=== PATIENT | female | born 1960 | race Caucasian/White ===

== ENCOUNTER 2019-09-02 09:54 | Inpatient (IN) | payer OTHER ==
[~2019-09-02] VITALS: Ht 170.2 cm; Wt 57.2 kg
[2019-09-02] VITALS (11 sets, daily range): BP systolic 121–137; BP diastolic 74–93
[2019-09-02] MEDS ORDERED: BISACODYL 10 MG SUPP (DULCOLAX) PR PRN (10:30)
[2019-09-02] MEDS ORDERED: ACETAMINOPHEN 325 MG TABLET PO PRN (10:30)
[2019-09-02] MEDS ORDERED: MILK OF MAGNESIA 400 MG/5 ML 30 ML UDC PO PRN (10:30)
--- NOTE | 2019-09-02 11:31 | NUR ---
ERNESTINA SOTO admitted to room , with an admitting diagnosis of SUBACUTE CVA, on from [facility] via [facility], accompanied by [facility].ERNESTINA SOTO introduced to surroundings, call light, bed controls, phone, TV, temperature control, lights, meal times, smoking policy, visitor policy, side rail policy, bathrooms and showers. Patient Rights given to patient in the handbook. ERNESTINA SOTO verbalizes understanding that [facility] is not responsible for the loss or damage to any personal effects or valuables that are kept in the patients posession during their hospitalization. The following Patient Care Plans were discussed with the ER: Discharge Planning, ALT CEREBRAL TISSUE PERFUSION, INEFF AIRWAY CLEARANCE, IMP MOBILITY, SELF CARE DEFICIT, AND HIGH RISK ASPIRATION. ERNESTINA SOTO verbalizes understanding of Interdisciplinary Patient Education. Patient and/or family were informed about the Rapid Response Team and its purpose. PT CAME FROM [place] [facility] -- REPORT FROM SLICING MACHINE TENDER AT 1046 -- INFORMATION FROM THE PT AND HER FAMIY IS DIFFERENT -- PER FAMILY SHE HAS BEEN HAVING THE STROKE LIKE SXS FOR 3 WEEKS AND REFUSED TO GO FOR MEDICAL TX, BUT THIS AM PT COULD NOT HOLD HER CUP IN R HAND -- TOOK TO ER IN [place], PT HYGIENE VERY POOR, MALNUTRIENT?, HAS NOT SEEN IN YRS, ON NO HOME MEDS -- HAS BEEN SELLING HER PLASMA 2XWK FOR MONEY -- SMOKES 1 1/2 PACK OF CIGARETTES DAILY -- [facility] [place] AND DAUGHTER ARCENIO PERALES [phone] (PER REPORT FROM [place] SLICING MACHINE TENDER) -- DR NEFF ON FLOOR --
--- OUTSIDE RECORDS SUMMARY | 2019-09-02 11:41 | XMS REPORT | Continuity of Care Document ---
Demographics Preferred Language Unknown Marital Status Unknown Moravian Affiliation Unknown Race Unknown Ethnic Group Unknown Author Organization Unknown Address Unknown Phone Unavailable Allergies There is no data. Medications There is no data. Problems There is no data. Procedures There is no data. Results Test Result Range Comprehensive Metabolic Panel - 09/02/19 08:40 Albumin 4.6 g/dL 3.6-5.1 ALP 116 U/L 35-130 ALT 43 U/L 6-45 Anion Gap 17 6-14 AST 53 U/L 2-40 BUN 23 mg/dL 5-25 Calcium 9.7 mg/dL 8.3-10.4 Chloride 106 mmol/L 95-114 CO2 22 mEq/L 22-33 Creat 0.71 mg/dL 0.50-1.50 eGFR 84 mL/min/1.73m2 >59 Globulin 3.5 g/dL 2.3-3.5 Glucose 113 mg/dL 70-110 Osmo 293 280-295 Potassium 4.7 mmol/L 3.5-5.3 Sodium 140 mmol/L 134-148 TBil 0.3 mg/dL 0.2-1.2 TP 8.1 g/dL 6.0-8.3 Rapid Drug Screen + ETOH,Medical - 09/01 09:10 Amphetamine NEGATIVE NEGATIVE Barbiturates NEGATIVE NEGATIVE Benzodiazepines NEGATIVE NEGATIVE Cocaine NEGATIVE NEGATIVE Ethanol, Urine <10.00 mg/dL 20.00-80.00 Marijuana NEGATIVE NEGATIVE Methylenedioxymethamphetamine NEGATIVE NEGATIVE Opiates NEGATIVE NEGATIVE Oxycodone NEGATIVE NEGATIVE Phencyclidine NEGATIVE NEGATIVE Propoxyphene NEGATIVE NEGATIVE Tricyclic Antidepressant NEGATIVE NEGAT ILIA Encounters ACCT No. Visit Date/Time Discharge Status Pt. Type Provider Facility Loc./Unit Complaint [id number] 09/02/2019 08:10:00 Document Registration
[2019-09-02] MEDS: ENOXAPARIN 40 MG/0.4 ML (LOVENOX) SYR SC SCH (13:17)
[2019-09-02] MEDS: NS IV 1000 ML 1,000 ML IV SCH (13:18)
[2019-09-02] MEDS: HYDROcodone/APAP 5 MG/325 MG (LORTAB) TAB PO PRN (16:35)
--- NOTE | 2019-09-02 18:49 | History & Physical-Hospitalist ---
History of Present Illness HPI/Chief Complaint CC: CVA HPI: This is a 58yoWF who presented to the [facility] ER with unknown duration of right sided weakness. Patient has difficulty communicating due to the CVA and likely underlying other issues so very difficult to obtain extensive details. Patient was deemed not a tPA candidate and needed CVA w/u including MRI since CT scan was unrevealing and carotid USG and Cardiology evaluation. ASA and statin has been started to further risk stratify. Smoking cessation counseled. Patient donates plasma twice weekly in order to obtain income and she lives with a friend Deni. Source: patient Exam Limitations: physical impairment Date Seen 09/02/19 Time Seen by a Provider: 12:15 Attending Physician Charisse Thibodeaux DO PCP Referring Physician Date of Admission Sep 02, 2019 at 11:10 Home Medications & Allergies Home Medications Reviewed patient Home Medication Reconciliation performed by pharmacy medication reconciliations landscape technician and/or nursing. Patients Allergies have been reviewed. Allergies Allergies Coded Allergies No Known Drug Allergies (Unverified09/02/19) Past Ebibssa-Mpogdf-Towfyt Hx Past Med/Social Hx: Reviewed Nursing Past Med/Soc Hx, Reviewed and Corrections made Patient Social History Marrital Status: cohabiting Employed/Student: unemployed Alcohol Use: Denies Use Recreational Drug Use: Yes Smoking Status: Current Everyday Smoker Type Used: Cigarettes Physical Abuse Screen: No Sexual Abuse: No Recent Foreign Travel: No Contact w/other who traveled: No Recent Infectious Disease Expo: No Seasonal Allergies Seasonal Allergies: No Past Medical History : No History of Blood Disorders: No Review of Systems Constitutional: see HPI, malaise, weakness Psychiatric/Neurological: Weakness Physical Exam Physical Exam Vital Signs Vital Signs - First Documented 09/02/19 09/02/19 11:10 11:45 Temp 37.0 Pulse 89 Resp 20 B/P (MAP) 121/74 Pulse Ox 93 O2 Delivery Room Air Capillary Refill : Less Than 3 Seconds Height, Weight, BMI Height: '" Weight: lbs. oz. kg; 19.74 BMI Method: General Appearance: Anxious, Chronically ill, Cachetic, Other (appears 20+ years older than stated age) Respiratory: Chest Non Tender, Lungs Clear, Normal Breath Sounds, No Accessory Muscle Use, No Respiratory Distress Cardiovascular: Regular Rate, Rhythm, No Edema, No Gallop, No JVD, No Murmur, Normal Peripheral Pulses Neurologic/Psychiatric: Alert, phonograph cartridge assembler II-XII Norm as Tested, Abnormal Gait, Aphasia (partial), Motor Weakness (right sided weakness 1/5 right hand 2/5 right leg) Results Results/Procedures Labs Laboratory Tests 09/02/19 12:53 Patient resulted labs reviewed. Assessment/Plan Admission Diagnosis Assessment: CVA with negative CT scan at [facility] in need of CVA w/u with MRI Smoker Cachexia chronic Plan: MRI Carotid USG Dr Ruggiero consultation appreciated Tely EKG ECHO Lipid Statin ASA Admission Status: Inpatient Order (span 2 midnights) Reason for Inpatient Admission: CVA Diagnosis/Problems Diagnosis/Problems (1) CVA (cerebral vascular accident) Clinical Quality Measures DVT/VTE Risk/Contraindication: Risk Factor Score Per Nursin RFS Level Per Nursing on Admit: 4+=Very High CHARISSE THIBODEAUX DO Sep 02, 2019 18:49
--- NOTE | 2019-09-02 19:19 | Consultation-Cardiology ---
HPI-Cardiology Cardiology Consultation Date of Consultation 09/02/19 Date of Admission Time Seen by Provider: 19:15 Indication: Subacute CVA HPI 58-year-old lady, no known previous history, no previous record, sent to [facility] emergency room by her family due to progressive weakness and lethargy and right side weakness that has been progressing over the past week. Patient was transferred to the hospital in [place]. On my evaluation patient is lethargic, right hemiplegia, moving her eyes, following commands with moving her left arm, unable to communicate, she has constant gaze. Trying to move her mouth without ability of stocking. I discussed with Dr. Thibodeaux, she has been weak and unable to communicate but according to the nurse earlier today she was able to answer some questions and able to communicate with her daughter. We decided to transfer her to the intensive care unit due to deterioration in her mental status Home Medications & Allergies Allergies: Coded Allergies: No Known Drug Allergies (Unverified , 09/02/19) Home Medication List Reviewed: Yes KEP-Nglhtx-Erlzor Hx Patient Social History Marital Status: cohabiting Employed/Student: unemployed Alcohol Use: Denies Use Recreational Drug Use: Yes Smoking Status: Current Everyday Smoker Type Used: Cigarettes Recent Foreign Travel: No Recent Infectious Disease Expo: No Physical Abuse Screen: No Sexual Abuse: No Past Medical History Unable to provide past medical history Family Medical History Family Medical Hx Unable to provide family history Review of Systems-General Review of Systems Constitutional: see HPI, malaise, weakness, other (Unable to provide review of systems) Psychiatric/Neurological: Weakness Reviewed Test Results Reviewed Test Results Lab Laboratory Tests Test 09/02/19 12:53 Range/Units Creatinine 0.64 0.60-1.30 MG/DL Physical Exam Physical Exam Vital Signs Vital Signs - First Documented 09/02/19 09/02/19 11:10 11:45 Temp 37.0 Pulse 89 Resp 20 B/P (MAP) 121/74 Pulse Ox 93 O2 Delivery Room Air Capillary Refill : Less Than 3 Seconds Height, Weight, BMI Height: '" Weight: lbs. oz. kg; 19.74 BMI Method: General Appearance: Anxious, Chronically ill, Cachetic, Other (appears 20+ years older than stated age) Respiratory: Chest Non Tender, Lungs Clear, Normal Breath Sounds, No Accessory Muscle Use, No Respiratory Distress Cardiovascular: Regular Rate, Rhythm, No Edema, No Gallop, No JVD, No Murmur, Normal Peripheral Pulses Neurologic/Psychiatric: Alert, Abnormal Gait, Aphasia (partial), Motor Weakness (Right hemiplegia, unable to communicate.) A/P-Cardiology Admission Diagnosis Subacute CVA Hypertension Right hemiplegia Assessment/Plan Subacute CVA, progressively worse. Discussed with Dr. Workman will admit to the intensive care unit, I am planning to evaluate CT angiogram of the head and neck Echocardiogram showed normal LV function, prominent aorta. No significant abnormality otherwise Hypertension, monitor blood pressure, try to keep blood pressure around 150-160 systolic. Speech and evaluate swallowing study Clinical Quality Measures DVT/VTE Risk/Contraindication: Risk Factor Score Per Nursin RFS Level Per Nursing on Admit: 4+=Very High DAMON ROTH MD Sep 02, 2019 19:19
--- NOTE | 2019-09-02 19:34 | NUR ---
NOTE THAT DR ROTH REQUESTED WAS TO ROOM PT APHASIC WITH HIM -- SPENCER VILLALPANDO -- HE REQUESTED HER MOVED ICU -- ICU 7 -- NOTE THAT DR ROTH CALLED AND TALKED TODR HARRIS AND SHE IS AWARE -- THIS RN CALLED PT'S DAUGHTER AND ADVISED OF THE TRANSFER TO ICU -- SECURITY ADMINISTRATOR IS AWARE
[2019-09-02 19:46] LABS: HEMOGLOBIN 12.6 G/DL (11.5-16.0); MEAN PLATELET VOLUME 10.3 FL (7.4-10.4); RED CELL DISTRIBUTION WIDTH 14.4 % (10.0-14.5); WHITE BLOOD COUNT 12.9 10^3/uL (4.3-11.0)
[2019-09-02 19:53] LABS: ALBUMIN 4.2 GM/DL (3.2-4.5); CHLORIDE 107 MMOL/L (98-107); POTASSIUM 3.9 MMOL/L (3.6-5.0); SODIUM 138 MMOL/L (135-145)
[2019-09-02 19:54] LABS: CALCIUM 9.2 MG/DL (8.5-10.1)
[2019-09-02 19:55] LABS: GLUCOSE 100 MG/DL (70-105); TOTAL PROTEIN 7.3 GM/DL (6.4-8.2)
[2019-09-02 19:56] LABS: CARBON DIOXIDE 20 MMOL/L (21-32)
[2019-09-02 19:57] LABS: BILIRUBIN,TOTAL 0.4 MG/DL (0.1-1.0)
[2019-09-02 19:59] LABS: ALKALINE PHOSPHATASE 87 U/L (40-136); CREATININE SERUM 0.63 MG/DL (0.60-1.30); GFR ESTIMATED > 60
[2019-09-02 20:00] LABS: BUN/CREATININE RATIO 25
[2019-09-02] MEDS ORDERED: HOLD METFORMIN - RECEIVED CONTRAST 20 ML VIAL IV SCH (20:00)
[2019-09-02] MEDS ORDERED: IOHEXOL 350 MG/ML 100 ML (OMNIPAQUE 350) VIAL IV ONE (20:00)
[2019-09-02] MEDS ORDERED: NS 100 ML (IVPB) BAG IV ONE (20:00)
[2019-09-02] MEDS ORDERED: CATHETER FLUSH 10 ML SYR IV PRN (20:00)
[2019-09-02 20:02] LABS: ALANINE AMINOTRANSFERASE 35 U/L (0-55)
[2019-09-02 20:47] LABS: ABG BASE EXCESS -1.6 MMOL/L (-2.5-2.5); ABG OXYGEN SATURATION 92 % (94-100); ABG PCO2 41 MMHG (35-45); ABG PH 7.36 (7.37-7.43); ABG PO2 69 MMHG (79-93); ABG TCO2 24.2 MMOL/L (21.0-31.0); ALLENS TEST POSITIVE; INSPIRED O2 RA; PATIENT TEMP 37.2; VENTILATOR NO
--- NOTE | 2019-09-02 20:48 | Diagnostic Imaging Report ---
PROCEDURE: CT angiography of the head and CT angiography of the neck with and without contrast. TECHNIQUE: Contiguous noncontrast images were obtained from the skull base through the vertex. After intravenous contrast administration, helical CT angiography of the neck was performed. Source data was reformatted into 3D MIP projections. Delayed post contrast acquisition was also obtained. Auto Exposure Controls were utilized during the CT exam to meet ALARA standards for radiation dose reduction. INDICATION: Right-sided weakness There are no prior studies available for comparison. On the pre-intravenous contrast series there is no mass, shift of the midline or hemorrhage to suggest an acute abnormality. There is no sign of an asymmetric hyperdense vessel either. On the postcontrast images, there is no evidence for a large vessel occlusion. There is no sign of an aneurysm of the [place] of [place] either. The images through the neck show that there is some atherosclerotic plaque involving both carotid bifurcations but that there is no hemodynamically significant stenosis of the common or internal carotid arteries. The vertebral arteries were opacified and appear codominant. There is no mass or adenopathy involving the neck. Thyroid gland is generally unremarkable. The lung apices are clear but there are fairly severe emphysematous changes involving both lung apices. The bone windows show no sign of a fracture or of a destructive lesion. There is a 60-70% compression deformity of T3. This appears to be probably long-standing in nature. If further imaging is desired, however, then MRI would be recommended. IMPRESSION: 1. There is no evidence for a large vessel occlusion and there is no sign of an aneurysm of the [place] of [place]. If clinical concern regarding an acute intracranial abnormality persists, then MRI would be recommended for further study. 2. There is atherosclerotic disease involving the carotid systems, but there is no sign of hemodynamically significant stenosis of the common or internal carotid arteries. The vertebral arteries are codominant and patent. 3. There are emphysematous changes involving both lung apices. 4. There is a severe compression deformity of T3. This injury may well be chronic in nature but its age is technically indeterminate. If further imaging is desired, then MRI would be recommended. 5. These results were discussed with Dr. Ruggiero. Dictated by: Dictated on workstation # [id number]
[2019-09-03] VITALS (16 sets, daily range): BP systolic 126–147; BP diastolic 73–89
[2019-09-03 03:16] LABS: HEMOGLOBIN 14.8 G/DL (11.5-16.0); MEAN PLATELET VOLUME 9.2 FL (7.4-10.4); RED CELL DISTRIBUTION WIDTH 14.3 % (10.0-14.5); WHITE BLOOD COUNT 12.8 10^3/uL (4.3-11.0)
[2019-09-03] MEDS: NS IV 1000 ML 1,000 ML IV SCH ×2 (03:19→16:08)
[2019-09-03 03:29] LABS: CHLORIDE 107 MMOL/L (98-107); POTASSIUM 4.2 MMOL/L (3.6-5.0); SODIUM 138 MMOL/L (135-145)
[2019-09-03 03:30] LABS: ALBUMIN 4.3 GM/DL (3.2-4.5)
[2019-09-03 03:31] LABS: CALCIUM 9.5 MG/DL (8.5-10.1); TRIGLYCERIDES 329 MG/DL (<150); VLDL CHOLESTEROL 66 MG/DL (5-40)
[2019-09-03 03:32] LABS: GLUCOSE 119 MG/DL (70-105); TOTAL PROTEIN 7.4 GM/DL (6.4-8.2)
[2019-09-03 03:33] LABS: CARBON DIOXIDE 20 MMOL/L (21-32)
[2019-09-03 03:34] LABS: BILIRUBIN,TOTAL 0.4 MG/DL (0.1-1.0)
[2019-09-03 03:36] LABS: ALKALINE PHOSPHATASE 92 U/L (40-136); CHOLESTEROL 278 MG/DL (< 200); CREATININE SERUM 0.66 MG/DL (0.60-1.30); GFR ESTIMATED > 60
[2019-09-03 03:37] LABS: BUN/CREATININE RATIO 20
[2019-09-03 03:38] LABS: HDL CHOLESTEROL 57 MG/DL (40-60)
[2019-09-03 03:39] LABS: ALANINE AMINOTRANSFERASE 36 U/L (0-55)
[2019-09-03] MEDS: HYDROcodone/APAP 5 MG/325 MG (LORTAB) TAB PO PRN ×3 (07:18→20:58)
[2019-09-03] MEDS: DOCUSATE SODIUM 100 MG (COLACE) CAP PO SCH (07:50)
[2019-09-03] MEDS: ASPIRIN E.C. 325 MG (ECOTRIN) TABLET PO SCH (07:50)
[2019-09-03] MEDS: ENOXAPARIN 40 MG/0.4 ML (LOVENOX) SYR SC SCH (07:51)
--- NOTE | 2019-09-03 10:38 | Cardiology Progress Note ---
Subjective Date Seen by Provider: Sep 03, 2019 Time Seen by Provider: 10:36 Subjective/Events-last exam Patient is laying down in bed, right hemiplegia, aphagia. No change compared to yesterday Review of Systems General: No Chills, No Night Sweats; Fatigue, Malaise; No Appetite, No Other HEENT: No Head Aches, No Visual Changes, No Eye Pain, No Ear Pain, No Dysphasi a, No Sinus Congestion, No Post Nasal Drip, No Sore Throat, No Other Pulmonary: No Dyspnea, No Cough, No Pleuritic Chest Pain, No Other Cardiovascular: No: Chest Pain, Palpitations, Orthopnea, Paroxysmal Noc. Dyspnea, Edema, Lt Headedness, Other Objective-Cardiology Exam Last Set of Vital Signs Vital Signs 09/03/19 10:00 Pulse 72 Resp 15 B/P (MAP) 132/73 (92) Pulse Ox 92 O2 Delivery Room Air Capillary Refill : Less Than 3 SecondsLess Than 3 Seconds I&O Intake and Output 09/03/19 00:00 Intake Total 200 ml Output Total 875 ml Balance -675 ml Intake Oral 200 ml Output Urine Total 875 ml Daily Weight Change No No General: Alert, Moderate Distress HEENT: Atraumatic Neck: Supple, No JVD Lungs: Clear to Auscultation, Normal Air Movement Heart: Regular Rate, Normal S1, Normal S2 Abdomen: Normal Bowel Sounds, Soft Extremities: No Clubbing, No Cyanosis Skin: No Rashes, No Breakdown Neuro: Other (right hemiplegia, aphasia) Psych/Mental Status: Other (not verbal, not answering commands) Results Lab Laboratory Tests 09/02/19 12:53 09/02/19 19:35 09/03/19 03:03 A/P-Cardiology Admission Diagnosis Subacute CVA Hypertension Right hemiplegia Assessment/Plan Subacute CVA, she was transferred to the intensive care unit yesterday, still having right hemiplegia and aphagia. Not following commands, CT angiogram of the head was nondiagnostic. Consider MRI, managed by primary care physician Echocardiogram showed normal LV function, prominent aorta. No significant abnormality otherwise Hypertension, monitor blood pressure, try to keep blood pressure around 150-160 systolic. Speech and evaluate swallowing study Clinical Quality Measures DVT/VTE Risk/Contraindication: Risk Factor Score Per Nursin RFS Level Per Nursing on Admit: 4+=Very High DAMON ROTH MD Sep 03, 2019 10:38
--- NOTE | 2019-09-03 10:51 | Progress Note - Hospitalist ---
Subjective HPI/CC On Admission Date Seen by Provider: Sep 03, 2019 Time Seen by Provider: 10:00 CC: CVA HPI: This is a 58yoWF who presented to the [facility] ER with unknown duration of right sided weakness. Patient has difficulty communicating due to the CVA and likely underlying other issues so very difficult to obtain extensive details. Patient was deemed not a tPA candidate and needed CVA w/u including MRI since CT scan w as unrevealing and carotid USG and Cardiology evaluation. ASA and statin has been started to further risk stratify. Smoking cessation counseled. Patient donates plasma twice weekly in order to obtain income and she lives with a friend Deni. Subjective/Events-last exam Patient about the same Moved to ICU due to concern of evolving CVA Seems like she has behaviors with health care providers? Refuses to talk to nurses and doctors but talks to people on the phone? T3 compression fracture noted so will get MRI of that and brain tomorrow Very confusing clinical picture Review of Systems General: Fatigue Musculoskeletal: neck pain Neurological: Incoordination, Change in speech, Confusion Objective Exam Vital Signs Vital Signs Date Time Temp Pulse Resp B/P (MAP) Pulse Ox O2 Delivery O2 Flow Rate FiO2 09/03/19 15:59 36.6 79 16 137/86 (103) 90 Room Air Capillary Refill : Less Than 3 SecondsLess Than 3 Seconds General Appearance: No Apparent Distress, Anxious, Cachetic Respiratory: Chest Non Tender, Lungs Clear, Normal Breath Sounds, No Accessory Muscle Use, No Respiratory Distress Cardiovascular: Regular Rate, Rhythm, No Edema, No Gallop, No JVD, No Murmur, Normal Peripheral Pulses Neurologic/Psychiatric: Alert, Abnormal Gait, Motor Weakness Results/Procedures Lab Laboratory Tests 09/02/19 19:35 09/03/19 03:03 Patient resulted labs reviewed. Assessment/Plan Assessment and Plan Assess & Plan/Chief Complaint Assessment: Presumed CVA with negative CT scan at [facility] in need of CVA w/u with MRI Smoker Cachexia chronic Behavior issues? T3 compression fracture Plan: MRI Carotid USG Dr Ruggiero consultation appreciated Tely EKG ECHO Lipid Statin ASA MRI T-spine Diagnosis/Problems Diagnosis/Problems (1) CVA (cerebral vascular accident) (2) Compression fracture of T3 vertebra (3) Behavior disorder (4) Dysarthria (5) Leukocytosis Clinical Quality Measures DVT/VTE Risk/Contraindication: Risk Factor Score Per Nursin RFS Level Per Nursing on Admit: 4+=Very High KRYS NEFF DO Sep 03, 2019 10:51
--- NOTE | 2019-09-03 13:20 | NUR ---
Report called to OLU Gutierrez who will assume pt care on arrival to room 416. Personal belongings with pt at time of transfer.
--- NOTE | 2019-09-03 13:30 | NUR ---
Pt transferred to [facility] at this time via bed by this RN. NT at bedside on arrival.
--- NOTE | 2019-09-03 13:30 | NUR ---
this RN took over patient care at this time. patient alert and orientated and verbalized to this RN she is hungry and asked what the plan of care is. son called this RN and stated he is on his way to visit her
--- NOTE | 2019-09-03 21:13 | NUR ---
Pt does not follow commands and does not want to talk at this time. She did ask for a pain pill and can do tasks by herself. At this time she is not cooperative. Addendum: 09/03/19 at 2115 by CIERRA CERVANTES RN Amended: Links added.
[2019-09-04 00:22] VITALS: BP 146/84
[2019-09-04 04:00] VITALS: BP 150/84
[2019-09-04] MEDS: NS IV 1000 ML 1,000 ML IV SCH ×2 (05:19→20:53)
[2019-09-04 05:24] LABS: BASOPHILS % (AUTO) 0 % (0-10); EOSINOPHILS % (AUTO) 0 % (0-10); HEMATOCRIT 44 % (35-52); HEMOGLOBIN 14.6 G/DL (11.5-16.0); LYMPHOCYTES # (AUTO) 2.2 X 10^3 (1.0-4.0); LYMPHOCYTES % (AUTO) 15 % (12-44); MEAN CORPUSCULAR HEMOGLOBIN 29 PG (25-34); MEAN CORPUSCULAR HGB CONC 33 G/DL (32-36); MEAN CORPUSCULAR VOLUME 87 FL (80-99); MEAN PLATELET VOLUME 9.3 FL (7.4-10.4); MONOCYTES # (AUTO) 1.3 X 10^3 (0.0-1.0); MONOCYTES % (AUTO) 8 % (0-12); NEUTROPHILS # (AUTO) 11.5 X 10^3 (1.8-7.8); NEUTROPHILS % (AUTO) 77 % (42-75); PLATELET COUNT 342 10^3/uL (130-400); RED CELL DISTRIBUTION WIDTH 13.5 % (10.0-14.5)
[2019-09-04 05:37] LABS: ALBUMIN 4.2 GM/DL (3.2-4.5); CHLORIDE 105 MMOL/L (98-107); POTASSIUM 4.2 MMOL/L (3.6-5.0); SODIUM 136 MMOL/L (135-145)
[2019-09-04 05:38] LABS: CALCIUM 9.3 MG/DL (8.5-10.1)
[2019-09-04 05:39] LABS: GLUCOSE 120 MG/DL (70-105); TOTAL PROTEIN 7.4 GM/DL (6.4-8.2)
[2019-09-04 05:40] LABS: CARBON DIOXIDE 20 MMOL/L (21-32)
[2019-09-04 05:41] LABS: BILIRUBIN,TOTAL 0.6 MG/DL (0.1-1.0)
[2019-09-04 05:43] LABS: ALKALINE PHOSPHATASE 94 U/L (40-136); GFR ESTIMATED > 60
[2019-09-04 05:44] LABS: BUN/CREATININE RATIO 17
[2019-09-04 05:46] LABS: ALANINE AMINOTRANSFERASE 32 U/L (0-55)
[2019-09-04 06:12] LABS: ATYPICAL LYMPHOCYTES 1 %; LYMPHOCYTES % (MANUAL) 13 %; METAMYELOCYTES % 1 %; MONOCYTES % (MANUAL) 4 %; NEUTROPHILS % (MANUAL) 81 %; NUCLEATED RED BLOOD CELLS 2
[2019-09-04 06:13] LABS: HYPOCHROMASIA SLIGHT
[2019-09-04 08:00] VITALS: BP 148/98
[2019-09-04] MEDS: DOCUSATE SODIUM 100 MG (COLACE) CAP PO SCH (08:14)
[2019-09-04] MEDS: ASPIRIN E.C. 325 MG (ECOTRIN) TABLET PO SCH (08:14)
--- NOTE | 2019-09-04 10:02 | Diagnostic Imaging Report ---
PROCEDURE: US carotid duplex, bilateral. TECHNIQUE: Multiple real-time grayscale images were obtained over the carotid arteries in various projections, bilaterally. Additional spectral analysis and color Doppler duplex images were also obtained. INDICATION: CVA. There is minimal plaque in the right proximal internal carotid artery. Velocities on the right are normal. A left neck was significantly compromised due to patient positioning. The mid and distal left ICA cannot be visualized. The proximal ICA does show normal velocity. ICA to CCA ratios are normal. Both vertebral arteries demonstrate antegrade flow. IMPRESSION: No evidence of a hemodynamically significant stenosis on the right. The left mid and distal ICA were poorly visualized due to patient positioning. No significant abnormality was detected. Parameters based on the consensus panel Dan-Scale and Doppler ultrasound criteria published January 2003, Radiology, Volume 229. DOPPLER (peak systolic velocity M/S Right Left CCA 0.93 1.07 ICA Proximal 0.43 0.79 ICA Mid 0.46 NOT SEEN ICA Distal .54 NOT SEEN RATIO 0.59 0.74 ECA 0.75 0.57 VERT 0.66 0.59 Dictated by: Dictated on workstation # [id number]
--- NOTE | 2019-09-04 10:23 | Cardiology Progress Note ---
Subjective Date Seen by Provider: Sep 04, 2019 Time Seen by Provider: 10:21 Subjective/Events-last exam Patient is in bed, denies any pain, going for MRI this morning. Objective-Cardiology Exam Last Set of Vital Signs Vital Signs 09/04/19 08:00 Temp 36.2 Pulse 77 Resp 18 B/P (MAP) 148/98 (115) Pulse Ox 93 O2 Delivery Room Air Capillary Refill : Less Than 3 SecondsLess Than 3 Seconds I&O Intake and Output 09/04/19 00:00 Intake Total 450 ml Output Total 1175 ml Balance -725 ml Intake Oral 450 ml Output Urine Total 1175 ml General: Alert, Cooperative, No Acute Distress HEENT: Atraumatic Neck: Supple, No JVD Lungs: Clear to Auscultation, Normal Air Movement Heart: Regular Rate, Normal S1, Normal S2 Abdomen: Normal Bowel Sounds, Soft Extremities: No Clubbing, No Cyanosis Skin: No Rashes, No Breakdown Neuro: Other (right hemiplegia, aphasia) Results Lab Laboratory Tests 09/04/19 05:10 A/P-Cardiology Admission Diagnosis Subacute CVA Hypertension Right hemiplegia Assessment/Plan Subacute CVA, still having right hemiplegia and aphagia. Is able to answer yes or no to questions asked, CT angiogram of the head was nondiagnostic. Planning for MRI this morning. Echocardiogram showed normal LV function, prominent aorta. No significant abnormality otherwise Hypertension, monitor blood pressure, try to keep blood pressure around 150-160 systolic. HLP- started on Lipitor, continue to monitor. Speech and evaluate swallowing study Clinical Quality Measures DVT/VTE Risk/Contraindication: Risk Factor Score Per Nursin RFS Level Per Nursing on Admit: 4+=Very High KESHAV GUTIERREZ Sep 04, 2019 10:23
--- NOTE | 2019-09-04 10:33 | Physical Therapy Evaluation ---
PT Evaluation-General Medical Diagnosis Admission Date Sep 02, 2019 at 11:10 Medical Diagnosis: CVA Onset Date: Sep 02, 2019 Therapy Diagnosis Therapy Diagnosis: impaired mobility, strength, endurance Precautions Precautions/Isolations: Fall Prevention Referral Physician: Charisse Thibodeaux DO Reason for Referral: Evaluation/Treatment Medical History Pertinent Medical History: Smoking Social History Unknown, patient does not provide info for this Prior Prior Level of Function SCALE: Activities may be completed with or without assistive devices. 3-Vfqbctjcos-kltsfrs completes the activity by him/herself with no assistance from a helper. 5-Set-up or Clean-up Assistance-helper sets up or cleans up; patient completes activity. [place] assists only prior to or following the activity. 4-Supervision or Touching Assistance-helper provides verbal cues and/or touching/steadying and/or contact guard assistance as patient completes activity. Assistance may be provided throughout the activity or intermittently. 3-Partial/Moderate Assistance-helper does LESS THAN HALF the effort. [place] lifts, holds or supports trunk or limbs, but provides less than half the effort. 2-Substantial/Maximal Assistance-helper does MORE THAN HALF the effort. [place] lifts or holds trunk or limbs and provides more than half the effort. 6-Shnngshrc-vxytpz does ALL the effort. Patient does none of the effort to complete the activity. Or, the assistance of 2 or more helpers is required for the patient to complete the activity. If activity was not attempted, code reason: 7-Patient Refused. 9-Not Applicable-not attempted and the patient did not perform the activity before the current illness, exacerbation or injury. 10-Not Attempted due to Environmental Limitations-(lack of equipment, weather restraints, etc.). 88-Not Attempted due to Medical Conditions or Safety Concerns. unknown PT Evaluation-Current Subjective Patient in bed pre tx, is going to get onto MRI table and down to radiology, will assist with transfers, patient denies pain. Pt/Family Goals none stated Objective Patient Orientation: Person, Unable to Assess ROM/Strength ROM Lower Extremities WNL Strength Lower Extremities patient unable to follow directions for strength testing Transfers Roll Left to Right (QC): 1 Sit to Lying (QC): 1 Lying to Sitting/Side of Bed(Q: 1 Sit to Stand (QC): 1 Chair/Gmi-el-Spfkp Xfer(QC): 1 Patient does not attempt to assist with bed mobility or transfer or standing. She seems unable to comprehend what is happening around her. Movement in all extremities is observed though. Patient doesn't follow any directions, states she cannot move her extremities, states her weak side is the right side. Assessment/Needs Patient has impaired mobility, strength, endurance. Patient does not follow commands. Patient needs a chair or bed alarm after she gets back from MRI. Rehab Potential: Guarded PT Fci Goals Fci Goals PT Licensing Officer Goals Time Frame: Sep 11, 2019 Roll Left & Right (QC): 3 Sit to Lying (QC): 3 Lying-Sitting on Side/Bed(QC): 3 Sit to Stand (QC): 3 Chair/Hsc-vb-Xwzsp Xfer(QC): 3 PT Plan Problem List Problem List: Activity Tolerance, Functional Strength, Safety, Balance, Gait, Transfer, Bed Mobility Treatment/Plan Treatment Plan: Continue Plan of Care Treatment Plan: Bed Mobility, Education, Functional Activity Afia, Functional Strength, Gait, Safety, Therapeutic Exercise, Transfers Treatment Duration: Sep 11, 2019 Frequency: 6 times per week Estimated Hrs Per Day: .25 hour per day Patient and/or Family Agrees t: Yes Safety Risks/Education Patient Education: Transfer Techniques, Correct Positioning, Safety Issues Teaching Recipient: Patient Teaching Methods: Demonstration, Discussion Response to Teaching: Reinforcement Needed Discharge Recommendations Plan Patient will perform bed mobility and transfer training, balance and endurance training, functional strengthening, stair training, gait training, and education, to improve functional mobility and independence at home. Therapy Discharge Recommendati: Other, See Comments (NH) Time/GCodes Time In: 1010 Time Out: 1020 Total Billed Treatment Time: 10 Total Billed Treatment 1 visit TASHA HERNANDEZ PT Sep 04, 2019 10:33
--- NOTE | 2019-09-04 10:42 | Occupational Therapy Eval ---
OT Evaluation-General/PLF Medical Diagnosis Admission Date Sep 02, 2019 at 11:10 Medical Diagnosis: CVA Onset Date: Sep 02, 2019 Therapy Diagnosis Therapy Diagnosis: Decreased ADL status Precautions Precautions/Isolations: Fall Prevention Referral Physician: Charisse Thibodeaux DO Referral Reason: Activity Tolerance, Self Care, Evaluation/Treatment, Strengthening/ROM Medical History Pertinent Medical History: Smoking Additional Medical History see nursing notes. Current History Pt [place] [facility] [place] c/o R side weakness that progressed over 1 week. Reviewed History: Yes Social History Home: Single Level Current Living Status: Children (son/ daughter in law/ 19 y/o grandson) Entry Into Home: Level Entry ADL-Prior Level of Function SCALE: Activities may be completed with or without assistive devices. 4-Ni[place]uccdot-cjuumld completes the activity by him/herself with no assistance from a helper. 5-Set-up or Clean-up Assistance-helper sets up or cleans up; patient completes activity. [place] assists only prior to or following the activity. 4-Supervision or Touching Assistance-helper provides verbal cues and/or touching/steadying and/or contact guard assistance as patient completes activity. Assistance may be provided throughout the activity or intermittently. 3-Partial/Moderate Assistance-helper does LESS THAN HALF the effort. [place] lifts, holds or supports trunk or limbs, but provides less than half the effort. 2-Substantial/Maximal Assistance-helper does MORE THAN HALF the effort. [place] lifts or holds trunk or limbs and provides more than half the effort. 1-Dgyavllhi-fjdres does ALL the effort. Patient does none of the effort to complete the activity. Or, the assistance of 2 or more helpers is required for the patient to complete the activity. If activity was not attempted, code reason: 7-Patient Refused. 9-Not Applicable-not attempted and the patient did not perform the activity before the current illness, exacerbation or injury. 10-Not Attempted due to Environmental Limitations-(lack of equipment, weather restraints, etc.). 88-Not Attempted due to Medical Conditions or Safety Concerns. 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 Drive Self: No OT Current Status Subjective Pt seen in bed, head turned to L side without ability to look toward door. Pt d oes not state pain until PROM of neck. Pt agrees to OT. Pt has soft spoken voice with attention and response time variable through session. Mental Status/Objective Patient Orientation: Person, Place, Situation Attachments: IV Current Hand Dominance: Left Upper Extremity ROM B hands WFL R wrist/ elbow/ shoulder impaired- unable to complete task, no mm contraction noted though pt unable to respond to requests at times. L elbow WFL, L shoulder impaired Full ROM B shoulders to full range. Upper Extremity Coordination unable to test per pt's ability to complete requests. Upper Extremity Sensation unable to assess as pt's response time variable. Upper Extremity Strength hands WFL, though diminished strength shoulders bilaterally impaired, though pt unable to follow commands. Edema: none noted. ADL-Treatment On/Off Footwear (QC): 1 (completes EOB with PT addressing EOB balance.) Toileting Hygiene (QC): 1 (per clinical judgment.) Other Treatments Pt reponds to OT, keeping head toward L side. Pt educated on OT role. Pt unable to center neck. Pt does not c/o visual changes, able to track in all planes over multiple trials due to attention decreased. Pt completes workers compensation consultant strength testing- fair. Pt's biceps bilaterally tight, requires mm inhibition techniques to bring to full extension. Completing PROM of neck to center while completing mm inhibition to L neck mm (very tight); able to reach midline and placed pillows on L to center head; nursing notified of task to inhibit L cervical mms. Pt inconsistent with response times. Pt's eyes shut during tasks, able to be aroused and maintains eye opening throughout. MRI table brought in, PT and OT address fx mob to get on to table. PT addresses fx mob and OT UE movement and attention- pt bed mob TD. Pt sits EOB with poor trunk control. Pt transferred to table with TD, able to respond to requests at times. Pt left with techs, all needs met. Education OT Patient Education: Correct positioning, Exercise program, Progress toward Goal/Update tx plan, Transfer techniques Teaching Recipient: Patient Teaching Methods: Demonstration, Discussion Response to Teaching: Verbalize Understanding, Return Demonstration, Reinforcement Needed OT Plasma Processing Technician Goals Assisted Goals Time Frame: Sep 11, 2019 Eating (QC): 5 Oral Hygiene (QC): 5 Toileting Hygiene (QC): 3 Shower/Bathe Self (QC): 3 Upper Body Dressing (QC): 3 Lower Body Dressing (QC): 2 On/Off Footwear (QC): 2 Additional Goals: 1-Demonstrate ADL Tasks, 2-Verbalize Understanding, 3- ImproveStrength/Afia 1=Demonstrate adherence to instructed precautions during ADL tasks. 2=Patient will verbalize/demonstrate understanding of assistive devices/modifications for ADL. 3=Patient will improve strength/tolerance for activity to enable patient to perform ADL's. OT Education/Plan Problem List/Assessment Assessment: Decreased Activ Tolerance, Decreased UE Strength, Dependent Transfers, Impaired Bed Mobility, Impaired Cognition, Impaired Coordination, Impaired Funct Balance, Impaired I ADL's, Impaired Self-Care Skills, Restricted Funct UE ROM Discharge Recommendations Plan/Recommendations: Continue POC Therapy Discharge Recommendati: 24 Hour Supervision Treatment Plan/Plan of Care Treatment,Training & Education: Yes Patient would benefit from OT for education, treatment and training to promote independence in ADL's, mobility, safety and/or upper extremity function for ADL's. Plan of Care: ADL Retraining, Cognitive Retraining, Concurrent Therapy, Functio nal Mobility, Orthotic Fitting/Training, UE Funct Exercise/Act, UE Neuromus Re- Ed/Coord, Visual/Perceptual Retrain, W/C Management Training Treatment Duration: Sep 11, 2019 Frequency: 5 times per week Estimated Hrs Per Day: .25 hour per day Agreement: Yes Rehab Potential: Guarded Time/GCodes Start Time: 09:56 Stop Time: 10:24 Total Time Billed (hr/min): 28 Billed Treatment Time 1, CHARISSA DAVIS (28) CARINA WOODS OTR Sep 04, 2019 10:42
--- NOTE | 2019-09-04 11:08 | Diagnostic Imaging Report ---
PROCEDURE: MR imaging of the brain without contrast. TECHNIQUE: Multiplanar, multisequence MR imaging of the brain was performed without contrast. INDICATION: Right-sided weakness. FINDINGS: Diffusion weighted images demonstrate several areas of diffusion restriction. In particular, the medial left frontal lobe shows a moderate sized area of restriction, consistent with acute infarct. There are also smaller foci in the right anterior cerebral and posterior cerebral artery distribution in the right parafalcine and right occipital region. There is no midline shift identified. The normal expected flow-voids within the carotid siphons are seen. No acute intra-axial or extra-axial hemorrhage is detected. The corpus callosum is unremarkable. The sella and parasellar structures are unremarkable. IMPRESSION: Limited study by motion artifact. There are bilateral acute/subacute infarcts with the largest in the left frontal lobe. This may be owing to showering emboli from embolic phenomenon. No hemorrhage is seen. The results were discussed with Dr. Thibodeaux and Dr. Dc prior to this dictation. Dictated by: Dictated on workstation # [id number]
--- NOTE | 2019-09-04 11:13 | Diagnostic Imaging Report ---
INDICATION: Compression fracture. TECHNIQUE: Multiplanar MR imaging of the thoracic spine was performed. The examination is limited by motion. FINDINGS: The thoracic spinal curvature and alignment are unremarkable. There is marked anterior and central compression fracture deformity at T3. There may be slight retropulsion of the posterior T3 body cortex without significant stenosis. Otherwise, the vertebral body heights and disc spaces are maintained. There is no evidence of paraspinous hematoma. No abnormal signal is seen within the thoracic spinal cord. IMPRESSION: The examination is limited by motion but does demonstrate marked anterior and central compression deformity of the T3 vertebral body without associated marrow edema or hemorrhage. There may be slight retropulsion; however, no significant stenosis is identified and the remainder of the thoracic spine is unremarkable. Dictated by: Dictated on workstation # [id number]
[2019-09-04] MEDS ORDERED: ACET-2267 PO (11:55)
[2019-09-04] MEDS ORDERED: IBUP-2473 PO (11:55)
--- NOTE | 2019-09-04 11:58 | NUR ---
SPOKE WITH PT AND CALLED HER SON ARIEL TO COMPLETE THE MED REC PT WAS UNABLE TO TELL ME ANY INFORMATION ABOUT MEDICATIONS AND WANTED ME TO CALL ARIEL. WHEN I SPOKE WITH ARIEL HE INDICATED THE PT DOES NOT TAKE ANY PRESCRIPTION MED BUT DOES USE IBUPROFEN AND TYLENOL CONSISTENTLY. I DID UPDATE THE PREFERRED PHARMACY
[2019-09-04 12:00] VITALS: BP 134/84
--- NOTE | 2019-09-04 12:22 | Speech Therapy Progress Note ---
Therapy Progress Note Received orders for Swallow evaluation to be completed by a speech therapist. Therapist is not available this date. Nursing (Brenda) informed and I asked her to complete the Nursing Bedside Assessment--if necessary. The nurse did report the patient is currently on a clear liquid diet. We plan to have a speech therapist available 09/05/2019 and will plan to complete a formal assessment that date. ANGELLA JOHNSTON PT Sep 04, 2019 12:22
[2019-09-04] MEDS: ENOXAPARIN 40 MG/0.4 ML (LOVENOX) SYR SC SCH (12:32)
--- NOTE | 2019-09-04 13:43 | Progress Note - Hospitalist ---
Subjective HPI/CC On Admission Date Seen by Provider: Sep 04, 2019 Time Seen by Provider: 08:55 CC: CVA HPI: This is a 58yoWF who presented [place] [facility] with unknown duration of right sided weakness. Patient has difficulty communicating due to the CVA and likely underlying other issues so very difficult to obtain extensive details. Patient was deemed not a tPA candidate and needed CVA w/u including MRI since CT scan w as unrevealing and carotid USG and Cardiology evaluation. ASA and statin has been started to further risk stratify. Smoking cessation counseled. Patient donates plasma twice weekly in order to obtain income and she lives with a friend Deni. Subjective/Events-last exam She is intermittently cooperative. She denies any pain. She denies any fevers or chills. She denies any abdominal pain, nausea, or vomiting. She denies any chest pain. She remains weak on the right side. Objective Exam Vital Signs Vital Signs Date Time Temp Pulse Resp B/P (MAP) Pulse Ox O2 Delivery O2 Flow Rate FiO2 09/04/19 12:00 36.1 89 18 134/84 (101) 90 Room Air Capillary Refill : Less Than 3 SecondsLess Than 3 Seconds General Appearance: No Apparent Distress, Chronically ill, Thin HEENT: PERRL/EOMI, Pharynx Normal Neck: Normal Inspection, Supple Respiratory: Lungs Clear, Normal Breath Sounds, No Respiratory Distress Cardiovascular: Regular Rate, Rhythm, No Edema, No Murmur Gastrointestinal: Normal Bowel Sounds, Non Tender, Soft Extremity: Normal Inspection, Non Tender, No Pedal Edema Neurologic/Psychiatric: Alert, Disoriented, Motor Weakness Skin: Normal Color, Warm/Dry Results/Procedures Lab Laboratory Tests 09/04/19 05:10 Patient resulted labs reviewed. Imaging: Reviewed Imaging Report Assessment/Plan Assessment and Plan Assess & Plan/Chief Complaint Stroke MRI revealed multi territorial infarcts indicative of emboli Carotid ultrasound revealed no significant stenosis Cardiology following, appreciate assistance Obtain blood cultures to evaluate for endocarditis May need transesophageal echocardiogram Continue aspirin and statin HLD Continue statin Tobacco abuse Nicotine patch ordered DVT prophylaxis: Lovenox Diagnosis/Problems Diagnosis/Problems (1) Stroke Status: Acute Qualifiers: CVA mechanism: embolism Precerebral and cerebral artery: unspecified cerebral artery Qualified Codes: I63.40 - Cerebral infarction due to embolism of unspecified cerebral artery (2) Hyperlipidemia Status: Chronic Qualifiers: Hyperlipidemia type: unspecified Qualified Codes: E78.5 - Hyperlipidemia, unspecified (3) Smoker Status: Chronic Clinical Quality Measures DVT/VTE Risk/Contraindication: Risk Factor Score Per Nursin RFS Level Per Nursing on Admit: 4+=Very High ALLYN WHITE MD Sep 04, 2019 13:43
--- NOTE | 2019-09-04 14:44 | NUR ---
CM/SS visited with the patient for social service consult. The patient's daughter Petra ([phone]) was present in the room at the time of this ss visit. She reports that she was wanting to talk with a social research assistant about Medicaid and social security disability. CM/SS informed them that financial services will help them fill out the Medical Medicaid and CM/SS provided them with a Medicaid application for Home Care Based Services and retirement coverage. The daughter verbalized understanding. CM/SS gave them information on how to apply for social security disability via phone and online. CM/SS contacted Financial services and spoke with Nani to update her about case. She reports she will visit patient. The patient's daughter spoke for the patient and the patient only answered her daughter with yes or no responses. Petra reports that her mother and her have been living together ever since she was 5 years old. The patient has only been staying with her brother for the past 7 days due to Petra losing her house. According to Petra, the patient was completely independent prior to this hospital stay and was eating well. The patient does not currently have insurance; therefore, she will not be able to do a retirement stay. Possible home health if able to get on gregg through hospital. CM/SS will continue to follow.
[2019-09-04] MEDS: HYDROcodone/APAP 5 MG/325 MG (LORTAB) TAB PO PRN ×2 (15:59→20:53)
[2019-09-04 16:17] VITALS: BP 139/88
[2019-09-04 19:42] VITALS: BP 127/79
[2019-09-05 00:43] VITALS: BP 138/98
[2019-09-05 04:00] VITALS: BP 166/99
[2019-09-05 08:00] VITALS: BP 135/82
[2019-09-05 08:32] LABS: BASOPHILS # (AUTO) 0.1 10^3/uL (0.0-0.1); BASOPHILS % (AUTO) 1 % (0-10); EOSINOPHILS # (AUTO) 0.2 10^3/uL (0.0-0.3); EOSINOPHILS % (AUTO) 1 % (0-10); HEMATOCRIT 45 % (35-52); HEMOGLOBIN 15.1 G/DL (11.5-16.0); LYMPHOCYTES # (AUTO) 2.9 X 10^3 (1.0-4.0); LYMPHOCYTES % (AUTO) 20 % (12-44); MEAN CORPUSCULAR HEMOGLOBIN 29 PG (25-34); MEAN CORPUSCULAR HGB CONC 34 G/DL (32-36); MEAN CORPUSCULAR VOLUME 87 FL (80-99); MEAN PLATELET VOLUME 9.2 FL (7.4-10.4); MONOCYTES # (AUTO) 1.5 X 10^3 (0.0-1.0); MONOCYTES % (AUTO) 10 % (0-12); NEUTROPHILS # (AUTO) 9.7 X 10^3 (1.8-7.8); NEUTROPHILS % (AUTO) 68 % (42-75); PLATELET COUNT 326 10^3/uL (130-400); RED CELL DISTRIBUTION WIDTH 13.9 % (10.0-14.5); WHITE BLOOD COUNT 14.2 10^3/uL (4.3-11.0)
[2019-09-05 08:50] LABS: CHLORIDE 106 MMOL/L (98-107); POTASSIUM 3.9 MMOL/L (3.6-5.0); SODIUM 137 MMOL/L (135-145)
[2019-09-05 08:51] LABS: CALCIUM 9.1 MG/DL (8.5-10.1); GLUCOSE 98 MG/DL (70-105)
[2019-09-05 08:53] LABS: CARBON DIOXIDE 20 MMOL/L (21-32)
[2019-09-05 08:55] LABS: CREATININE SERUM 0.57 MG/DL (0.60-1.30); GFR ESTIMATED > 60
[2019-09-05 08:56] LABS: BUN/CREATININE RATIO 23
--- NOTE | 2019-09-05 08:58 | Cardiology Progress Note ---
Subjective Date Seen by Provider: Sep 05, 2019 Time Seen by Provider: 08:57 Subjective/Events-last exam Patient is laying down in bed, talking better today. Still having generalized weakness Review of Systems General: No Chills, No Night Sweats, No Fatigue, No Malaise, No Appetite, No Other HEENT: No Head Aches, No Visual Changes, No Eye Pain, No Ear Pain, No Dysph lizandro, No Sinus Congestion, No Post Nasal Drip, No Sore Throat, No Other Pulmonary: No Dyspnea, No Cough, No Pleuritic Chest Pain, No Other Cardiovascular: No: Chest Pain, Palpitations, Orthopnea, Paroxysmal Noc. Dyspnea, Edema, Lt Headedness, Other Objective-Cardiology Exam Last Set of Vital Signs Vital Signs 09/05/19 08:00 Temp 36.5 Pulse 70 Resp 18 B/P (MAP) 135/82 (99) Pulse Ox 93 O2 Delivery Room Air Capillary Refill : Less Than 3 SecondsLess Than 3 Seconds I&O Intake and Output 09/05/19 00:00 Intake Total 2330 ml Output Total 2000 ml Balance 330 ml Intake Oral 1330 ml IV Total 1000 ml Output Urine Total 2000 ml General: Alert, Cooperative, No Acute Distress HEENT: Atraumatic Neck: Supple, No JVD Lungs: Clear to Auscultation, Normal Air Movement Heart: Regular Rate, Normal S1, Normal S2 Abdomen: Normal Bowel Sounds, Soft Extremities: No Clubbing, No Cyanosis Skin: No Rashes, No Breakdown Neuro: Other (right hemiplegia, aphasia) Results Lab Laboratory Tests 09/05/19 08:25 A/P-Cardiology Admission Diagnosis Subacute CVA Hypertension Right hemiplegia Assessment/Plan Subacute CVA, still having right hemiplegia and aphagia. Is able to answer yes or no to questions asked, CT angiogram of the head was nondiagnostic. MRI of the head showed shower of embolization, probably underlying atrial fibrillation, so far her EKG did not show acute abnormality maintenance and aspirin. We'll consider loop recorder implant Echocardiogram showed normal LV function, prominent aorta. No significant abnormality otherwise Hypertension, and tinea on current medication monitor blood pressure Hyperlipidemia, continue Lipitor Speech and evaluate swallowing study Clinical Quality Measures DVT/VTE Risk/Contraindication: Risk Factor Score Per Nursin RFS Level Per Nursing on Admit: 4+=Very High DAMON ROTH MD Sep 05, 2019 08:58
[2019-09-05] MEDS ORDERED: NICOTINE PATCH REMOVAL TP SCH (08:59)
[2019-09-05] MEDS ORDERED: NICOTINE 14 MG (NICODERM) PATCH TD SCH (09:00)
[2019-09-05] MEDS: DOCUSATE SODIUM 100 MG (COLACE) CAP PO SCH (09:29)
[2019-09-05] MEDS: ENOXAPARIN 40 MG/0.4 ML (LOVENOX) SYR SC SCH (09:29)
--- NOTE | 2019-09-05 09:34 | NUR ---
IRF Evaluation Order received to evaluate patient for the ARU. Chart review complete and findings discussed with Dr. Thibodeaux. Met with patient to discuss details related to rehabilitation program. Patient is agreeable to admission and therapy regimen. Patient states she has right-sided weakness. Patient states she was residing at her son's home prior to hospitalization and the discharge plan is to return to his home. Called daughter, Petra to discuss above details. Petra is agreeable to admission. Petra states the discharge plan is to return to her brother's home while she continues to look for a place of her own. Once she finds her own home, patient will move with her. Information relayed to involved parties - patient accepted. Thank you for this referral.
[2019-09-05] MEDS: ASPIRIN E.C. 325 MG (ECOTRIN) TABLET PO SCH (09:35)
--- NOTE | 2019-09-05 10:55 | NUR ---
PT DISCHARGING TO ARU. ATTEMPTED TO CALL REPORT, ARU NURSE TO CALL BACK IN ABOUT TEN MINUTES.
[2019-09-05 11:00] VITALS: BP 135/82
--- NOTE | 2019-09-06 12:25 | Discharge Summary ---
Discharge Summary Hospital Course Was the Problem List Reviewed?: Yes Problems/Dx: (1) Stroke Status: Acute Qualifiers: Qualified Codes: I63.40 - Cerebral infarction due to embolism of unspecified cerebral artery (2) Hyperlipidemia Status: Chronic Qualifiers: Qualified Codes: E78.5 - Hyperlipidemia, unspecified (3) Smoker Status: Chronic Hospital Course Date of Admission: Sep 02, 2019 at 11:10 Admission Diagnosis : Strokelike symptoms Family Physician/Provider: Date of Discharge: 09/06/19 Discharge Diagnosis: Acute multi-territory embolic stroke Hospital Course: Deb Sheehan is a 58-year-old female who presented with aphasia and weakness and was admitted with strokelike symptoms. Her CT scan on admission w as without abnormality. Her symptoms persisted and she underwent an MRI which revealed a left frontal lobe infarct, as well as right ARTHUR and SMELTING ENGINEER infarctions. Cardiology was consulted and assisted in her care. She was monitor on telemetry but no atrial fibrillation was identified. They are considering an implantable loop recorder. She underwent an echocardiogram which was normal. She had blood cultures drawn which had no growth to date on discharge. She was started on aspirin and Lipitor. She was discharged to the inpatient rehabilitation unit for ongoing care. She needs to establish care with a primary care physician. Labs and Pending Lab Test: Microbiology 09/04/19 Blood Culture - Preliminary, Resulted No growth Home Meds Active Reported Ibuprofen 200 Mg Tablet 600-800 Mg PO Q8H PRN Tylenol Extra Strength (Acetaminophen) 500 Mg Tablet 1,000 Mg PO Q8H PRN Discharge Meds Lipitor 80 mg PO HS Aspirin 325 mg PO DAILY Assessment/Pt Instructions Patient transferred to the inpatient rehabilitation unit for ongoing cares. Begin taking aspirin and Lipitor for stroke. Discharge Planning: <30 minutes discharge planning Discharge Instructions Discharge Diet: No Restrictions Activity as Tolerated: Yes Discharge Physical Examination Vital Signs Vital Signs Date Time Temp Pulse Resp B/P (MAP) Pulse Ox O2 Delivery O2 Flow Rate FiO2 09/05/19 11:00 36.5 70 18 135/82 93 Room Air General Appearance: No Apparent Distress, Chronically ill Respiratory: Lungs Clear, Normal Breath Sounds, No Respiratory Distress Cardiovascular: Regular Rate, Rhythm, No Edema, No Murmur Gastrointestinal: Normal Bowel Sounds, Non Tender, Soft Extremity: Normal Inspection, Non Tender, No Pedal Edema Neurologic/Psychiatric: Alert, Normal Mood/Affect, Facial Droop, Motor Weakness Allergies: Coded Allergies: No Known Drug Allergies (Unverified , 09/02/19) Discharge Summary Date of Admission Sep 02, 2019 at 11:10 Date of Discharge Sep 05, 2019 at 11:00 Discharge Date: Sep 05, 2019 Discharge Time: 11:00 Admission Diagnosis Strokelike symptoms Consults/Procedures Consulations Cardiology Discharge Diagnosis Acute embolic stroke (1) Stroke Status: Acute Qualifiers: Qualified Codes: I63.40 - Cerebral infarction due to embolism of unspecified cerebral artery (2) Hyperlipidemia Status: Chronic Qualifiers: Qualified Codes: E78.5 - Hyperlipidemia, unspecified (3) Smoker Status: Chronic Clinical Quality Measures DVT/VTE Risk/Contraindication: Risk Factor Score Per Nursin RFS Level Per Nursing on Admit: 4+=Very High ALLYN WHITE MD Sep 06, 2019 12:12
== END 2019-09-05 11:00 | DRG 65 ==
LOC: 4TH 11:10 → ICU 19:10 → 4TH 09-03 13:30
PROVIDERS: ADMIT Internal Medicine; ATTEND Internal Medicine
DX: I63.40 Cerebral infarction due to embolism of unspecified cerebral artery (principal); G81.91 Hemiplegia, unspecified affecting right dominant side; R64 Cachexia; S22.039A Unspecified fracture of third thoracic vertebra, initial encounter for closed fracture; R47.01 Aphasia; F17.210 Nicotine dependence, cigarettes, uncomplicated; I10 Essential (primary) hypertension; F07.9 Unspecified personality and behavioral disorder due to known physiological condition; E78.5 Hyperlipidemia, unspecified; T75.89XA Other specified effects of external causes, initial encounter
CPT/HCPCS: 36415; 70496; 70498; 70551; 72146; 80048; 80053; 80061; 82565; 82805; 85007; 85025; 85027; 85730; 87040; 93306; 93880; 94664

== ENCOUNTER 2019-09-05 09:43 | Inpatient (IN) | payer OTHER ==
[~2019-09-05] VITALS: Ht 170.2 cm; Wt 58.1 kg
[~2019-09-05 09:43] MED LIST: ACET-2267 PO; IBUP-2473 PO
[2019-09-05] MEDS ORDERED: DOCUSATE SODIUM 100 MG (COLACE) CAP PO PRN (10:00)
[2019-09-05] MEDS ORDERED: ONDANSETRON 4 MG (ZOFRAN) ORAL DISSOLVE TAB PO PRN (10:00)
[2019-09-05] MEDS ORDERED: BISACODYL 10 MG SUPP (DULCOLAX) PR PRN ×2 (10:00→13:00)
[2019-09-05] MEDS ORDERED: ACETAMINOPHEN 500 MG TAB (TYLENOL) PO PRN (10:00)
[2019-09-05] MEDS ORDERED: diphenhydrAMINE 25 MG TAB (BENADRYL) PO PRN (10:00)
[2019-09-05] MEDS ORDERED: LACTULOSE SYRUP 10GM/15ML (ENULOSE) 30ML UDC PO PRN (10:00)
[2019-09-05] MEDS ORDERED: CALCIUM CARBONATE 500 MG (TUMS) TAB.CHEW PO PRN (10:00)
[2019-09-05] MEDS ORDERED: FLEET ENEMA ADULT 1 EA BTL PR PRN (10:00)
[2019-09-05] MEDS ORDERED: LOPERAMIDE 2 MG (IMODIUM) TABLET PO PRN (10:00)
[2019-09-05 10:55] VITALS: BP 144/93
--- NOTE | 2019-09-05 10:55 | NUR ---
LENARD SOTO admitted to room 222-1, with an admitting diagnosis of CVA, on 09/05/[address] [facility] [address] via WHEELCHAIR, accompanied by STAFF. LENARD SOTO introduced to surroundings, call light, bed controls, phone, TV, temperature control, lights, meal times, smoking policy, visitor policy, side rail policy, bathrooms and showers. Patient Rights given to patient in the handbook.LENARD SOTO verbalizes understanding that [facility] is not responsible for the loss or damage to any personal effects or valuables that are kept in the patients posession during their hospitalization. GRAVES. LENARD Ashton verbalizes understanding of Interdisciplinary Patient Education. Patient received Patient Rights Booklet, which includes Privacy Act Statement and Data Collection Information Summary. IV INTACT LEFT AC. ADMITS TO PAIN OF "5" BEHIND RIGHT EYE. DAUGHTER AT BEDSIDE.
--- NOTE | 2019-09-05 12:00 | NUR ---
LOVENOX NOT GIVEN. WAS GIVEN AT 0930 ON .
[2019-09-05 12:01] VITALS: BP 144/93
--- NOTE | 2019-09-05 12:02 | Occupational Therapy Eval ---
OT Evaluation-General/PLF Medical Diagnosis Admission Date Sep 05, 2019 at 11:20 Medical Diagnosis: CVA with right sided weakness Onset Date: Sep 02, 2019 Therapy Diagnosis Therapy Diagnosis: Weakness, Decreased ADL skills Precautions Precautions/Isolations: Standard Precautions Weight Bear Status Weight Bearing Restriction: Weight Bearing/Tolerated Referral Physician: Dr. Thibodeaux Referral Reason: Activity Tolerance, Self Care, Evaluation/Treatment, Strengthening/ROM Medical History Pertinent Medical History: Smoking Current History Daughter present for later part of eval. Both pt. and daughter report that pt. has had pain behind right eye for several months. This causes a headache. Daughter reports that pt. would become weak on right side throughout the night, but function would return in the am. Reviewed History: Yes Social History Home: Single Level Current Living Status: Children ADL-Prior Level of Function SCALE: Activities may be completed with or without assistive devices. 7-Vgienvavov-soczmoc completes the activity by him/herself with no assistance from a helper. 5-Set-up or Clean-up Assistance-helper sets up or cleans up; patient completes activity. Wilton assists only prior to or following the activity. 4-Supervision or Touching Assistance-helper provides verbal cues and/or touching/steadying and/or contact guard assistance as patient completes activity. Assistance may be provided throughout the activity or intermittently. 3-Partial/Moderate Assistance-helper does LESS THAN HALF the effort. Wilton lifts, holds or supports trunk or limbs, but provides less than half the effort. 2-Substantial/Maximal Assistance-helper does MORE THAN HALF the effort. [place] lifts or holds trunk or limbs and provides more than half the effort. 4-Dowjbycoa-gxmevt does ALL the effort. Patient does none of the effort to complete the activity. Or, the assistance of 2 or more helpers is required for the patient to complete the activity. If activity was not attempted, code reason: 7-Patient Refused. 9-Not Applicable-not attempted and the patient did not perform the activity before the current illness, exacerbation or injury. 10-Not Attempted due to Environmental Limitations-(lack of equipment, weather restraints, etc.). 88-Not Attempted due to Medical Conditions or Safety Concerns. ADL PLOF Comments Pt. states that she normally is independent with daily tasks. Does not use ambulation device. Self Care: Independent Functional Cognition: Unknown Occupation: Pt. does not work Drive Self: Yes OT Current Status Subjective Pt. reports 5/10 pain behind right eye. Nursing aware. Mental Status/Objective Patient Orientation: Person Attachments: IV Current Upper Extremity ROM Pt. able to "wiggle" left hand. Some movement noted in left elbow but only spontaneous. Does not follow cues to move it. Pt. is unable to actively move right UE. ADL-Treatment Eating (QC): 10 Oral Hygiene (QC): 9 Shower/Bathe Self (QC): 1 Upper Body Dressing (QC): 1 Lower Body Dressing (QC): 10 On/Off Footwear (QC): 1 Toileting Hygiene (QC): 1 Other Treatments Pt. seen by OT/PT for co-treatment due to need of skilled assistance x 2. Pt. demonstrates poor posture and ability to hold self upright. Neck in rotated position toward left. Pt. has difficulty turning head or eyes toward right side. PT facilitated mobility and transfers while OT facilitated ADL skills. Pt. transferred dependent x 2 supine-sit, and then dependent assist to chair. Taken to shower and transferred to shower chair. Pt. demonstrates leaning posture toward left side, and is unable to fix or correct on her own. Dependent assistance in shower. Pt. given washcloth and dabs at stomach. Noted that pt.'s hair is matted, likely before transfer into hospital. OT washed to best of ability. Donned fresh gown and socks. Taken to room and transferred to chair. Daughter in room with pt. Pt. positioned to comfort level in reclining chair with pillows. All needs met. Education OT Patient Education: Correct positioning, Modified ADL techniques, Progress toward Goal/Update tx plan, Purpose of tx/functional activities, Reviewed precautions, Rehab process, Transfer techniques Teaching Recipient: Patient Teaching Methods: Demonstration, Discussion Response to Teaching: Verbalize Understanding, Return Demonstration OT Short Term Goals Short Term Goals Time Frame: Sep 19, 2019 Eatin Oral hygiene: 9 Toileting hygiene: 3 Shower/bathe self: 3 Upper body dressin Lower body dressin Putting on/taking off footwear: 3 OT Chcf Goals Chcf Goals Time Frame: Oct 03, 2019 Eating (QC): 6 Oral Hygiene (QC): 9 Toileting Hygiene (QC): 4 Shower/Bathe Self (QC): 4 Upper Body Dressing (QC): 4 Lower Body Dressing (QC): 4 On/Off Footwear (QC): 4 Additional Goals: 1-Demonstrate ADL Tasks, 2-Verbalize Understanding, 3- ImproveStrength/Afia 1=Demonstrate adherence to instructed precautions during ADL tasks. 2=Patient will verbalize/demonstrate understanding of assistive devices/modifications for ADL. 3=Patient will improve strength/tolerance for activity to enable patient to perform ADL's. OT Education/Plan Problem List/Assessment Assessment: Decreased Activ Tolerance, Decreased Safety Aware, Decreased UE Strength, Dependent Transfers, Impaired Bed Mobility, Impaired Cognition, Impaired Coordination, Impaired Funct Balance, Impaired I ADL's, Impaired Self- Care Skills, Restricted Funct UE ROM, Visual-Perceptual Deficit Discharge Recommendations Plan/Recommendations: Continue POC Therapy Discharge Recommendati: 24 Hour Supervision, Post Acute OT Comment Equipment needs and discharge location to be determined. Treatment Plan/Plan of Care Treatment,Training & Education: Yes Patient would benefit from OT for education, treatment and training to promote independence in ADL's, mobility, safety and/or upper extremity function for ADL's. Plan of Care: ADL Retraining, Functional Mobility, Group Exercise/Act as Ind, UE Funct Exercise/Act Treatment Duration: Oct 03, 2019 Frequency: At least 5 of 7 days/Wk (IRF) Estimated Hrs Per Day: 1.5 hours per day Agreement: Yes Rehab Potential: Fair Time/GCodes Start Time: 10:55 Stop Time: 11:45 Total Time Billed (hr/min): 40 Billed Treatment Time [id number] PT eval, no charge [id number] 1, EVH x 10minutes [id number] ADL x 30minutes- co-treatment with PT. Please see above note for designated roles. OCHOA CALIX OT Sep 05, 2019 12:02
[2019-09-05] MEDS: ENOXAPARIN 40 MG/0.4 ML (LOVENOX) SYR SC SCH (12:13)
--- OUTSIDE RECORDS SUMMARY | 2019-09-05 12:56 | XMS REPORT | Continuity of Care Document ---
Author Organization Unknown Address Unknown Phone Unavailable Allergies Active Description Code Type Severity Reaction Onset Reported/Identified Relationship to Patient Clinical Status Yes No Known Drug Allergies [id number] Drug Allergy Unknown N/A 09/02/2019 Medications There is no data. Problems There is no data. Procedures There is no data. Results Test Result Range Serum or plasma creatinine measurement ( mass/volume) - 09/02/19 12:53 Serum or plasma creatinine measurement (mass/volume) 0.64 mg/dL 0.60-1.30 Automated blood complete blood count (he mogram) panel - 09/02/19 19:35 Blood leukocytes automated count (number/volume) 12.9 10*3/uL 4.3-11.0 Blood erythrocytes automated count (number/volume) 4.31 10*6/uL 4.35-5.85 Venous blood hemoglobin measurement (mass/volume) 12.6 g/dL 11.5-16.0 Blood hematocrit (volume fraction) 40 % 35-52 Automated erythrocyte mean corpuscular volume 94 [ foz_us] 80-99 Automated erythrocyte mean corpuscular h emoglobin (mass per erythrocyte) 29 pg 25-34 Automated erythrocyte mean corpuscular h emoglobin concentration measurement (mass/volume) 31 g/dL 32-36 Automated erythrocyte distribution width ratio 14. 4 % 10.0- 14.5 Automated blood platelet count (count/volume) 387 10*3/uL 130-400 Automated blood platelet mean volume measurement 10.3 [foz_us] 7.4-10.4 Comprehensive metabolic panel - 09/02/19 19:35 Serum or plasma sodium measurement (moles/volume) 138 mmol/L 135-145 Serum or plasma potassium measurement (moles/volume) 3.9 mmol/L 3.6-5.0 Serum or plasma chloride measurement (moles/volume) 107 mmol/L 98-107 Carbon dioxide 20 mmol/L 21-32 Serum or plasma anion gap determination (moles/volume) 11 mmol/L 5-14 Serum or plasma urea nitrogen measurement (mass/volume ) 16 mg/dL 7-18 Serum or plasma creatinine measurement (mass/volume) 0.63 mg/dL 0.60-1.30 Serum or plasma urea nitrogen/creatinine mass ratio 25 NRG Serum or plasma creatinine measurement w ith calculation of estimated glomerular filtration rate > NRG Serum or plasma glucose measurement (mass/volume) 100 mg/dL 70-105 Serum or plasma calcium measurement (mass/volume) 9.2 mg/dL 8.5-10.1 Serum or plasma total bilirubin measurement (mass/volu me) 0.4 mg/dL 0.1-1.0 Serum or plasma alkaline phosphatase fer surement (enzymatic activity/volume) 87 U/L 40-136 Serum or plasma aspartate aminotransfera se measurement (enzymatic activity/volume) 37 U/L 5-34 Serum or plasma alanine aminotransferase measurement (enzymatic activity/volume) 35 U/L 0-55 Serum or plasma protein measurement (mass/volume) 7.3 g/dL 6.4-8.2 Serum or plasma albumin measurement (mass/volume) 4.2 g/dL 3.2-4.5 CALCIUM CORRECTED 9.0 mg/dL 8.5-10.1 Activated partial thromboplastin time (a PTT) in platelet poor plasma bycoagulation assay - 09/02/19 19:35 Activated partial thromboplastin time (a PTT) in platelet poor plasma bycoagulation assay 30 s 24-35 Arterial blood gas measurement - 0 20:30 Blood pCO2 41 mm[Hg] 35-45 Blood pO2 69 mm[Hg] 79-93 Arterial blood bicarbonate measurement (moles/volume) 23 mmol/L 23-27 Arterial blood base excess by calculation -1.6 mmo l/L -2.5-2.5 Arterial blood oxygen saturation measurement 92 % 94-100 * Inhaled oxygen flow rate RA NRG Arterial blood pH measurement with patient temperature correction 7.36 7.37-7.43 Arterial blood carbon dioxide, total measurement (mole s/volume) 24.2 mmol/L 21.0-31.0 Body site LEFT RADIAL NRG Assessment of wrist artery patency prior to arterial p uncture POSITIVE NRG Setting of ventilation mode NO NR G Measurement of body temperature 37.2 NRG Automated blood complete blood count (he mogram) panel - 09/03/19 03:03 Blood leukocytes automated count (number/volume) 12.8 10*3/uL 4.3-11.0 Blood erythrocytes automated count (number/volume) 5.08 10*6/uL 4.35-5.85 Venous blood hemoglobin measurement (mass/volume) 14.8 g/dL 11.5-16.0 Blood hematocrit (volume fraction) 45 % 35-52 Automated erythrocyte mean corpuscular volume 89 [ foz_us] 80-99 Automated erythrocyte mean corpuscular h emoglobin (mass per erythrocyte) 29 pg 25-34 Automated erythrocyte mean corpuscular h emoglobin concentration measurement (mass/volume) 33 g/dL 32-36 Automated erythrocyte distribution width ratio 14. 3 % 10.0- 14.5 Automated blood platelet count (count/volume) 358 10*3/uL 130-400 Automated blood platelet mean volume measurement 9.2 [foz_us] 7.4-10.4 Comprehensive metabolic panel - 09/03/19 03:03 Serum or plasma sodium measurement (moles/volume) 138 mmol/L 135-145 Serum or plasma potassium measurement (moles/volume) 4.2 mmol/L 3.6-5.0 Serum or plasma chloride measurement (moles/volume) 107 mmol/L 98-107 Carbon dioxide 20 mmol/L 21-32 Serum or plasma anion gap determination (moles/volume) 11 mmol/L 5-14 Serum or plasma urea nitrogen measurement (mass/volume ) 13 mg/dL 7-18 Serum or plasma creatinine measurement (mass/volume) 0.66 mg/dL 0.60-1.30 Serum or plasma urea nitrogen/creatinine mass ratio 20 NRG Serum or plasma creatinine measurement w ith calculation of estimated glomerular filtration rate > NRG Serum or plasma glucose measurement (mass/volume) 119 mg/dL 70-105 Serum or plasma calcium measurement (mass/volume) 9.5 mg/dL 8.5-10.1 Serum or plasma total bilirubin measurement (mass/volu me) 0.4 mg/dL 0.1-1.0 Serum or plasma alkaline phosphatase fer surement (enzymatic activity/volume) 92 U/L 40-136 Serum or plasma aspartate aminotransfera se measurement (enzymatic activity/volume) 44 U/L 5-34 Serum or plasma alanine aminotransferase measurement (enzymatic activity/volume) 36 U/L 0-55 Serum or plasma protein measurement (mass/volume) 7.4 g/dL 6.4-8.2 Serum or plasma albumin measurement (mass/volume) 4.3 g/dL 3.2-4.5 CALCIUM CORRECTED 9.3 mg/dL 8.5-10.1 Lipid 1996 panel - 09/03/19 03:03 Serum or plasma triglyceride measurement (mass/volume) 329 mg/dL <150 Serum or plasma cholesterol measurement (mass/volume) 278 mg/dL < 200 Serum or plasma cholesterol in HDL measurement (mass/v olume) 57 mg/dL 40-60 Cholesterol in LDL [mass/volume] in serum or plasma by direct assay 178 mg/dL 1-129 Serum or plasma cholesterol in VLDL measurement (mass/ volume) 66 mg/dL 5-40 Complete blood count (CBC) with automate d white blood cell (WBC) differential - 09/04/19 05:10 Blood leukocytes automated count (number/volume) 15.0 10*3/uL 4.3-11.0 Blood erythrocytes automated count (number/volume) 5.00 10*6/uL 4.35-5.85 Venous blood hemoglobin measurement (mass/volume) 14.6 g/dL 11.5-16.0 Blood hematocrit (volume fraction) 44 % 35-52 Automated erythrocyte mean corpuscular volume 87 [ foz_us] 80-99 Automated erythrocyte mean corpuscular h emoglobin (mass per erythrocyte) 29 pg 25-34 Automated erythrocyte mean corpuscular h emoglobin concentration measurement (mass/volume) 33 g/dL 32-36 Automated erythrocyte distribution width ratio 13. 5 % 10.0- 14.5 Automated blood platelet count (count/volume) 342 10*3/uL 130-400 Automated blood platelet mean volume measurement 9.3 [foz_us] 7.4-10.4 Automated blood neutrophils/100 leukocytes 77 % 42-75 Automated blood lymphocytes/100 leukocytes 15 % 12-44 Blood monocytes/100 leukocytes 8 % 0-12 Automated blood eosinophils/100 leukocytes 0 % 0-10 Automated blood basophils/100 leukocytes 0 % 0-10 Blood neutrophils automated count (number/volume) 11.5 10*3 1.8-7.8 Blood lymphocytes automated count (number/volume) 2.2 10*3 1.0-4.0 Blood monocytes automated count (number/volume) 1. 3 10*3 0.0-1.0 Automated eosinophil count 0.0 10*3/uL 0 .0-0.3 Automated blood basophil count (count/volume) 0.0 10*3/uL 0.0-0.1 Comprehensive metabolic panel - 09/04/19 05:10 Serum or plasma sodium measurement (moles/volume) 136 mmol/L 135-145 Serum or plasma potassium measurement (moles/volume) 4.2 mmol/L 3.6-5.0 Serum or plasma chloride measurement (moles/volume) 105 mmol/L 98-107 Carbon dioxide 20 mmol/L 21-32 Serum or plasma anion gap determination (moles/volume) 11 mmol/L 5-14 Serum or plasma urea nitrogen measurement (mass/volume ) 10 mg/dL 7-18 Serum or plasma creatinine measurement (mass/volume) 0.60 mg/dL 0.60-1.30 Serum or plasma urea nitrogen/creatinine mass ratio 17 NRG Serum or plasma creatinine measurement w ith calculation of estimated glomerular filtration rate > NRG Serum or plasma glucose measurement (mass/volume) 120 mg/dL 70-105 Serum or plasma calcium measurement (mass/volume) 9.3 mg/dL 8.5-10.1 Serum or plasma total bilirubin measurement (mass/volu me) 0.6 mg/dL 0.1-1.0 Serum or plasma alkaline phosphatase fer surement (enzymatic activity/volume) 94 U/L 40-136 Serum or plasma aspartate aminotransfera se measurement (enzymatic activity/volume) 36 U/L 5-34 Serum or plasma alanine aminotransferase measurement (enzymatic activity/volume) 32 U/L 0-55 Serum or plasma protein measurement (mass/volume) 7.4 g/dL 6.4-8.2 Serum or plasma albumin measurement (mass/volume) 4.2 g/dL 3.2-4.5 CALCIUM CORRECTED 9.1 mg/dL 8.5-10.1 Manual absolute plasma cell count - 08/14 05/04 05:10 Blood monocytes/100 leukocytes 4 % NRG Manual blood segmented neutrophils/100 leukocytes 81 % NRG Manual blood lymphocytes/100 leukocytes 13 % NRG Manual blood lymphocytes variant/100 leukocytes 1 % NRG Manual blood metamyelocytes/100 leukocytes 1 % NRG Manual blood nucleated erythrocytes/100 leukocytes ratio 2 NRG Blood hypochromia detection by light microscopy SL IGHT NRG Encounters ACCT No. Visit Date/Time Discharge Status Pt. Type Provider Facility Loc./Unit Complaint [id number] 09/02/2019 11:10:[address] Inpatient KRYS NEFF DO [facility] [place] 4TH CVA SUBACUTE
--- NOTE | 2019-09-05 12:57 | NUR ---
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 Interviewed patient with her daughter at bedside. Prior to acute onset of illness, patient was independent of all ADL and was residing with her son Joaquin Garduno in [facility], as was her daughter Petra De Los Santos. This arrangement had only been in place for a short period of time. Patient and Petra had lived together 3.5 years in a house in [facility] and, unfortunately, experienced a foreclosure situation and had to move. Petra is looking for a house in [place] at this time. Regarding discharge, the plan is patient will return home either to son's house or with Petra in their new residence when established. PCP: None established, [facility] or local. Discussed [facility] because of multiple services under one network, as well as a few independent physicians taking new patients. Due to patient's uninsured status, [facility] would best fit her situation/need at this time, particularly for followup and preventative visits and Rx. PHARMACY: None established. INSURANCE: Uninsured. Acute EMR progress notes reflect that [facility] Financial Services staff visited patient about [employer] application and/or disability. Followup with them regarding status since supportive financial documentation will need to be provided prior to submission. DME: Patient has history of using nebulizer, but they indicate it quit working and she is without. Will partner with therapy team regarding recommendations for assistive device needs relative to home performance and safety. BARRIERS TO DISCHARGE PLANNING: Patient is uninsured, will likely need Rx assistance and DME. No PCP, will need post acute followup to initiate preventive and maintenance healthcare. Living and housing situation appears temporarily resolved. CONTACTS: Petra De Los Santos, Daughter [address] [place] [address] Joaquin Garduno, Son [address], [place] [id number] Patient and Petra understood the purpose and process of the weekly patient care conference and that patient's first review will be tomorrow, 09/06/19.
--- NOTE | 2019-09-05 12:59 | NUR ---
I ENTERED THE MED REC ON 09-04-2019 WHEN THE PT WAS ON 4TH FLOOR. PT DENIED ANY MEDICATIONS AND WANTED ME TO SPEAK WITH HER SON ARIEL AND WHEN I CALLED HIM HE ALSO DENIED PT TAKING PRESCRIPTION MEDS BUT DID STATE SHE USED IBUPROFEN AND TYLENOL. ARIEL NAMED [facility] THE PHARMACY TO USE (WHEN WE STARTED THE CONVERSATION HE INDICATED THE PT MOVED TO THIS AREA RECETNLY) AND I ASKED IF SHE HAD BEEN TO [facility]. HE REPLIED NO AND I EXPLAINED THAT SHE NEEDS TO BE AN ESTABLISHED PT BEFORE YOU CAN USE THE PHARMACY. HE UNDERSTOOD AND WAS GOING TO LOOK INTO IT
[2019-09-05] MEDS ORDERED: ACETAMINOPHEN 325 MG TABLET PO PRN (13:00)
[2019-09-05] MEDS ORDERED: CATHETER FLUSH 10 ML SYR IV PRN (13:00)
[2019-09-05] MEDS ORDERED: MILK OF MAGNESIA 400 MG/5 ML 30 ML UDC PO PRN (13:00)
[2019-09-05] MEDS ORDERED: ENOXAPARIN 40 MG/0.4 ML (LOVENOX) SYR SC SCH (13:00)
--- NOTE | 2019-09-05 13:00 | NUR ---
PER DAUGHTER AND PATIENT: PAIN BEHIND RIGHT EYE X 1 MONTH, RIGHT-SIDED WEAKNESS X 1 MONTH. LEFT-SIDED WEAKNESS STARTED THIS ADMISSION. PATIENT APPEARS ORIENTED, BUT WILL SOMETIMES ANSWER QUESTIONS AND OTHER TIMES IGNORES NURSE. TELEMETRY STARTED.
[2019-09-05] MEDS: HYDROcodone/APAP 5 MG/325 MG (LORTAB) TAB PO PRN ×2 (13:21→20:26)
--- NOTE | 2019-09-05 13:59 | Physical Therapy Evaluation ---
PT Evaluation-General Medical Diagnosis Admission Date Sep 05, 2019 at 11:20 Medical Diagnosis: CVA with right sided weakness Onset Date: Sep 02, 2019 Therapy Diagnosis Therapy Diagnosis: impaired mobility, strength, endurance, balance Precautions Precautions/Isolations: Fall Prevention, Standard Precautions, Pressure Ulcer Referral Physician: Dr. Thibodeaux Reason for Referral: Evaluation/Treatment Medical History Pertinent Medical History: Smoking Reviewed History: Yes Social History Home: Single Level Current Living Status: Children Entry Into Home: Stairs With Railing PT Steps Into Home: 5 Prior Prior Level of Function SCALE: Activities may be completed with or without assistive devices. 7-Pavcwyqijz-aoaojkw completes the activity by him/herself with no assistance from a helper. 5-Set-up or Clean-up Assistance-helper sets up or cleans up; patient completes activity. [place] assists only prior to or following the activity. 4-Supervision or Touching Assistance-helper provides verbal cues and/or touching/steadying and/or contact guard assistance as patient completes activity. Assistance may be provided throughout the activity or intermittently. 3-Partial/Moderate Assistance-helper does LESS THAN HALF the effort. [place] li fts, holds or supports trunk or limbs, but provides less than half the effort. 2-Substantial/Maximal Assistance-helper does MORE THAN HALF the effort. [place] lifts or holds trunk or limbs and provides more than half the effort. 9-Rywglmhnc-prnjts does ALL the effort. Patient does none of the effort to complete the activity. Or, the assistance of 2 or more helpers is required for the patient to complete the activity. If activity was not attempted, code reason: 7-Patient Refused. 9-Not Applicable-not attempted and the patient did not perform the activity before the current illness, exacerbation or injury. 10-Not Attempted due to Environmental Limitations-(lack of equipment, weather restraints, etc.). 88-Not Attempted due to Medical Conditions or Safety Concerns. Bed Mobility: 6 Transfers (B,C,W/C): 6 Gait: 6 Stairs: 6 Indoor Mobility (Ambulation): Independent Stairs: Independent PT Evaluation-Current Subjective Patient in bed pre tx, agrees to PT, has 5/10 pain she says behind her right eye. Will be co-treating after evaluation due to poor patient mobility, strength, endurance, balance, hemiparesis, the need to coordinate UE and LE during activity. Pt/Family Goals "to get stronger" Objective Patient Orientation: Person, Place, Situation Attachments: Santillan Catheter, IV ROM/Strength ROM Lower Extremities WNL, ankles are a little tight but able to achieve neutral dorsiflexion bilaterally Strength Lower Extremities 0/5 generally but she is able to wiggle her toes on the right side Integumentary/Posture Bowel Incontinence: No Neuromuscular (Tone, Coordination, Reflexes) increased flexion tone on the right leg, patient seems to have intact peripheral vision but has poor tracking Sensory Hearing: Functional Sensation Right Lower Extremit: Intact Sensation Left Lower Extremity: Intact Transfers Roll Left to Right (QC): 1 Sit to Lying (QC): 1 Lying to Sitting/Side of Bed(Q: 1 Sit to Stand (QC): 1 Chair/Tlj-om-Ijtym Xfer(QC): 1 Toilet Transfer (QC): 1 Car Transfer (QC): 1 Patient is dependent for bed mobility, dependent for supine <-> sit and sit <-> stand, dependent for stand pivot transfer and car transfer. Patient seems to be able to bear some weight through her legs on occasion but it is hard to tell. Gait Does the Patient Walk?: No and Walking Goal NOT indicated Mode of Locomotion: Wheelchair Anticipated Mode of Locomotion: Wheelchair Walk 10 feet (QC): 88 Walk 50 ft with 2 Turns(QC): 88 Walk 150 ft (QC): 88 Walking 10ft/uneven surface-QC: 88 Wheelchair Training Does the Pt Use a Wheelchair?: Yes Wheel 50 ft with 2 turns (QC): 1 Wheel 150 ft (QC): 1 Type of Wheelchair: Manual Patient is dependent for WC mobility. She has no active movement in her right arm or hand, she can move her left hand but doesn't seem to have any active movement in the left shoulder. Stairs 1 Step (curb) (QC): 88 4 Steps (QC): 88 12 Steps (QC): 88 Balance Sitting Static: Poor Sitting Dynamic: Poor Standing Static: Poor Standing Dynamic: Poor Picking up an Object (QC): 88 Treatment bathing, ADL's, dressing. PT performed bed mobility and transfers, standing for undressing, transfers to shower chair, assist with balance during shower and ADL's, OT performed dressing, shower, ADL's Assessment/Needs Patient has poor functional mobility. The only areas where she seems to have active movement in her extremities is her left hand and right toes. Patient is dependent for all mobility. Rehab Potential: Guarded PT Short Term Goals Short Term Goals Time Frame: Sep 12, 2019 Roll Left & Right: 2 Sit to lyin Lying to sitting on side of be: 2 Wheel 50ft w/2 turns: 2 Wheel 150 feet: 2 PT Fpc Goals Fpc Goals PT Fpc Goals Time Frame: Sep 26, 2019 Roll Left & Right (QC): 3 Sit to Lying (QC): 3 Lying-Sitting on Side/Bed(QC): 3 Sit to Stand (QC): 3 Chair/Kpo-uq-Rjdej Xfer(QC): 3 Toilet Transfer (QC): 3 Car Transfer (QC): 3 Does the Patient Walk: No and Walking Goal NOT indicated Walk 10 feet (QC): 88 Walk 50ft with 2 Turns (QC): 88 Walk 150 ft (QC): 88 Walking 10ft on Uneven Surface: 88 1 Step (curb) (QC): 88 4 Steps (QC): 88 12 Steps (QC): 88 Picking up an Object (QC): 88 Does the Pt use WC or Scooter?: Yes Wheel 50 feet with 2 turns (QC: 3 Type: Manual Wheel 150 feet: 3 PT Plan Problem List Problem List: Activity Tolerance, Functional Strength, Safety, Balance, Gait, Transfer, Bed Mobility, ROM Treatment/Plan Treatment Plan: Continue Plan of Care Treatment Plan: Bed Mobility, Education, Functional Activity Afia, Functional Strength, Group Therapy, Gait, Safety, Therapeutic Exercise, Transfers Treatment Duration: Sep 26, 2019 Frequency: At least 5 of 7 days/Wk (IRF) Estimated Hrs Per Day: 1.5 hours per day Patient and/or Family Agrees t: Yes Safety Risks/Education Patient Education: Transfer Techniques, Correct Positioning, W/C Management, Safety Issues Teaching Recipient: Patient Teaching Methods: Demonstration, Discussion Response to Teaching: Reinforcement Needed Discharge Recommendations Plan Patient will perform bed mobility and transfer training, balance and endurance training, functional strengthening, gait training, and education, to improve functional mobility and independence at home. Therapy Discharge Recommendati: Other, See Comments (NH), Home & Family Time/GCodes Time In: 1055 Time Out: 1145 Total Billed Treatment Time: 40 Total Billed Treatment 1 visit EVM 10' FA 30' PT eval from [id number], OT eval from [id number], co-treat from [id number] TASHA POMPA PT Sep 05, 2019 13:58
--- NOTE | 2019-09-05 14:00 | NUR ---
URINE DARK, MILD HEMATURIA AND FOUL SMELLING. DR. NEFF NOTIFIED. ORDER RECEIVED TO INCREASE FLUIDS.
--- NOTE | 2019-09-05 14:11 | Physical Therapy Daily Note ---
PT Daily Note-Current Subjective Patient in bed pre tx, agrees to PT, has 5/10 pain "behind right eye". Will be co-treating with OT due to poor patient mobility, strength, endurance, balance, hemiparesis, the need to coordinate UE and LE during activity. Appearance Patient in bed post tx with nurse call, phone, tray, daughter in room. Mental Status Patient Orientation: Person, Place, Situation Transfers SCALE: Activities may be completed with or without assistive devices. 2-Fnjconvrej-orjmlji completes the activity by him/herself with no assistance from a helper. 5-Set-up or Clean-up Assistance-helper sets up or cleans up; patient completes activity. [place] assists only prior to or following the activity. 4-Supervision or Touching Assistance-helper provides verbal cues and/or touching/steadying and/or contact guard assistance as patient completes activity. Assistance may be provided throughout the activity or intermittently. 3-Partial/Moderate Assistance-helper does LESS THAN HALF the effort. [place] lifts, holds or supports trunk or limbs, but provides less than half the effort. 2-Substantial/Maximal Assistance-helper does MORE THAN HALF the effort. [place] lifts or holds trunk or limbs and provides more than half the effort. 4-Xwzmjrsow-ihhqpk does ALL the effort. Patient does none of the effort to complete the activity. Or, the assistance of 2 or more helpers is required for the patient to complete the activity. If activity was not attempted, code reason: 7-Patient Refused. 9-Not Applicable-not attempted and the patient did not perform the activity before the current illness, exacerbation or injury. 10-Not Attempted due to Environmental Limitations-(lack of equipment, weather restraints, etc.). 88-Not Attempted due to Medical Conditions or Safety Concerns. Roll Left & Right (QC): 1 Sit to Lying (QC): 1 Sit to Stand (QC): 1 Chair/Dnd-nn-Emxck Xfer(QC): 1 Patient transferred to from recliner and also dressed lowers (dependent), WC to therapy gym (dependent), stood in parallel bars x3 for about 1 min each time with assist of 2, transferred to therapy table and worked on sitting balance. Transferred back to for LE stretching and attempted AAROM but she was not able to assist. Taken back to room and transferred to bed. Treatments bed mobility and transfers, LE stretching, balance training, standing. PT worked on standing, transfers, sitting balance, positioning and balance during dressing, bed mobility, OT assisted with mobility and UE positioning during standing and balance training, dressing. Assessment Current Status: Poor Progress Patient is able to bear some weight through her legs while standing in the parallel bars but still takes 2 people to stand. Patient needs constant cues for positioning, leans to the left side. PT Short Term Goals Short Term Goals Time Frame: Sep 12, 2019 Roll Left & Right: 2 Sit to lyin Lying to sitting on side of be: 2 Wheel 50ft w/2 turns: 2 Wheel 150 feet: 2 PT Temporary Staff Accountant Goals Temporary Staff Accountant Goals PT Intermediate Goals Time Frame: Sep 26, 2019 Roll Left & Right (QC): 3 Sit to Lying (QC): 3 Lying-Sitting on Side/Bed(QC): 3 Sit to Stand (QC): 3 Chair/Raz-cj-Pdnwc Xfer(QC): 3 Toilet Transfer (QC): 3 Car Transfer (QC): 3 Does the Patient Walk: No and Walking Goal NOT indicated Walk 10 feet (QC): 88 Walk 50ft with 2 Turns (QC): 88 Walk 150 ft (QC): 88 Walking 10ft on Uneven Surface: 88 1 Step (curb) (QC): 88 4 Steps (QC): 88 12 Steps (QC): 88 Picking up an Object (QC): 88 Does the Pt use WC or Scooter?: Yes Wheel 50 feet with 2 turns (QC: 3 Type: Manual Wheel 150 feet: 3 PT Plan Problem List Problem List: Activity Tolerance, Functional Strength, Safety, Balance, Gait, Transfer, Bed Mobility, ROM Treatment/Plan Treatment Plan: Continue Plan of Care Treatment Plan: Bed Mobility, Education, Functional Activity Afia, Functional Strength, Group Therapy, Gait, Safety, Therapeutic Exercise, Transfers Treatment Duration: Sep 26, 2019 Frequency: At least 5 of 7 days/Wk (IRF) Estimated Hrs Per Day: 1.5 hours per day Patient and/or Family Agrees t: Yes Safety Risks/Education Patient Education: Transfer Techniques, Correct Positioning, Safety Issues Teaching Recipient: Patient Teaching Methods: Demonstration, Discussion Response to Teaching: Reinforcement Needed Time/GCodes Time In: 1255 Time Out: 1355 Total Billed Treatment Time: 60 Total Billed Treatment 1 visit FA 60' co-treated for 60' KRTEK,TASHA PT Sep 05, 2019 14:11
--- NOTE | 2019-09-05 14:14 | Occupational Ther Daily Note ---
OT Current Status-Daily Note Subjective Pt alert, sitting in recliner. Daughter present in room. Pt agrees to therapy. Pt had c/o pain, nrsg to brought pain pills during session. Mental Status/Objective Patient Orientation: Person, Place Attachments: Santillan Catheter, IV ADL-Treatment Therapy Code Descriptions/Definitions Functional [place] Measure: 0=Not Assessed/NA 4=Minimal Assistance 1=Total Assistance 5=Supervision or Setup 2=Maximal Assistance 6=Modified [place] 3=Moderate Assistance 7=Complete IndependenceSCALE: Activities may be completed with or without assistive devices. 7-Fyagatjgic-lvdzjjq completes the activity by him/herself with no assistance from a helper. 5-Set-up or Clean-up Assistance-helper sets up or cleans up; patient completes activity. [place] assists only prior to or following the activity. 4-Supervision or Touching Assistance-helper provides verbal cues and/or touching/steadying and/or contact guard assistance as patient completes activity. Assistance may be provided throughout the activity or intermittently. 3-Partial/Moderate Assistance-helper does LESS THAN HALF the effort. [place] lifts, holds or supports trunk or limbs, but provides less than half the effort. 2-Substantial/Maximal Assistance-helper does MORE THAN HALF the effort. [place] lifts or holds trunk or limbs and provides more than half the effort. 4-Orbjfhxgy-jbgrjf does ALL the effort. Patient does none of the effort to complete the activity. Or, the assistance of 2 or more helpers is required for the patient to complete the activity. If activity was not attempted, code reason: 7-Patient Refused. 9-Not Applicable-not attempted and the patient did not perform the activity be fore the current illness, exacerbation or injury. 10-Not Attempted due to Environmental Limitations-(lack of equipment, weather restraints, etc.). 88-Not Attempted due to Medical Conditions or Safety Concerns. Other Treatment Co-treat with PT ([id number]), skills of 2 clinicians required due to medical complexity, decreased sitting/standing balance, low activity tolerance, increased need for all mobility and decreased lower and upper extremity muscle movement. PT working on transfers, standing, sitting and bed mobility. See PT notes for progress. OT working on UE placement during transfers/standing and functional balance during seated tasks. Pt has decreased sitting balance, leans L and back, requiring muscle facilitation and mod A to stay in upright position. Pt requires assist x2 for functional standing, one person to stand the other to hike pants, cleanse after toileting. Pt is able to grasp onto parallel bars in standing after hands are placed, L UE able to release R UE unable to release, assist for both to bring back to lap. No active movement noted in B shldrs. L elbow flexion/extension noted. No movement noted in R elbow, tone noted. L wrist/finger movement noted, only spontaneous movement noted during functional gross motor tasks (ie, standing). Pt dependent for donning/doffing pants. After therapy, pt lying in bed with call light/phone in reach. All needs met in room. OT Short Term Goals Short Term Goals Time Frame: Sep 19, 2019 Eatin Oral hygiene: 9 Toileting hygiene: 3 Shower/bathe self: 3 Upper body dressin Lower body dressin Putting on/taking off footwear: 3 OT Chief Medical Technologist Goals Chief Medical Technologist Goals Time Frame: Oct 03, 2019 Eating (QC): 6 Oral Hygiene (QC): 9 Toileting Hygiene (QC): 4 Shower/Bathe Self (QC): 4 Upper Body Dressing (QC): 4 Lower Body Dressing (QC): 4 On/Off Footwear (QC): 4 Additional Goals: 1-Demonstrate ADL Tasks, 2-Verbalize Understanding, 3- ImproveStrength/Afia 1=Demonstrate adherence to instructed precautions during ADL tasks. 2=Patient will verbalize/demonstrate understanding of assistive devices/modifications for ADL. 3=Patient will improve strength/tolerance for activity to enable patient to perform ADL's. OT Education/Plan Problem List/Assessment Assessment: Decreased Activ Tolerance, Decreased Safety Aware, Decreased UE Strength, Dependent Transfers, Impaired Bed Mobility, Impaired Cognition, Impaired Coordination, Impaired Funct Balance, Impaired I ADL's, Impaired Self- Care Skills, Restricted Funct UE ROM, Visual-Perceptual Deficit Discharge Recommendations Plan/Recommendations: Continue POC Treatment Plan/Plan of Care Patient would benefit from OT for education, treatment and training to promote independence in ADL's, mobility, safety and/or upper extremity function for ADL's. Plan of Care: ADL Retraining, Functional Mobility, Group Exercise/Act as Ind, UE Funct Exercise/Act Treatment Duration: Oct 03, 2019 Frequency: At least 5 of 7 days/Wk (IRF) Estimated Hrs Per Day: 1.5 hours per day Agreement: Yes Rehab Potential: Fair Time/GCodes Start Time: 12:55 Stop Time: 13:55 Total Time Billed (hr/min): 60 Billed Treatment Time 1 visit-NM 4 (60 min) co-treat with PT 60 min ANGELLA GOLD Sep 05, 2019 14:14
--- NOTE | 2019-09-05 14:52 | NUR ---
"RD ASSESSMENT PMHx: HLD; tobacco abuse Current: CVA PT INTERACTION: Pt was awake and pleasant during nutrition assessment. Note all information is from assessment on 4th floor, 09/04. Pt states current appetite is good. Note avg PO intake <25% x3d, per chart review. Pt states following a regular diet at home, and has no issues with chewing/swallowing food. Pt states no recent issues with nausea, vomiting, constipation, or diarrhea, and that her last BM was prior to admit. Note pt currently on bowel regimen of colace qd, per chart review. Pt states recent 10# wt loss, but would not give timeframe of wt lost. Note unable to determine recent wt hx, per chart review. ABNORMAL NUTRITION-RELATED LAB VALUES Labs WNL at this time Est. kcal needs: 9848-7776 kcal | 25-30 kcal/kg Est. Pro needs: 57-69 g Pro | 1.0-1.2 g Pro/kg PES STATEMENT: Inadequate oral intake (NI-2.1) related to loss of appetite as evidenced by pt interview | avg PO intake 25% x3d INTERVENTION: Continue with current diet order of DYS2 Mechanically Altered diet, with modifier of [place]-Like Liquids. Encouraged pt to eat when able. Will continue to follow and reassess as pt needs, intake, and status change. MONITOR/EVALUATE: PO Intake; Plan of Care; Hydration Status; Weight Status; Lab Values Isabel Mitchell, MS, RD, LD"
--- NOTE | 2019-09-05 15:00 | NUR ---
SPEECH THERAPIST RECOMMENDS TO CONTINUE DYSPHAGIA 2 WITH NECTAR-THICKENED LIQUIDS FOR NOW.
--- NOTE | 2019-09-05 15:05 | ST Cognitive Linguistic Eval ---
Speech Evaluation-General Medical Diagnosis CVA with right sided weakness Onset Date: Sep 02, 2019 Medical History Pertinent Medical History: Smoking Reviewed History: Yes Social History Current Living Status: Children Speech PLF-Current Status Subjective Pts daughter present, feeding pt lunch. Pt's current diet mechanical soft; NTL. Language Eval: Auditory Follows 1-Step Commands: Mild Objective Formal/Standardized Tests SLUMS evaluation completed. Pt scored 14/30. Pt indicates she was managing bills, driving, cooking and managing medications prior to admission of hospital. Pt oriented to day, year, state and reason for stay. Impression Pt presents with moderate to severe cognitive deficits according to the SLUMS exam. Pt with decreased attention to task, decreased insight to limitations. Speech Patient Assess Expression of Ideas/Wants: Exhibits (3) Understanding Verbal Content: Sometimes Understands(2) (Understands only basic) Brief Interview-Mental Status: Yes Repetition of Three Words: One (1) Temporal Orientation: Year: Correct (3) Temporal Orientation: Month: Missed by 6 days-1 month (1) Temporal Orientation: Day: Correct (1) Recall : Wear to say "Sock": Yes,after cueing (1) Recall : Color: Yes, after cueing (1) Recall : Bed: Yes,after cueing (1) Memory/Recall Ability: That he or she is in a hsp/hsp unit Speech Short Term Goals Short Term Goals Short Term Goals Pt will complete (visual/verbal) attention task with 90% accy. Pt will complete STM task with use of compensatoy strategies with 90% accy Pt will complete further cognitive assessment for further evaluation of memory, functional math, and reading. Speech-Plan Treatment Plan Speech Therapy Treatment Plan: Continue Plan of Care Frequency: 5 times per week Estimated Hrs Per Day: .5 hour per day Rehab Potential: Guarded Time Speech Therapy Time In: 14:00 Speech Therapy Time Out: 14:30 Billed Treatment Time 1, COGN TEST 30 MINS JAMAR REBOLLAR Sep 05, 2019 15:05
[2019-09-05 15:18] VITALS: BP 144/93
--- NOTE | 2019-09-05 16:06 | ST Dysphagia Evaluation ---
Speech Evaluation-General Medical Diagnosis CVA with right sided weakness Onset Date: Sep 02, 2019 Medical History Pertinent Medical History: Smoking Reviewed History: Yes Social History Current Living Status: Children Speech PLF/Current-Dysphagia Oral Motor Skills Dentition: Edentalous Voice Voice Phonatory-Based Quality: Normal Face Facial Symmetry: Asymmetrical RIGHT SIDE DROOP, DECREASED LINGUAL ROM TO R Oral-Facial Assessment Lingual Protrusion: Abnormal Volitional Dry Swallow: Yes Dysphagia Evaluation Consistencies Presented: Mechanical Soft, [place] Thick Liquid, Ground Oral Phase: Right Pocketing, Reduced Oral Transit Pharyngeal Phase: Decreased A/P Bolus Transit, Reduced Laryngeal Elevation, Delayed Swallow Funct. Velo/Pharyngeal Symptom: Cough After Swallow Dietary Recommendations: Mechanical Soft Liquid Recommendations: [place] Consistancy Swallowing Precautions: Decreased Rate of Oral Intake, Sitting Upright 90 Degrees, Sitting 90 Degrees 30 Post Intake Dysphagia Evaluation Summary Pt presents with moderate oropharyngeal dysphagia characterized by increased oral transit time, coughing folloiwng swallow with NTL, slight residue on right side following bites. Speech Short Term Goals Short Term Goals Short Term Goals Pt will complete (visual/verbal) attention task with 90% accy. Pt will complete STM task with use of compensatoy strategies with 90% accy Pt will complete further cognitive assessment for further evaluation of memory, functional math, and reading. Speech Shelter Goals Crm Campaign Manager Goals Pt will tolerate least restrictive diet with no s/s of aspiration/penetration wiht observed oral intake. Speech-Plan Treatment Plan Speech Therapy Treatment Plan: Continue Plan of Care Frequency: 5 times per week Estimated Hrs Per Day: .5 hour per day Rehab Potential: Guarded Time Speech Therapy Time In: 14:00 Speech Therapy Time Out: 14:30 Billed Treatment Time 15, min 1 JAMAR CELIS Sep 05, 2019 16:06
[2019-09-05 17:10] VITALS: BP 115/77
--- NOTE | 2019-09-05 17:40 | NUR ---
HERNÁNDEZ CATHETER DC'D. DIAPER ON AND REPOSITIONED.
[2019-09-05] MEDS: guaiFENesin/CODEINE (ROBITUSSIN AC) 10ML UDC PO PRN ×2 (18:00→22:03)
--- NOTE | 2019-09-05 18:00 | NUR ---
VERBALIZING MORE THIS AFTERNOON. HAS A FAIRLY GOOD APPETITE. OCCASIONAL COUGH, BUT APPEARS TO BE TOLERATING DIET FAIRLY WELL.
--- NOTE | 2019-09-05 18:45 | NUR ---
DR. NEFF NOTIFIED THAT HEMATURIA IS WORSE AND SOME BLOOD CLOTS. ORDER TO REINSERT HERNÁNDEZ IF UNABLE TO VOID AND BLADDER IRRIGATION IF CLOTS CONTINUE. DR. MEZA WILL BE NOTIFIED OF CONSULT IN AM.
--- NOTE | 2019-09-05 19:15 | NUR ---
bedside report received from JOAQUÍN RAINES, assume care of pt.
--- NOTE | 2019-09-05 20:05 | NUR ---
pt was incontinent of bladder in brief no clots noted, repositioned on side with hob elevated
--- NOTE | 2019-09-05 20:19 | PM&R Post Admission Assessment ---
PM&R Date of Visit: Sep 05, 2019 Time of Visit: 12:00 History of Present Illness CC: Stroke HPI: This is a 58yoWF new to the area who donates her plasma twice a week for income who lives with a gentleman named Stanley, who presented to [facility] [place] [facility] with right sided weakness for several days. She was found to be in need of cardiology workup and MRI so I moved her to [facility] on my service, cardiology consulted, telemetry maintained, maintained on Lovenox and Aspirin, and statin therapy. MRI revealed B/L embolic strokes consistent with her symptoms so she is now here in inpatient rehab to recover from the residual from the stroke. Her plan is to go home with her son, her daughter is very involved with her care. Smoking cessation counseled and she reports there are no inhalers or O2 she takes at home. She has not had a BM yet, she does have a catheter in place and will work on all aspects of her care to regain function. Past Dbxnect-Hfdauy-Qennvt Hx Past Med/Social Hx: Reviewed Nursing Past Med/Soc Hx, Reviewed and Corrections made Patient Social History Marrital Status: cohabiting Employed/Student: unemployed Alcohol Use: Denies Use Recreational Drug Use: Yes Drug of Choice: MARIJUANA Smoking Status: Current Everyday Smoker Type Used: Cigarettes Physical Abuse Screen: No Sexual Abuse: No Recent Foreign Travel: No Recent Hopitalizations: Yes (CVA 09-01) Recent Infectious Disease Expo: No Immunizations Up To Date Pediatric: No Seasonal Allergies Seasonal Allergies: No Past Medical History Currently Using CPAP: No Currently Using BIPAP: No Neurological: Stroke (09/01/19) Cancer: Cervical What Type of Treatment Did You: Surgical Intervention History of Blood Disorders: No Family History Dementia 19 MOTHER G8 SISTER Hypertension 19 FATHER Prior Level of Function Bed Mobility: 6 Transfers: 6 Gait: 6 Stairs: 6 Indoor Mobility (Ambulation): Independent Stairs: Independent Self Care: Independent Functional Cognition: Unknown Occupation: Pt. does not work Drive Self: Yes Current Level of Fuctioning Roll Left to Right: 1 Sit to Lyin Lying to Sitting/Side of Bed: 1 Sit to Stand: 1 Chair/Ujv-oh-Xagdz Xfer: 1 Car Transfer: 1 Does the Patient Walk: No and Walking Goal NOT indicated Mode of Locomotion: Wheelchair Anticipated Mode of Locomotion: Wheelchair Walk 10 feet: 88 Walk 50 ft with 2 Turns: 88 Walk 150 ft: 88 Walking 10ft on uneven surface: 88 Does the Pt Use a Wheelchair: Yes Wheel 50 ft with 2 turns: 1 Wheel 150 ft: 1 Type of Wheelchair: Manual 1 Step (curb): 88 4 Steps: 88 12 Steps: 88 Picking up an Object: 88 Eatin Oral Hygiene: 9 Shower/Bathe Self: 1 Upper Body Dressin Lower Body Dressin On/Off Footwear: 1 Toileting Hygiene: 1 PM&R Allergy/Meds/Data Review Allergies Coded Allergies: No Known Drug Allergies (Unverified , 09/02/19) Home Medications Scheduled PRN Acetaminophen (Tylenol Extra Strength), 1,000 MG PO Q8H PRN for PAIN-MILD (1-4), (Reported) Ibuprofen (Ibuprofen), 600-800 MG PO Q8H PRN for PAIN-MILD (1-4), (Reported) Current Medications Current Medications Reviewed Review of Systems Constitutional: see HPI, malaise, weakness Respiratory: cough Musculoskeletal: back pain, joint pain, muscle stiffness Skin: no symptoms reported Psychiatric/Neurological: Anxiety, Depressed, Emotional Problems, Tingling, Tremors, Weakness Physical Exam Physical Exam Vital Signs Vital Signs - First Documented 09/05/19 10:55 Temp 36.8 Pulse 103 Resp 18 B/P (MAP) 144/93 (110) Pulse Ox 90 O2 Delivery Room Air Capillary Refill : Height, Weight, BMI Height: '" Weight: lbs. oz. kg; 20.36 BMI Method: General Appearance: No Apparent Distress, Chronically ill, Cachetic Eyes: Bilateral Eye Normal Inspection, Bilateral Eye PERRL HEENT: PERRL/EOMI, Normal ENT Inspection, Pharynx Normal Neck: Full Range of Motion, Normal Inspection, Non Tender, Supple, Carotid Bruit Respiratory: Chest Non Tender, Lungs Clear, Normal Breath Sounds, No Accessory Muscle Use, No Respiratory Distress Cardiovascular: Regular Rate, Rhythm, No Edema, No Gallop, No JVD, No Murmur, Normal Peripheral Pulses Gastrointestinal: Normal Bowel Sounds, No Organomegaly, No Pulsatile Mass, Non Tender, Soft Back: Normal Inspection, No CVA Tenderness, No Vertebral Tenderness Extremity: Normal Capillary Refill, Normal Inspection, Normal Range of Motion, Non Tender, No Calf Tenderness, No Pedal Edema Neurologic/Psychiatric: Alert, Oriented x3, Abnormal Gait, Aphasia, Depressed Affect, EOM Palsy, Motor Weakness (right sided 2/5 upper extremity and 1/5 lower extremity) Skin: Normal Color, Warm/Dry Lymphatic: No Adenopathy PM&R Medical Assessment & Plan REHAB/MEDICAL ASSESSMENT AND PLAN: REHAB IMPAIRMENT GROUP: CVA ETIOLOGIC DIAGNOSIS: CVA The comorbidities that impact the patients function and/or functional outcome by: cachexia, smoking, poor social situation, right sided weakness dominant side REHAB PLAN: The patient is being admitted to our comprehensive inpatient rehabilitation facility and can tolerate the intensity of service consisting of at least: 180 minutes of therapy a day, 5 out of 7 days a week Rehab treatment will consist of: PT OT ST will all focus on trying to regain function in order to ambulate with right sided weakness and consume regular diet and increase ADL independence The patient/family has a good understanding of our discharge process and will benefit from an interdisciplinary inpatient rehabilitation program. The patient has potential to make improvement and is in need of at least two of the following multidisciplinary therapies including but not limited to physical, occ upational, speech, and prosthetics and orthotics. Additionally the patient will need services from respiratory, nutritional services, wound care, psychology, etc. (Customize this to each patient). Given the patients complex condition and risk of further medical complications, rehabilitation services cannot be safely or effectively provided at a lower level of care such as a senior care facility. BARRIERS TO DISCHARGE: Poor social situation ESTIMATED LOS: 10 days DISPOSITION: Home with daughter RELEVANT CHANGES SINCE PREADMISSION SCREENING: I have compared the patients medical and functional status at the time of the preadmission screening and there are: no changes PROGNOSIS: Fair REHABILITATION GOALS: 1. PT OT ST will all focus on trying to regain function in order to ambulate with right sided weakness and consume regular diet and increase ADL independence All the above goals were reviewed with the patient and he/she is in agreement. By signing this document, I acknowledge that I have personally performed a full physical examination on this patient within 24 hours of admission to this inpatient rehabilitation facility and have determined the patient to be able to tolerate the above course of treatment at an intensive level for a reasonable period of time. I will be completing a detailed individualized Plan of Care for this patient by day #4 of the patients stay based upon the Preadmission Screen, the Post-Admission Evaluation, and the therapy evaluations. Admission Dx/Comorbidities: (1) CVA (cerebral vascular accident) ICD Codes: I63.9 - Cerebral infarction, unspecified (2) Hyperlipidemia Status: Chronic ICD Codes: E78.5 - Hyperlipidemia, unspecified (3) Compression fracture of T3 vertebra ICD Codes: S22.030A - Wedge compression fracture of third thoracic vertebra, initial encounter for closed fracture (4) Behavior disorder (5) Leukocytosis ICD Codes: D72.829 - Elevated white blood cell count, unspecified (6) Dysarthria ICD Codes: R47.1 - Dysarthria and anarthria (7) Smoker Status: Chronic ICD Codes: F17.200 - Nicotine dependence, unspecified, uncomplicated KRYS NEFF DO Sep 05, 2019 20:19
[2019-09-05] MEDS: SENNA W/DOCUSATE (SENOKOT S) TABLET PO SCH (20:26)
[2019-09-05] MEDS: polyethylene glycoL POWDER 17 GM (MIRALAX) PACK PO SCH (20:26)
--- NOTE | 2019-09-05 20:26 | NUR ---
pt took laxatives without difficulty, c/o discomfort behind eyes, pain level 5/10 on numeric scale, Lortab 5 1 tab given
[2019-09-05 20:45] VITALS: BP 98/65
[2019-09-05] MEDS ORDERED: DOCUSATE SODIUM 100 MG (COLACE) CAP PO SCH (21:00)
--- NOTE | 2019-09-05 21:05 | NUR ---
pt rated pain at 3/10 on numeric scale
--- NOTE | 2019-09-05 22:03 | NUR ---
pt requesting cough medicine, Robitussin ac 10ml given, pt again incontinent of bladder, no clots given nectar thickened water freq
--- NOTE | 2019-09-06 00:40 | NUR ---
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
[2019-09-06] MEDS: HYDROcodone/APAP 5 MG/325 MG (LORTAB) TAB PO PRN ×4 (02:07→20:25)
--- NOTE | 2019-09-06 02:07 | NUR ---
pt & this nurse made agreement, this nurse will give pt pain pill & pt will allow this nurse to turn her in 30 min, pain level 6/10 on numeric scale, Lortab 5 1 tab given
--- NOTE | 2019-09-06 02:53 | NUR ---
rates pain level 3/10 on numeric scale
[2019-09-06 05:34] LABS: BASOPHILS # (AUTO) 0.1 10^3/uL (0.0-0.1); BASOPHILS % (AUTO) 1 % (0-10); EOSINOPHILS # (AUTO) 0.3 10^3/uL (0.0-0.3); EOSINOPHILS % (AUTO) 2 % (0-10); HEMATOCRIT 42 % (35-52); HEMOGLOBIN 14.1 G/DL (11.5-16.0); LYMPHOCYTES % (AUTO) 17 % (12-44); MEAN CORPUSCULAR HEMOGLOBIN 30 PG (25-34); MEAN CORPUSCULAR HGB CONC 33 G/DL (32-36); MEAN CORPUSCULAR VOLUME 89 FL (80-99); MEAN PLATELET VOLUME 9.3 FL (7.4-10.4); MONOCYTES # (AUTO) 1.8 X 10^3 (0.0-1.0); MONOCYTES % (AUTO) 10 % (0-12); NEUTROPHILS # (AUTO) 12.3 X 10^3 (1.8-7.8); NEUTROPHILS % (AUTO) 71 % (42-75); PLATELET COUNT 343 10^3/uL (130-400); RED CELL DISTRIBUTION WIDTH 13.8 % (10.0-14.5); WHITE BLOOD COUNT 17.5 10^3/uL (4.3-11.0)
[2019-09-06 05:35] VITALS: BP 101/66
[2019-09-06 05:42] LABS: CHLORIDE 108 MMOL/L (98-107); POTASSIUM 3.8 MMOL/L (3.6-5.0); SODIUM 139 MMOL/L (135-145)
--- NOTE | 2019-09-06 05:42 | NUR ---
bladder scan showed 26ml, voided x6 times through night
[2019-09-06 05:44] LABS: GLUCOSE 107 MG/DL (70-105)
[2019-09-06 05:45] LABS: CARBON DIOXIDE 19 MMOL/L (21-32)
[2019-09-06 05:46] LABS: BILIRUBIN,TOTAL 0.5 MG/DL (0.1-1.0)
[2019-09-06 05:48] LABS: ALKALINE PHOSPHATASE 86 U/L (40-136); GFR ESTIMATED > 60
[2019-09-06 05:49] LABS: BUN/CREATININE RATIO 33
[2019-09-06 05:51] LABS: ALANINE AMINOTRANSFERASE 30 U/L (0-55)
--- NOTE | 2019-09-06 08:27 | Cardiology Progress Note ---
Subjective Date Seen by Provider: Sep 06, 2019 Time Seen by Provider: 08:24 Subjective/Events-last exam Patient up in chair with PT/OT. Denies any chest pain. Continues to have bilateral weakness Review of Systems General: No Chills, No Night Sweats, No Fatigue, No Malaise, No Appetite, No Other HEENT: No Head Aches, No Visual Changes, No Eye Pain, No Ear Pain, No D ysphasia, No Sinus Congestion, No Post Nasal Drip, No Sore Throat, No Other Pulmonary: No Dyspnea, No Cough, No Pleuritic Chest Pain, No Other Cardiovascular: No: Chest Pain, Palpitations, Orthopnea, Paroxysmal Noc. Dyspnea, Edema, Lt Headedness, Other Focused Exam Lactate Level 09/06/19 09:51: Lactic Acid Level 0.60 Objective-Cardiology Exam Last Set of Vital Signs Vital Signs 09/06/19 09/06/19 09/06/19 05:35 08:00 12:38 Temp 36.0 Pulse 103 Resp 18 B/P (MAP) 101/66 (78) Pulse Ox 94 O2 Delivery Room Air Capillary Refill : Less Than 3 Seconds I&O Intake and Output 09/06/19 00:00 Intake Total 500 ml Output Total 1000 ml Balance -500 ml Intake Oral 500 ml Output Urine Total 1000 ml Daily Weight Change No General: Alert, Oriented X3, Cooperative HEENT: Atraumatic, PERRLA Neck: Supple, +2 Carotid Pulse No Bruit Lungs: Clear to Auscultation, Normal Air Movement Heart: Regular Rate, Normal S1, Normal S2 Abdomen: Normal Bowel Sounds, Soft Extremities: No Clubbing, No Edema Skin: No Rashes, No Significant Lesion Neuro: Other (bilateral weakness) Results Lab Laboratory Tests 09/06/19 05:27 A/P-Cardiology Admission Diagnosis CVA HTN HLP Assessment/Plan CVA, still having right hemiplegia and aphagia. Is able to answer yes or no to questions asked, CT angiogram of the head was nondiagnostic. MRI of the head showed shower of embolization, probably underlying atrial fibrillation, so far her EKG did not show acute abnormality maintenance and aspirin. I will proceed with loop implant Echocardiogram showed normal LV function, prominent aorta. No significant abnormality otherwise Hypertension, continue on current medication monitor blood pressure Hyperlipidemia, continue Lipitor Speech and evaluate swallowing study Patient was seen and evaluated with Kely, examination performed, management plan was discussed, agree with the current scribed note, I made few changes to the note using Italic font Patient was seen at bedside, laying down comfortably, able to talk better today, still having weakness on the right side with hemiplegia. Discussed with her daughter and with the patient the management plan recommended loop recorder due to the high suspicion of underlying cardiac arrhythmia as a cause for the stroke. Continue on current medication and continue physical therapy Clinical Quality Measures DVT/VTE Risk/Contraindication: Risk Factor Score Per Nursin RFS Level Per Nursing on Admit: 4+=Very High KELY GUTIERREZ Sep 06, 2019 08:27 DAMON ROTH MD Sep 06, 2019 14:24
[2019-09-06] MEDS: NICOTINE 14 MG (NICODERM) PATCH TD SCH (08:30)
[2019-09-06] MEDS: SENNA W/DOCUSATE (SENOKOT S) TABLET PO SCH ×2 (08:31→20:25)
[2019-09-06] MEDS: ASPIRIN E.C. 325 MG (ECOTRIN) TABLET PO SCH (08:31)
[2019-09-06] MEDS: DOCUSATE SODIUM 100 MG (COLACE) CAP PO SCH (08:31)
[2019-09-06] MEDS: polyethylene glycoL POWDER 17 GM (MIRALAX) PACK PO SCH ×2 (08:31→20:31)
[2019-09-06] MEDS: PATCH REMOVAL TP SCH (09:07)
--- NOTE | 2019-09-06 09:24 | Occupational Ther Daily Note ---
OT Current Status-Daily Note Subjective Pt seen in recliner chair, leaning to L side. Pt states 7/10 throbbing pain in eye/ head. Pt's nurse notified. Pt agrees to OT/ PT co-treat, co-treat rendered due to pt's decreased mobility/ dependent transfers, decreased core strength/ balance, and skill of 2 clinical therapists that of which an aide would not be able to provide. PT focus on balance/ LB movement/ stance and transfers while OT addresses UB strenght/ ROM, ADLs and attention/ visual and cervical ROM. ADL-Treatment Therapy Code Descriptions/Definitions Functional [place] Measure: 0=Not Assessed/NA 4=Minimal Assistance 1=Total Assistance 5=Supervision or Setup 2=Maximal Assistance 6=Modified [place] 3=Moderate Assistance 7=Complete IndependenceSCALE: Activities may be completed with or without assistive devices. 8-Wmdhmorbqr-dfggqaq completes the activity by him/herself with no assistance from a helper. 5-Set-up or Clean-up Assistance-helper sets up or cleans up; patient completes activity. [place] assists only prior to or following the activity. 4-Supervision or Touching Assistance-helper provides verbal cues and/or touching/steadying and/or contact guard assistance as patient completes activity. Assistance may be provided throughout the activity or intermittently. 3-Partial/Moderate Assistance-helper does LESS THAN HALF the effort. [place] lift s, holds or supports trunk or limbs, but provides less than half the effort. 2-Substantial/Maximal Assistance-helper does MORE THAN HALF the effort. [place] lifts or holds trunk or limbs and provides more than half the effort. 4-Cosvkxznt-cqhvdc does ALL the effort. Patient does none of the effort to complete the activity. Or, the assistance of 2 or more helpers is required for the patient to complete the activity. If activity was not attempted, code reason: 7-Patient Refused. 9-Not Applicable-not attempted and the patient did not perform the activity before the current illness, exacerbation or injury. 10-Not Attempted due to Environmental Limitations-(lack of equipment, weather restraints, etc.). 88-Not Attempted due to Medical Conditions or Safety Concerns. Eating (QC): 4 (CGA with cup from hand to mouth due to decreased AROM/ strength in LUE. Pt completes oral rinsing/ spitting with CGA and s/u.) Oral Hygiene (QC): 4 (CGA with cup from hand to mouth due to decreased AROM/ strength in LUE. Pt completes oral rinsing/ spitting with CGA and s/u.) Bathing Location: R Arm, Chest, Abdomen, Perineal Area Shower/Bathe Self (QC): 2 (max A. Skill of 2 therapists for transfers (PT addressed stance while OT addressed LB/ bottom washing)) Upper Body Dressing (QC): 2 (max A with gown doffing/ donning. Pt able to reach across to R side to attempt to doff R sleeve with L UE, unable to complete with full ROM, requires assist bilaterally. ) Lower Body Dressing (QC): 1 (TD- pt attempts to doff from distal thigh to knee s, able to push slightly. Similar response from knees donning to distal thighs, attempts with LUE. Pt requires TD with assist x2 to perform TD for stance and pull pants to hips.) On/Off Footwear: 1 Toileting Hygiene (QC): 1 Toilet Transfer (QC): 7 Other Treatment Pt requests back to bed immediately upon arrival. States feeling like she's leaning/ falling out of side of chair. Pt educated on process and body needs to register upright position/ use core through day. Pt agrees to tx. OT/ PT co- treat. Pt sits in recliner to complete sponge bath, requires max A-TD (pt able to utilize LUE during task moderately). Pt unable to lean forward utilizing core/ LUE on chair, requires max - TD to pull to lean forward for back. Pt stands with TD, cues for hand positioning (pt able to maintain RUE hand position after placed on recliner). Pt completes dressings with max A-TD. Skill of 2 therapists necessary for all ADL tasks due to pt's decreased core strength/ mobility state. Pt TD transfer to EOB. Completes core activation activity with max A-min A for static sitting balance. Clonus noted in RLE throughout many tasks, pt states she has "had that nervous leg for years." Pt requires skilled hand placement and education of RUE positioning through tasks. Pt able to maintain ~5 sec of upright head positioning after PROM to midline/ upright. Requires cues to maintain. Pt's neck stretched with PROM to WFL to right side with noted L cervical mm tightness. Pt returns to supine in bed, completes mouth rinsing with 90* sit position, R hand elevated, towel roll placed for neck midline positioning, education of need to sit up through day with plans to return for transfer later in morning. All needs met, call light in reach. Education OT Patient Education: Correct positioning, Exercise program, Home exercise program, Modified ADL techniques, Purpose of tx/functional activities, Rehab process, Transfer techniques Teaching Recipient: Patient Teaching Methods: Demonstration, Discussion Response to Teaching: Verbalize Understanding, Return Demonstration, Reinforcement Needed OT Short Term Goals Short Term Goals Time Frame: Sep 19, 2019 Eatin Oral hygiene: 9 Toileting hygiene: 3 Shower/bathe self: 3 Upper body dressin Lower body dressin Putting on/taking off footwear: 3 OT Detention Goals Detention Goals Time Frame: Oct 03, 2019 Eating (QC): 6 Oral Hygiene (QC): 9 Toileting Hygiene (QC): 4 Shower/Bathe Self (QC): 4 Upper Body Dressing (QC): 4 Lower Body Dressing (QC): 4 On/Off Footwear (QC): 4 Additional Goals: 1-Demonstrate ADL Tasks, 2-Verbalize Understanding, 3-Im proveStrength/Afia 1=Demonstrate adherence to instructed precautions during ADL tasks. 2=Patient will verbalize/demonstrate understanding of assistive devices/modifications for ADL. 3=Patient will improve strength/tolerance for activity to enable patient to perform ADL's. OT Education/Plan Problem List/Assessment Assessment: Decreased Activ Tolerance, Decreased UE Strength, Dependent Transfers, Impaired Bed Mobility, Impaired Coordination, Impaired Funct Balance, Impaired I ADL's, Impaired Self-Care Skills, Restricted Funct UE ROM Discharge Recommendations Plan/Recommendations: Continue POC Therapy Discharge Recommendati: 24 Hour Supervision Treatment Plan/Plan of Care Treatment,Training & Education: Yes Patient would benefit from OT for education, treatment and training to promote independence in ADL's, mobility, safety and/or upper extremity function for ADL's. Plan of Care: ADL Retraining, Functional Mobility, Group Exercise/Act as Ind, UE Funct Exercise/Act Treatment Duration: Oct 03, 2019 Frequency: At least 5 of 7 days/Wk (IRF) Estimated Hrs Per Day: 1.5 hours per day Agreement: Yes Rehab Potential: Guarded Time/GCodes Start Time: 08:00 Stop Time: 09:00 Total Time Billed (hr/min): 60 Billed Treatment Time 1, ADL 3, EX (60) OT/ PT co-treat rendered due to pt's decreased mobility/ dependent transfers, decreased core strength/ balance, and skill of 2 clinical therapists that of which an aide would not be able to provide. PT focus on balance/ LB movement/ stance and transfers while OT addresses UB strenght/ ROM, ADLs and attention/ visual and cervical ROM. CARINA WOODS OTR Sep 06, 2019 09:24
--- NOTE | 2019-09-06 09:35 | PM&R Progress Note ---
Subjective HPI/CC On Admission Date Seen by Provider: Sep 06, 2019 Time Seen by Provider: 09:45 Subjective/Events-last exam Pt had the rock discontinued but then has some hematuria and clot formation due to the smoking history and overall decline in status, I will consult Dr. Monahan because there is a high risk for bladder cancer No BM yet so gave her laxatives and will do Dulcolax suppository and a soap suds enema to clear that out White counts still elevated at 17, Procalcitonin normal and lactic acid is normal No blood is noted in urination now but she is incontinent Pain behind her right eye continues Blood cultures were all negative, workup for endocarditis Daughter at the bedside Checked meds and labs Reviewed therapy notes Conferred with black mill operator of Systems General: Fatigue Pulmonary: Cough Genitourinary: Hematuria Neurological: Weakness, Numbness, Incoordination Focused Exam Lactate Level 09/06/19 09:51: Lactic Acid Level 0.60 Objective Exam Vital Signs Vital Signs Date Time Temp Pulse Resp B/P (MAP) Pulse Ox O2 Delivery O2 Flow Rate FiO2 09/07/19 05:15 36.4 83 18 103/71 (82) 90 Room Air Capillary Refill : Less Than 3 Seconds General Appearance: No Apparent Distress, Chronically ill, Cachetic HEENT: PERRL/EOMI, Normal ENT Inspection, Pharynx Normal Neck: Full Range of Motion, Normal Inspection, Non Tender, Supple, Carotid Bruit Respiratory: Chest Non Tender, Lungs Clear, Normal Breath Sounds, No Accessory Muscle Use, No Respiratory Distress Cardiovascular: Regular Rate, Rhythm, No Edema, No Gallop, No JVD, No Murmur, Normal Peripheral Pulses Gastrointestinal: Normal Bowel Sounds, No Organomegaly, No Pulsatile Mass, Non Tender, Soft Back: Normal Inspection, No CVA Tenderness, No Vertebral Tenderness Extremity: Normal Capillary Refill, Normal Inspection, Normal Range of Motion, Non Tender, No Calf Tenderness, No Pedal Edema Neurologic/Psychiatric: Alert, Oriented x3, Abnormal Gait, Aphasia, Depressed Affect, EOM Palsy, Motor Weakness (right sided 2/5 upper extremity and 1/5 lower extremity) Skin: Normal Color, Warm/Dry Lymphatic: No Adenopathy Results/Procedures Lab Patient resulted labs reviewed. FIM Transfers Therapy Code Descriptions/Definitions Functional [place] Measure: 0=Not Assessed/NA 4=Minimal Assistance 1=Total Assistance 5=Supervision or Setup 2=Maximal Assistance 6=Modified [place] 3=Moderate Assistance 7=Complete IndependenceSCALE: Activities may be completed with or without assistive devices. 2-Dealhbttkv-yxckvod completes the activity by him/herself with no assistance from a helper. 5-Set-up or Clean-up Assistance-helper sets up or cleans up; patient completes activity. [place] assists only prior to or following the activity. 4-Supervision or Touching Assistance-helper provides verbal cues and/or touching/steadying and/or contact guard assistance as patient completes activity. Assistance may be provided throughout the activity or intermittently. 3-Partial/Moderate Assistance-helper does LESS THAN HALF the effort. [place] lifts, holds or supports trunk or limbs, but provides less than half the effort. 2-Substantial/Maximal Assistance-helper does MORE THAN HALF the effort. [place] lifts or holds trunk or limbs and provides more than half the effort. 0-Zhrvjyqlb-waibyk does ALL the effort. Patient does none of the effort to complete the activity. Or, the assistance of 2 or more helpers is required for the patient to complete the activity. If activity was not attempted, code reason: 7-Patient Refused. 9-Not Applicable-not attempted and the patient did not perform the activity before the current illness, exacerbation or injury. 10-Not Attempted due to Environmental Limitations-(lack of equipment, weather restraints, etc.). 88-Not Attempted due to Medical Conditions or Safety Concerns. Roll Left to Right (QC): 1 Sit to Lying (QC): 1 Sit to Stand (QC): 1 Chair/Oke-gk-Mxeks Xfer(QC): 1 Car Transfer (QC): 1 Gait Training Does the Patient Walk?: No and Walking Goal NOT indicated Walk 10 feet (QC): 88 Walk 50 ft with 2 Turns(QC): 88 Walk 150 ft (QC): 88 Walking 10ft/uneven surface-QC: 88 Wheelchair Training Does the Pt Use a Wheelchair?: Yes Wheel 50 ft with 2 turns (QC): 1 Wheel 150 ft (QC): 1 Type of Wheelchair: Manual Stair Training 1 Step (curb) (QC): 88 4 Steps (QC): 88 12 Steps (QC): 88 Balance Picking up an Object (QC): 88 ADL-Treatment Eating (QC): 4 (CGA with cup from hand to mouth due to decreased AROM/ strength in LUE. Pt completes oral rinsing/ spitting with CGA and s/u.) Oral Hygiene (QC): 4 (CGA with cup from hand to mouth due to decreased AROM/ strength in LUE. Pt completes oral rinsing/ spitting with CGA and s/u.) Bathing Location: R Arm, Chest, Abdomen, Perineal Area Shower/Bathe Self (QC): 2 (max A. Skill of 2 therapists for transfers (PT addressed stance while OT addressed LB/ bottom washing)) Upper Body Dressing (QC): 2 (max A with gown doffing/ donning. Pt able to reach across to R side to attempt to doff R sleeve with L UE, unable to complete with full ROM, requires assist bilaterally. ) Lower Body Dressing (QC): 1 (TD- pt attempts to doff from distal thigh to k nees, able to push slightly. Similar response from knees donning to distal thighs, attempts with LUE. Pt requires TD with assist x2 to perform TD for stance and pull pants to hips.) On/Off Footwear (QC): 1 Toileting Hygiene (QC): 1 Toilet Transfer (QC): 7 Assessment/Plan Assessment and Plan Assess & Plan/Chief Complaint Assessment: CVA Smoker Hematuria Leukocytosis HLP Right side Neglect Fall Risk Cough Constipation Plan: IRF Protocol Statin Smoking cessation ASA Lovenox Telemetry (1) CVA (cerebral vascular accident) (2) Hyperlipidemia Status: Chronic (3) Compression fracture of T3 vertebra (4) Behavior disorder (5) Leukocytosis (6) Dysarthria (7) Smoker Status: Chronic KRYS NEFF DO Sep 06, 2019 09:34
--- NOTE | 2019-09-06 09:35 | Individualized Plan of Care ---
Individualized Plan of Care Rehab Nursing IPOC Order Admission Date Sep 05, 2019 at 11:20 Current Orders Orders Admission Order(Inpt,Obs,Sdc) (09/05/19 09:56) Vital Signs: Per Unit Policy ( 08,16,00 (09/05/19 09:56) Christiano Elder 09,21 (09/05/19 09:56) Sequential Compression Device Q4H (09/05/19 09:56) Assembler Truck Trailer-Inpt Rehab Con (09/05/19 09:56) Rehab Nursing Orders-Ipoc (09/05/19 09:56) Physical Therapy Rehab Orders (09/05/19 09:56) Occupational Therapy Rehab Ord (09/05/19 09:56) Speech Therapy Rehab Orders (09/05/19 09:56) Cbc With Automated Diff (09/06/19 06:00) Comprehensive Metabolic Panel (09/06/19 06:00) General/Regular (09/05/19 Lunch) Intake & Output 06,14,22 (09/05/19 09:56) Precautions (Aru) (09/05/19 09:56) Weekly Weight WEEK (09/05/19 09:56) Rehab-Intensity Of Therapy (09/05/19 09:56) Initiate Admission Nursing Pro .admission (09/05/19 09:56) Acetaminophen Tablet (Tylenol Tablet) (09/05/19 10:00) Alprazolam Tablet (Xanax Tablet) (09/05/19 10:00) Calcium Carbonate Chew Tablet (Antacid C (09/05/19 10:00) Diphenhydramine Tablet (Benadryl Tablet) (09/05/19 10:00) Docusate Sodium Capsule (Colace Capsule) (09/05/19 21:00) Docusate Sodium Capsule (Colace Capsule) (09/05/19 10:00) Bisacodyl Suppository (Dulcolax Supposit (09/05/19 10:00) Lactulose Oral Solution (Enulose Oral So (09/05/19 10:00) Na Phos/Na Biphos Enema (Fleet Enema John (09/05/19 10:00) Guaifenesin/Codeine Syrup (Robitussin Ac (09/05/19 10:00) Loperamide Tablet (Imodium Tablet) (09/05/19 10:00) Enoxaparin Injection (Lovenox Injection) (09/05/19 10:00) Melatonin Tablet (Melatonin Tablet) (09/05/19 10:00) Polyethylene Glycol Powder Pkt (Miralax (09/05/19 21:00) Ondansetron Oral Dissolve Tab (Zofran (09/05/19 10:00) Senna S Tablet (Senokot S Tablet) (09/05/19 21:00) Initiate Admission Nursing Pro .admission (09/05/19 09:56) Admission Arrival Bed Request (09/05/19 11:19) Dys2 Mechanically Altered (09/05/19 Lunch) Request Ot Evaluate & Treat (09/05/19 12:22) Bedside Dysphagia Evaluation (09/05/19 12:22) Code/Resuscitation (09/05/19 13:00) Edu Tobacco/Smoking Cessation .prn (09/05/19 13:00) Initiate Admission Nursing Pro .admission (09/05/19 13:00) Christiano Elder (09/05/19 13:00) Telemetry (09/05/19 13:00) Aspirin Enteric Coated Tablet (Ecotrin T (09/06/19 09:00) Atorvastatin Tablet (Lipitor Tablet) (09/06/19 09:00) Docusate Sodium Capsule (Colace Capsule) (09/06/19 09:00) Bisacodyl Suppository (Dulcolax Supposit (09/05/19 13:00) Hydrocodone/Apap 5/325 Tablet (Lortab 5 (09/05/19 13:00) Enoxaparin Injection (Lovenox Injection) (09/05/19 13:00) Magnesium Hydroxide Oral Susp (Mom Oral (09/05/19 13:00) Nicotine Patch (Nicoderm Patch) (09/06/19 09:00) Sodium Chloride Flush (Catheter Flush Sy (09/05/19 13:00) Acetaminophen Tablet/Caplet (Tylenol T (09/05/19 13:00) Consult Cardiology (09/05/19 13:00) Incentive Spirometry Initial (09/05/19 13:00) Telemetry Nursing Assessment ( (09/05/19 13:00) Incentive Spirometry (Nursing) Q2H (09/05/19 13:00) Patch Removal (Patch Removal) (09/06/19 08:59) Patient Visit (09/05/19 ) Pt Eval Moderate Complexity (09/05/19 ) Functional Activities, Ea 15 (09/05/19 ) Encourage Po Fluids (09/05/19 14:31) Edu Tobacco/Smoking Cessation .prn (09/05/19 14:57) Ambulate 08,12,20 (09/05/19 14:57) Sequential Compression Device Q4H (09/05/19 14:57) Dvt/Vte Risk - Notifiy Physici Q4H (09/05/19 14:57) Catheter(Urinary) Discontinue (09/05/19 16:49) Nursing Communication (Order) (09/05/19 18:48) Consult Urology (09/05/19 18:51) Lactic Acid Analyzer (09/06/19 09:35) Procalcitonin (Pct) (09/06/19 09:35) Dys2 Mechanically Altered (09/06/19 Dinner) Dys2 Mechanically Altered (09/06/19 Lunch) Patient Visit (09/06/19 ) Functional Activities, Ea 15 (09/06/19 ) Patient Visit (09/06/19 ) Functional Activities, Ea 15 (09/06/19 ) Patient Visit (09/06/19 ) Dysphagia Therapy (09/06/19 ) Rehab Nursing Orders: Ongoing Assess. of Cognitive Status, Ongoing Assess. of Function Status, Bladder Management, Bladder Scan, Bladder Training, Bowel Management, Bowel Training, Disease Management & Educaiton, DVT Prophylaxis, Fall Prevention, Fluid/Electrolyte/Nutrition Mgmt, Infection Prevention, Medication Management & Education, Management of Risks & Complications, Management of Skin Intergrity, Nutrition Management, Pain Management, Patient/Family Support, Safety Management, Swallow Precautions Intensity of Therapy to be met Patient to be seen: Min.3h per day/5 of 7d PT IPOC Problem List: Activity Tolerance, Functional Strength, Safety, Balance, Gait, Transfer, Bed Mobility, ROM Treatment Plan: Continue Plan of Care Bed Mobility, Education, Functional Activity Afia, Functional Strength, Group Therapy, Gait, Safety, Therapeutic Exercise, Transfers Treatment Duration: Sep 26, 2019 Frequency: At least 5 of 7 days/Wk (IRF) Estimated Hrs Per Day: 1.5 hours per day OT IPOC Problems: Decreased Activ Tolerance, Decreased UE Strength, Dependent Transfers, Impaired Bed Mobility, Impaired Coordination, Impaired Funct Balance, Impaired I ADL's, Impaired Self-Care Skills, Restricted Funct UE ROM OT Treatment, Training and Edu: Yes Plan of Care: ADL Retraining, Functional Mobility, Group Exercise/Act as Ind, UE Funct Exercise/Act Treatment Duration: Oct 03, 2019 Frequency: At least 5 of 7 days/Wk (IRF) Estimated Hrs Per Day: 1.[address] IPOC Speech Therapy Treatment Plan: Continue Plan of Care Treatment Duration: Sep 06, 2019 Frequency: 5 times per week Estimated Hrs Per Day: .5 hour per day Assembler Truck Trailer/Case Mgmt Assembler Truck Trailer/Case Managemen: Discharge Planning Dietitian/Side Stitching Machine Operator Dietitian/Side Stitching Machine Operator to monitor nutritional status and make changes and/or recommendations as needed and work with speech pathology on dietary upgrades as the occur. Physician IPOC Medical Issues being managed closely and that require the 24 hour availability of a physician: Recent embolic stroke with right side neglect without source identified at high risk for additional embolic showering with increased risk of decompensation Medical Issues: Bowel/Bladder Function, DVT Prophylaxis, Falls Precautions, Fluid/Electrolyte/Nutrition Balance, Infection Protection, Pain Management Brief Synthesis of Preadmission Screen, Post-Admission Evaluation, and Therapy Evaluations: PT OT ST will focus their efforts on regaining enough function and swallowing capabilities in order to return home with family to reduce caretaking burden. Medical Prognosis: Fair Anticipated Length of Stay: 10 days KRYS NEFF DO Sep 06, 2019 09:35
--- NOTE | 2019-09-06 10:07 | Physical Therapy Daily Note ---
PT Daily Note-Current Subjective Pt in recliner upon arrival. Pt expresses pain in neck and head @ /10. Pt agrees to co-treat with OT and MEDICAL ACCOUNTS RECEIVABLE SPECIALIST. Pain Numeric Pain Scale: 7 Location: Left Location Body Site: Head Pain Description: Throbbing Mental Status Patient Orientation: Person, Place, Time, Situation Attachments: Other-See Comments (Telemetry) Transfers SCALE: Activities may be completed with or without assistive devices. 3-Upjreishqs-rxxexyh completes the activity by him/herself with no assistance from a helper. 5-Set-up or Clean-up Assistance-helper sets up or cleans up; patient completes activity. [place] assists only prior to or following the activity. 4-Supervision or Touching Assistance-helper provides verbal cues and/or touching/steadying and/or contact guard assistance as patient completes activity. Assistance may be provided throughout the activity or intermittently. 3-Partial/Moderate Assistance-helper does LESS THAN HALF the effort. [place] lifts, holds or supports trunk or limbs, but provides less than half the effort. 2-Substantial/Maximal Assistance-helper does MORE THAN HALF the effort. [place] lifts or holds trunk or limbs and provides more than half the effort. 5-Apqgotrau-rgrthy does ALL the effort. Patient does none of the effort to compl ete the activity. Or, the assistance of 2 or more helpers is required for the patient to complete the activity. If activity was not attempted, code reason: 7-Patient Refused. 9-Not Applicable-not attempted and the patient did not perform the activity before the current illness, exacerbation or injury. 10-Not Attempted due to Environmental Limitations-(lack of equipment, weather restraints, etc.). 88-Not Attempted due to Medical Conditions or Safety Concerns. Roll Left & Right (QC): 1 Sit to Lying (QC): 1 Sit to Stand (QC): 1 Weight Bearing Full Weight Bearing Full Weight Bearing Gait Training Does the Patient Walk?: No and Walking Goal NOT indicated Gait Assistive Device: None Exercises Seated Therapy Exercises: Ankle pumps Seated Reps: 10 (AAROM-PROM) Pt preformed ankle pumps MaxA Treatments Need for 2 skilled clinicians due to lack of activity tolerance, weakness and inability to transfer independently at this time. OT and MEDICAL ACCOUNTS RECEIVABLE SPECIALIST A pt with sponge bath while pt in recliner and got pt dressed. Pt transferred to EOB for sitting balance activities & trying to stretch the neck. Pt focuses on core strengtheningto aid in sitting balance both EOB and in recliner. PT focused on transfers, mobility, and LE strengthening. OT focused on ADLs, proper hand placement, and UE strengthening/positioning. Assessment Current Status: Fair Progress Pt fatigues quickly and wants to return to bed. MEDICAL ACCOUNTS RECEIVABLE SPECIALIST & OT encourage pt to stay upright as long as possible. PT Short Term Goals Short Term Goals Time Frame: Sep 12, 2019 Roll Left & Right: 2 Sit to lyin Lying to sitting on side of be: 2 Wheel 50ft w/2 turns: 2 Wheel 150 feet: 2 PT Senior Living Goals Senior Living Goals PT Senior Living Goals Time Frame: Sep 26, 2019 Roll Left & Right (QC): 3 Sit to Lying (QC): 3 Lying-Sitting on Side/Bed(QC): 3 Sit to Stand (QC): 3 Chair/Wox-vl-[place] Xfer(QC): 3 Toilet Transfer (QC): 3 Car Transfer (QC): 3 Does the Patient Walk: No and Walking Goal NOT indicated Walk 10 feet (QC): 88 Walk 50ft with 2 Turns (QC): 88 Walk 150 ft (QC): 88 Walking 10ft on Uneven Surface: 88 1 Step (curb) (QC): 88 4 Steps (QC): 88 12 Steps (QC): 88 Picking up an Object (QC): 88 Does the Pt use WC or Scooter?: Yes Wheel 50 feet with 2 turns (QC: 3 Type: Manual Wheel 150 feet: 3 PT Plan Problem List Problem List: Activity Tolerance, Functional Strength, Safety, Balance, Gait, Transfer, Bed Mobility, ROM Treatment/Plan Treatment Plan: Continue Plan of Care Treatment Plan: Bed Mobility, Education, Functional Activity Afia, Functional Strength, Group Therapy, Gait, Safety, Therapeutic Exercise, Transfers Treatment Duration: Sep 26, 2019 Frequency: At least 5 of 7 days/Wk (IRF) Estimated Hrs Per Day: 1.5 hours per day Patient and/or Family Agrees t: Yes Safety Risks/Education Patient Education: Transfer Techniques, Correct Positioning, Safety Issues Teaching Recipient: Patient Teaching Methods: Discussion Response to Teaching: Reinforcement Needed Time/GCodes Time In: 800 Time Out: 900 Total Billed Treatment Time: 60 Total Billed Treatment 1, FA x4 (60m) Co-treat for 60m JHONY WALTERS MEDICAL ACCOUNTS RECEIVABLE SPECIALIST Sep 06, 2019 10:07
[2019-09-06] MEDS: ENOXAPARIN 40 MG/0.4 ML (LOVENOX) SYR SC SCH (10:39)
--- NOTE | 2019-09-06 10:40 | NUR ---
CM/SS CONCURRENT DOCUMENTATION [facility] [employer] Services/N[facility] working [facility] and she indicates there is nothing further needed at this time regarding supportive documentation.
--- NOTE | 2019-09-06 12:45 | NUR ---
Dr. Ruggiero and ERIN Bauer in room with this RN patient and patient's daughter and had states a loop recorder would be placed today at bedside to further monitor patient for A-fib. Dr. Ruggiero explaining procedure and states a nurse from cath lab tech would be back up to patient's room to do later today.
--- NOTE | 2019-09-06 13:45 | NUR ---
laborer RN states that patient is actually going down to cleaner laboratory equipment for procedure. Patient left floor for procedure at 1345. This RN will await patient's return.
--- NOTE | 2019-09-06 13:52 | Occupational Ther Daily Note ---
OT Current Status-Daily Note Subjective Pt seen in bed this pm. Pt states not hungry, ate minimal food (daughter states she fed pt pears). Pt states continued pain through R eye. Pt agrees to OT/ PT co-treat, co-treat rendered due to pt's decreased mobility/ dependent transfers, decreased core strength/ balance, and skill of 2 clinical therapists that of which an aide would not be able to provide. PT focus on balance/ LB movement/ stance and transfers while OT addresses UB strenght/ ROM, ADLs and attention/ visual and cervical ROM. ADL-Treatment Therapy Code Descriptions/Definitions Functional [place] Measure: 0=Not Assessed/NA 4=Minimal Assistance 1=Total Assistance 5=Supervision or Setup 2=Maximal Assistance 6=Modified [place] 3=Moderate Assistance 7=Complete IndependenceSCALE: Activities may be completed with or without assistive devices. 8-Lrkdeuxwpt-ncouims completes the activity by him/herself with no assistance from a helper. 5-Set-up or Clean-up Assistance-helper sets up or cleans up; patient completes activity. [place] assists only prior to or following the activity. 4-Supervision or Touching Assistance-helper provides verbal cues and/or touching/steadying and/or contact guard assistance as patient completes activity. Assistance may be provided throughout the activity or intermittently. 3-Partial/Moderate Assistance-helper does LESS THAN HALF the effort. [place] lifts, holds or supports trunk or limbs, but provides less than half the effort. 2-Substantial/Maximal Assistance-helper does MORE THAN HALF the effort. [place] lifts or holds trunk or limbs and provides more than half the effort. 8-Pibgzpkgi-mmrvli does ALL the effort. Patient does none of the effort to complete the activity. Or, the assistance of 2 or more helpers is required for the patient to complete the activity. If activity was not attempted, code reason: 7-Patient Refused. 9-Not Applicable-not attempted and the patient did not perform the activity before the current illness, exacerbation or injury. 10-Not Attempted due to Environmental Limitations-(lack of equipment, weather restraints, etc.). 88-Not Attempted due to Medical Conditions or Safety Concerns. Other Treatment Pt;s daughter present through session, provides description of pt's day, stating she had BM and just got back to bed. Pt completes bed mob to EOB with TD. Sits EOB with TD (max Ax2- min A intermittently). Pt completes AAROM of R UE with use of LUE- educated on and requires max encouragement and LEAD SECTION SUPERVISOR for guidance (completes wrist and elbow motion). Full PROM completed to RUE shoulder. L UE AROM completed to hand (flight controls engineer strength with pink hand sponge) and wrist/ elbow motion. Pt unable to hold position when flexion of shoulder to 90*. Pt completes cervical AROM (completes with increased spontaneity and increased ROM/ strength). Pt returns to bed with TD and all needs met, call light in reach. Education OT Patient Education: Correct positioning, Exercise program, Home exercise program, Purpose of tx/functional activities Teaching Recipient: Patient Teaching Methods: Demonstration, Discussion Response to Teaching: Verbalize Understanding, Unable to Return Demonstration, Return Demonstration, Reinforcement Needed OT Short Term Goals Short Term Goals Time Frame: Sep 19, 2019 Eatin Oral hygiene: 9 Toileting hygiene: 3 Shower/bathe self: 3 Upper body dressin Lower body dressin Putting on/taking off footwear: 3 OT Inspector Dials Goals Inspector Dials Goals Time Frame: Oct 03, 2019 Eating (QC): 6 Oral Hygiene (QC): 9 Toileting Hygiene (QC): 4 Shower/Bathe Self (QC): 4 Upper Body Dressing (QC): 4 Lower Body Dressing (QC): 4 On/Off Footwear (QC): 4 Additional Goals: 1-Demonstrate ADL Tasks, 2-Verbalize Understanding, 3- ImproveStrength/Afia 1=Demonstrate adherence to instructed precautions during ADL tasks. 2=Patient will verbalize/demonstrate understanding of assistive devices/modifications for ADL. 3=Patient will improve strength/tolerance for activity to enable patient to perform ADL's. OT Education/Plan Problem List/Assessment Assessment: Decreased Activ Tolerance, Decreased UE Strength, Dependent Transfers, Impaired Bed Mobility, Impaired Coordination, Impaired Funct Balance, Impaired I ADL's, Impaired Self-Care Skills, Restricted Funct UE ROM Discharge Recommendations Plan/Recommendations: Continue POC Therapy Discharge Recommendati: 24 Hour Supervision Treatment Plan/Plan of Care Treatment,Training & Education: Yes Patient would benefit from OT for education, treatment and training to promote independence in ADL's, mobility, safety and/or upper extremity function for ADL's. Plan of Care: ADL Retraining, Functional Mobility, Group Exercise/Act as Ind, UE Funct Exercise/Act Treatment Duration: Oct 03, 2019 Frequency: At least 5 of 7 days/Wk (IRF) Estimated Hrs Per Day: 1.5 hours per day Agreement: Yes Rehab Potential: Guarded Time/GCodes Start Time: 13:15 Stop Time: 13:45 Total Time Billed (hr/min): 30 Billed Treatment Time 1, EX 2 (30) OT/ PT co-treat. Co-treat rendered due to pt's decreased mobility/ dependent transfers, decreased core strength/ balance, and skill of 2 clinical therapists that of which an aide would not be able to provide. PT focus on balance/ LB movement/ stance and transfers while OT addresses UB strenght/ ROM, ADLs and attention/ visual and cervical ROM. CARINA WOODS OTR Sep 06, 2019 13:52
--- NOTE | 2019-09-06 13:52 | Physical Therapy Daily Note ---
PT Daily Note-Current Subjective Pt resting in bed upon arrival with daughter in room. Pt daughter stated pt hasn't gotten any time to rest since prior Rx. Pt agrees to co-treat with OT. Pt states there is still pain in neck and L eye. Pain Location: Left Location Body Site: Eye Pain Description: Ache, Tightness Mental Status Patient Orientation: Person, Place, Time Attachments: Other-See Comments (Telemetry) Transfers SCALE: Activities may be completed with or without assistive devices. 6-Mhyvtofith-vwthrki completes the activity by him/herself with no assistance from a helper. 5-Set-up or Clean-up Assistance-helper sets up or cleans up; patient completes activity. [place] assists only prior to or following the activity. 4-Supervision or Touching Assistance-helper provides verbal cues and/or touching/steadying and/or contact guard assistance as patient completes activity. Assistance may be provided throughout the activity or intermittently. 3-Partial/Moderate Assistance-helper does LESS THAN HALF the effort. [place] lifts, holds or supports trunk or limbs, but provides less than half the effort. 2-Substantial/Maximal Assistance-helper does MORE THAN HALF the effort. [place] lifts or holds trunk or limbs and provides more than half the effort. 3-Suyywzabi-jhvsve does ALL the effort. Patient does none of the effort to complete the activity. Or, the assistance of 2 or more helpers is required for the patient to complete the activity. If activity was not attempted, code reason: 7-Patient Refused. 9-Not Applicable-not attempted and the patient did not perform the activity before the current illness, exacerbation or injury. 10-Not Attempted due to Environmental Limitations-(lack of equipment, weather restraints, etc.). 88-Not Attempted due to Medical Conditions or Safety Concerns. Roll Left & Right (QC): 1 Sit to Lying (QC): 1 Weight Bearing Full Weight Bearing Full Weight Bearing Gait Training Does the Patient Walk?: No and Walking Goal NOT indicated Gait Assistive Device: None Wheelchair Training Does the Pt Use a Wheelchair?: No Treatments Use of two clinicians d/t pt's activity tolerance and dependence need for transfers and balance at this time. OT focused on UE strengthening/positioning and head/neck control. SLEDGER focused on dynamic sitting balance, strengthening of LE, and strengthening of abdominals. Assessment Current Status: Fair Progress Pt fatigued quickly and required frequent breaks. Pt needed MaxA for all activities. PT Short Term Goals Short Term Goals Time Frame: Sep 12, 2019 Roll Left & Right: 2 Sit to lyin Lying to sitting on side of be: 2 Wheel 50ft w/2 turns: 2 Wheel 150 feet: 2 PT Card Checker Goals Assisted Goals PT Card Checker Goals Time Frame: Sep 26, 2019 Roll Left & Right (QC): 3 Sit to Lying (QC): 3 Lying-Sitting on Side/Bed(QC): 3 Sit to Stand (QC): 3 Chair/Tyg-hm-Silmd Xfer(QC): 3 Toilet Transfer (QC): 3 Car Transfer (QC): 3 Does the Patient Walk: No and Walking Goal NOT indicated Walk 10 feet (QC): 88 Walk 50ft with 2 Turns (QC): 88 Walk 150 ft (QC): 88 Walking 10ft on Uneven Surface: 88 1 Step (curb) (QC): 88 4 Steps (QC): 88 12 Steps (QC): 88 Picking up an Object (QC): 88 Does the Pt use WC or Scooter?: Yes Wheel 50 feet with 2 turns (QC: 3 Type: Manual Wheel 150 feet: 3 PT Plan Problem List Problem List: Activity Tolerance, Functional Strength, Safety, Balance, Transfer, Bed Mobility, ROM Treatment/Plan Treatment Plan: Continue Plan of Care Treatment Plan: Bed Mobility, Education, Functional Activity Afia, Functional Strength, Group Therapy, Gait, Safety, Therapeutic Exercise, Transfers Treatment Duration: Sep 26, 2019 Frequency: At least 5 of 7 days/Wk (IRF) Estimated Hrs Per Day: 1.5 hours per day Patient and/or Family Agrees t: Yes Safety Risks/Education Patient Education: Correct Positioning, Safety Issues Teaching Recipient: Patient, Family Teaching Methods: Discussion Response to Teaching: Reinforcement Needed Time/GCodes Time In: 1315 Time Out: 1345 Total Billed Treatment Time: 30 Total Billed Treatment 1, FA x2 (30m) JHONY WALTERS PTA Sep 06, 2019 13:52
--- NOTE | 2019-09-06 14:27 | Implantation of Loop Monitor ---
Implant of Loop Monitior IMPLANTATION OF LOOP MONITOR REPORT DATE OF PROCEDURE: 09/06/19 PREOP DIAGNOSIS: Cryptogenic stroke POSTOP DIAGNOSIS: Cryptogenic stroke PROCEDURE DETAILS: The patient is a 58 female with watershed appearance stroke, no known history of arrhythmia, decided to proceed with loop implant to rule out underlying cardiac arrhythmia as a cause for her stroketient. Informed consent was taken. All risks and complications were discussed at length. The patient was draped and prepped in the usual sterile fashion. Local anesthesia was lidocaine, which was given in the substernal area close to the 4th intercostal space. Loop monitor Buy With Fetch with serial number [id number] was implanted according to the protocol. Steri-Strips were placed at the end of the procedure. There were no complications and the patient tolerated the procedure well. The device was interrogated with a voltage of. ANESTHESIA: Local anesthesia with lidocaine. COMPLICATIONS: None CONTRAST/FLUOROSCOPY: None CONCLUSION: successful implantation of a loop recorder with no complication FINAL DIAGNOSIS: Acute cryptogenic stroke Hypertension DAMON ROTH MD Sep 06, 2019 14:27
--- NOTE | 2019-09-06 14:36 | Speech Therapy Progress Note ---
Therapy Progress Note Patient will not receive ST services on 09/07/2019 due to therapist unavailability. FLORECITA ODEN Sep 06, 2019 14:36
--- NOTE | 2019-09-06 14:45 | NUR ---
Patient back from lab asst procedure. Report from lab asst RN. RN states patient tolerated procedure well. factory laborer RN discussed after procedure care- can take shower, however keep dressing clean and dry. Leave dressing on for 1 week. factory laborer RN also went over the technical aspects of loop recorder with patient and daughter.
--- NOTE | 2019-09-06 14:45 | Speech Therapy Daily Note ---
Speech Daily Progress Note Subjective Date Seen by Provider: Sep 06, 2019 Time Seen by Provider: 00:30 Patient was resting in her chair with her daughter present. Patient was able to participate well with therapy. Objective Patient utilizes compensatory strategies as directed with 85%. Patient was upgraded to regular thin liquids. Assessment Assessment Current Status: Good Progress Treatment Plan Continue Plan of Care Speech Short Term Goals Short Term Goals Short Term Goals Pt will complete (visual/verbal) attention task with 90% accy. Pt will complete STM task with use of compensatoy strategies with 90% accy Pt will complete further cognitive assessment for further evaluation of memory, functional math, and reading. Speech Port Patrol Officer Goals Nursing Home Goals Pt will tolerate least restrictive diet with no s/s of aspiration/penetration wiht observed oral intake. Speech-Plan Patient/Family Goals Patient/Family Goals: Patient plans on returning home with her family upon discharge. Treatment Plan Speech Therapy Treatment Plan: Continue Plan of Care Frequency: 5 times per week Estimated Hrs Per Day: .5 hour per day Rehab Potential: Guarded Barriers to Learning: Patient's recent CVA Pt/Family Agrees to Plan: Yes Safety Risks/Education Teaching Recipient: Patient Teaching Methods: Demonstration, Discussion Response to Teaching: Verbalize Understanding, Return Demonstration Education Topics Provided: Safety of oral intake Time Speech Therapy Time In: 11:00 Speech Therapy Time Out: 11:30 Total Billed Time: 30 Billed Treatment Time 1 BORIS FLORECITA Garza Sep 06, 2019 14:45
--- NOTE | 2019-09-06 16:13 | NUR ---
CM/SS PATIENT CARE CONFERENCE Reviewed Summary with patient and her daughter Petra, both are in agreement to patient next planned team assessment Wednesday, September 13, 2019. Patient arrived to unit yesterday.
[2019-09-06 18:00] VITALS: BP 100/57
--- NOTE | 2019-09-06 19:06 | NUR ---
bedside report received from MARIANA RAINES, assume care of pt
[2019-09-06] MEDS: guaiFENesin/CODEINE (ROBITUSSIN AC) 10ML UDC PO PRN (20:25)
--- NOTE | 2019-09-06 20:25 | NUR ---
pt took Senokot refused miralax, stating had BM today, c/o eye pain level 7/10 on numeric scale, Lortab 5 1 tab given & pt requesting cough medicine, Robitussin ac 10ml given
--- NOTE | 2019-09-06 21:15 | NUR ---
rates pain level 3/10 on numeric scale
[2019-09-07] MEDS: HYDROcodone/APAP 5 MG/325 MG (LORTAB) TAB PO PRN ×4 (00:23→21:27)
--- NOTE | 2019-09-07 00:23 | NUR ---
c/o neck & chest incisional pain, level 5/10 on numeric scale, Lortab 5 1 tab given
--- NOTE | 2019-09-07 01:15 | NUR ---
resting quietly in bed, pain level 0/10 on CNPI scale
[2019-09-07 05:15] VITALS: BP 103/71
--- NOTE | 2019-09-07 06:29 | PM&R Progress Note ---
Subjective HPI/CC On Admission Date Seen by Provider: Sep 07, 2019 Time Seen by Provider: 10:00 Subjective/Events-last exam Dr. Monahan assessed her and will monitor bladder Max assist continues Had a BM yesterday Loop recorder placed yesterday and telemetry will be discontinued Thin liquids tolerated well now Overall complexities but seems to be doing better Checked meds and labs Reviewed therapy notes Conferred with head baggage porter of Systems General: Fatigue Neurological: Weakness, Numbness, Incoordination Focused Exam Lactate Level 09/06/19 09:51: Lactic Acid Level 0.60 Objective Exam Vital Signs Vital Signs Date Time Temp Pulse Resp B/P (MAP) Pulse Ox O2 Delivery O2 Flow Rate FiO2 09/08/19 05:38 36.6 63 18 117/79 (92) 92 Room Air Capillary Refill : Less Than 3 Seconds General Appearance: No Apparent Distress, Chronically ill, Cachetic HEENT: PERRL/EOMI, Normal ENT Inspection, Pharynx Normal Neck: Full Range of Motion, Normal Inspection, Non Tender, Supple, Carotid Bruit Respiratory: Chest Non Tender, Lungs Clear, Normal Breath Sounds, No Accessory Muscle Use, No Respiratory Distress Cardiovascular: Regular Rate, Rhythm, No Edema, No Gallop, No JVD, No Murmur, N ormal Peripheral Pulses Gastrointestinal: Normal Bowel Sounds, No Organomegaly, No Pulsatile Mass, Non Tender, Soft Back: Normal Inspection, No CVA Tenderness, No Vertebral Tenderness Extremity: Normal Capillary Refill, Normal Inspection, Normal Range of Motion, Non Tender, No Calf Tenderness, No Pedal Edema Neurologic/Psychiatric: Alert, Oriented x3, Abnormal Gait, Aphasia, Depressed Affect, EOM Palsy, Motor Weakness (right sided 2/5 upper extremity and 1/5 lower extremity) Skin: Normal Color, Warm/Dry Lymphatic: No Adenopathy Results/Procedures Lab Patient resulted labs reviewed. FIM Transfers Therapy Code Descriptions/Definitions Functional [place] Measure: 0=Not Assessed/NA 4=Minimal Assistance 1=Total Assistance 5=Supervision or Setup 2=Maximal Assistance 6=Modified [place] 3=Moderate Assistance 7=Complete IndependenceSCALE: Activities may be completed with or without assistive devices. 0-Vfioqjvjfz-htnejtp completes the activity by him/herself with no assistance from a helper. 5-Set-up or Clean-up Assistance-helper sets up or cleans up; patient completes activity. [place] assists only prior to or following the activity. 4-Supervision or Touching Assistance-helper provides verbal cues and/or touching/steadying and/or contact guard assistance as patient completes activity. Assistance may be provided throughout the activity or intermittently. 3-Partial/Moderate Assistance-helper does LESS THAN HALF the effort. [place] lifts, holds or supports trunk or limbs, but provides less than half the effort. 2-Substantial/Maximal Assistance-helper does MORE THAN HALF the effort. [place] lifts or holds trunk or limbs and provides more than half the effort. 0-Mnrfqcygw-aofrfp does ALL the effort. Patient does none of the effort to complete the activity. Or, the assistance of 2 or more helpers is required for the patient to complete the activity. If activity was not attempted, code reason: 7-Patient Refused. 9-Not Applicable-not attempted and the patient did not perform the activity before the current illness, exacerbation or injury. 10-Not Attempted due to Environmental Limitations-(lack of equipment, weather restraints, etc.). 88-Not Attempted due to Medical Conditions or Safety Concerns. Roll Left to Right (QC): 1 Sit to Lying (QC): 1 Sit to Stand (QC): 1 Chair/Xgp-dw-Gkjmf Xfer(QC): 1 Car Transfer (QC): 1 Gait Training Does the Patient Walk?: No and Walking Goal NOT indicated Walk 10 feet (QC): 88 Walk 50 ft with 2 Turns(QC): 88 Walk 150 ft (QC): 88 Walking 10ft/uneven surface-QC: 88 Gait Assistive Device: None Wheelchair Training Does the Pt Use a Wheelchair?: No Wheel 50 ft with 2 turns (QC): 1 Wheel 150 ft (QC): 1 Type of Wheelchair: Manual Stair Training 1 Step (curb) (QC): 88 4 Steps (QC): 88 12 Steps (QC): 88 Balance Picking up an Object (QC): 88 ADL-Treatment Eating (QC): 4 (CGA with cup from hand to mouth due to decreased AROM/ strength in LUE. Pt completes oral rinsing/ spitting with CGA and s/u.) Oral Hygiene (QC): 4 (CGA with cup from hand to mouth due to decreased AROM/ strength in LUE. Pt completes oral rinsing/ spitting with CGA and s/u.) Bathing Location: R Arm, Chest, Abdomen, Perineal Area Shower/Bathe Self (QC): 2 (max A. Skill of 2 therapists for transfers (PT addressed stance while OT addressed LB/ bottom washing)) Upper Body Dressing (QC): 2 (max A with gown doffing/ donning. Pt able to reach across to R side to attempt to doff R sleeve with L UE, unable to complete with full ROM, requires assist bilaterally. ) Lower Body Dressing (QC): 1 (TD- pt attempts to doff from distal thigh to knees, able to push slightly. Similar response from knees donning to distal thighs, attempts with LUE. Pt requires TD with assist x2 to perform TD for stance and pull pants to hips.) On/Off Footwear (QC): 1 Toileting Hygiene (QC): 1 Toilet Transfer (QC): 7 Assessment/Plan Assessment and Plan Assess & Plan/Chief Complaint Assessment: CVA Smoker Hematuria Leukocytosis HLP Right side Neglect Fall Risk Cough Constipation resolved Plan: IRF Protocol Statin Smoking cessation ASA Lovenox Telemetry DC since loop recorder placed (1) CVA (cerebral vascular accident) (2) Hyperlipidemia Status: Chronic (3) Compression fracture of T3 vertebra (4) Behavior disorder (5) Leukocytosis (6) Dysarthria (7) Smoker Status: Chronic KRYS NEFF DO Sep 07, 2019 06:29
[2019-09-07] MEDS: PATCH REMOVAL TP SCH (08:11)
--- NOTE | 2019-09-07 08:14 | Cardiology Progress Note ---
Subjective Date Seen by Provider: Sep 07, 2019 Time Seen by Provider: 08:13 Subjective/Events-last exam Patient in bed, no new complaints, denies any chest pain or dyspnea. Review of Systems General: No Chills, No Night Sweats, No Fatigue, No Malaise, No Appetite, No Other HEENT: No Head Aches, No Visual Changes, No Eye Pain, No Ear Pain, No Dysphasia, No Sinus Congestion, No Post Nasal Drip, No Sore Throat, No Other Pulmonary: No Dyspnea, No Cough, No Pleuritic Chest Pain, No Other Cardiovascular: No: Chest Pain, Palpitations, Orthopnea, Paroxysmal Noc. Dyspnea, Edema, Lt Headedness, Other Focused Exam Lactate Level 09/06/19 09:51: Lactic Acid Level 0.60 Objective-Cardiology Exam Last Set of Vital Signs Vital Signs 09/07/19 09/07/19 09/07/19 05:15 07:09 08:36 Temp 36.4 Pulse 82 Resp 18 B/P (MAP) 103/71 (82) Pulse Ox 90 O2 Delivery Room Air Capillary Refill : Less Than 3 Seconds I&O Intake and Output 09/07/19 00:00 Intake Total 905 ml Balance 905 ml Intake Oral 905 ml # Voids 9 # Bowel Movements 1 General: Alert, Oriented X3, Cooperative HEENT: Atraumatic, PERRLA Neck: Supple, +2 Carotid Pulse No Bruit Lungs: Clear to Auscultation, Normal Air Movement Heart: Regular Rate, Normal S1, Normal S2 Abdomen: Normal Bowel Sounds, Soft Extremities: No Clubbing, No Edema Skin: No Rashes, No Significant Lesion Neuro: Other (bilateral weakness) A/P-Cardiology Admission Diagnosis CVA HTN HLP Assessment/Plan CVA, still having right hemiplegia and aphagia. Is able to answer yes or no to questions asked, CT angiogram of the head was nondiagnostic. MRI of the head showed shower of embolization, probably underlying atrial fibrillation, so far her EKG did not show acute abnormality maintenance and aspirin. s/p LINq implantation for further monitoring for atrial fibrillation. Echocardiogram showed normal LV function, prominent aorta. No significant abnormality otherwise Hypertension, continue on current medication monitor blood pressure Hyperlipidemia, continue Lipitor Speech and evaluate swallowing study Patient was seen and evaluated with Kely, examination performed, management plan was discussed, agree with the current scribed note, I made few changes to the note using Italic font Patient was seen during physical therapy session, she was doing well, talkative and trying to hold a conversation, significant improvement compared to her initial admission evaluation. Had a loop recorder implanted. Continue to monitor Clinical Quality Measures DVT/VTE Risk/Contraindication: Risk Factor Score Per Nursin RFS Level Per Nursing on Admit: 4+=Very High KELY GUTIERREZ Sep 07, 2019 08:14 DAMON ROTH MD Sep 07, 2019 09:05
[2019-09-07] MEDS: DOCUSATE SODIUM 100 MG (COLACE) CAP PO SCH (08:15)
[2019-09-07] MEDS: SENNA W/DOCUSATE (SENOKOT S) TABLET PO SCH ×2 (08:15→19:01)
[2019-09-07] MEDS: polyethylene glycoL POWDER 17 GM (MIRALAX) PACK PO SCH ×2 (08:15→19:01)
[2019-09-07] MEDS: NICOTINE 14 MG (NICODERM) PATCH TD SCH (08:18)
[2019-09-07] MEDS: ASPIRIN E.C. 325 MG (ECOTRIN) TABLET PO SCH (08:20)
--- NOTE | 2019-09-07 08:59 | Physical Therapy Daily Note ---
PT Daily Note-Current Subjective Patient in bed pre tx, agrees to PT, has no complaints of pain. Will be co- treating with OT due to poor patient mobility, strength, endurance, balance (standing and sitting), the need to coordinate UE and LE during activity, reduce risk of falls. Appearance Patient in recliner post tx with nurse call, phone, tray, legs elevated. Mental Status Patient Orientation: Person, Place, Situation Transfers SCALE: Activities may be completed with or without assistive devices. 1-Hefcnunznb-frpgnfx completes the activity by him/herself with no assistance from a helper. 5-Set-up or Clean-up Assistance-helper sets up or cleans up; patient completes activity. [place] assists only prior to or following the activity. 4-Supervision or Touching Assistance-helper provides verbal cues and/or touching/steadying and/or contact guard assistance as patient completes activity . Assistance may be provided throughout the activity or intermittently. 3-Partial/Moderate Assistance-helper does LESS THAN HALF the effort. [place] lifts, holds or supports trunk or limbs, but provides less than half the effort. 2-Substantial/Maximal Assistance-helper does MORE THAN HALF the effort. [place] lifts or holds trunk or limbs and provides more than half the effort. 0-Iynvbzars-egwgmr does ALL the effort. Patient does none of the effort to complete the activity. Or, the assistance of 2 or more helpers is required for the patient to complete the activity. If activity was not attempted, code reason: 7-Patient Refused. 9-Not Applicable-not attempted and the patient did not perform the activity before the current illness, exacerbation or injury. 10-Not Attempted due to Environmental Limitations-(lack of equipment, weather restraints, etc.). 88-Not Attempted due to Medical Conditions or Safety Concerns. Roll Left & Right (QC): 1 Lying to Sitting/Side of Bed(Q: 1 Sit to Stand (QC): 1 Chair/Fib-vw-Ouznu Xfer(QC): 1 Patient is able to assist a little with rolling but not enough to be considered max assist. Patient has to roll several times for dressing, then supine to sit and then transfer to where she finishes dressing. to therapy gym, standing in parallel bars x3 for about 3 min each time with assist of 2 (patient needs assist guarding her left ankle to keep it from rolling), then transfer to therapy table for sitting balance training. Afterward, transfer back to , taken to room and set up in recliner. Weight Bearing Full Weight Bearing Full Weight Bearing Treatments dressing, bed mobility and transfers, standing, sitting balance training. PT performed bed mobility and rolling for dressing, transfers, standing, balance training, OT performed dressing, assisted with transfers and balance training, UE positioning during functional activity. Assessment Current Status: Poor Progress Poor functional mobility, no improvement seen yet. PT Short Term Goals Short Term Goals Time Frame: Sep 12, 2019 Roll Left & Right: 2 Sit to lyin Lying to sitting on side of be: 2 Wheel 50ft w/2 turns: 2 Wheel 150 feet: 2 PT Health Communications Specialist Goals Health Communications Specialist Goals PT Health Communications Specialist Goals Time Frame: Sep 26, 2019 Roll Left & Right (QC): 3 Sit to Lying (QC): 3 Lying-Sitting on Side/Bed(QC): 3 Sit to Stand (QC): 3 Chair/Yoq-uv-Iwhob Xfer(QC): 3 Toilet Transfer (QC): 3 Car Transfer (QC): 3 Does the Patient Walk: No and Walking Goal NOT indicated Walk 10 feet (QC): 88 Walk 50ft with 2 Turns (QC): 88 Walk 150 ft (QC): 88 Walking 10ft on Uneven Surface: 88 1 Step (curb) (QC): 88 4 Steps (QC): 88 12 Steps (QC): 88 Picking up an Object (QC): 88 Does the Pt use WC or Scooter?: Yes Wheel 50 feet with 2 turns (QC: 3 Type: Manual Wheel 150 feet: 3 PT Plan Problem List Problem List: Activity Tolerance, Functional Strength, Safety, Balance, Gait, Transfer, Bed Mobility, ROM Treatment/Plan Treatment Plan: Continue Plan of Care Treatment Plan: Bed Mobility, Education, Functional Activity Afia, Functional Strength, Group Therapy, Gait, Safety, Therapeutic Exercise, Transfers Treatment Duration: Sep 26, 2019 Frequency: At least 5 of 7 days/Wk (IRF) Estimated Hrs Per Day: 1.5 hours per day Patient and/or Family Agrees t: Yes Safety Risks/Education Patient Education: Transfer Techniques, Correct Positioning, Safety Issues Teaching Recipient: Patient Teaching Methods: Demonstration, Discussion Response to Teaching: Reinforcement Needed Time/GCodes Time In: 0800 Time Out: 0900 Total Billed Treatment Time: 60 Total Billed Treatment 1 visit NM 15' FA 45' TASHA POMPA PT Sep 07, 2019 08:59
--- NOTE | 2019-09-07 09:07 | Occupational Ther Daily Note ---
OT Current Status-Daily Note Subjective 0800: Pt seen in bed this am. Pt's head in midline upon entry, pt moving neck with more spontaneity. Pt agrees to OT/ PT co-treat. Pt states pain behind eye, requests pain meds when nursing present at start of session. OT/ PT co-treat this session due to dependent transfers, decreased balance/ core strength, d ependency with ADL tasks and need of 2 skilled therapists to complete session which an aide would not be able to provide. PT focuses on gait/ transfers/ LEs while OT focuses on ADLs, UE movement and attention. 1030: Pt seen in bed, pt c/o min pain behind R eye. Pt expresses tired, limited attention with cues throughout. Pt agrees to activities. OT individual tx for focus on UE activities. Mental Status/Objective Attachments: Telemetry ADL-Treatment Therapy Code Descriptions/Definitions Functional [place] Measure: 0=Not Assessed/NA 4=Minimal Assistance 1=Total Assistance 5=Supervision or Setup 2=Maximal Assistance 6=Modified [place] 3=Moderate Assistance 7=Complete IndependenceSCALE: Activities may be completed with or without assistive devices. 9-Zfjaooljsb-fbivimc completes the activity by him/herself with no assistance from a helper. 5-Set-up or Clean-up Assistance-helper sets up or cleans up; patient completes activity. [place] assists only prior to or following the activity. 4-Supervision or Touching Assistance-helper provides verbal cues and/or touching/steadying and/or contact guard assistance as patient completes activity. Assistance may be provided throughout the activity or intermittently. 3-Partial/Moderate Assistance-helper does LESS THAN HALF the effort. [place] lifts, holds or supports trunk or limbs, but provides less than half the effort. 2-Substantial/Maximal Assistance-helper does MORE THAN HALF the effort. [place] lifts or holds trunk or limbs and provides more than half the effort. 4-Vgxfhpent-vmboqe does ALL the effort. Patient does none of the effort to complete the activity. Or, the assistance of 2 or more helpers is required for the patient to complete the activity. If activity was not attempted, code reason: 7-Patient Refused. 9-Not Applicable-not attempted and the patient did not perform the activity before the current illness, exacerbation or injury. 10-Not Attempted due to Environmental Limitations-(lack of equipment, weather restraints, etc.). 88-Not Attempted due to Medical Conditions or Safety Concerns. Eating (QC): 5 (s/u for coffee prep- pt completes creamer package opening with OT holding items and ripping with L UE.) Upper Body Dressing (QC): 2 (Pt able to bring arm sleeve up to elbow with L UE on RUE, able to thread LUE into sleeve with assist to elbow, pt requires max A to thread overhead.) Lower Body Dressing (QC): 1 (TD-- completes in bed, requires assist for rolling as pt unable to complete glute bridge.) On/Off Footwear: 1 Other Treatment [id number]: Pt seen in bed, completes pant doffing/ donning. Transfer supine to sit with TD, completes squat pivot transfer to w/c with TD x2 assist for safety. Pt completes shirt in w/c with back support. Increased core/ balance/ cervical range and extension of RUE 1x during session. Pt pushed in w/c to therapy gym, stands at parallel bars with TD (max A x2) and completes stance for minutes with PT pelvis and OT UB stance support with manual application of pressure for straight posture. Cues for pushing through UE/ LEs in stance. Completes 3x. During rest, pt educated on steel cutter/ extension of fingers, compeltes with PROM and minimal AROM extension (completes partial extension 1x during session when probed). MM inhibition/ stimulation techniques utilized for finger ext and elbow flexion. Pt sits EOM with TD with SPT. pt completes static sitting balance with min A- Max A. Pt returns to recliner with TD in room, all needs met, s/u for coffee, placement of pillows and towel rolls for positioning. Call light on L side of lap. [id number]: Pt bed mob to supine with TD. Pt does not respond when asked what she desires to do during session. Pt given 2 options, does not respond over an increased time, makes eye contact and asked again. Again, pt does not respond, but when asked if PROM/ AROM in bed was desired pt says yes. Pt completes LUE AROM to all joints, improvement of L shoulder activation with min A (pt able to reach/ forward flex against gravity with min A and minimal cues 5x), reaches across/ horizontal ab/ adduction 5x with cues for continuation but no physical cues. Pt's L pectoral mm tight with movement, requires manual inhibitory actions to decrease mm activity. Pt completes RUE finger flexion, minimal extension. Pt's RUE elbow/ shoulder PROM in all planes. Pt educated on AAROM of R hand with L hand, unable to return demonstrate without hand over hand assist. Pt limited in responses this session, states tired. At end of session pt verbals increase. All needs met, call light in reach, pt remains in bed. Education OT Patient Education: Correct positioning, Exercise program, Home exercise program, Modified ADL techniques, Progress toward Goal/Update tx plan, Safety issues, Transfer techniques Teaching Recipient: Patient Teaching Methods: Demonstration, Discussion Response to Teaching: Verbalize Understanding, Return Demonstration, Reinforcement Needed OT Short Term Goals Short Term Goals Time Frame: Sep 19, 2019 Eatin Oral hygiene: 9 Toileting hygiene: 3 Shower/bathe self: 3 Upper body dressin Lower body dressin Putting on/taking off footwear: 3 OT Group Home Goals [place] Goals Time Frame: Oct 03, 2019 Eating (QC): 6 Oral Hygiene (QC): 9 Toileting Hygiene (QC): 4 Shower/Bathe Self (QC): 4 Upper Body Dressing (QC): 4 Lower Body Dressing (QC): 4 On/Off Footwear (QC): 4 Additional Goals: 1-Demonstrate ADL Tasks, 2-Verbalize Understanding, 3- ImproveStrength/Afia 1=Demonstrate adherence to instructed precautions during ADL tasks. 2=Patient will verbalize/demonstrate understanding of assistive devices/modifications for ADL. 3=Patient will improve strength/tolerance for activity to enable patient to perform ADL's. OT Education/Plan Problem List/Assessment Assessment: Decreased Activ Tolerance, Decreased UE Strength, Dependent Transfers, Impaired Bed Mobility, Impaired Coordination, Impaired Funct Balance, Impaired I ADL's, Impaired Self-Care Skills, Restricted Funct UE ROM Discharge Recommendations Plan/Recommendations: Continue POC Therapy Discharge Recommendati: 24 Hour Supervision Treatment Plan/Plan of Care Treatment,Training & Education: Yes Patient would benefit from OT for education, treatment and training to promote independence in ADL's, mobility, safety and/or upper extremity function for ADL's. Plan of Care: ADL Retraining, Functional Mobility, Group Exercise/Act as Ind, UE Funct Exercise/Act Treatment Duration: Oct 03, 2019 Frequency: At least 5 of 7 days/Wk (IRF) Estimated Hrs Per Day: 1.5 hours per day Agreement: Yes Rehab Potential: Guarded Time/GCodes Start Time: 08:00 (1030) Stop Time: 09:00 (1100) Total Time Billed (hr/min): 90 (60+30) Billed Treatment Time 0800: 1, ADL (15), EX 2 (30), NM (15)= 60 OT/ PT co-treat this session due to dependent transfers, decreased balance/ core strength, dependency with ADL tasks and need of 2 skilled therapists to complete session which an aide would not be able to provide. PT focuses on gait/ transfers/ LEs while OT focuses on ADLs, UE movement and attention. [id number]: 1, EX 2 (30) Total: 90 CARINA WOODS OTR Sep 07, 2019 09:07
--- NOTE | 2019-09-07 09:46 | CONSULTATION REPORT ---
DATE OF SERVICE: 09/07/2019 ATTENDING PHYSICIAN: Dr. Thibodeaux. SUMMARY: A 58-year-old lady, who sustained CVA with motor and sensory changes. She had a [place] catheter while she was on the 4th floor and had some hematuria probably secondary to the catheter. The catheter was then removed and she stopped having any hematuria. She denies any hematuria at home and denies any voiding symptoms. Postvoid residual was under 30 mL. She is now in rehab and has not seen any blood since. IMPRESSION: Gross hematuria, resolved most probably secondary to the catheter. RECOMMENDATIONS: We will check UA on her today and manage accordingly. Job ID: [id number] DocumentID: [id number] Dictated Date: 09/07/2019 09:36:41 Cuffing Machine Operator Date: 09/07/2019 09:45:43 Dictated By: SALAZAR MEZA MD
[2019-09-07] MEDS: ENOXAPARIN 40 MG/0.4 ML (LOVENOX) SYR SC SCH (10:14)
[2019-09-07 10:33] LABS: BILIRUBIN,URINE NEGATIVE (NEGATIVE); CLARITY,URINE CLEAR; COLOR,URINE YELLOW; GLUCOSE, URINE (UA) NEGATIVE (NEGATIVE); KETONES,URINE NEGATIVE (NEGATIVE); LEUKOCYTE ESTERASE ,URINE 1+ (NEGATIVE); NITRITE,URINE POSITIVE (NEGATIVE); PH,URINE 7.5 (5-9); PROTEIN,URINE TRACE (NEGATIVE)
--- NOTE | 2019-09-07 10:51 | NUR ---
STRAIGHT CATH DONE WITHOUT DIFFICULTY AND URINE SENT TO LAB. CLOUDY URINE NOTED. PATIENT TOLERATED WELL.
[2019-09-07 10:52] LABS: BACTERIA,URINE LARGE /HPF; RBC,URINE 0-2 /HPF; WBC,URINE 25-50 /HPF
[2019-09-07 10:53] LABS: AMORPHOUS SEDIMENT,UR LARGE AMOR PHOSPHATE /LPF; TRIPLE PHOSPHATE CRYSTAL,UR FEW /LPF
--- NOTE | 2019-09-07 11:04 | NUR ---
DR. MEZA CALLED WITH UA RESULTS. ORDERS TO START MACROBID- 100 MG PO BID WITH MEALS. URINE CULTURE IS PENDING.
--- NOTE | 2019-09-07 11:14 | NUR ---
DR. NEFF HERE AND OK TO DC TELEMETRY.
--- NOTE | 2019-09-07 13:35 | Physical Therapy Daily Note ---
PT Daily Note-Current Subjective Patient in bed pre tx, agrees to PT, has no complaints of pain. Appearance Patient in bed post tx with nurse call, phone, tray, laying on right side with pillow support for pressure relief. Mental Status Patient Orientation: Person, Place, Situation Transfers SCALE: Activities may be completed with or without assistive devices. 5-Fzbdkjzbcm-ffdhibq completes the activity by him/herself with no assistance from a helper. 5-Set-up or Clean-up Assistance-helper sets up or cleans up; patient completes activity. [place] assists only prior to or following the activity. 4-Supervision or Touching Assistance-helper provides verbal cues and/or touching/steadying and/or contact guard assistance as patient completes activity. Assistance may be provided throughout the activity or intermittently. 3-Partial/Moderate Assistance-helper does LESS THAN HALF the effort. [place] lifts, holds or supports trunk or limbs, but provides less than half the effort. 2-Substantial/Maximal Assistance-helper does MORE THAN HALF the effort. [place] lifts or holds trunk or limbs and provides more than half the effort. 2-Idqpsasde-ldgaal does ALL the effort. Patient does none of the effort to complete the activity. Or, the assistance of 2 or more helpers is required for the patient to complete the activity. If activity was not attempted, code reason: 7-Patient Refused. 9-Not Applicable-not attempted and the patient did not perform the activity before the current illness, exacerbation or injury. 10-Not Attempted due to Environmental Limitations-(lack of equipment, weather restraints, etc.). 88-Not Attempted due to Medical Conditions or Safety Concerns. Weight Bearing Full Weight Bearing Full Weight Bearing Exercises Supine Ex: Ankle pumps, Knee to chest, Short Arc Quads, Straight leg raise, Hip abd/add Supine Reps: 10 (AAROM with ankle pumps, mostly PROM with other exercises, patient encouraged to assist) BLE stretching in all planes Treatments BLE exercises, stretching Assessment Current Status: Poor Progress no change PT Short Term Goals Short Term Goals Time Frame: Sep 12, 2019 Roll Left & Right: 2 Sit to lyin Lying to sitting on side of be: 2 Wheel 50ft w/2 turns: 2 Wheel 150 feet: 2 PT Round Corner Cutter Operator Goals Detention Goals PT [place] Cutter Operator Goals Time Frame: Sep 26, 2019 Roll Left & Right (QC): 3 Sit to Lying (QC): 3 Lying-Sitting on Side/Bed(QC): 3 Sit to Stand (QC): 3 Chair/Fye-mq-Mxejs Xfer(QC): 3 Toilet Transfer (QC): 3 Car Transfer (QC): 3 Does the Patient Walk: No and Walking Goal NOT indicated Walk 10 feet (QC): 88 Walk 50ft with 2 Turns (QC): 88 Walk 150 ft (QC): 88 Walking 10ft on Uneven Surface: 88 1 Step (curb) (QC): 88 4 Steps (QC): 88 12 Steps (QC): 88 Picking up an Object (QC): 88 Does the Pt use WC or Scooter?: Yes Wheel 50 feet with 2 turns (QC: 3 Type: Manual Wheel 150 feet: 3 PT Plan Problem List Problem List: Activity Tolerance, Functional Strength, Safety, Balance, Gait, Transfer, Bed Mobility, ROM Treatment/Plan Treatment Plan: Continue Plan of Care Treatment Plan: Bed Mobility, Education, Functional Activity Afia, Functional Strength, Group Therapy, Gait, Safety, Therapeutic Exercise, Transfers Treatment Duration: Sep 26, 2019 Frequency: At least 5 of 7 days/Wk (IRF) Estimated Hrs Per Day: 1.5 hours per day Patient and/or Family Agrees t: Yes Safety Risks/Education Patient Education: Correct Positioning, Safety Issues Teaching Recipient: Patient Teaching Methods: Demonstration, Discussion Response to Teaching: Reinforcement Needed Time/GCodes Time In: 1310 Time Out: 1340 Total Billed Treatment Time: 30 Total Billed Treatment 1 visit EX 30' TASHA POMPA PT Sep 07, 2019 13:35
[2019-09-07 16:03] VITALS: BP 106/72
[2019-09-07] MEDS: NITROFURANTOIN 100 MG (MACROBID) CAPSULE PO SCH (17:31)
[2019-09-07] MEDS: guaiFENesin/CODEINE (ROBITUSSIN AC) 10ML UDC PO PRN (21:27)
[2019-09-08] MEDS: ALPRAZolam 0.25 MG (XANAX) TAB PO PRN ×2 (00:54→21:12)
[2019-09-08] MEDS: HYDROcodone/APAP 5 MG/325 MG (LORTAB) TAB PO PRN ×4 (03:35→21:12)
[2019-09-08 05:38] VITALS: BP 117/79
[2019-09-08] MEDS: DOCUSATE SODIUM 100 MG (COLACE) CAP PO SCH (07:29)
[2019-09-08] MEDS: SENNA W/DOCUSATE (SENOKOT S) TABLET PO SCH ×2 (07:30→21:05)
[2019-09-08] MEDS: polyethylene glycoL POWDER 17 GM (MIRALAX) PACK PO SCH ×2 (07:30→21:05)
[2019-09-08] MEDS: NITROFURANTOIN 100 MG (MACROBID) CAPSULE PO SCH ×2 (07:40→18:30)
[2019-09-08] MEDS: ASPIRIN E.C. 325 MG (ECOTRIN) TABLET PO SCH (07:40)
[2019-09-08] MEDS: NICOTINE 14 MG (NICODERM) PATCH TD SCH (07:41)
[2019-09-08] MEDS: PATCH REMOVAL TP SCH (07:41)
--- NOTE | 2019-09-08 09:00 | Physical Therapy Daily Note ---
PT Daily Note-Current Subjective Patient in recliner pre tx, agrees to PT, has no complaints of pain at rest. Will be co-treating with OT due to poor patient mobility, strength, endurance, balance, the need to coordinate UE and LE during activity, reduce risk of falls. Appearance Patient in bed post tx with nurse call, phone, tray, all needs met. Mental Status Patient Orientation: Person, Place, Situation Transfers SCALE: Activities may be completed with or without assistive devices. 4-Tamgdlluti-rudfcfm completes the activity by him/herself with no assistance from a helper. 5-Set-up or Clean-up Assistance-helper sets up or cleans up; patient completes activity. [place] assists only prior to or following the activity. 4-Supervision or Touching Assistance-helper provides verbal cues and/or touching/steadying and/or contact guard assistance as patient completes activity. Assistance may be provided throughout the activity or intermittently. 3-Partial/Moderate Assistance-helper does LESS THAN HALF the effort. [place] lifts, holds or supports trunk or limbs, but provides less than half the effort. 2-Substantial/Maximal Assistance-helper does MORE THAN HALF the effort. [place] lifts or holds trunk or limbs and provides more than half the effort. 5-Cvsbmeoug-rjnfxo does ALL the effort. Patient does none of the effort to complete the activity. Or, the assistance of 2 or more helpers is required for the patient to complete the activity. If activity was not attempted, code reason: 7-Patient Refused. 9-Not Applicable-not attempted and the patient did not perform the activity before the current illness, exacerbation or injury. 10-Not Attempted due to Environmental Limitations-(lack of equipment, weather restraints, etc.). 88-Not Attempted due to Medical Conditions or Safety Concerns. Roll Left & Right (QC): 1 Sit to Lying (QC): 1 Sit to Stand (QC): 1 Chair/Kxl-qa-Pxaom Xfer(QC): 1 Bathed patient in recliner, standing for dressing and to clean backside, transfer to , taken to therapy gym, transferred to therapy table, worked on sitting balance, limits of stability training, keeping balance using mirror, using arms to keep sitting balance, transfer to , patient assist with right arm propelling WC back to room, transfer to bed. Weight Bearing Full Weight Bearing Full Weight Bearing Treatments bed mobility and transfer training, bathing, dressing, WC mobility, balance training. PT worked on transfers, bed mobility, sitting balance training, standing during dressing and bathing and balance during dressing and bathing, OT worked on dressing, bathing, UE positioning and safety. Assessment Current Status: Poor Progress Patient seems to have slight voluntary muscle contractions of the quad in the left leg now, still not much trunk control PT Short Term Goals Short Term Goals Time Frame: Sep 12, 2019 Roll Left & Right: 2 Sit to lyin Lying to sitting on side of be: 2 Wheel 50ft w/2 turns: 2 Wheel 150 feet: 2 PT Mcfp Goals Factory Maintenance Technician Goals PT Mcfp Goals Time Frame: Sep 26, 2019 Roll Left & Right (QC): 3 Sit to Lying (QC): 3 Lying-Sitting on Side/Bed(QC): 3 Sit to Stand (QC): 3 Chair/Ard-zu-Oemeg Xfer(QC): 3 Toilet Transfer (QC): 3 Car Transfer (QC): 3 Does the Patient Walk: No and Walking Goal NOT indicated Walk 10 feet (QC): 88 Walk 50ft with 2 Turns (QC): 88 Walk 150 ft (QC): 88 Walking 10ft on Uneven Surface: 88 1 Step (curb) (QC): 88 4 Steps (QC): 88 12 Steps (QC): 88 Picking up an Object (QC): 88 Does the Pt use WC or Scooter?: Yes Wheel 50 feet with 2 turns (QC: 3 Type: Manual Wheel 150 feet: 3 PT Plan Problem List Problem List: Activity Tolerance, Functional Strength, Safety, Balance, Gait, Transfer, Bed Mobility, ROM Treatment/Plan Treatment Plan: Continue Plan of Care Treatment Plan: Bed Mobility, Education, Functional Activity Afia, Functional Strength, Group Therapy, Gait, Safety, Therapeutic Exercise, Transfers Treatment Duration: Sep 26, 2019 Frequency: At least 5 of 7 days/Wk (IRF) Estimated Hrs Per Day: 1.5 hours per day Patient and/or Family Agrees t: Yes Safety Risks/Education Patient Education: Transfer Techniques, Correct Positioning, W/C Management, Safety Issues Teaching Recipient: Patient Teaching Methods: Demonstration, Discussion Response to Teaching: Reinforcement Needed Time/GCodes Time In: 0800 Time Out: 0900 Total Billed Treatment Time: 60 Total Billed Treatment 1 visit [facility] 10' NM 20' FA 30' TASHA POMPA PT Sep 08, 2019 09:00
--- NOTE | 2019-09-08 10:07 | PM&R Progress Note ---
Subjective HPI/CC On Admission Date Seen by Provider: Sep 08, 2019 Time Seen by Provider: 10:30 Subjective/Events-last exam Dr. Monahan placed patient on Macrobid for UTI Insomnia is an issue will start Remeron Bowels are moving No significant new pain Loop recorder in place Checked meds and labs Reviewed therapy notes Conferred with ham stringer of Systems Neurological: Weakness, Numbness, Incoordination Focused Exam Lactate Level 09/06/19 09:51: Lactic Acid Level 0.60 Objective Exam Vital Signs Vital Signs Date Time Temp Pulse Resp B/P (MAP) Pulse Ox O2 Delivery O2 Flow Rate FiO2 09/08/19 08:00 Room Air 09/08/19 05:38 36.6 63 18 117/79 (92) 92 Capillary Refill : Less Than 3 Seconds General Appearance: No Apparent Distress, Chronically ill, Cachetic HEENT: PERRL/EOMI, Normal ENT Inspection, Pharynx Normal Neck: Full Range of Motion, Normal Inspection, Non Tender, Supple, Carotid Bruit Respiratory: Chest Non Tender, Lungs Clear, Normal Breath Sounds, No Accessory Muscle Use, No Respiratory Distress Cardiovascular: Regular Rate, Rhythm, No Edema, No Gallop, No JVD, No Murmur, Normal Peripheral Pulses Gastrointestinal: Normal Bowel Sounds, No Organomegaly, No Pulsatile Mass, Non Tender, Soft Back: Normal Inspection, No CVA Tenderness, No Vertebral Tenderness Extremity: Normal Capillary Refill, Normal Inspection, Normal Range of Motion, Non Tender, No Calf Tenderness, No Pedal Edema Neurologic/Psychiatric: Alert, Oriented x3, Abnormal Gait, Aphasia, Depressed Affect, EOM Palsy, Motor Weakness (right sided 2/5 upper extremity and 1/5 lower extremity) Skin: Normal Color, Warm/Dry Lymphatic: No Adenopathy Results/Procedures Lab Patient resulted labs reviewed. FIM Transfers Therapy Code Descriptions/Definitions Functional [place] Measure: 0=Not Assessed/NA 4=Minimal Assistance 1=Total Assistance 5=Supervision or Setup 2=Maximal Assistance 6=Modified [place] 3=Moderate Assistance 7=Complete IndependenceSCALE: Activities may be completed with or without assistive devices. 7-Xqrcaahayr-hlpaymh completes the activity by him/herself with no assistance from a helper. 5-Set-up or Clean-up Assistance-helper sets up or cleans up; patient completes activity. [place] assists only prior to or following the activity. 4-Supervision or Touching Assistance-helper provides verbal cues and/or touching/steadying and/or contact guard assistance as patient completes activity. Assistance may be provided throughout the activity or intermittently. 3-Partial/Moderate Assistance-helper does LESS THAN HALF the effort. [place] lifts, holds or supports trunk or limbs, but provides less than half the effort. 2-Substantial/Maximal Assistance-helper does MORE THAN HALF the effort. [place] lifts or holds trunk or limbs and provides more than half the effort. 3-Egqlnqdnd-dtnxwh does ALL the effort. Patient does none of the effort to complete the activity. Or, the assistance of 2 or more helpers is required for the patient to complete the activity. If activity was not attempted, code reason: 7-Patient Refused. 9-Not Applicable-not attempted and the patient did not perform the activity before the current illness, exacerbation or injury. 10-Not Attempted due to Environmental Limitations-(lack of equipment, weather restraints, etc.). 88-Not Attempted due to Medical Conditions or Safety Concerns. Roll Left to Right (QC): 1 Sit to Lying (QC): 1 Sit to Stand (QC): 1 Chair/Jrk-gg-Khcig Xfer(QC): 1 Car Transfer (QC): 1 Gait Training Does the Patient Walk?: No and Walking Goal NOT indicated Walk 10 feet (QC): 88 Walk 50 ft with 2 Turns(QC): 88 Walk 150 ft (QC): 88 Walking 10ft/uneven surface-QC: 88 Gait Assistive Device: None Wheelchair Training Does the Pt Use a Wheelchair?: No Wheel 50 ft with 2 turns (QC): 1 Wheel 150 ft (QC): 1 Type of Wheelchair: Manual Stair Training 1 Step (curb) (QC): 88 4 Steps (QC): 88 12 Steps (QC): 88 Balance Picking up an Object (QC): 88 ADL-Treatment Eating (QC): 5 (s/u for coffee prep- pt completes creamer package opening with OT holding items and ripping with L UE.) Oral Hygiene (QC): 4 (CGA with cup from hand to mouth due to decreased AROM/ strength in LUE. Pt completes oral rinsing/ spitting with CGA and s/u.) Bathing Location: R Arm, Chest, Abdomen, Perineal Area Shower/Bathe Self (QC): 2 (max A. Skill of 2 therapists for transfers (PT addressed stance while OT addressed LB/ bottom washing)) Upper Body Dressing (QC): 2 (Pt able to bring arm sleeve up to elbow with L UE on RUE, able to thread LUE into sleeve with assist to elbow, pt requires max A to thread overhead.) Lower Body Dressing (QC): 1 (TD-- completes in bed, requires assist for rolling as pt unable to complete glute bridge.) On/Off Footwear (QC): 1 Toileting Hygiene (QC): 1 Toilet Transfer (QC): 7 Assessment/Plan Assessment and Plan Assess & Plan/Chief Complaint Assessment: CVA Smoker Hematuria Leukocytosis HLP Right side Neglect Fall Risk Cough Constipation resolved UTI Insomnia Plan: IRF Protocol Statin Smoking cessation ASA Lovenox Telemetry DC since loop recorder placed Macrobid Remeron (1) CVA (cerebral vascular accident) (2) Hyperlipidemia Status: Chronic (3) Compression fracture of T3 vertebra (4) Behavior disorder (5) Leukocytosis (6) Dysarthria (7) Smoker Status: Chronic KRYS NEFF DO Sep 08, 2019 10:07
--- NOTE | 2019-09-08 10:12 | NUR ---
CM/SS CONCURRENT DOCUMENTATION Bedside visit with patient, awake, did engage and respond appropriately to radio script writer's general conversation. Daughter not here at present but patient anticipates she will come later. Early in her stay on ARU, continue intermittent review of EMR interdisciplinary updates and patient overall progress as it relates to post hospital care planning.
[2019-09-08] MEDS ORDERED: CEFDINIR 300 MG (OMNICEF) CAP PO ONE (10:15)
--- NOTE | 2019-09-08 10:23 | Occupational Ther Daily Note ---
OT Current Status-Daily Note Subjective [id number]: Pt seen in recliner this am. OT/ PT co-treat due to dependent transfers, limited core/ balance, and requirement for 2 skilled therapists to complete safe and effective treatment for pt, that of which an aide would not be able to provide. OT focuses on ADLs and UE/ abdominal motion/ strength while PT focuses on transfers/ balance and LE movement. Pt does not state pain. [id number]: Pt seen in bed, agrees to OT tx session. Pt does not rate pain. ADL-Treatment Therapy Code Descriptions/Definitions Functional [place] Measure: 0=Not Assessed/NA 4=Minimal Assistance 1=Total Assistance 5=Supervision or Setup 2=Maximal Assistance 6=Modified [place] 3=Moderate Assistance 7=Complete IndependenceSCALE: Activities may be completed with or without assistive devices. 8-Nwgisgvwtb-zwmkopl completes the activity by him/herself with no assistance from a helper. 5-Set-up or Clean-up Assistance-helper sets up or cleans up; patient completes activity. [place] assists only prior to or following the activity. 4-Supervision or Touching Assistance-helper provides verbal cues and/or touching/steadying and/or contact guard assistance as patient completes activity. Assistance may be provided throughout the activity or intermittently. 3-Partial/Moderate Assistance-helper does LESS THAN HALF the effort. [place] lifts, holds or supports trunk or limbs, but provides less than half the effort. 2-Substantial/Maximal Assistance-helper does MORE THAN HALF the effort. [place] lifts or holds trunk or limbs and provides more than half the effort. 2-Xpizfddnn-stirpc does ALL the effort. Patient does none of the effort to complete the activity. Or, the assistance of 2 or more helpers is required for the patient to complete the activity. If activity was not attempted, code reason: 7-Patient Refused. 9-Not Applicable-not attempted and the patient did not perform the activity before the current illness, exacerbation or injury. 10-Not Attempted due to Environmental Limitations-(lack of equipment, weather restraints, etc.). 88-Not Attempted due to Medical Conditions or Safety Concerns. Eating (QC): 3 (min A for large cup of water to mouth with L hand.) Bathing Location: R Arm, L Upper Leg, R Upper Leg, Chest, Abdomen, Perineal Area Shower/Bathe Self (QC): 2 (assist for balance and core activation for advancing forward for back/ sit to stands with TD. Pt requires assist to following areas: bottom, LEs (bilateral and foot, and LUE due to decreased RUE strength). Pt demonstrates ability to raise LUE above shoulder level.) Upper Body Dressing (QC): 2 (max A doffing, cues for dressing RUE first (pt unable to retain from previous sessions), max A donning.) Lower Body Dressing (QC): 2 (max A- threading and pulling up, pt able to attempt assist to pull past knees.) On/Off Footwear: 1 Toileting Hygiene (QC): 1 (TD x2 assist in stance.) Other Treatment [id number]: Pt completes sponge bath in recliner chair. Pt requires assist with above stated activities. TD transfer to w/c, pushed to therapy room with TD. Pt sits EOM and completes sitting balance ex with mirror for visual feedback. Skilled cues for sitting upright and head positioning. Pt unable to pull from sit to forward lean with LUE, requires assist to right at times. Pt requires mod A-SBA for static sit. Pt completes PROM of RUE and AROM of LUE with max cues for attention to LUE movement and continuation of tasks. Pt returns to room with max A for w/c mob, OT to position humerus in extension each push forward. Pt returns to bed, positioned for comfort and safety. All needs met, call light on L side. [id number]: Pt sits upright on EOB with TD supine to sit. Pt sits with min A to CGA EOB to complete LUE manipulation/ UE shoulder movement. Pt completes LUE shoulder flexion to gather pegs and place in board. Pt's balance affected when placing in board, more assist required to right. Pt transferred EOB to chair with TD (assist x2 for safety). Pt positioned and continues UE movement/ strengthening/ coordination task. Pt completes with cues for continuation. Pt requires drink, able to complete with s/u. All needs met, call light in reach. Education OT Patient Education: Correct positioning, Exercise program, Home exercise program, Progress toward Goal/Update tx plan, Purpose of tx/functional activities, Transfer techniques, W/C management Teaching Recipient: Patient Teaching Methods: Demonstration, Discussion Response to Teaching: Verbalize Understanding, Unable to Return Demonstration, Return Demonstration, Reinforcement Needed OT Short Term Goals Short Term Goals Time Frame: Sep 19, 2019 Eatin Oral hygiene: 9 Toileting hygiene: 3 Shower/bathe self: 3 Upper body dressin Lower body dressin Putting on/taking off footwear: 3 OT Speech Clinician Goals Speech Clinician Goals Time Frame: Oct 03, 2019 Eating (QC): 6 Oral Hygiene (QC): 9 Toileting Hygiene (QC): 4 Shower/Bathe Self (QC): 4 Upper Body Dressing (QC): 4 Lower Body Dressing (QC): 4 On/Off Footwear (QC): 4 Additional Goals: 1-Demonstrate ADL Tasks, 2-Verbalize Understanding, 3- ImproveStrength/Afia 1=Demonstrate adherence to instructed precautions during ADL tasks. 2=Patient will verbalize/demonstrate understanding of assistive devices/modifications for ADL. 3=Patient will improve strength/tolerance for activity to enable patient to perform ADL's. OT Education/Plan Problem List/Assessment Assessment: Decreased Activ Tolerance, Decreased UE Strength, Dependent Transfers, Impaired Bed Mobility, Impaired Coordination, Impaired Funct Balance, Impaired I ADL's, Impaired Self-Care Skills, Restricted Funct UE ROM Discharge Recommendations Plan/Recommendations: Continue POC Therapy Discharge Recommendati: 24 Hour Supervision Treatment Plan/Plan of Care Treatment,Training & Education: Yes Patient would benefit from OT for education, treatment and training to promote independence in ADL's, mobility, safety and/or upper extremity function for ADL's. Plan of Care: ADL Retraining, Functional Mobility, Group Exercise/Act as Ind, UE Funct Exercise/Act Treatment Duration: Oct 03, 2019 Frequency: At least 5 of 7 days/Wk (IRF) Estimated Hrs Per Day: 1.5 hours per day Agreement: Yes Rehab Potential: Guarded Time/GCodes Start Time: 08:00 (1100) Stop Time: 09:00 (1130) Total Time Billed (hr/min): 90 Billed Treatment Time [id number]: 1, ADL, EX 3 (60) OT/ PT co-treat due to dependent transfers, limited core/ balance, and requirement for 2 skilled therapists to complete safe and effective treatment for pt, that of which an aide would not be able to provide. OT focuses on ADLs and UE/ abdominal motion/ strength while PT focuses on transfers/ balance and LE movement [id number]: 1, EX 2 (30) Total: 90 CARINA WOODS OTR Sep 08, 2019 10:23
[2019-09-08] MEDS: ENOXAPARIN 40 MG/0.4 ML (LOVENOX) SYR SC SCH (10:38)
--- NOTE | 2019-09-08 11:50 | Cardiology Progress Note ---
Cardiology SOAP Progress Note Subjective: Insomnia Objective: I&O/Vital Signs 09/10/19 09/10/19 05:03 09:17 Temp 36.1 Pulse 76 Resp 18 B/P (MAP) 101/68 (79) Pulse Ox 92 O2 Delivery Room Air Room Air 09/10/19 00:00 Intake Total 920 ml Balance 920 ml Constitutional: No appears stated age; AAO x 3; No apparent distress, No PERRL, No well-developed, No well-nourished, No other Respiratory: chest is bilaterally symmetric, lungs clear to auscultation; No stridor, No wheezing, No pleural rub Cardiovascular: regular rate-rhythm, S1 and S2; No diastolic murmur, No systolic murmur Gastrointestional: soft, audible bowel sounds Extremities: normal range of motion, normal inspection, pedal edema Neurologic/Psychiatric: no motor/sensory deficits, alert, normal mood/affect, oriented x 3 Skin: normal color, warm/dry Results/Procedures: Labs Microbiology 09/07/19 Urine Culture - Final, Complete Proteus mirabilis A/P: Assessment/Dx: CVA HTN HLP Plan: Likely cryptogenic stroke per Dr. Ruggiero. Implantable loop recorder for long- term surveillance of atrial fibrillation. Echocardiogram showed normal LV function, prominent aorta. No significant abnormality otherwise Hypertension, continue on current medication monitor blood pressure Hyperlipidemia, continue Lipitor Thank you for your consultation. Please call me if you have any questions. Elena Early MD, FACP, FACC, FSCAI, FHRS, CCDS Interventional Cardiology Cardiac Electrophysiology Vascular Medicine and Endovascular Interventions Focused Exam Lactate Level David EARLY MD Sep 08, 2019 11:50
--- NOTE | 2019-09-08 13:05 | Speech Therapy Daily Note ---
Speech Daily Progress Note Subjective Date Seen by Provider: Sep 08, 2019 Time Seen by Provider: 00:30 Patient was resting in his chair. Patient convinced he would be able to go home with his family caring for him. Objective Patient completed a series of problem solving q/a relating to his return home and he was able to complete with 80% accuracy given 25% repetitions. Patient's cognitive appears to be improved this date, however he is having difficulty retaining information. Assessment Assessment Current Status: Good Progress Treatment Plan Continue Plan of Care Speech Short Term Goals Short Term Goals Short Term Goals Pt will complete (visual/verbal) attention task with 90% accy. Pt will complete STM task with use of compensatoy strategies with 90% accy Pt will complete further cognitive assessment for further evaluation of memory, functional math, and reading. Speech Body Shop Supervisor Goals Halfway Goals Pt will tolerate least restrictive diet with no s/s of aspiration/penetration wiht observed oral intake. Speech-Plan Patient/Family Goals Patient/Family Goals: Patient plans on returning home with family caring for him. Treatment Plan Speech Therapy Treatment Plan: Continue Plan of Care Treatment Duration: Sep 06, 2019 Frequency: 5 times per week Estimated Hrs Per Day: .5 hour per day Rehab Potential: Guarded Barriers to Learning: Patient's recent medical status, cognitive deficits Pt/Family Agrees to Plan: Yes Safety Risks/Education Teaching Recipient: Patient Teaching Methods: Demonstration, Discussion Response to Teaching: Verbalize Understanding, Return Demonstration Education Topics Provided: Continued safety upon his return home. Time Speech Therapy Time In: 10:30 Speech Therapy Time Out: 11:00 Total Billed Time: 30 Billed Treatment Time [address] Sep 08, 2019 13:05
--- NOTE | 2019-09-08 13:19 | Progress Note - Urology ---
Progress Note-Urology Progress Notes/Assess & Plan Progress/Assessment & Plan URINALYSIS SHOWS MORE WBCS THAN RBCS. STARTED ON MACROBID PENDING FINAL CULTURE REPORT. PRELIMINARY REPORT SHOWS PROTEUS Final Diagnosis MICROHEMATURIA AND UTI SALAZAR MEZA MD Sep 08, 2019 13:19
--- NOTE | 2019-09-08 13:41 | Speech Therapy Daily Note ---
Speech Daily Progress Note Subjective Date Seen by Provider: Sep 08, 2019 Time Seen by Provider: 00:30 Patient resting in her bed following PT and OT when I entered her room. Objective Patient answered general information questions with 80% given minimal cuing. Assessment Assessment Current Status: Good Progress Treatment Plan Continue Plan of Care Speech Short Term Goals Short Term Goals Short Term Goals Pt will complete (visual/verbal) attention task with 90% accy. Pt will complete STM task with use of compensatoy strategies with 90% accy Pt will complete further cognitive assessment for further evaluation of memory, functional math, and reading. Speech Coal Handling Supervisor Goals Coal Handling Supervisor Goals Pt will tolerate least restrictive diet with no s/s of aspiration/penetration wiht observed oral intake. Speech-Plan Patient/Family Goals Patient/Family Goals: Patient plans on returning home with her children and grandchildren upon hospital discharge. Treatment Plan Speech Therapy Treatment Plan: Continue Plan of Care Treatment Duration: Sep 06, 2019 Frequency: 5 times per week Estimated Hrs Per Day: .5 hour per day Rehab Potential: Guarded Barriers to Learning: Patient's recent CVA Pt/Family Agrees to Plan: Yes Safety Risks/Education Teaching Recipient: Patient Teaching Methods: Demonstration, Discussion Response to Teaching: Verbalize Understanding, Return Demonstration Education Topics Provided: Safety within her room and with oral intake, communication of wants/needs Time Speech Therapy Time In: 09:30 Speech Therapy Time Out: 10:00 Total Billed Time: 30 Billed Treatment Time [address] Sep 08, 2019 13:41
--- NOTE | 2019-09-08 13:54 | Physical Therapy Daily Note ---
PT Daily Note-Current Subjective Patient in bed pre tx, agrees to PT, has no complaints of pain Appearance Patient in bed post tx with nurse call, phone, tray, all needs met. Mental Status Patient Orientation: Person, Place, Situation Transfers SCALE: Activities may be completed with or without assistive devices. 8-Zncugjnhqa-xjqaofi completes the activity by him/herself with no assistance from a helper. 5-Set-up or Clean-up Assistance-helper sets up or cleans up; patient completes activity. [place] assists only prior to or following the activity. 4-Supervision or Touching Assistance-helper provides verbal cues and/or touching/steadying and/or contact guard assistance as patient completes activity. Assistance may be provided throughout the activity or intermittently. 3-Partial/Moderate Assistance-helper does LESS THAN HALF the effort. [place] lifts, holds or supports trunk or limbs, but provides less than half the effort. 2-Substantial/Maximal Assistance-helper does MORE THAN HALF the effort. [place] lifts or holds trunk or limbs and provides more than half the effort. 7-Hmdzopkjw-ddgnpp does ALL the effort. Patient does none of the effort to complete the activity. Or, the assistance of 2 or more helpers is required for the patient to complete the activity. If activity was not attempted, code reason: 7-Patient Refused. 9-Not Applicable-not attempted and the patient did not perform the activity before the current illness, exacerbation or injury. 10-Not Attempted due to Environmental Limitations-(lack of equipment, weather restraints, etc.). 88-Not Attempted due to Medical Conditions or Safety Concerns. Weight Bearing Full Weight Bearing Full Weight Bearing Exercises BLE stretching in all planes, patient seems to have a little less stiffness in legs, ankles are able to achieve neutral bilaterally. Treatments BLE stretching Assessment Current Status: Fair Progress less abnormal tone, less stiffness PT Short Term Goals Short Term Goals Time Frame: Sep 12, 2019 Roll Left & Right: 2 Sit to lyin Lying to sitting on side of be: 2 Wheel 50ft w/2 turns: 2 Wheel 150 feet: 2 PT Mortgage Protection Specialist Goals Mortgage Protection Specialist Goals PT Fdc Goals Time Frame: Sep 26, 2019 Roll Left & Right (QC): 3 Sit to Lying (QC): 3 Lying-Sitting on Side/Bed(QC): 3 Sit to Stand (QC): 3 Chair/Gse-rc-Guiyp Xfer(QC): 3 Toilet Transfer (QC): 3 Car Transfer (QC): 3 Does the Patient Walk: No and Walking Goal NOT indicated Walk 10 feet (QC): 88 Walk 50ft with 2 Turns (QC): 88 Walk 150 ft (QC): 88 Walking 10ft on Uneven Surface: 88 1 Step (curb) (QC): 88 4 Steps (QC): 88 12 Steps (QC): 88 Picking up an Object (QC): 88 Does the Pt use WC or Scooter?: Yes Wheel 50 feet with 2 turns (QC: 3 Type: Manual Wheel 150 feet: 3 PT Plan Problem List Problem List: Activity Tolerance, Functional Strength, Safety, Balance, Gait, Transfer, Bed Mobility, ROM Treatment/Plan Treatment Plan: Continue Plan of Care Treatment Plan: Bed Mobility, Education, Functional Activity Afia, Functional Strength, Group Therapy, Gait, Safety, Therapeutic Exercise, Transfers Treatment Duration: Sep 26, 2019 Frequency: At least 5 of 7 days/Wk (IRF) Estimated Hrs Per Day: 1.5 hours per day Patient and/or Family Agrees t: Yes Safety Risks/Education Patient Education: Correct Positioning, Safety Issues Teaching Recipient: Patient Teaching Methods: Demonstration, Discussion Response to Teaching: Reinforcement Needed Time/GCodes Time In: 1320 Time Out: 1335 Total Billed Treatment Time: 15 Total Billed Treatment 1 visit EX Ken' TASHA POMPA PT Sep 08, 2019 13:54
[2019-09-08 15:50] VITALS: BP 115/74
[2019-09-08] MEDS ORDERED: CEFDINIR 300 MG (OMNICEF) CAP PO SCH (21:00)
[2019-09-08] MEDS: MIRTAZAPINE 15 MG (REMERON) TAB PO SCH (21:12)
[2019-09-09 05:44] VITALS: BP 124/80
--- NOTE | 2019-09-09 08:19 | PM&R Progress Note ---
Subjective HPI/CC On Admission Date Seen by Provider: Sep 09, 2019 Time Seen by Provider: 12:00 Subjective/Events-last exam Dr. Monahan placed patient on Macrobid for UTI 2 days ago but UCx resistance noted so started her on Bactrim DS 1 PO BID Insomnia is an issue so started Remeron which seems to be working better Bowels are moving but slowed and last was 3 days ago so will maintain laxatives No significant new pain Incontinence noted Loop recorder in place Checked meds and labs Reviewed therapy notes Conferred with trainmaster of Systems Neurological: Weakness, Numbness, Incoordination Focused Exam Lactate Level Objective Exam Vital Signs Vital Signs Date Time Temp Pulse Resp B/P (MAP) Pulse Ox O2 Delivery O2 Flow Rate FiO2 09/09/19 17:52 36.2 74 16 102/69 (80) 91 Room Air Capillary Refill : Less Than 3 Seconds General Appearance: No Apparent Distress, Chronically ill, Cachetic HEENT: PERRL/EOMI, Normal ENT Inspection, Pharynx Normal Neck: Full Range of Motion, Normal Inspection, Non Tender, Supple, Carotid Bruit Respiratory: Chest Non Tender, Lungs Clear, Normal Breath Sounds, No Accessory Muscle Use, No Respiratory Distress Cardiovascular: Regular Rate, Rhythm, No Edema, No Gallop, No JVD, No Murmur, Normal Peripheral Pulses Gastrointestinal: Normal Bowel Sounds, No Organomegaly, No Pulsatile Mass, Non Tender, Soft Back: Normal Inspection, No CVA Tenderness, No Vertebral Tenderness Extremity: Normal Capillary Refill, Normal Inspection, Normal Range of Motion, Non Tender, No Calf Tenderness, No Pedal Edema Neurologic/Psychiatric: Alert, Oriented x3, Abnormal Gait, Aphasia, Depressed Affect, EOM Palsy, Motor Weakness (right sided 2/5 upper extremity and 1/5 lower extremity) Skin: Normal Color, Warm/Dry Lymphatic: No Adenopathy Results/Procedures Lab Patient resulted labs reviewed. FIM Transfers Therapy Code Descriptions/Definitions Functional [place] Measure: 0=Not Assessed/NA 4=Minimal Assistance 1=Total Assistance 5=Supervision or Setup 2=Maximal Assistance 6=Modified [place] 3=Moderate Assistance 7=Complete IndependenceSCALE: Activities may be completed with or without assistive devices. 0-Xprplhmuft-hzcbmiw completes the activity by him/herself with no assistance from a helper. 5-Set-up or Clean-up Assistance-helper sets up or cleans up; patient completes activity. [place] assists only prior to or following the activity. 4-Supervision or Touching Assistance-helper provides verbal cues and/or touching/steadying and/or contact guard assistance as patient completes activity. Assistance may be provided throughout the activity or intermittently. 3-Partial/Moderate Assistance-helper does LESS THAN HALF the effort. [place] lifts, holds or supports trunk or limbs, but provides less than half the effort. 2-Substantial/Maximal Assistance-helper does MORE THAN HALF the effort. [place] lifts or holds trunk or limbs and provides more than half the effort. 6-Womjrqakt-wbwvkz does ALL the effort. Patient does none of the effort to complete the activity. Or, the assistance of 2 or more helpers is required for the patient to complete the activity. If activity was not attempted, code reason: 7-Patient Refused. 9-Not Applicable-not attempted and the patient did not perform the activity before the current illness, exacerbation or injury. 10-Not Attempted due to Environmental Limitations-(lack of equipment, weather restraints, etc.). 88-Not Attempted due to Medical Conditions or Safety Concerns. Roll Left to Right (QC): 1 Sit to Lying (QC): 1 Sit to Stand (QC): 1 Chair/Lnp-zb-Lopaf Xfer(QC): 1 Car Transfer (QC): 1 Gait Training Does the Patient Walk?: No and Walking Goal NOT indicated Walk 10 feet (QC): 88 Walk 50 ft with 2 Turns(QC): 88 Walk 150 ft (QC): 88 Walking 10ft/uneven surface-QC: 88 Gait Assistive Device: None Wheelchair Training Does the Pt Use a Wheelchair?: No Wheel 50 ft with 2 turns (QC): 1 Wheel 150 ft (QC): 1 Type of Wheelchair: Manual Stair Training 1 Step (curb) (QC): 88 4 Steps (QC): 88 12 Steps (QC): 88 Balance Picking up an Object (QC): 88 ADL-Treatment Eating (QC): 3 (min A for large cup of water to mouth with L hand.) Oral Hygiene (QC): 4 (CGA with cup from hand to mouth due to decreased AROM/ strength in LUE. Pt completes oral rinsing/ spitting with CGA and s/u.) Bathing Location: R Arm, L Upper Leg, R Upper Leg, Chest, Abdomen, Perineal Area Shower/Bathe Self (QC): 2 (assist for balance and core activation for advancing forward for back/ sit to stands with TD. Pt requires assist to following areas: bottom, LEs (bilateral and foot, and LUE due to decreased RUE strength). Pt demonstrates ability to raise LUE above shoulder level.) Upper Body Dressing (QC): 2 (max A doffing, cues for dressing RUE first (pt unable to retain from previous sessions), max A donning.) Lower Body Dressing (QC): 2 (max A- threading and pulling up, pt able to attempt assist to pull past knees.) On/Off Footwear (QC): 1 Toileting Hygiene (QC): 1 (TD x2 assist in stance.) Toilet Transfer (QC): 7 Assessment/Plan Assessment and Plan Assess & Plan/Chief Complaint Assessment: CVA Smoker Hematuria Leukocytosis HLP Right side Neglect Fall Risk Cough Constipation resolved UTI acute resistant to Macrobid so started Bactrim 09/09/19 Insomnia started on Remeron Plan: IRF Protocol Statin Smoking cessation ASA Lovenox Telemetry DC since loop recorder placed Macrobid changed to Bactrim Remeron (1) CVA (cerebral vascular accident) (2) Hyperlipidemia Status: Chronic (3) Compression fracture of T3 vertebra (4) Behavior disorder (5) Leukocytosis (6) Dysarthria (7) Smoker Status: Chronic KRYS NEFF DO Sep 09, 2019 08:19
[2019-09-09] MEDS: NICOTINE 14 MG (NICODERM) PATCH TD SCH (09:00)
[2019-09-09] MEDS: ASPIRIN E.C. 325 MG (ECOTRIN) TABLET PO SCH (09:00)
[2019-09-09] MEDS: SENNA W/DOCUSATE (SENOKOT S) TABLET PO SCH ×2 (09:00→21:05)
[2019-09-09] MEDS: NITROFURANTOIN 100 MG (MACROBID) CAPSULE PO SCH (09:00)
[2019-09-09] MEDS: DOCUSATE SODIUM 100 MG (COLACE) CAP PO SCH (09:00)
[2019-09-09] MEDS: polyethylene glycoL POWDER 17 GM (MIRALAX) PACK PO SCH ×2 (09:01→21:06)
[2019-09-09] MEDS: PATCH REMOVAL TP SCH (09:01)
[2019-09-09] MEDS: ENOXAPARIN 40 MG/0.4 ML (LOVENOX) SYR SC SCH (09:01)
[2019-09-09] MEDS: HYDROcodone/APAP 5 MG/325 MG (LORTAB) TAB PO PRN ×2 (09:12→21:05)
[2019-09-09] MEDS: ALPRAZolam 0.25 MG (XANAX) TAB PO PRN ×2 (09:12→18:51)
--- NOTE | 2019-09-09 10:08 | Progress Note - Urology ---
Progress Note-Urology Progress Notes/Assess & Plan Progress/Assessment & Plan STARTED ON MACROBID FOR 7 DAYS AND THEN RECHECK UA Final Diagnosis MICROHEMATURIA AND UTI SALAZAR MEZA MD Sep 09, 2019 10:08
--- NOTE | 2019-09-09 12:47 | Physical Therapy Daily Note ---
PT Daily Note-Current Subjective Pt up in recliner with head resting on (L) shoulder upon arrival, leaning L. Pt unable to rate pain, pain located in (R) cervical spine. Mental Status Patient Orientation: Person, Place, Situation Transfers SCALE: Activities may be completed with or without assistive devices. 3-Suxcrxggut-knjligt completes the activity by him/herself with no assistance from a helper. 5-Set-up or Clean-up Assistance-helper sets up or cleans up; patient completes activity. [place] assists only prior to or following the activity. 4-Supervision or Touching Assistance-helper provides verbal cues and/or touching/steadying and/or contact guard assistance as patient completes activity. Assistance may be provided throughout the activity or intermittently. 3-Partial/Moderate Assistance-helper does LESS THAN HALF the effort. [place] lifts, holds or supports trunk or limbs, but provides less than half the effort. 2-Substantial/Maximal Assistance-helper does MORE THAN HALF the effort. [place] lifts or holds trunk or limbs and provides more than half the effort. 3-Dzmuetnyz-vkkros does ALL the effort. Patient does none of the effort to complete the activity. Or, the assistance of 2 or more helpers is required for the patient to complete the activity. If activity was not attempted, code reason: 7-Patient Refused. 9-Not Applicable-not attempted and the patient did not perform the activity before the current illness, exacerbation or injury. 10-Not Attempted due to Environmental Limitations-(lack of equipment, weather restraints, etc.). 88-Not Attempted due to Medical Conditions or Safety Concerns. Practiced sit to stand with mod A of 2-3 persons. Pt able to stand with min-mod A of 2, initially with upright posture. Pt posture waning as she fatigued. Pt stood 3 x approximately 30-60sec each bout. Pt following vc's to look up, lift chest and pull in bottom. Weight Bearing Full Weight Bearing Full Weight Bearing Treatments AROM cervical spine x 10 to (R), eyes following target to the (R), PROM (R) UE all planes/all joints x 20, AAROM (B) LE AP, LAQ and heel slide x 15 each. Pt repositioned in her recliner with pillows at each side for support, blanket roll supporting neutral cervical spine position. (B) LE floating on pillows in semi reclined position post therapy. Call light in reach. Assessment Current Status: Good Progress Pt showing (R) side neglect. Follows commands about 50% of time to correct. Pt did well with standing exercise. Pt aware and agrees to perform AAROM (R) UE and perform LE ther ex as able over the weekend, Pt resting with call light and all needs met post therapy. PT Short Term Goals Short Term Goals Time Frame: Sep 12, 2019 Roll Left & Right: 2 Sit to lyin Lying to sitting on side of be: 2 Wheel 50ft w/2 turns: 2 Wheel 150 feet: 2 PT All Source Analyst Goals Senior Living Goals PT Senior Living Goals Time Frame: Sep 26, 2019 Roll Left & Right (QC): 3 Sit to Lying (QC): 3 Lying-Sitting on Side/Bed(QC): 3 Sit to Stand (QC): 3 Chair/Mve-hn-Idfyr Xfer(QC): 3 Toilet Transfer (QC): 3 Car Transfer (QC): 3 Does the Patient Walk: No and Walking Goal NOT indicated Walk 10 feet (QC): 88 Walk 50ft with 2 Turns (QC): 88 Walk 150 ft (QC): 88 Walking 10ft on Uneven Surface: 88 1 Step (curb) (QC): 88 4 Steps (QC): 88 12 Steps (QC): 88 Picking up an Object (QC): 88 Does the Pt use WC or Scooter?: Yes Wheel 50 feet with 2 turns (QC: 3 Type: Manual Wheel 150 feet: 3 PT Plan Treatment/Plan Treatment Plan: Continue Plan of Care Treatment Plan: Bed Mobility, Education, Functional Activity Afia, Functional Strength, Group Therapy, Gait, Safety, Therapeutic Exercise, Transfers Treatment Duration: Sep 26, 2019 Frequency: At least 5 of 7 days/Wk (IRF) Estimated Hrs Per Day: 1.5 hours per day Patient and/or Family Agrees t: Yes Time/GCodes Time In: 815 Time Out: 900 Total Billed Treatment Time: 45 Total Billed Treatment 1, ther ex x 45 min JULY PATIÑO CPTA Sep 09, 2019 12:47
[2019-09-09] MEDS: TRIM/SULFAMETH 160/800 (SEPTRA DS) TAB PO SCH ×2 (14:01→21:05)
--- NOTE | 2019-09-09 14:18 | NUR ---
Lety is a 58 yo female who is currently present on the inpatient rehab unit post CVA. Patient is alert and orientated X4 and report occasional pain. Patient is very physically debilitated post stroke: she currently has right side flaccidity and weakness noted to left side. She has been incont. of bladder today but is able to report after she has went. She has not had a bowel movement yet today but did take her oral stool softeners to assist. Lety is currently requiring 2 people for a max transfer from bed to chair. Due to severity of mobility we are turning patient q 2 hours, floating heels and other pressure areas, and she is currently on an air mattress. She was previously on Macrobid for UTI but C&S returned today and not sensitive. Dr. Thibodeaux and Dr. Monahan were both notified and Dr. Thibodeaux switched patient to Bactrim DS BID with no stop date reported at this time. No further issues noted. Patient has been very polite with this nurse. I will continue to monitor throughout my shift and assess for any needs that may arise.
[2019-09-09 17:52] VITALS: BP 102/69
[2019-09-09] MEDS: guaiFENesin/CODEINE (ROBITUSSIN AC) 10ML UDC PO PRN (18:51)
[2019-09-09] MEDS: MIRTAZAPINE 15 MG (REMERON) TAB PO SCH (21:05)
--- NOTE | 2019-09-09 21:48 | Cardiology Progress Note ---
Cardiology SOAP Progress Note Subjective: No cardiac complaints. Objective: I&O/Vital Signs 09/10/19 09/10/19 05:03 09:17 Temp 36.1 Pulse 76 Resp 18 B/P (MAP) 101/68 (79) Pulse Ox 92 O2 Delivery Room Air Room Air 09/10/19 00:00 Intake Total 920 ml Balance 920 ml Constitutional: AAO x 3 Respiratory: chest is bilaterally symmetric, lungs clear to auscultation Cardiovascular: regular rate-rhythm, S1 and S2; No diastolic murmur, No systolic murmur Gastrointestional: soft, audible bowel sounds Extremities: normal inspection, pedal edema Neurologic/Psychiatric: no motor/sensory deficits, alert, normal mood/affect, oriented x 3 Skin: normal color Results/Procedures: Labs Microbiology 09/07/19 Urine Culture - Final, Complete Proteus mirabilis A/P: Assessment/Dx: CVA HTN HLP Plan: Likely cryptogenic stroke per Dr. Ruggiero. Implantable loop recorder for long- term surveillance of atrial fibrillation. Echocardiogram showed normal LV function, prominent aorta. No significant abnormality otherwise Hypertension, continue on current medication monitor blood pressure Hyperlipidemia, continue Lipitor Thank you for your consultation. Please call me if you have any questions. Elena Early MD, FACP, FACC, FSCAI, FHRS, CCDS Interventional Cardiology Cardiac Electrophysiology Vascular Medicine and Endovascular Interventions David EARLY MD Sep 09, 2019 21:48
[2019-09-10 05:03] VITALS: BP 101/68
[2019-09-10] MEDS: HYDROcodone/APAP 5 MG/325 MG (LORTAB) TAB PO PRN ×2 (05:32→21:16)
[2019-09-10] MEDS: polyethylene glycoL POWDER 17 GM (MIRALAX) PACK PO SCH ×2 (08:19→18:20)
[2019-09-10] MEDS: ASPIRIN E.C. 325 MG (ECOTRIN) TABLET PO SCH (08:19)
[2019-09-10] MEDS: TRIM/SULFAMETH 160/800 (SEPTRA DS) TAB PO SCH ×2 (08:19→17:00)
[2019-09-10] MEDS: SENNA W/DOCUSATE (SENOKOT S) TABLET PO SCH ×2 (08:19→18:20)
[2019-09-10] MEDS: DOCUSATE SODIUM 100 MG (COLACE) CAP PO SCH (08:19)
[2019-09-10] MEDS: NICOTINE 14 MG (NICODERM) PATCH TD SCH (08:20)
[2019-09-10] MEDS: PATCH REMOVAL TP SCH (08:22)
[2019-09-10] MEDS: ENOXAPARIN 40 MG/0.4 ML (LOVENOX) SYR SC SCH (09:09)
--- NOTE | 2019-09-10 10:34 | PM&R Progress Note ---
Subjective HPI/CC On Admission Date Seen by Provider: Sep 10, 2019 Time Seen by Provider: 12:45 Subjective/Events-last exam Bactrim DS 1 PO BID tolerated for UTI treatment Insomnia improved on Remeron which seems to be working better Bowels are moving with laxatives No significant new pain Now able to feed self now Left handed dominant now Incontinence noted Loop recorder in place Turning Q6hrs Checked meds and labs Reviewed therapy notes Conferred with yarn mercerizer operator helper of Systems General: Fatigue Neurological: Weakness, Numbness, Incoordination Objective Exam Vital Signs Vital Signs Date Time Temp Pulse Resp B/P (MAP) Pulse Ox O2 Delivery O2 Flow Rate FiO2 09/10/19 17:41 36.4 64 18 115/78 (90) 93 Room Air Capillary Refill : Less Than 3 Seconds General Appearance: No Apparent Distress, Chronically ill, Cachetic HEENT: PERRL/EOMI, Normal ENT Inspection, Pharynx Normal Neck: Full Range of Motion, Normal Inspection, Non Tender, Supple, Carotid Bruit Respiratory: Chest Non Tender, Lungs Clear, Normal Breath Sounds, No Accessory Muscle Use, No Respiratory Distress Cardiovascular: Regular Rate, Rhythm, No Edema, No Gallop, No JVD, No Murmur, Normal Peripheral Pulses Gastrointestinal: Normal Bowel Sounds, No Organomegaly, No Pulsatile Mass, Non Tender, Soft Back: Normal Inspection, No CVA Tenderness, No Vertebral Tenderness Extremity: Normal Capillary Refill, Normal Inspection, Normal Range of Motion, Non Tender, No Calf Tenderness, No Pedal Edema Neurologic/Psychiatric: Alert, Oriented x3, Abnormal Gait, Aphasia, Depressed Affect, EOM Palsy, Motor Weakness (right sided 2/5 upper extremity and 1/5 lower extremity) Skin: Normal Color, Warm/Dry Lymphatic: No Adenopathy Results/Procedures Lab Patient resulted labs reviewed. FIM Transfers Therapy Code Descriptions/Definitions Functional [place] Measure: 0=Not Assessed/NA 4=Minimal Assistance 1=Total Assistance 5=Supervision or Setup 2=Maximal Assistance 6=Modified [place] 3=Moderate Assistance 7=Complete IndependenceSCALE: Activities may be completed with or without assistive devices. 2-Cnqzwzdtsu-dfomgtn completes the activity by him/herself with no assistance from a helper. 5-Set-up or Clean-up Assistance-helper sets up or cleans up; patient completes activity. [place] assists only prior to or following the activity. 4-Supervision or Touching Assistance-helper provides verbal cues and/or touching/steadying and/or contact guard assistance as patient completes activity. Assistance may be provided throughout the activity or intermittently. 3-Partial/Moderate Assistance-helper does LESS THAN HALF the effort. [place] lifts, holds or supports trunk or limbs, but provides less than half the effort. 2-Substantial/Maximal Assistance-helper does MORE THAN HALF the effort. [place] lifts or holds trunk or limbs and provides more than half the effort. 1-Iuxdgctxd-zmgnna does ALL the effort. Patient does none of the effort to complete the activity. Or, the assistance of 2 or more helpers is required for the patient to complete the activity. If activity was not attempted, code reason: 7-Patient Refused. 9-Not Applicable-not attempted and the patient did not perform the activity before the current illness, exacerbation or injury. 10-Not Attempted due to Environmental Limitations-(lack of equipment, weather restraints, etc.). 88-Not Attempted due to Medical Conditions or Safety Concerns. Roll Left to Right (QC): 1 Sit to Lying (QC): 1 Sit to Stand (QC): 1 Chair/Mch-nc-Uaeep Xfer(QC): 1 Car Transfer (QC): 1 Gait Training Does the Patient Walk?: No and Walking Goal NOT indicated Walk 10 feet (QC): 88 Walk 50 ft with 2 Turns(QC): 88 Walk 150 ft (QC): 88 Walking 10ft/uneven surface-QC: 88 Gait Assistive Device: None Wheelchair Training Does the Pt Use a Wheelchair?: No Wheel 50 ft with 2 turns (QC): 1 Wheel 150 ft (QC): 1 Type of Wheelchair: Manual Stair Training 1 Step (curb) (QC): 88 4 Steps (QC): 88 12 Steps (QC): 88 Balance Picking up an Object (QC): 88 ADL-Treatment Eating (QC): 3 (min A for large cup of water to mouth with L hand.) Oral Hygiene (QC): 4 (CGA with cup from hand to mouth due to decreased AROM/ strength in LUE. Pt completes oral rinsing/ spitting with CGA and s/u.) Bathing Location: R Arm, L Upper Leg, R Upper Leg, Chest, Abdomen, Perineal Area Shower/Bathe Self (QC): 2 (assist for balance and core activation for advancing forward for back/ sit to stands with TD. Pt requires assist to following areas: bottom, LEs (bilateral and foot, and LUE due to decreased RUE strength). Pt demonstrates ability to raise LUE above shoulder level.) Upper Body Dressing (QC): 2 (max A doffing, cues for dressing RUE first (pt unable to retain from previous sessions), max A donning.) Lower Body Dressing (QC): 2 (max A- threading and pulling up, pt able to attempt assist to pull past knees.) On/Off Footwear (QC): 1 Toileting Hygiene (QC): 1 (TD x2 assist in stance.) Toilet Transfer (QC): 7 Assessment/Plan Assessment and Plan Assess & Plan/Chief Complaint Assessment: CVA Smoker Hematuria Leukocytosis HLP Right side Neglect Fall Risk Cough Constipation resolved UTI acute resistant to Macrobid so started Bactrim 09/09/19 Insomnia started on Remeron Plan: IRF Protocol Statin Smoking cessation ASA Lovenox Telemetry DC since loop recorder placed Macrobid changed to Bactrim Remeron (1) CVA (cerebral vascular accident) (2) Hyperlipidemia Status: Chronic (3) Compression fracture of T3 vertebra (4) Behavior disorder (5) Leukocytosis (6) Dysarthria (7) Smoker Status: Chronic KRYS NEFF DO Sep 10, 2019 10:34
--- NOTE | 2019-09-10 17:09 | NUR ---
STILL NO BM. REFUSING DULCOLAX SUPPOSITORY... LACTULOSE GIVEN.
--- NOTE | 2019-09-10 17:37 | NUR ---
MODERATE AMOUNT OF SOFT BM AFTER LACTULOSE.
[2019-09-10 17:41] VITALS: BP 115/78
[2019-09-10] MEDS: MIRTAZAPINE 15 MG (REMERON) TAB PO SCH (21:15)
[2019-09-10] MEDS: ALPRAZolam 0.25 MG (XANAX) TAB PO PRN (21:15)
[2019-09-11 05:05] VITALS: BP 105/72
[2019-09-11 05:42] LABS: BASOPHILS # (AUTO) 0.1 10^3/uL (0.0-0.1); BASOPHILS % (AUTO) 1 % (0-10); EOSINOPHILS # (AUTO) 0.1 10^3/uL (0.0-0.3); EOSINOPHILS % (AUTO) 1 % (0-10); HEMATOCRIT 45 % (35-52); HEMOGLOBIN 15.4 G/DL (11.5-16.0); LYMPHOCYTES # (AUTO) 2.7 X 10^3 (1.0-4.0); LYMPHOCYTES % (AUTO) 21 % (12-44); MEAN CORPUSCULAR HEMOGLOBIN 30 PG (25-34); MEAN CORPUSCULAR HGB CONC 34 G/DL (32-36); MEAN CORPUSCULAR VOLUME 87 FL (80-99); MEAN PLATELET VOLUME 9.3 FL (7.4-10.4); MONOCYTES # (AUTO) 1.3 X 10^3 (0.0-1.0); MONOCYTES % (AUTO) 10 % (0-12); NEUTROPHILS # (AUTO) 8.8 X 10^3 (1.8-7.8); NEUTROPHILS % (AUTO) 67 % (42-75); PLATELET COUNT 434 10^3/uL (130-400); RED CELL DISTRIBUTION WIDTH 13.3 % (10.0-14.5); WHITE BLOOD COUNT 13.1 10^3/uL (4.3-11.0)
[2019-09-11 06:02] LABS: ALBUMIN 4.3 GM/DL (3.2-4.5)
[2019-09-11 06:03] LABS: CHLORIDE 103 MMOL/L (98-107); POTASSIUM 4.8 MMOL/L (3.6-5.0); SODIUM 138 MMOL/L (135-145)
[2019-09-11 06:04] LABS: CALCIUM 10.4 MG/DL (8.5-10.1)
[2019-09-11 06:05] LABS: GLUCOSE 108 MG/DL (70-105); TOTAL PROTEIN 7.8 GM/DL (6.4-8.2)
[2019-09-11 06:06] LABS: CARBON DIOXIDE 21 MMOL/L (21-32)
[2019-09-11 06:07] LABS: BILIRUBIN,TOTAL 0.3 MG/DL (0.1-1.0)
[2019-09-11 06:08] LABS: ALKALINE PHOSPHATASE 108 U/L (40-136)
[2019-09-11 06:09] LABS: CREATININE SERUM 0.82 MG/DL (0.60-1.30); GFR ESTIMATED > 60
[2019-09-11 06:10] LABS: BUN/CREATININE RATIO 28
[2019-09-11 06:11] LABS: ALANINE AMINOTRANSFERASE 22 U/L (0-55)
[2019-09-11] MEDS: HYDROcodone/APAP 5 MG/325 MG (LORTAB) TAB PO PRN ×2 (08:22→14:24)
[2019-09-11] MEDS: TRIM/SULFAMETH 160/800 (SEPTRA DS) TAB PO SCH ×2 (08:22→19:01)
[2019-09-11] MEDS: ASPIRIN E.C. 325 MG (ECOTRIN) TABLET PO SCH (08:22)
[2019-09-11] MEDS: PATCH REMOVAL TP SCH (08:23)
[2019-09-11] MEDS: NICOTINE 14 MG (NICODERM) PATCH TD SCH (08:23)
[2019-09-11] MEDS: DOCUSATE SODIUM 100 MG (COLACE) CAP PO SCH (08:23)
[2019-09-11] MEDS: polyethylene glycoL POWDER 17 GM (MIRALAX) PACK PO SCH ×2 (08:25→20:22)
[2019-09-11] MEDS: SENNA W/DOCUSATE (SENOKOT S) TABLET PO SCH ×2 (08:25→20:22)
--- NOTE | 2019-09-11 09:08 | Physical Therapy Daily Note ---
PT Daily Note-Current Subjective Pt is in recliner and agrees to co-treat with OT. Pt states that she hasn't been able to sleep all weekend and is very tired.Pt states pain 8/10 all over body, but mostly head and neck. Pain Numeric Pain Scale: 8 Location: Right Location Body Site: Head Pain Description: Ache Mental Status Patient Orientation: Person, Place, Time Transfers SCALE: Activities may be completed with or without assistive devices. 0-Klilqyeubc-qyyaplc completes the activity by him/herself with no assistance from a helper. 5-Set-up or Clean-up Assistance-helper sets up or cleans up; patient completes activity. [place] assists only prior to or following the activity. 4-Supervision or Touching Assistance-helper provides verbal cues and/or touching/steadying and/or contact guard assistance as patient completes activity. Assistance may be provided throughout the activity or intermittently. 3-Partial/Moderate Assistance-helper does LESS THAN HALF the effort. [place] lifts, holds or supports trunk or limbs, but provides less than half the effort. 2-Substantial/Maximal Assistance-helper does MORE THAN HALF the effort. [place] lifts or holds trunk or limbs and provides more than half the effort. 3-Nycnmhcij-canpst does ALL the effort. Patient does none of the effort to complete the activity. Or, the assistance of 2 or more helpers is required for the patient to complete the activity. If activity was not attempted, code reason: 7-Patient Refused. 9-Not Applicable-not attempted and the patient did not perform the activity before the current illness, exacerbation or injury. 10-Not Attempted due to Environmental Limitations-(lack of equipment, weather restraints, etc.). 88-Not Attempted due to Medical Conditions or Safety Concerns. Roll Left & Right (QC): 2 Sit to Lying (QC): 1 Sit to Stand (QC): 1 Chair/Fuo-ts-Grffg Xfer(QC): 1 Weight Bearing Full Weight Bearing Full Weight Bearing Gait Training Does the Patient Walk?: No and Walking Goal NOT indicated Wheelchair Training Does the Pt Use a Wheelchair?: No Exercises Supine Ex: Bridging (attempted during pulling pants up, trace to 1 noted.), Lower trunk rotation, Short Arc Quads Seated Therapy Exercises: Ankle pumps Treatments Pt required two skilled therapist for coordination and balance for functional and skilled activities. OT focused on bathing, strengthening/stretching of UE, and positioning of UE. PT focused on sitting balance, LE strengthening/stretchi ng, and positioning of LE. Pt transferred to bed from recliner with Max assist x2, pt doesn't WB and transferred with SPT. Bed bath given with assist of OT and PT. PT and OT coordinated and focused on sitting balance while pt performed functional activities. Pt donned clothing and laid in bed. Pt performed exercises in supine with LE and UE. Pt left in bed with all needs met. Assessment Current Status: Fair Progress Pt required Co-treat with OT d/t limited balance and coordination, as well as low activity tolerance and strength. Pt became easily fatigued and distracted. Pt required many VC throughout rx. PT Short Term Goals Short Term Goals Time Frame: Sep 12, 2019 Roll Left & Right: 2 Sit to lyin Lying to sitting on side of be: 2 Wheel 50ft w/2 turns: 2 Wheel 150 feet: 2 PT Shelter Goals Shelter Goals PT Tooling Inspector Goals Time Frame: Sep 26, 2019 Roll Left & Right (QC): 3 Sit to Lying (QC): 3 Lying-Sitting on Side/Bed(QC): 3 Sit to Stand (QC): 3 Chair/Loe-vw-Jxbwq Xfer(QC): 3 Toilet Transfer (QC): 3 Car Transfer (QC): 3 Does the Patient Walk: No and Walking Goal NOT indicated Walk 10 feet (QC): 88 Walk 50ft with 2 Turns (QC): 88 Walk 150 ft (QC): 88 Walking 10ft on Uneven Surface: 88 1 Step (curb) (QC): 88 4 Steps (QC): 88 12 Steps (QC): 88 Picking up an Object (QC): 88 Does the Pt use WC or Scooter?: Yes Wheel 50 feet with 2 turns (QC: 3 Type: Manual Wheel 150 feet: 3 PT Plan Problem List Problem List: Activity Tolerance, Functional Strength, Safety, Balance, Transfer, Bed Mobility, ROM Treatment/Plan Treatment Plan: Continue Plan of Care Treatment Plan: Bed Mobility, Education, Functional Activity Afia, Functional Strength, Group Therapy, Gait, Safety, Therapeutic Exercise, Transfers Treatment Duration: Sep 26, 2019 Frequency: At least 5 of 7 days/Wk (IRF) Estimated Hrs Per Day: 1.5 hours per day Patient and/or Family Agrees t: Yes Safety Risks/Education Patient Education: Transfer Techniques, Correct Positioning, Safety Issues Teaching Recipient: Patient Teaching Methods: Discussion Response to Teaching: Reinforcement Needed Time/GCodes Time In: 800 Time Out: 900 Total Billed Treatment Time: 60 Total Billed Treatment 1, FA x2 (30m), NM (15m), Ex (15) GIUSEPPE [employer] JUNIOR SYSTEMS ADMINISTRATOR Sep 11, 2019 09:08
--- NOTE | 2019-09-11 09:08 | Occupational Ther Daily Note ---
OT Current Status-Daily Note Subjective Pt seen in recliner chair, states 8/10 pain "everywhere," and difficulty sleeping/ getting comfortable during the weekend. Pt agrees to OT/ PT co-treat, co-treat needed due to pt's decreased strength, dependent transfers, decreased core/ balance, and need of 2 skilled therapists that of which an aide would not be able to provide. OT provides ADL/ UB activities while PT focuses on balance and LE movement. Mental Status/Objective Patient Orientation: Person, Place, Situation ADL-Treatment Therapy Code Descriptions/Definitions Functional [place] Measure: 0=Not Assessed/NA 4=Minimal Assistance 1=Total Assistance 5=Supervision or Setup 2=Maximal Assistance 6=Modified [place] 3=Moderate Assistance 7=Complete IndependenceSCALE: Activities may be completed with or without assistive devices. 0-Djtnmubcwh-ecoilja completes the activity by him/herself with no assistance from a helper. 5-Set-up or Clean-up Assistance-helper sets up or cleans up; patient completes activity. [place] assists only prior to or following the activity. 4-Supervision or Touching Assistance-helper provides verbal cues and/or touching/steadying and/or contact guard assistance as patient completes activity. Assistance may be provided throughout the activity or intermittently. 3-Partial/Moderate Assistance-helper does LESS THAN HALF the effort. [place] lifts, holds or supports trunk or limbs, but provides less than half the effort. 2-Substantial/Maximal Assistance-helper does MORE THAN HALF the effort. [place] lifts or holds trunk or limbs and provides more than half the effort. 4-Ttzxsqawq-ydmlag does ALL the effort. Patient does none of the effort to complete the activity. Or, the assistance of 2 or more helpers is required for the patient to complete the activity. If activity was not attempted, code reason: 7-Patient Refused. 9-Not Applicable-not attempted and the patient did not perform the activity before the current illness, exacerbation or injury. 10-Not Attempted due to Environmental Limitations-(lack of equipment, weather restraints, etc.). 88-Not Attempted due to Medical Conditions or Safety Concerns. Bathing Location: R Arm, L Upper Leg, R Upper Leg, Chest, Abdomen, Perineal Area Shower/Bathe Self (QC): 3 (max A due to need for mod A core strength/ alignment throughout EOB sponge bath. Pt completes UB with s/u and min A L UE, requires max A bottom (rolling in bed) and feet.) Upper Body Dressing (QC): 3 (mod A physically; max A for cues for sequencing. ) Lower Body Dressing (QC): 1 (TD, assist x2 in bed to roll/ manipulate clothing. Pt attempts to bring L side up to hip, requires assist; min glute bridge achieved on this date though not sustained for fx use.) On/Off Footwear: 2 (pt able to extend LE to push foot into sock (R), assist with L) Toileting Hygiene (QC): 1 Other Treatment Pt seen in recliner, states uncomfortable. Pt transferred with TD to EOB, sits with min-mod assist static sitting balance. Pt able to complete UB/ proximal LB washing and dress with assist (TD- max LB while supine in bed). Pt sit to supine with TD x2. Pt completes UB/ LB ex while supine in bed. Pt completes AROM of LUE and PROM to all planes with RUE. Pt positioned for comfort/ anti-contraction/ edema position. Pt given warm towel for neck, all needs met, call light in reach. Education OT Patient Education: Correct positioning, Exercise program, Home exercise program, Modified ADL techniques, Purpose of tx/functional activities, Transfer techniques Teaching Recipient: Patient Teaching Methods: Demonstration, Discussion Response to Teaching: Verbalize Understanding, Return Demonstration, Reinforcement Needed OT Short Term Goals Short Term Goals Time Frame: Sep 19, 2019 Eatin Oral hygiene: 9 Toileting hygiene: 3 Shower/bathe self: 3 Upper body dressin Lower body dressin Putting on/taking off footwear: 3 OT Jail Goals Hotel Recreational Facilities Manager Goals Time Frame: Oct 03, 2019 Eating (QC): 6 Oral Hygiene (QC): 9 Toileting Hygiene (QC): 4 Shower/Bathe Self (QC): 4 Upper Body Dressing (QC): 4 Lower Body Dressing (QC): 4 On/Off Footwear (QC): 4 Additional Goals: 1-Demonstrate ADL Tasks, 2-Verbalize Understanding, 3- ImproveStrength/Afia 1=Demonstrate adherence to instructed precautions during ADL tasks. 2=Patient will verbalize/demonstrate understanding of assistive devices/modifications for ADL. 3=Patient will improve strength/tolerance for activity to enable patient to perform ADL's. OT Education/Plan Problem List/Assessment Assessment: Decreased Activ Tolerance, Decreased UE Strength, Dependent Transfers, Impaired Bed Mobility, Impaired Coordination, Impaired Funct Balance, Impaired I ADL's, Impaired Self-Care Skills, Restricted Funct UE ROM Discharge Recommendations Plan/Recommendations: Continue POC Therapy Discharge Recommendati: 24 Hour Supervision Treatment Plan/Plan of Care Treatment,Training & Education: Yes Patient would benefit from OT for education, treatment and training to promote independence in ADL's, mobility, safety and/or upper extremity function for ADL's. Plan of Care: ADL Retraining, Functional Mobility, Group Exercise/Act as Ind, UE Funct Exercise/Act Treatment Duration: Oct 03, 2019 Frequency: At least 5 of 7 days/Wk (IRF) Estimated Hrs Per Day: 1.5 hours per day Agreement: Yes Rehab Potential: Guarded Time/GCodes Start Time: 08:00 Stop Time: 09:00 Total Time Billed (hr/min): 60 Billed Treatment Time 1, ADL 3, EX (60) CARINA WOODS OTR Sep 11, 2019 09:08
--- NOTE | 2019-09-11 10:10 | PM&R Progress Note ---
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 of Systems General: Fatigue Neurological: Weakness, Numbness, Incoordination Objective Exam Vital Signs Vital Signs Date Time Temp Pulse Resp B/P (MAP) Pulse Ox O2 Delivery O2 Flow Rate FiO2 09/11/19 16:00 36.2 83 16 94/60 (71) 95 Room Air Capillary Refill : Less Than 3 Seconds General Appearance: No Apparent Distress, Chronically ill, Cachetic HEENT: PERRL/EOMI, Normal ENT Inspection, Pharynx Normal Neck: Full Range of Motion, Normal Inspection, Non Tender, Supple, Carotid Bruit Respiratory: Chest Non Tender, Lungs Clear, Normal Breath Sounds, No Accessory Muscle Use, No Respiratory Distress Cardiovascular: Regular Rate, Rhythm, No Edema, No Gallop, No JVD, No Murmur, Normal Peripheral Pulses Gastrointestinal: Normal Bowel Sounds, No Organomegaly, No Pulsatile Mass, Non Tender, Soft Back: Normal Inspection, No CVA Tenderness, No Vertebral Tenderness Extremity: Normal Capillary Refill, Normal Inspection, Normal Range of Motion, Non Tender, No Calf Tenderness, No Pedal Edema Neurologic/Psychiatric: Alert, Oriented x3, Abnormal Gait, Aphasia, Depressed Affect, EOM Palsy, Motor Weakness (right sided 2/5 upper extremity and 1/5 lower extremity) Skin: Normal Color, Warm/Dry Lymphatic: No Adenopathy Results/Procedures Lab Laboratory Tests 09/11/19 05:19 Patient resulted labs reviewed. FIM Transfers Therapy Code Descriptions/Definitions Functional [place] Measure: 0=Not Assessed/NA 4=Minimal Assistance 1=Total Assistance 5=Supervision or Setup 2=Maximal Assistance 6=Modified [place] 3=Moderate Assistance 7=Complete IndependenceSCALE: Activities may be completed with or without assistive devices. 1-Wuarkjadwr-ycoggpl completes the activity by him/herself with no assistance from a helper. 5-Set-up or Clean-up Assistance-helper sets up or cleans up; patient completes activity. [place] assists only prior to or following the activity. 4-Supervision or Touching Assistance-helper provides verbal cues and/or t ouching/steadying and/or contact guard assistance as patient completes activity. Assistance may be provided throughout the activity or intermittently. 3-Partial/Moderate Assistance-helper does LESS THAN HALF the effort. [place] lifts, holds or supports trunk or limbs, but provides less than half the effort. 2-Substantial/Maximal Assistance-helper does MORE THAN HALF the effort. [place] lifts or holds trunk or limbs and provides more than half the effort. 3-Vplozgvfn-exdxpi does ALL the effort. Patient does none of the effort to complete the activity. Or, the assistance of 2 or more helpers is required for the patient to complete the activity. If activity was not attempted, code reason: 7-Patient Refused. 9-Not Applicable-not attempted and the patient did not perform the activity before the current illness, exacerbation or injury. 10-Not Attempted due to Environmental Limitations-(lack of equipment, weather restraints, etc.). 88-Not Attempted due to Medical Conditions or Safety Concerns. Roll Left to Right (QC): 2 Sit to Lying (QC): 1 Sit to Stand (QC): 1 Chair/Jwy-rl-Mwtyo Xfer(QC): 1 Car Transfer (QC): 1 Gait Training Does the Patient Walk?: No and Walking Goal NOT indicated Walk 10 feet (QC): 88 Walk 50 ft with 2 Turns(QC): 88 Walk 150 ft (QC): 88 Walking 10ft/uneven surface-QC: 88 Gait Assistive Device: None Wheelchair Training Does the Pt Use a Wheelchair?: No Wheel 50 ft with 2 turns (QC): 1 Wheel 150 ft (QC): 1 Type of Wheelchair: Manual Stair Training 1 Step (curb) (QC): 88 4 Steps (QC): 88 12 Steps (QC): 88 Balance Picking up an Object (QC): 88 ADL-Treatment Eating (QC): 3 (min A for large cup of water to mouth with L hand.) Oral Hygiene (QC): 4 (CGA with cup from hand to mouth due to decreased AROM/ strength in LUE. Pt completes oral rinsing/ spitting with CGA and s/u.) Bathing Location: R Arm, L Upper Leg, R Upper Leg, Chest, Abdomen, Perineal Area Shower/Bathe Self (QC): 3 (max A due to need for mod A core strength/ alignment throughout EOB sponge bath. Pt completes UB with s/u and min A L UE, requires max A bottom (rolling in bed) and feet.) Upper Body Dressing (QC): 3 (mod A physically; max A for cues for sequencing. ) Lower Body Dressing (QC): 1 (TD, assist x2 in bed to roll/ manipulate clothing. Pt attempts to bring L side up to hip, requires assist; min glute bridge achieved on this date though not sustained for fx use.) On/Off Footwear (QC): 2 (pt able to extend LE to push foot into sock (R), assi st with L) Toileting Hygiene (QC): 1 Toilet Transfer (QC): 7 Assessment/Plan Assessment and Plan Assess & Plan/Chief Complaint Assessment: CVA Smoker Hematuria Leukocytosis improve HLP Right side Neglect Fall Risk Cough resolved Constipation resolved UTI acute resistant to Macrobid so started Bactrim 09/09/19 Insomnia started on Remeron Plan: IRF Protocol Statin Smoking cessation ASA Lovenox Telemetry DC since loop recorder placed Macrobid changed to Bactrim Remeron and Ambien (1) CVA (cerebral vascular accident) (2) Hyperlipidemia Status: Chronic (3) Compression fracture of T3 vertebra (4) Behavior disorder (5) Leukocytosis (6) Dysarthria (7) Smoker Status: Chronic KRYS NEFF DO Sep 11, 2019 10:09
--- NOTE | 2019-09-11 10:22 | Cardiology Progress Note ---
Subjective Date Seen by Provider: Sep 11, 2019 Time Seen by Provider: 10:20 Subjective/Events-last exam Patient is sitting up at bedside, c/o back pain. Denies any chest pain or dyspnea. Review of Systems General: No Chills, No Night Sweats; Fatigue, Malaise; No Appetite, No Other HEENT: Head Aches; No Visual Changes, No Eye Pain, No Ear Pain, No Dysphasia, No Sinus Congestion, No Post Nasal Drip, No Sore Throat, No Other Objective-Cardiology Exam Last Set of Vital Signs Vital Signs 09/11/19 09/11/19 05:05 08:51 Temp 36.6 Pulse 77 Resp 18 B/P (MAP) 105/72 (83) Pulse Ox 94 O2 Delivery Room Air Capillary Refill : Less Than 3 Seconds I&O l Intake and Output 09/11/19 00:00 Intake Total 1460 ml Balance 1460 ml Intake Oral 1460 ml # Voids 7 # Bowel Movements 1 General: Alert, Oriented X3, Cooperative HEENT: Atraumatic, PERRLA Neck: Supple, +2 Carotid Pulse No Bruit Lungs: Clear to Auscultation, Normal Air Movement Heart: Regular Rate, Normal S1, Normal S2 Abdomen: Normal Bowel Sounds, Soft Extremities: No Clubbing, No Edema Skin: No Rashes, No Significant Lesion Neuro: Other (bilateral weakness) Results Lab Laboratory Tests 09/11/19 05:19 A/P-Cardiology Admission Diagnosis CVA HTN HLP Assessment/Plan CVA, still having right hemiplegia and aphagia. Is able to answer yes or no to questions asked, CT angiogram of the head was nondiagnostic. MRI of the head showed shower of embolization, probably underlying atrial fibrillation, so far her EKG did not show acute abnormality maintenance and aspirin. s/p LINq implantation for further monitoring for atrial fibrillation. Echocardiogram showed normal LV function, prominent aorta. No significant abnormality otherwise Hypertension, continue on current medication monitor blood pressure Hyperlipidemia, continue Lipitor Speech and evaluate swallowing study Patient was seen and evaluated with Kely, examination performed, management plan was discussed, agree with the current scribed note, I made few changes to the note using Italic font Patient was seen at bedside, laying down comfortably, complaining of generalized body ache and headache Lungs were clear, heart is regular Loop recorder site is healing well, no bleeding Continue on current medication, no changes are recommended Clinical Quality Measures DVT/VTE Risk/Contraindication: Risk Factor Score Per Nursin RFS Level Per Nursing on Admit: 4+=Very High KELY GUTIERREZ Sep 11, 2019 10:22 am DAMON ROTH MD Sep 11, 2019 12:52 pm
--- NOTE | 2019-09-11 10:57 | Occupational Ther Daily Note ---
OT Current Status-Daily Note Subjective Pt laying in bed, agreeable to OT Tx. Pt reports pain in her neck/L shoulder but does not rate pain. ADL-Treatment Therapy Code Descriptions/Definitions Functional [place] Measure: 0=Not Assessed/NA 4=Minimal Assistance 1=Total Assistance 5=Supervision or Setup 2=Maximal Assistance 6=Modified [place] 3=Moderate Assistance 7=Complete IndependenceSCALE: Activities may be completed with or without assistive devices. 1-Pqbrwrbvps-yimvhnb completes the activity by him/herself with no assistance from a helper. 5-Set-up or Clean-up Assistance-helper sets up or cleans up; patient completes activity. [place] assists only prior to or following the activity. 4-Supervision or Touching Assistance-helper provides verbal cues and/or touching/steadying and/or contact guard assistance as patient completes activity. Assistance may be provided throughout the activity or intermittently. 3-Partial/Moderate Assistance-helper does LESS THAN HALF the effort. [place] lifts, holds or supports trunk or limbs, but provides less than half the effort. 2-Substantial/Maximal Assistance-helper does MORE THAN HALF the effort. [place] lifts or holds trunk or limbs and provides more than half the effort. 4-Qxafizron-hzidqh does ALL the effort. Patient does none of the effort to complete the activity. Or, the assistance of 2 or more helpers is required for the patient to complete the activity. If activity was not attempted, code reason: 7-Patient Refused. 9-Not Applicable-not attempted and the patient did not perform the activity before the current illness, exacerbation or injury. 10-Not Attempted due to Environmental Limitations-(lack of equipment, weather restraints, etc.). 88-Not Attempted due to Medical Conditions or Safety Concerns. Other Treatment Pt laying in bed, agreeable to OT Tx. OT elevated HOB and set up pegs/pegboard on pt's tray table in front of her. In order to increase LUE functional strength and endurance, pt reached forward with L arm and grasped a peg, then placed the peg into the foam pegboard. Pt continued, stacking pegs x7 high, then starting a new row. She was able to complete x5 rows. OT then removed pegs and placed pegs on pt's right side. OT assisted pt with hand over hand assist in order to grasp peg in her right hand, then transfer peg to her left hand for placing, x10 pegs. OT performed PROM RUE x10 reps each at R shoulder, elbow, and hand as pt continued to place pegs with L hand. OT positioned pt's right arm onto pillow by her side. Post OT session, pt laying in bed, call light in reach and all needs met. Education OT Patient Education: Correct positioning, Energy conservation, Progress toward Goal/Update tx plan, Purpose of tx/functional activities Teaching Recipient: Patient Teaching Methods: Discussion Response to Teaching: Verbalize Understanding OT Short Term Goals Short Term Goals Time Frame: Sep 19, 2019 Eatin Oral hygiene: 9 Toileting hygiene: 3 Shower/bathe self: 3 Upper body dressin Lower body dressin Putting on/taking off footwear: 3 OT Senior Living Goals Shot Grinder Operator Goals Time Frame: Oct 03, 2019 Eating (QC): 6 Oral Hygiene (QC): 9 Toileting Hygiene (QC): 4 Shower/Bathe Self (QC): 4 Upper Body Dressing (QC): 4 Lower Body Dressing (QC): 4 On/Off Footwear (QC): 4 Additional Goals: 1-Demonstrate ADL Tasks, 2-Verbalize Understanding, 3- ImproveStrength/Afia 1=Demonstrate adherence to instructed precautions during ADL tasks. 2=Patient will verbalize/demonstrate understanding of assistive devices/m odifications for ADL. 3=Patient will improve strength/tolerance for activity to enable patient to perform ADL's. OT Education/Plan Problem List/Assessment Assessment: Decreased Activ Tolerance, Decreased UE Strength, Impaired Bed Mobility, Impaired Funct Balance, Impaired I ADL's, Impaired Self-Care Skills, Restricted Funct UE ROM Discharge Recommendations Plan/Recommendations: Continue POC Treatment Plan/Plan of Care Patient would benefit from OT for education, treatment and training to promote independence in ADL's, mobility, safety and/or upper extremity function for ADL's. Plan of Care: ADL Retraining, Functional Mobility, Group Exercise/Act as Ind, UE Funct Exercise/Act Treatment Duration: Oct 03, 2019 Frequency: At least 5 of 7 days/Wk (IRF) Estimated Hrs Per Day: 1.5 hours per day Agreement: Yes Rehab Potential: Guarded Time/GCodes Start Time: 10:15 Stop Time: 10:45 Total Time Billed (hr/min): 30 Billed Treatment Time 1, FA 2 (30') OZ ROMEO OT Sep 11, 2019 10:57
[2019-09-11] MEDS: ALPRAZolam 0.25 MG (XANAX) TAB PO PRN (11:42)
[2019-09-11] MEDS: ENOXAPARIN 40 MG/0.4 ML (LOVENOX) SYR SC SCH (11:43)
--- NOTE | 2019-09-11 11:56 | Progress Note - Urology ---
Progress Note-Urology Progress Notes/Assess & Plan Progress/Assessment & Plan TOLERATES BACTRIM DS WELL Final Diagnosis UTI AND MICROHEMATURIA SALAZAR MEZA MD Sep 11, 2019 11:56
--- NOTE | 2019-09-11 13:17 | Physical Therapy Daily Note ---
PT Daily Note-Current Subjective Pt in bed upon arrival and agrees to rx. Pt state she is still very tired and hasn't rested much. Pt states pain is at 6/10 in R side of neck. Pain Numeric Pain Scale: 6 Location: Left Location Body Site: Neck Pain Description: Ache Mental Status Patient Orientation: Person, Place, Time Transfers SCALE: Activities may be completed with or without assistive devices. 1-Pgzoeahozk-dwqmpuv completes the activity by him/herself with no assistance from a helper. 5-Set-up or Clean-up Assistance-helper sets up or cleans up; patient completes activity. [place] assists only prior to or following the activity. 4-Supervision or Touching Assistance-helper provides verbal cues and/or touching/steadying and/or contact guard assistance as patient completes activity. Assistance may be provided throughout the activity or intermittently. 3-Partial/Moderate Assistance-helper does LESS THAN HALF the effort. [place] lifts, holds or supports trunk or limbs, but provides less than half the effort. 2-Substantial/Maximal Assistance-helper does MORE THAN HALF the effort. [place] lifts or holds trunk or limbs and provides more than half the effort. 0-Gbwrvbzww-pxpmxx does ALL the effort. Patient does none of the effort to complete the activity. Or, the assistance of 2 or more helpers is required for the patient to complete the activity. If activity was not attempted, code reason: 7-Patient Refused. 9-Not Applicable-not attempted and the patient did not perform the activity before the current illness, exacerbation or injury. 10-Not Attempted due to Environmental Limitations-(lack of equipment, weather restraints, etc.). 88-Not Attempted due to Medical Conditions or Safety Concerns. Pt performed supine to R side to sit with Max-Mod assist. Pt performed sit to side to supine with max assist x2 persons. Weight Bearing Full Weight Bearing Full Weight Bearing Treatments Pt performed sitting balance activities, attempting to WB through both sides. Pt leaned forward and side to side and attempted to keep balance with mod assist. Pt performed reaching activities while seated. Pt attempted to hold static s itting balance for 30 seconds requiring min to mod assist. Pt attempted sit to stand required Max assist x2, attempted to take steps toward HOB. Pt assisted in weight shifting to L side so she could slide R foot towards HOB, but needed assistance in sliding foot into abduction. Pt laid back into bed and left with all needs met. MHP to C musculature heavily padded for 25 minutes. Pt stated it was very relaxing and relieved some pain. Assessment Current Status: Good Progress Pt able to hold static sit with min assist, needing many VC and positioning assistance. Pt easily fatigued and needed rest breaks, as well as becoming distracted easily and needing VC to assist her in focusing. Pt challenged to lean toward R and was positioned onto R forearm momentarily this seemed to translate into better midline. PT Short Term Goals Short Term Goals Time Frame: Sep 12, 2019 Roll Left & Right: 2 Sit to lyin Lying to sitting on side of be: 2 Wheel 50ft w/2 turns: 2 Wheel 150 feet: 2 PT Fdc Goals Burnt Lime Drawer Goals PT Burnt Lime Drawer Goals Time Frame: Sep 26, 2019 Roll Left & Right (QC): 3 Sit to Lying (QC): 3 Lying-Sitting on Side/Bed(QC): 3 Sit to Stand (QC): 3 Chair/Kpx-qc-Gtfoy Xfer(QC): 3 Toilet Transfer (QC): 3 Car Transfer (QC): 3 Does the Patient Walk: No and Walking Goal NOT indicated Walk 10 feet (QC): 88 Walk 50ft with 2 Turns (QC): 88 Walk 150 ft (QC): 88 Walking 10ft on Uneven Surface: 88 1 Step (curb) (QC): 88 4 Steps (QC): 88 12 Steps (QC): 88 Picking up an Object (QC): 88 Does the Pt use WC or Scooter?: Yes Wheel 50 feet with 2 turns (QC: 3 Type: Manual Wheel 150 feet: 3 PT Plan Problem List Problem List: Activity Tolerance, Functional Strength, Safety, Balance, Transfer, Bed Mobility, ROM Treatment/Plan Treatment Plan: Continue Plan of Care Treatment Plan: Bed Mobility, Education, Functional Activity Afia, Functional Strength, Group Therapy, Gait, Safety, Therapeutic Exercise, Transfers Treatment Duration: Sep 26, 2019 Frequency: At least 5 of 7 days/Wk (IRF) Estimated Hrs Per Day: 1.5 hours per day Patient and/or Family Agrees t: Yes Safety Risks/Education Patient Education: Correct Positioning, Safety Issues Teaching Recipient: Patient Teaching Methods: Discussion Response to Teaching: Reinforcement Needed Time/GCodes Time In: 1130 Time Out: 1200 Total Billed Treatment Time: 30 Total Billed Treatment 1, FA x2 (30m) LUEBBER, GIUSEPPE A CORN SHELLER OPERATOR Sep 11, 2019 13:16
--- NOTE | 2019-09-11 13:42 | NUR ---
CM/SS CONCURRENT DOCUMENTATION Visited with patient and her daughter Petra, she indicates patient received a letter by mail that the [facility] Medical Disability application was terminated due to lack of required supportive documentation. Leather Stretcher reached out to [facility] Financial Counselor jared almodovar for advice about next steps. Patient remains uninsured at this time, a complicating factor regarding post hospital discharge planning.
--- NOTE | 2019-09-11 13:57 | Speech Therapy Daily Note ---
Speech Daily Progress Note Subjective Date Seen by Provider: Sep 11, 2019 Time Seen by Provider: 00:30 Patient was resting in bed when I entered her room. Patient was noted to be increased with talking and interacting today. Objective Patient completed a series of general information questions with 90% accuracy given minimal cuing. Assessment Assessment Current Status: Good Progress Treatment Plan Continue Plan of Care Speech Short Term Goals Short Term Goals Short Term Goals Pt will complete (visual/verbal) attention task with 90% accy. Pt will complete STM task with use of compensatoy strategies with 90% accy Pt will complete further cognitive assessment for further evaluation of memory, functional math, and reading. Speech Monkey Breeder Goals Half-Way Goals Pt will tolerate least restrictive diet with no s/s of aspiration/penetration wiht observed oral intake. Speech-Plan Patient/Family Goals Patient/Family Goals: Patient plans on returning to her children's home upon discharge. Treatment Plan Speech Therapy Treatment Plan: Continue Plan of Care Treatment Duration: Sep 06, 2019 Frequency: 5 times per week Estimated Hrs Per Day: .5 hour per day Rehab Potential: Guarded Barriers to Learning: Patient's recent CVA Pt/Family Agrees to Plan: Yes Safety Risks/Education Teaching Recipient: Patient Teaching Methods: Demonstration, Discussion Response to Teaching: Verbalize Understanding, Return Demonstration Education Topics Provided: Safety upon her return home and activities she can do for improving cognitive Time Speech Therapy Time In: 09:00 Speech Therapy Time Out: 09:30 Total Billed Time: 30 Billed Treatment Time 1, FLORECITA Sandra Sep 11, 2019 13:57
[2019-09-11 16:00] VITALS: BP 94/60
--- NOTE | 2019-09-11 19:13 | NUR ---
bedside report received from SAUNDRA RAINES, assume care of pt.
[2019-09-11] MEDS: MIRTAZAPINE 15 MG (REMERON) TAB PO SCH (20:18)
[2019-09-11] MEDS: ZOLPIDEM 5 MG (AMBIEN) TAB PO SCH (20:19)
--- NOTE | 2019-09-11 20:19 | NUR ---
pt refused Senokot miralax, advised pt off going shift reported did not have BM since 09 of September, pt stated I had one today
[2019-09-12] MEDS: HYDROcodone/APAP 5 MG/325 MG (LORTAB) TAB PO PRN ×3 (04:27→18:33)
--- NOTE | 2019-09-12 04:27 | NUR ---
c/o rt eye pain level 8/10 on numeric scale, Lortab 5 1 tab given
--- NOTE | 2019-09-12 05:09 | NUR ---
rates pain 5/10 on numeric scale
[2019-09-12 05:38] VITALS: BP 102/67
[2019-09-12] MEDS: ALPRAZolam 0.25 MG (XANAX) TAB PO PRN (07:46)
[2019-09-12] MEDS: ASPIRIN E.C. 325 MG (ECOTRIN) TABLET PO SCH (08:22)
[2019-09-12] MEDS: TRIM/SULFAMETH 160/800 (SEPTRA DS) TAB PO SCH ×2 (08:22→18:31)
--- NOTE | 2019-09-12 08:26 | Cardiology Progress Note ---
Subjective Date Seen by Provider: Sep 12, 2019 Time Seen by Provider: 08:23 Subjective/Events-last exam Patient up in wheelchair, no new complaints. Denies any chest pain. Review of Systems General: No Chills, No Night Sweats, No Fatigue, No Malaise, No Appetite, No Other HEENT: No Head Aches, No Visual Changes, No Eye Pain, No Ear Pain, No Dysphasia, No Sinus Congestion, No Post Nasal Drip, No Sore Throat, No Other Pulmonary: No Dyspnea, No Cough, No Pleuritic Chest Pain, No Other Cardiovascular: No: Chest Pain, Palpitations, Orthopnea, Paroxysmal Noc. Dyspnea, Edema, Lt Headedness, Other Objective-Cardiology Exam Last Set of Vital Signs Vital Signs 09/12/19 05:38 Temp 36.3 Pulse 75 Resp 16 B/P (MAP) 102/67 (79) Pulse Ox 96 O2 Delivery Room Air Capillary Refill : Less Than 3 Seconds I&O Intake and Output 09/12/19 00:00 Intake Total 2385 ml Balance 2385 ml Intake Oral 2385 ml # Voids 7 General: Alert, Oriented X3, Cooperative HEENT: Atraumatic, PERRLA Neck: Supple, +2 Carotid Pulse No Bruit Lungs: Clear to Auscultation, Normal Air Movement Heart: Regular Rate, Normal S1, Normal S2 Abdomen: Normal Bowel Sounds, Soft Extremities: No Clubbing, No Edema Skin: No Rashes, No Significant Lesion Neuro: Other (bilateral weakness) A/P-Cardiology Admission Diagnosis CVA HTN HLP Assessment/Plan CVA, still having right hemiplegia, 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 CT angiogram of the head was nondiagnostic. MRI of the head showed shower of embolization, probably underlying atrial fibrillation, so far her EKG did not show acute abnormality maintenance and aspirin. s/p LINq implantation for further monitoring for atrial fibrillation. Echocardiogram showed normal LV function, prominent aorta. No significant abnormality otherwise Hypertension, noted to be hypotensive this morning, instructed to increase fluid. Not taking any blood pressure medication at this time. Continue to monitor Hyperlipidemia, continue Lipitor Urinary tract infection, managed by primary care physician Patient was seen and evaluated with Kely, examination performed, management plan was discussed, agree with the current scribed note, I made few changes to the note using Italic font Patient was seen during physical therapy session, she was sitting in a chair comfortable, more talkative. In good spirits. Borderline hypotensive, asymptomatic, encourage increasing fluid intake Continue to monitor blood pressure and lipids and continue current medications Clinical Quality Measures DVT/VTE Risk/Contraindication: Risk Factor Score Per Nursin RFS Level Per Nursing on Admit: 4+=Very High KELY GUTIERREZ Sep 12, 2019 08:25 DAMON ROTH MD Sep 12, 2019 09:03
--- NOTE | 2019-09-12 08:29 | Progress Note - Urology ---
Progress Note-Urology Progress Notes/Assess & Plan Progress/Assessment & Plan DOING WELL COBB Final Diagnosis UTI AND HEMATURIA SALAZAR MEZA MD Sep 12, 2019 08:29
--- NOTE | 2019-09-12 09:15 | Physical Therapy Daily Note ---
PT Daily Note-Current Subjective Pt was in recliner upon arrival and agrees to co-treat with OT. Pt stated pain in neck. Pain Location Body Site: Neck Pain Description: Ache, Tightness Comment: Pt stated pain but didn't rate it. Mental Status Patient Orientation: Person, Place, Time Transfers SCALE: Activities may be completed with or without assistive devices. 1-Kxnrqcfwpa-gtjemfm completes the activity by him/herself with no assistance from a helper. 5-Set-up or Clean-up Assistance-helper sets up or cleans up; patient completes activity. [place] assists only prior to or following the activity. 4-Supervision or Touching Assistance-helper provides verbal cues and/or touching/steadying and/or contact guard assistance as patient completes activity. Assistance may be provided throughout the activity or intermittently. 3-Partial/Moderate Assistance-helper does LESS THAN HALF the effort. [place] lifts, holds or supports trunk or limbs, but provides less than half the effort. 2-Substantial/Maximal Assistance-helper does MORE THAN HALF the effort. [place] lifts or holds trunk or limbs and provides more than half the effort. 9-Xyfjazsfr-szwtvd does ALL the effort. Patient does none of the effort to complete the activity. Or, the assistance of 2 or more helpers is required for the patient to complete the activity. If activity was not attempted, code reason: 7-Patient Refused. 9-Not Applicable-not attempted and the patient did not perform the activity before the current illness, exacerbation or injury. 10-Not Attempted due to Environmental Limitations-(lack of equipment, weather restraints, etc.). 88-Not Attempted due to Medical Conditions or Safety Concerns. Roll Left & Right (QC): 2 Sit to Lying (QC): 1 Sit to Stand (QC): 1 Weight Bearing Full Weight Bearing Full Weight Bearing Gait Training Does the Patient Walk?: No and Walking Goal NOT indicated Wheelchair Training Does the Pt Use a Wheelchair?: Yes Type of Wheelchair: Manual Exercises Seated Therapy Exercises: Long arc quads, Hip flexion (Passive x5 reps each side) Seated Reps: 15 Treatments Pt sit to stand MaxA to WC from recliner and taken to gym. Pt stood while PT focused on WB and weight shifting in LE and OT focused on WB of R UE. Pt sat back in WC and OT focused on UE stretching, strengthening, and positioning, while PT focused on dynamic sitting balance and LE strengthening and stretching. Pt stood another 1 minute MaxA with weight shifting on LE and UE. Pt returned to WC and performed seated exercises. Pt taken back to room and positioned in bed with all needs met, call light in hand. Assessment Current Status: Good Progress Pt overall gaining strength, needs frequent breaks and becomes easily distracted. Pt sitting balance becoming modA x1. PT Short Term Goals Short Term Goals Time Frame: Sep 12, 2019 Roll Left & Right: 2 Sit to lyin Lying to sitting on side of be: 2 Wheel 50ft w/2 turns: 2 Wheel 150 feet: 2 PT Fci Goals Fci Goals PT [place] Strip Inspector Goals Time Frame: Sep 26, 2019 Roll Left & Right (QC): 3 Sit to Lying (QC): 3 Lying-Sitting on Side/Bed(QC): 3 Sit to Stand (QC): 3 Chair/Efe-uu-Pcjnl Xfer(QC): 3 Toilet Transfer (QC): 3 Car Transfer (QC): 3 Does the Patient Walk: No and Walking Goal NOT indicated Walk 10 feet (QC): 88 Walk 50ft with 2 Turns (QC): 88 Walk 150 ft (QC): 88 Walking 10ft on Uneven Surface: 88 1 Step (curb) (QC): 88 4 Steps (QC): 88 12 Steps (QC): 88 Picking up an Object (QC): 88 Does the Pt use WC or Scooter?: Yes Wheel 50 feet with 2 turns (QC: 3 Type: Manual Wheel 150 feet: 3 PT Plan Problem List Problem List: Activity Tolerance, Functional Strength, Safety, Balance, Transfer, Bed Mobility, ROM Treatment/Plan Treatment Plan: Continue Plan of Care Treatment Plan: Bed Mobility, Education, Functional Activity Afia, Functional Strength, Group Therapy, Gait, Safety, Therapeutic Exercise, Transfers Treatment Duration: Sep 26, 2019 Frequency: At least 5 of 7 days/Wk (IRF) Estimated Hrs Per Day: 1.5 hours per day Patient and/or Family Agrees t: Yes Safety Risks/Education Patient Education: Transfer Techniques, W/C Management, Safety Issues Teaching Recipient: Patient Teaching Methods: Demonstration, Discussion Response to Teaching: Reinforcement Needed Time/GCodes Time In: 800 Time Out: 900 Total Billed Treatment Time: 60 Total Billed Treatment 1, FA x2 (30m), Ex (15m), NM (15m) Co-treat with OT for 45 m [id number] JHONY WALTERS MANUFACTURING ACCOUNTANT Sep 12, 2019 09:15
[2019-09-12] MEDS: polyethylene glycoL POWDER 17 GM (MIRALAX) PACK PO SCH ×2 (09:55→20:42)
[2019-09-12] MEDS: NICOTINE 14 MG (NICODERM) PATCH TD SCH (09:55)
[2019-09-12] MEDS: DOCUSATE SODIUM 100 MG (COLACE) CAP PO SCH (09:55)
[2019-09-12] MEDS: SENNA W/DOCUSATE (SENOKOT S) TABLET PO SCH ×2 (09:55→20:39)
[2019-09-12] MEDS: PATCH REMOVAL TP SCH (09:56)
[2019-09-12] MEDS: ENOXAPARIN 40 MG/0.4 ML (LOVENOX) SYR SC SCH (10:06)
--- NOTE | 2019-09-12 11:00 | Occupational Ther Daily Note ---
OT Current Status-Daily Note Subjective [id number] Pt seen in recliner this am. Pt states pain in R eye/ head. Pt agrees to OT. OT/ PT co-treat this am due to decreased mobility, dependent transfers, decreased balance/ strength. OT focuses on ADLs and UE movmeent while PT focuses on LE movement/ balance. [id number] Pt seen in bed, agrees to OT. States pain in R eye/ head once more. ADL-Treatment Therapy Code Descriptions/Definitions Functional [place] Measure: 0=Not Assessed/NA 4=Minimal Assistance 1=Total Assistance 5=Supervision or Setup 2=Maximal Assistance 6=Modified [place] 3=Moderate Assistance 7=Complete IndependenceSCALE: Activities may be completed with or without assistive devices. 8-Wthmcbgrwj-aigaxqc completes the activity by him/herself with no assistance from a helper. 5-Set-up or Clean-up Assistance-helper sets up or cleans up; patient completes activity. [place] assists only prior to or following the activity. 4-Supervision or Touching Assistance-helper provides verbal cues and/or touching/steadying and/or contact guard assistance as patient completes activity. Assistance may be provided throughout the activity or intermittently. 3-Partial/Moderate Assistance-helper does LESS THAN HALF the effort. [place] li fts, holds or supports trunk or limbs, but provides less than half the effort. 2-Substantial/Maximal Assistance-helper does MORE THAN HALF the effort. [place] lifts or holds trunk or limbs and provides more than half the effort. 6-Idlxpmtxo-fjhmde does ALL the effort. Patient does none of the effort to complete the activity. Or, the assistance of 2 or more helpers is required for the patient to complete the activity. If activity was not attempted, code reason: 7-Patient Refused. 9-Not Applicable-not attempted and the patient did not perform the activity before the current illness, exacerbation or injury. 10-Not Attempted due to Environmental Limitations-(lack of equipment, weather restraints, etc.). 88-Not Attempted due to Medical Conditions or Safety Concerns. Eating (QC): 4 (hand over hand assist to open packages. Pt able to stabilize in R hand and tear packages with L. ) Oral Hygiene (QC): 7 Shower/Bathe Self (QC): 7 Upper Body Dressing (QC): 7 Other Treatment Pt completes pant donning with TD in chair. Sit to stand and SPT to w/c with TD. Pt's posture slightly to L side on this date. Pushed to therapy gym/ between parallel bars. Pt stands 2x with TD for sit to stand with PT. OT focuses on hand positioning prior and during exercise. Pt able to lean side to side in stance with PT support and increased pressure through BUEs on bars. Pt able to bring L hand back to w/c arm rest and assist with R. In sit, pt's R UE compeltes PROM of all joints with noted tone in R bicep and AROM of hand. Pt left with PT end of session. 1015: Pt seen in bed. PROM to RUE and neck to begin. Pt completes grabbing with RUE hand and bringing cracker to mouth with gravity eliminated position and weight supported by OT. Pt able to reach mouth 2x, requires assist for 3-4th times. Pt instructed to complete R hand HEP- including squeezing and opening hand, ab/ adducting fingers, and pinching exercises. Pt educated on tone and b reaking tone. Pt nods, left in bed with PT present. All needs met, call light in reach. Education OT Patient Education: Correct positioning, Exercise program, Home exercise program, Modified ADL techniques, Progress toward Goal/Update tx plan, Purpose of tx/functional activities, Rehab process, Safety issues, Use of adapted equipment Teaching Recipient: Patient Teaching Methods: Demonstration, Discussion Response to Teaching: Verbalize Understanding, Return Demonstration, Reinforcement Needed OT Short Term Goals Short Term Goals Time Frame: Sep 19, 2019 Eatin Oral hygiene: 9 Toileting hygiene: 3 Shower/bathe self: 3 Upper body dressin Lower body dressin Putting on/taking off footwear: 3 OT Alf Goals Collection Coordinator Goals Time Frame: Oct 03, 2019 Eating (QC): 6 Oral Hygiene (QC): 9 Toileting Hygiene (QC): 4 Shower/Bathe Self (QC): 4 Upper Body Dressing (QC): 4 Lower Body Dressing (QC): 4 On/Off Footwear (QC): 4 Additional Goals: 1-Demonstrate ADL Tasks, 2-Verbalize Understanding, 3-Improve Strength/Afia 1=Demonstrate adherence to instructed precautions during ADL tasks. 2=Patient will verbalize/demonstrate understanding of assistive devices/modifications for ADL. 3=Patient will improve strength/tolerance for activity to enable patient to pe rform ADL's. OT Education/Plan Problem List/Assessment Assessment: Decreased Activ Tolerance, Decreased UE Strength, Dependent Transfers, Impaired Bed Mobility, Impaired Coordination, Impaired Funct Balance, Impaired I ADL's, Impaired Self-Care Skills, Restricted Funct UE ROM Discharge Recommendations Plan/Recommendations: Continue POC Therapy Discharge Recommendati: 24 Hour Supervision, Home & Family, Post Acute OT Treatment Plan/Plan of Care Treatment,Training & Education: Yes Patient would benefit from OT for education, treatment and training to promote independence in ADL's, mobility, safety and/or upper extremity function for ADL's. Plan of Care: ADL Retraining, Functional Mobility, Group Exercise/Act as Ind, UE Funct Exercise/Act Treatment Duration: Oct 03, 2019 Frequency: At least 5 of 7 days/Wk (IRF) Estimated Hrs Per Day: 1.5 hours per day Agreement: Yes Rehab Potential: Guarded Time/GCodes Start Time: 08:00 (1015) Stop Time: 08:45 (1045) Total Time Billed (hr/min): 75 Billed Treatment Time [id number]: OT/ PT co-treat: OT/ PT co-treat this am due to decreased mobility, dependent transfers, decreased balance/ strength. OT focuses on ADLs and UE movmeent while PT focuses on LE movement/ balance. 1, EX 3 (23) [id number]: OT ind. session: 1, EX, NM (30) Total: 75 CARINA WOODS OTR Sep 12, 2019 11:00
--- NOTE | 2019-09-12 11:00 | NUR ---
USING LEFT ARM MUCH BETTER COMPARED TO ADMISSION. STATES RIGHT FOOT IS "STARTING TO COOPERATE". CONTINUES TO HAVE RIGHT EYE PAIN AND LEFT NECK PAIN - STATES [facility] HELPS NECK PAIN. DR. ROTH SAW PATIENT AND ENCOURAGING FLUIDS SINCE BP IS A LITTLE LOW. PATIENT COMPLAINS OF JITTERINESS DUE TO NOT SMOKING AND ORDER OBTAINED TO INCREASE NICODERM PATCH TO [address] MEZA SAW PATIENT AND NO NEW ORDERS. CONTINUES TO HAVE URINARY INCONTINENCY - PATIENT STATES DOES KNOW WHEN SHE IS VOIDING.
--- NOTE | 2019-09-12 11:27 | PM&R Progress Note ---
Subjective HPI/CC On Admission Date Seen by Provider: Sep 12, 2019 Time Seen by Provider: 11:15 Subjective/Events-last exam Pt requesting a higher dose Nicotine Patch so will increase from 14 to 21 Pt still incontinent, doing better since admission though Pain behind her right eye K-Pad really helps her neck Had a BM yesterday Ambien did not really help too much per patient but the nurse said she slept all night Dr. Ruggiero evaluated her, told her to increase her oral fluids, BP will be monitored since it is a bit low Checked meds and labs Reviewed therapy notes Conferred with toolroom attendant of Systems General: Fatigue, Malaise Musculoskeletal: back pain Neurological: Weakness, Numbness, Incoordination Objective Exam Vital Signs Vital Signs Date Time Temp Pulse Resp B/P (MAP) Pulse Ox O2 Delivery O2 Flow Rate FiO2 09/12/19 16:47 36.6 95 16 100/65 (77) 91 Room Air Capillary Refill : Less Than 3 Seconds General Appearance: No Apparent Distress, Chronically ill, Cachetic HEENT: PERRL/EOMI, Normal ENT Inspection, Pharynx Normal Neck: Full Range of Motion, Normal Inspection, Non Tender, Supple, Carotid Bruit Respiratory: Chest Non Tender, Lungs Clear, Normal Breath Sounds, No Accessory Muscle Use, No Respiratory Distress Cardiovascular: Regular Rate, Rhythm, No Edema, No Gallop, No JVD, No Murmur, Normal Peripheral Pulses Gastrointestinal: Normal Bowel Sounds, No Organomegaly, No Pulsatile Mass, Non Tender, Soft Back: Normal Inspection, No CVA Tenderness, No Vertebral Tenderness Extremity: Normal Capillary Refill, Normal Inspection, Normal Range of Motion, Non Tender, No Calf Tenderness, No Pedal Edema Neurologic/Psychiatric: Alert, Oriented x3, Abnormal Gait, Aphasia, Depressed Affect, EOM Palsy, Motor Weakness (right sided 2/5 upper extremity and 1/5 lower extremity) Skin: Normal Color, Warm/Dry Lymphatic: No Adenopathy Results/Procedures Lab Patient resulted labs reviewed. FIM Transfers Therapy Code Descriptions/Definitions Functional [place] Measure: 0=Not Assessed/NA 4=Minimal Assistance 1=Total Assistance 5=Supervision or Setup 2=Maximal Assistance 6=Modified [place] 3=Moderate Assistance 7=Complete IndependenceSCALE: Activities may be completed with or without assistive devices. 2-Rezhbqqoui-dlwnvop completes the activity by him/herself with no assistance from a helper. 5-Set-up or Clean-up Assistance-helper sets up or cleans up; patient completes activity. [place] assists only prior to or following the activity. 4-Supervision or Touching Assistance-helper provides verbal cues and/or touching/steadying and/or contact guard assistance as patient completes activity. Assistance may be provided throughout the activity or intermittently. 3-Partial/Moderate Assistance-helper does LESS THAN HALF the effort. [place] lifts, holds or supports trunk or limbs, but provides less than half the effort. 2-Substantial/Maximal Assistance-helper does MORE THAN HALF the effort. [place] lifts or holds trunk or limbs and provides more than half the effort. 8-Ehyplnzsf-qakbtx does ALL the effort. Patient does none of the effort to complete the activity. Or, the assistance of 2 or more helpers is required for the patient to complete the activity. If activity was not attempted, code reason: 7-Patient Refused. 9-Not Applicable-not attempted and the patient did not perform the activity before the current illness, exacerbation or injury. 10-Not Attempted due to Environmental Limitations-(lack of equipment, weather restraints, etc.). 88-Not Attempted due to Medical Conditions or Safety Concerns. Roll Left to Right (QC): 2 Sit to Lying (QC): 1 Sit to Stand (QC): 1 Chair/Jcu-be-Dxbke Xfer(QC): 1 Car Transfer (QC): 1 Gait Training Does the Patient Walk?: No and Walking Goal NOT indicated Walk 10 feet (QC): 88 Walk 50 ft with 2 Turns(QC): 88 Walk 150 ft (QC): 88 Walking 10ft/uneven surface-QC: 88 Gait Assistive Device: None Wheelchair Training Does the Pt Use a Wheelchair?: Yes Wheel 50 ft with 2 turns (QC): 1 Wheel 150 ft (QC): 1 Type of Wheelchair: Manual Stair Training 1 Step (curb) (QC): 88 4 Steps (QC): 88 12 Steps (QC): 88 Balance Picking up an Object (QC): 88 ADL-Treatment Eating (QC): 4 (hand over hand assist to open packages. Pt able to stabilize in R hand and tear packages with L. ) Oral Hygiene (QC): 7 Bathing Location: R Arm, L Upper Leg, R Upper Leg, Chest, Abdomen, Perineal Area Shower/Bathe Self (QC): 7 Upper Body Dressing (QC): 7 Lower Body Dressing (QC): 1 (TD, assist x2 in bed to roll/ manipulate clothing. Pt attempts to bring L side up to hip, requires assist; min glute bridge achieved on this date though not sustained for fx use.) On/Off Footwear (QC): 2 (pt able to extend LE to push foot into sock (R), assist with L) Toileting Hygiene (QC): 1 Toilet Transfer (QC): 7 Assessment/Plan Assessment and Plan Assess & Plan/Chief Complaint Assessment: CVA Smoker Hematuria Leukocytosis improved HLP Right side Neglect Fall Risk Cough resolved Constipation resolved UTI acute resistant to Macrobid so started Bactrim 09/09/19 Insomnia started on Remeron and added Ambien Plan: IRF Protocol Statin Smoking cessation ASA Lovenox Telemetry DC since loop recorder placed Macrobid changed to Bactrim Remeron and Ambien Difficult to instill positivity (1) CVA (cerebral vascular accident) (2) Hyperlipidemia Status: Chronic (3) Compression fracture of T3 vertebra (4) Behavior disorder (5) Leukocytosis (6) Dysarthria (7) Smoker Status: Chronic KRYS NEFF DO Sep 12, 2019 11:27
--- NOTE | 2019-09-12 11:37 | Speech Therapy Daily Note ---
Speech Daily Progress Note Subjective Date Seen by Provider: Sep 12, 2019 Time Seen by Provider: 00:30 Patient was resting in her bed following her OT and PT session. Objective Patient completed a series of "what's wrong with this picture" safety awareness cards with 90% given minimal cuing. Assessment Assessment Current Status: Good Progress Treatment Plan Continue Plan of Care Speech Short Term Goals Short Term Goals Short Term Goals Pt will complete (visual/verbal) attention task with 90% accy. Pt will complete STM task with use of compensatoy strategies with 90% accy Pt will complete further cognitive assessment for further evaluation of memory, functional math, and reading. Speech Chief Accountant Goals Alf Goals Pt will tolerate least restrictive diet with no s/s of aspiration/penetration wiht observed oral intake. Speech-Plan Patient/Family Goals Patient/Family Goals: Patient plans on returning home with family upon discharge. Treatment Plan Speech Therapy Treatment Plan: Continue Plan of Care Treatment Duration: Sep 06, 2019 Frequency: 5 times per week Estimated Hrs Per Day: .5 hour per day Rehab Potential: Guarded Barriers to Learning: Patient's recent CVA, the cognitive affects are resolving. Pt/Family Agrees to Plan: Yes Safety Risks/Education Teaching Recipient: Patient Teaching Methods: Demonstration, Discussion Response to Teaching: Verbalize Understanding, Return Demonstration Education Topics Provided: Conitinued safety within her room and upon her return home Time Speech Therapy Time In: 09:00 Speech Therapy Time Out: 09:30 Total Billed Time: 30 Billed Treatment Time [address] Sep 12, 2019 11:37
--- NOTE | 2019-09-12 11:45 | Physical Therapy Daily Note ---
PT Daily Note-Current Subjective Pt in bed upon arrival and agrees to PT. Pain Location: No Pain Reported Mental Status Patient Orientation: Person, Place, Time Transfers SCALE: Activities may be completed with or without assistive devices. 2-Gouttmbcry-slwijxc completes the activity by him/herself with no assistance from a helper. 5-Set-up or Clean-up Assistance-helper sets up or cleans up; patient completes activity. [place] assists only prior to or following the activity. 4-Supervision or Touching Assistance-helper provides verbal cues and/or touching/steadying and/or contact guard assistance as patient completes activity. Assistance may be provided throughout the activity or intermittently. 3-Partial/Moderate Assistance-helper does LESS THAN HALF the effort. [place] lifts, holds or supports trunk or limbs, but provides less than half the effort. 2-Substantial/Maximal Assistance-helper does MORE THAN HALF the effort. [place] lifts or holds trunk or limbs and provides more than half the effort. 4-Ktvtwengt-qkbfbu does ALL the effort. Patient does none of the effort to complete the activity. Or, the assistance of 2 or more helpers is required for the patient to complete the activity. If activity was not attempted, code reason: 7-Patient Refused. 9-Not Applicable-not attempted and the patient did not perform the activity before the current illness, exacerbation or injury. 10-Not Attempted due to Environmental Limitations-(lack of equipment, weather restraints, etc.). 88-Not Attempted due to Medical Conditions or Safety Concerns. Weight Bearing Full Weight Bearing Full Weight Bearing Wheelchair Training Does the Pt Use a Wheelchair?: No Exercises Supine Ex: Ankle pumps, Heel Slides, Short Arc Quads, Hip abd/add Supine Reps: 15 Treatments Pt in bed during rx, completes AAROM exercises, needing VC. Pt left in bed with all needs met, call light in hand. Assessment Current Status: Good Progress Pt becomes easily fatigued and distracted. Pt overall strength is improving. PT Short Term Goals Short Term Goals Time Frame: Sep 12, 2019 Roll Left & Right: 2 Sit to lyin Lying to sitting on side of be: 2 Wheel 50ft w/2 turns: 2 Wheel 150 feet: 2 PT Manager Epic Goals Mcfp Goals PT Mcfp Goals Time Frame: Sep 26, 2019 Roll Left & Right (QC): 3 Sit to Lying (QC): 3 Lying-Sitting on Side/Bed(QC): 3 Sit to Stand (QC): 3 Chair/Isk-mb-Ahwzr Xfer(QC): 3 Toilet Transfer (QC): 3 Car Transfer (QC): 3 Does the Patient Walk: No and Walking Goal NOT indicated Walk 10 feet (QC): 88 Walk 50ft with 2 Turns (QC): 88 Walk 150 ft (QC): 88 Walking 10ft on Uneven Surface: 88 1 Step (curb) (QC): 88 4 Steps (QC): 88 12 Steps (QC): 88 Picking up an Object (QC): 88 Does the Pt use WC or Scooter?: Yes Wheel 50 feet with 2 turns (QC: 3 Type: Manual Wheel 150 feet: 3 PT Plan Problem List Problem List: Activity Tolerance, Functional Strength, Safety, Balance, Transfer, Bed Mobility Treatment/Plan Treatment Plan: Continue Plan of Care Treatment Plan: Bed Mobility, Education, Functional Activity Afia, Functional Strength, Group Therapy, Gait, Safety, Therapeutic Exercise, Transfers Treatment Duration: Sep 26, 2019 Frequency: At least 5 of 7 days/Wk (IRF) Estimated Hrs Per Day: 1.5 hours per day Patient and/or Family Agrees t: Yes Safety Risks/Education Patient Education: Correct Positioning, Safety Issues Teaching Recipient: Patient Teaching Methods: Discussion Response to Teaching: Reinforcement Needed Time/GCodes Time In: 1040 Time Out: 1055 Total Billed Treatment Time: 15 Total Billed Treatment 1, EX (15m) JHONY WALTERS GEOPHYSICAL OPERATOR Sep 12, 2019 11:44
[2019-09-12] MEDS: NICOTINE 21 MG (NICODERM) PATCH TD SCH (11:49)
--- NOTE | 2019-09-12 15:17 | NUR ---
"RD ASSESSMENT PMHx: HLD; tobacco use PT INTERACTION: Pt was awake and pleasant during nutrition follow-up. Pt states she has been eating good since last assessment. Note avg PO intake 69% x4d, per chart review. Pt states no issues with nausea, vomiting, constipation, or diarrhea since last assessment. Note last BM was 09/11, and pt currently on bowel regimen of colace qd; senna BID; and miralax BID, per chart review. ABNORMAL NUTRITION-RELATED LAB VALUES LOW: HIGH: BUN 23; glu 108; Ca 10.4 Est. kcal needs: 4908-2917 kcal | 25-30 kcal/kg Est. Pro needs: 60-72 g Pro | 1.0-1.2 g Pro/kg PES STATEMENT: Inadequate oral intake (NI-2.1) related to loss of appetite as evidenced by pt interview | avg PO intake 69% x4d INTERVENTION: Continue with current diet order of DYS2 Mechanically Altered diet. Pt may benefit from nutrition supplementation if PO intake declines. Will continue to follow and reassess as pt needs, intake, and status change. MONITOR/EVALUATE: PO Intake; Plan of Care; Hydration Status; Weight Status; Lab Values Isabel Mitchell, MS, RD, LD"
[2019-09-12 16:47] VITALS: BP 100/65
--- NOTE | 2019-09-12 18:00 | NUR ---
DAUGHTER VISITING. A FAIRLY GOOD DAY.
--- NOTE | 2019-09-12 19:05 | NUR ---
bedside report received from JOAQUÍN RAINES, assume care of pt
[2019-09-12] MEDS: MIRTAZAPINE 15 MG (REMERON) TAB PO SCH (20:39)
[2019-09-12] MEDS: ZOLPIDEM 5 MG (AMBIEN) TAB PO SCH (20:39)
--- NOTE | 2019-09-12 20:39 | NUR ---
pt took Senokot refused miralax.
[2019-09-13] MEDS: HYDROcodone/APAP 5 MG/325 MG (LORTAB) TAB PO PRN ×2 (05:07→16:57)
--- NOTE | 2019-09-13 05:07 | NUR ---
c/o neck & rt eye pain level 8/10 on numeric scale, Lortab 5 1 tab given
[2019-09-13 05:53] VITALS: BP 102/68
--- NOTE | 2019-09-13 08:53 | Cardiology Progress Note ---
Subjective Date Seen by Provider: Sep 13, 2019 Time Seen by Provider: 08:51 Subjective/Events-last exam Patient is sitting up in chair, no new complaints. Denies any dizziness or l ightheadedness. Review of Systems General: No Chills, No Night Sweats, No Fatigue, No Malaise, No Appetite, No Other HEENT: No Head Aches, No Visual Changes, No Eye Pain, No Ear Pain, No Dysphasia, No Sinus Congestion, No Post Nasal Drip, No Sore Throat, No Other Pulmonary: No Dyspnea, No Cough, No Pleuritic Chest Pain, No Other Cardiovascular: No: Chest Pain, Palpitations, Orthopnea, Paroxysmal Noc. Dyspnea, Edema, Lt Headedness, Other Objective-Cardiology Exam Last Set of Vital Signs Vital Signs 09/13/19 09/13/19 05:53 09:00 Temp 36.5 Pulse 74 Resp 16 B/P (MAP) 102/68 (79) Pulse Ox 96 O2 Delivery Room Air Capillary Refill : Less Than 3 Seconds I&O Intake and Output 09/13/19 00:00 Intake Total 1350 ml Balance 1350 ml Intake Oral 1350 ml # Voids 9 # Bowel Movements 1 General: Alert, Oriented X3, Cooperative HEENT: Atraumatic, PERRLA Neck: Supple, +2 Carotid Pulse No Bruit Lungs: Clear to Auscultation, Normal Air Movement Heart: Regular Rate, Normal S1, Normal S2 Abdomen: Normal Bowel Sounds, Soft Extremities: No Clubbing, No Edema Skin: No Rashes, No Significant Lesion Neuro: Other (bilateral weakness) A/P-Cardiology Admission Diagnosis CVA HTN HLP Assessment/Plan CVA, still having right hemiplegia, 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 CT angiogram of the head was nondiagnostic. MRI of the head showed shower of embolization, probably underlying atrial fibrillation, so far her EKG did not show acute abnormality maintenance and aspirin. s/p LINq implantation for further monitoring for atrial fibrillation. Echocardiogram showed normal LV function, prominent aorta. No significant abnormality otherwise Borderline hypotension, continue to increase fluids. Hyperlipidemia, continue Lipitor Urinary tract infection, managed by primary care physician Patient was seen and evaluated with Kely, examination performed, management plan was discussed, agree with the current scribed note, I made few changes to the note using Italic font Patient was seen at bedside, laying down comfortably, feeling better Improvement with her motor function Continue current medication continue to monitor Clinical Quality Measures DVT/VTE Risk/Contraindication: Risk Factor Score Per Nursin RFS Level Per Nursing on Admit: 4+=Very High KELY GUTIERREZ Sep 13, 2019 8:53 am DAMON ROTH MD Sep 13, 2019 3:20 pm
[2019-09-13] MEDS: TRIM/SULFAMETH 160/800 (SEPTRA DS) TAB PO SCH ×2 (08:56→18:29)
[2019-09-13] MEDS: ASPIRIN E.C. 325 MG (ECOTRIN) TABLET PO SCH (08:56)
[2019-09-13] MEDS: NICOTINE 21 MG (NICODERM) PATCH TD SCH (08:56)
[2019-09-13] MEDS: SENNA W/DOCUSATE (SENOKOT S) TABLET PO SCH ×2 (08:56→20:04)
[2019-09-13] MEDS: polyethylene glycoL POWDER 17 GM (MIRALAX) PACK PO SCH ×2 (08:57→20:03)
[2019-09-13] MEDS: ENOXAPARIN 40 MG/0.4 ML (LOVENOX) SYR SC SCH (08:57)
[2019-09-13] MEDS: DOCUSATE SODIUM 100 MG (COLACE) CAP PO SCH (08:57)
[2019-09-13] MEDS: PATCH REMOVAL TP SCH (08:57)
--- NOTE | 2019-09-13 08:57 | Physical Therapy Daily Note ---
PT Daily Note-Current Subjective Pt in bed upon arrival and agrees to co-treat with OT. Pt appears more tired today. Mental Status Patient Orientation: Person, Place, Time, Situation Transfers SCALE: Activities may be completed with or without assistive devices. 2-Cnfyqtbbme-fewirgl completes the activity by him/herself with no assistance from a helper. 5-Set-up or Clean-up Assistance-helper sets up or cleans up; patient completes activity. [place] assists only prior to or following the activity. 4-Supervision or Touching Assistance-helper provides verbal cues and/or touching/steadying and/or contact guard assistance as patient completes activity. Assistance may be provided throughout the activity or intermittently. 3-Partial/Moderate Assistance-helper does LESS THAN HALF the effort. [place] lifts, holds or supports trunk or limbs, but provides less than half the effort. 2-Substantial/Maximal Assistance-helper does MORE THAN HALF the effort. [place] lifts or holds trunk or limbs and provides more than half the effort. 2-Yodtcnqgq-nfgfqd does ALL the effort. Patient does none of the effort to complete the activity. Or, the assistance of 2 or more helpers is required for the patient to complete the activity. If activity was not attempted, code reason: 7-Patient Refused. 9-Not Applicable-not attempted and the patient did not perform the activity before the current illness, exacerbation or injury. 10-Not Attempted due to Environmental Limitations-(lack of equipment, weather restraints, etc.). 88-Not Attempted due to Medical Conditions or Safety Concerns. Roll Left & Right (QC): 2 Sit to Lying (QC): 1 Lying to Sitting/Side of Bed(Q: 2 Sit to Stand (QC): 1 Chair/Pnl-qs-Ltbod Xfer(QC): 1 Weight Bearing Full Weight Bearing Full Weight Bearing Treatments Pt sit to stand from bed to shower chair with Max Assist. Pt given shower with Mod Assist x1. OT focused on bathing, dressing, and UE positioning/strengthening. PT focused on transfers, dynamic sitting balance, bed mobility, and LE strengthening/positioning. Pt transferred back into bed after shower and dons clothing in bed. Pt left in bed with all needs met, call light in hand. Assessment Current Status: Good Progress Pt fatigued easily, having a slouched posture throughout most of rx without any assist. Pt became easily distracted and needed VC to stay focused. Pt shows minimal progress in stance, but still requires Max Assist PT Short Term Goals Short Term Goals Time Frame: Sep 12, 2019 Roll Left & Right: 2 Sit to lyin Lying to sitting on side of be: 2 Wheel 50ft w/2 turns: 2 Wheel 150 feet: 2 PT Pbx Wire Chief Goals Snf Goals PT Snf Goals Time Frame: Sep 26, 2019 Roll Left & Right (QC): 3 Sit to Lying (QC): 3 Lying-Sitting on Side/Bed(QC): 3 Sit to Stand (QC): 3 Chair/Zbe-pu-Nnlbg Xfer(QC): 3 Toilet Transfer (QC): 3 Car Transfer (QC): 3 Does the Patient Walk: No and Walking Goal NOT indicated Walk 10 feet (QC): 88 Walk 50ft with 2 Turns (QC): 88 Walk 150 ft (QC): 88 Walking 10ft on Uneven Surface: 88 1 Step (curb) (QC): 88 4 Steps (QC): 88 12 Steps (QC): 88 Picking up an Object (QC): 88 Does the Pt use WC or Scooter?: Yes Wheel 50 feet with 2 turns (QC: 3 Type: Manual Wheel 150 feet: 3 PT Plan Problem List Problem List: Activity Tolerance, Functional Strength, Safety, Balance, Transfer, Bed Mobility, ROM Treatment/Plan Treatment Plan: Continue Plan of Care Treatment Plan: Bed Mobility, Education, Functional Activity Afia, Functional Strength, Group Therapy, Gait, Safety, Therapeutic Exercise, Transfers Treatment Duration: Sep 26, 2019 Frequency: At least 5 of 7 days/Wk (IRF) Estimated Hrs Per Day: 1.5 hours per day Patient and/or Family Agrees t: Yes Safety Risks/Education Patient Education: Transfer Techniques, Correct Positioning, Safety Issues Teaching Recipient: Patient Teaching Methods: Discussion Response to Teaching: Reinforcement Needed Time/GCodes Time In: 800 Time Out: 900 Total Billed Treatment Time: 60 Total Billed Treatment 1, FA x4 (60m) GIUSEPPE MEDINA VENEER SORTER Sep 13, 2019 08:57
--- NOTE | 2019-09-13 08:59 | Occupational Ther Daily Note ---
OT Current Status-Daily Note Subjective [id number] seen in bed this am. Pt agrees to OT/ PT though states very tired this date. PT/ OT co-treat rendered due to pt's decreased mobility, dependent transfers, attention and safety awareness; OT focuses on ADLs/ UE movement while PT focuses on core balance / LE movement. [id number]: Pt seen in bed. C/o R eye pain and states tired/ desires nap. Pt;s nurse notified of pain. Pt agrees to modified OT, denies OOB/ sitting in recline r. ADL-Treatment Therapy Code Descriptions/Definitions Functional [place] Measure: 0=Not Assessed/NA 4=Minimal Assistance 1=Total Assistance 5=Supervision or Setup 2=Maximal Assistance 6=Modified [place] 3=Moderate Assistance 7=Complete IndependenceSCALE: Activities may be completed with or without assistive devices. 7-Bqizinxnkx-pkvantk completes the activity by him/herself with no assistance from a helper. 5-Set-up or Clean-up Assistance-helper sets up or cleans up; patient completes activity. [place] assists only prior to or following the activity. 4-Supervision or Touching Assistance-helper provides verbal cues and/or touching/steadying and/or contact guard assistance as patient completes activity. Assistance may be provided throughout the activity or intermittently. 3-Partial/Moderate Assistance-helper does LESS THAN HALF the effort. [place] lifts, holds or supports trunk or limbs, but provides less than half the effort. 2-Substantial/Maximal Assistance-helper does MORE THAN HALF the effort. [place] lifts or holds trunk or limbs and provides more than half the effort. 5-Uiejcslgs-zrjxay does ALL the effort. Patient does none of the effort to complete the activity. Or, the assistance of 2 or more helpers is required for the patient to complete the activity. If activity was not attempted, code reason: 7-Patient Refused. 9-Not Applicable-not attempted and the patient did not perform the activity before the current illness, exacerbation or injury. 10-Not Attempted due to Environmental Limitations-(lack of equipment, weather restraints, etc.). 88-Not Attempted due to Medical Conditions or Safety Concerns. Eating (QC): 5 Bathing Location: R Arm, L Upper Leg, R Upper Leg, L Lower Leg (including foot), R Lower Leg (including foot), Chest, Abdomen, Perineal Area Shower/Bathe Self (QC): 3 (Pt completes full shower on sc with arm rests. Pt requires assist with safety during LB washing as pt attempts to forward bend and unable to maintain balance. Pt completes knees/ distally with LHS with continued safety cues. Pt able to wash all areas excluding LUE and bottom. ) Upper Body Dressing (QC): 3 (mod A, cues for completing RUE first.) Lower Body Dressing (QC): 1 (TD with assist x2 while in bed. Pt able to roll side to side with max A.) On/Off Footwear: 1 Toileting Hygiene (QC): 1 (TD bottom hygiene in bed.) Toilet Transfer (QC): 1 (TD to sc.) Other Treatment [id number]: OT/ PT co-treat: Pt completes bed mob with TD. Pt transfers to w/c s/c with TD. Pt pushed in to shower, nursing notified of loop recorder placement and nursing clears shower as long as covered. Pt's chest covered with bandage already placed. Pt completes shower/ dressing as above. Pt requires constant cues for upright positioning as pt desires to lean forward for LB washing and does not have the strength/ control to bring self back to sitting. Pt unable to retain and perform safely without cues. PT encourages upright posture with tactile and verbal cues. Pt returns to bed for LB dressing tasks. Positioned for comfort and anti-contractions. All needs met, call light on L side, pt requests coffee, drinks without assist with straw. [id number]: Pt completes supine to sit with TD. Completes bra/ shirt donning with max A while requiring support for back/ core balance throughout. Pt unable to bring self forward. Pt brought back to supine with TD, completes AROM of RUE (full ext and flexion on this date). Pt completes coffee drinking with SBA, requires s/u for creamers. Pt left in room supine with all needs met, call light on L side, and positioned for comfort and anti-contraction positioning. Pt's daughter not present, states may be this afternoon. Education OT Patient Education: Correct positioning, Modified ADL techniques, Purpose of tx/functional activities, Safety issues, Transfer techniques, Use of adapted equipment Teaching Recipient: Patient Teaching Methods: Demonstration Response to Teaching: Verbalize Understanding, Unable to Return Demonstration, Return Demonstration, Reinforcement Needed OT Short Term Goals Short Term Goals Time Frame: Sep 19, 2019 Eatin Oral hygiene: 9 Toileting hygiene: 3 Shower/bathe self: 3 Upper body dressin Lower body dressin Putting on/taking off footwear: 3 OT Residential Care Facility Manager Goals Residential Care Facility Manager Goals Time Frame: Oct 03, 2019 Eating (QC): 6 Oral Hygiene (QC): 9 Toileting Hygiene (QC): 4 Shower/Bathe Self (QC): 4 Upper Body Dressing (QC): 4 Lower Body Dressing (QC): 4 On/Off Footwear (QC): 4 Additional Goals: 1-Demonstrate ADL Tasks, 2-Verbalize Understanding, 3- ImproveStrength/Afia 1=Demonstrate adherence to instructed precautions during ADL tasks. 2=Patient will verbalize/demonstrate understanding of assistive devices/modifications for ADL. 3=Patient will improve strength/tolerance for activity to enable patient to perform ADL's. OT Education/Plan Problem List/Assessment Assessment: Decreased Activ Tolerance, Decreased Safety Aware, Decreased UE Strength, Dependent Transfers, Impaired Bed Mobility, Impaired Coordination, Impaired Funct Balance, Impaired I ADL's, Impaired Self-Care Skills, Restricted Funct UE ROM Discharge Recommendations Plan/Recommendations: Continue POC Therapy Discharge Recommendati: 24 Hour Supervision, Home & Family, Post Acute OT Treatment Plan/Plan of Care Treatment,Training & Education: Yes Patient would benefit from OT for education, treatment and training to promote independence in ADL's, mobility, safety and/or upper extremity function for ADL's. Plan of Care: ADL Retraining, Functional Mobility, Group Exercise/Act as Ind, UE Funct Exercise/Act Treatment Duration: Oct 03, 2019 Frequency: At least 5 of 7 days/Wk (IRF) Estimated Hrs Per Day: 1.5 hours per day Agreement: Yes Rehab Potential: Guarded Time/GCodes Start Time: 08:00 (1330) Stop Time: 09:00 (1400) Total Time Billed (hr/min): 90 Billed Treatment Time 5017-9782: PT/ OT co-treat rendered due to pt's decreased mobility, dependent transfers, attention and safety awareness; OT focuses on ADLs/ UE movement while PT focuses on core balance / LE movement. 1, ADL 4 (60) [id number] (30): OT Ind. tx: 1, ADL 2 (30) Total: 90 CARINA WOODS OTR Sep 13, 2019 08:59
--- NOTE | 2019-09-13 09:31 | PM&R Progress Note ---
Subjective HPI/CC On Admission Date Seen by Provider: Sep 13, 2019 Time Seen by Provider: 09:30 Subjective/Events-last exam No major issues Bactrim needs to be twice daily for a total of seven days and will check with pharmacy Bowels are moving okay they are actually a little bit loose so declined laxatives today Team meeting today to discuss disposition Checked meds and labs Reviewed therapy notes Conferred with slip feeder of Systems General: Fatigue, Malaise Neurological: Weakness, Numbness, Incoordination Objective Exam Vital Signs Vital Signs Date Time Temp Pulse Resp B/P (MAP) Pulse Ox O2 Delivery O2 Flow Rate FiO2 09/13/19 17:00 36.2 94 20 114/62 (79) 93 Room Air Capillary Refill : Less Than 3 Seconds General Appearance: No Apparent Distress, Chronically ill, Cachetic HEENT: PERRL/EOMI, Normal ENT Inspection, Pharynx Normal Neck: Full Range of Motion, Normal Inspection, Non Tender, Supple, Carotid Bruit Respiratory: Chest Non Tender, Lungs Clear, Normal Breath Sounds, No Accessory Muscle Use, No Respiratory Distress Cardiovascular: Regular Rate, Rhythm, No Edema, No Gallop, No JVD, No Murmur, Normal Peripheral Pulses Gastrointestinal: Normal Bowel Sounds, No Organomegaly, No Pulsatile Mass, Non Tender, Soft Back: Normal Inspection, No CVA Tenderness, No Vertebral Tenderness Extremity: Normal Capillary Refill, Normal Inspection, Normal Range of Motion, Non Tender, No Calf Tenderness, No Pedal Edema Neurologic/Psychiatric: Alert, Oriented x3, Abnormal Gait, Aphasia, Depressed Affect, EOM Palsy, Motor Weakness (right sided 2/5 upper extremity and 1/5 lower extremity) Skin: Normal Color, Warm/Dry Lymphatic: No Adenopathy Results/Procedures Lab Patient resulted labs reviewed. FIM Transfers Therapy Code Descriptions/Definitions Functional [place] Measure: 0=Not Assessed/NA 4=Minimal Assistance 1=Total Assistance 5=Supervision or Setup 2=Maximal Assistance 6=Modified [place] 3=Moderate Assistance 7=Complete IndependenceSCALE: Activities may be completed with or without assistive devices. 4-Bukboqcvbw-lestfju completes the activity by him/herself with no assistance from a helper. 5-Set-up or Clean-up Assistance-helper sets up or cleans up; patient completes activity. [place] assists only prior to or following the activity. 4-Supervision or Touching Assistance-helper provides verbal cues and/or touching/steadying and/or contact guard assistance as patient completes activity. Assistance may be provided throughout the activity or intermittently. 3-Partial/Moderate Assistance-helper does LESS THAN HALF the effort. [place] lifts, holds or supports trunk or limbs, but provides less than half the effort. 2-Substantial/Maximal Assistance-helper does MORE THAN HALF the effort. [place] lifts or holds trunk or limbs and provides more than half the effort. 0-Rdjrjqavk-almhnk does ALL the effort. Patient does none of the effort to complete the activity. Or, the assistance of 2 or more helpers is required for the patient to complete the activity. If activity was not attempted, code reason: 7-Patient Refused. 9-Not Applicable-not attempted and the patient did not perform the activity before the current illness, exacerbation or injury. 10-Not Attempted due to Environmental Limitations-(lack of equipment, weather restraints, etc.). 88-Not Attempted due to Medical Conditions or Safety Concerns. Roll Left to Right (QC): 2 Sit to Lying (QC): 1 Sit to Stand (QC): 1 Chair/Bfz-px-Weboh Xfer(QC): 1 Car Transfer (QC): 1 Gait Training Does the Patient Walk?: No and Walking Goal NOT indicated Walk 10 feet (QC): 88 Walk 50 ft with 2 Turns(QC): 88 Walk 150 ft (QC): 88 Walking 10ft/uneven surface-QC: 88 Gait Assistive Device: None Wheelchair Training Does the Pt Use a Wheelchair?: No Wheel 50 ft with 2 turns (QC): 1 Wheel 150 ft (QC): 1 Type of Wheelchair: Manual Stair Training 1 Step (curb) (QC): 88 4 Steps (QC): 88 12 Steps (QC): 88 Balance Picking up an Object (QC): 88 ADL-Treatment Eating (QC): 5 Oral Hygiene (QC): 7 Bathing Location: R Arm, L Upper Leg, R Upper Leg, L Lower Leg (including foot), R Lower Leg (including foot), Chest, Abdomen, Perineal Area Shower/Bathe Self (QC): 3 (Pt completes full shower on sc with arm rests. Pt requires assist with safety during LB washing as pt attempts to forward bend and unable to maintain balance. Pt completes knees/ distally with LHS with continued safety cues. Pt able to wash all areas excluding LUE and bottom. ) Upper Body Dressing (QC): 3 (mod A, cues for completing RUE first.) Lower Body Dressing (QC): 1 (TD with assist x2 while in bed. Pt able to roll side to side with max A.) On/Off Footwear (QC): 1 Toileting Hygiene (QC): 1 (TD bottom hygiene in bed.) Toilet Transfer (QC): 1 (TD to sc.) Assessment/Plan Assessment and Plan Assess & Plan/Chief Complaint Assessment: CVA Smoker Hematuria Leukocytosis improved HLP Right side Neglect Fall Risk Cough resolved Constipation resolved UTI acute resistant to Macrobid so started Bactrim 09/09/19 Insomnia started on Remeron and added Ambien Plan: IRF Protocol Statin Smoking cessation ASA Lovenox Telemetry DC since loop recorder placed Macrobid changed to Bactrim Remeron and Ambien Difficult to instill positivity (1) CVA (cerebral vascular accident) (2) Hyperlipidemia Status: Chronic (3) Compression fracture of T3 vertebra (4) Behavior disorder (5) Leukocytosis (6) Dysarthria (7) Smoker Status: Chronic KRYS NEFF DO Sep 13, 2019 09:31
--- NOTE | 2019-09-13 11:07 | Physical Therapy Daily Note ---
PT Daily Note-Current Subjective Pt in bed upon arrival and agrees to rx. Pain Location: No Pain Reported Mental Status Patient Orientation: Person, Place, Time, Situation Transfers SCALE: Activities may be completed with or without assistive devices. 7-Qcffrneluj-cgegbky completes the activity by him/herself with no assistance from a helper. 5-Set-up or Clean-up Assistance-helper sets up or cleans up; patient completes activity. [place] assists only prior to or following the activity. 4-Supervision or Touching Assistance-helper provides verbal cues and/or touching/steadying and/or contact guard assistance as patient completes activity. Assistance may be provided throughout the activity or intermittently. 3-Partial/Moderate Assistance-helper does LESS THAN HALF the effort. [place] lifts, holds or supports trunk or limbs, but provides less than half the effort. 2-Substantial/Maximal Assistance-helper does MORE THAN HALF the effort. [place] lifts or holds trunk or limbs and provides more than half the effort. 5-Ialqaizpp-qbmxno does ALL the effort. Patient does none of the effort to complete the activity. Or, the assistance of 2 or more helpers is required for the patient to complete the activity. If activity was not attempted, code reason: 7-Patient Refused. 9-Not Applicable-not attempted and the patient did not perform the activity before the current illness, exacerbation or injury. 10-Not Attempted due to Environmental Limitations-(lack of equipment, weather restraints, etc.). 88-Not Attempted due to Medical Conditions or Safety Concerns. Weight Bearing Full Weight Bearing Full Weight Bearing Exercises Supine Ex: Bridging (Active assist x5), Ankle pumps, Heel Slides, Short Arc Quads, Hip abd/add Supine Reps: 10 Treatments Pt performs supine exercises while in bed. Pt attempted to bridge, active assisted. Pt left in bed with all needs met, call light in hand. Assessment Current Status: Good Progress Pt became easily fatigued and distracted, needed VC to stay focused. PT Short Term Goals Short Term Goals Time Frame: Sep 12, 2019 Roll Left & Right: 2 Sit to lyin Lying to sitting on side of be: 2 Wheel 50ft w/2 turns: 2 Wheel 150 feet: 2 PT Change Control Coordinator Goals Change Control Coordinator Goals PT Change Control Coordinator Goals Time Frame: Sep 26, 2019 Roll Left & Right (QC): 3 Sit to Lying (QC): 3 Lying-Sitting on Side/Bed(QC): 3 Sit to Stand (QC): 3 Chair/Adk-ya-Cspnc Xfer(QC): 3 Toilet Transfer (QC): 3 Car Transfer (QC): 3 Does the Patient Walk: No and Walking Goal NOT indicated Walk 10 feet (QC): 88 Walk 50ft with 2 Turns (QC): 88 Walk 150 ft (QC): 88 Walking 10ft on Uneven Surface: 88 1 Step (curb) (QC): 88 4 Steps (QC): 88 12 Steps (QC): 88 Picking up an Object (QC): 88 Does the Pt use WC or Scooter?: Yes Wheel 50 feet with 2 turns (QC: 3 Type: Manual Wheel 150 feet: 3 PT Plan Problem List Problem List: Activity Tolerance, Functional Strength, Safety, Balance, Transfer, Bed Mobility, ROM Treatment/Plan Treatment Plan: Continue Plan of Care Treatment Plan: Bed Mobility, Education, Functional Activity Afia, Functional Strength, Group Therapy, Gait, Safety, Therapeutic Exercise, Transfers Treatment Duration: Sep 26, 2019 Frequency: At least 5 of 7 days/Wk (IRF) Estimated Hrs Per Day: 1.5 hours per day Patient and/or Family Agrees t: Yes Safety Risks/Education Patient Education: Correct Positioning, Safety Issues Teaching Recipient: Patient Teaching Methods: Discussion Response to Teaching: Reinforcement Needed Time/GCodes Time In: 1045 Time Out: 1100 Total Billed Treatment Time: 15 Total Billed Treatment 1, Ex (15m) GIUSEPPE MEDINA MEAT SMOKER Sep 13, 2019 11:07
--- NOTE | 2019-09-13 14:29 | Speech Therapy Daily Note ---
Speech Daily Progress Note Subjective Date Seen by Provider: Sep 13, 2019 Time Seen by Provider: 00:30 Patient was resting in her bed following her shower with OT. Patient was eating regular potato chips that had been brought in by family. Objective Patient utilizes compensatory strategies for trials of regular consistency without difficulty at 90% with minimal cues. Assessment Assessment Current Status: Good Progress Treatment Plan Continue Plan of Care Speech Short Term Goals Short Term Goals Short Term Goals Pt will complete (visual/verbal) attention task with 90% accy. Pt will complete STM task with use of compensatoy strategies with 90% accy Pt will complete further cognitive assessment for further evaluation of memory, functional math, and reading. Speech Halfway Goals Halfway Goals Pt will tolerate least restrictive diet with no s/s of aspiration/penetration wiht observed oral intake. Speech-Plan Patient/Family Goals Patient/Family Goals: Patient is scheduled to return home with family in approximately a week. Treatment Plan Speech Therapy Treatment Plan: Continue Plan of Care Patient was upgraded to regular diet level this date. Treatment Duration: Sep 20, 2019 Frequency: 5 times per week Estimated Hrs Per Day: .5 hour per day Rehab Potential: Guarded Barriers to Learning: Patient has made excellent progress with cognitive function. Pt/Family Agrees to Plan: Yes Safety Risks/Education Teaching Recipient: Patient Teaching Methods: Demonstration, Discussion Response to Teaching: Verbalize Understanding, Return Demonstration Education Topics Provided: Continued safety with all oral intake Time Speech Therapy Time In: 09:30 Speech Therapy Time Out: 10:00 Total Billed Time: 30 Billed Treatment Time 1, BORIS FLORECITA Garza Sep 13, 2019 14:29
--- NOTE | 2019-09-13 14:40 | NUR ---
CM/SS PATIENT CARE CONFERENCE Summary reviewed with patient, she confirms that her discharge plan is to return home under the care of her daughter and a granddaughter that will be moving in to assist as well. 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 Patient understands the team plans to review her next Wednesday for progress and proposed discharge target. She will likely need significant DME at home unless she improves to be able to safely stand and pivot for transfers. Change Manager encouraged patient in an attempt to motivate to stretch to perform at her highest level to reduce caregiver burden once home. Continue intermittently review as it pertains to post hospital care.
[2019-09-13 16:55] VITALS: BP 114/62
[2019-09-13 17:00] VITALS: BP 114/62
[2019-09-13] MEDS: ZOLPIDEM 5 MG (AMBIEN) TAB PO SCH (21:12)
[2019-09-13] MEDS: MIRTAZAPINE 15 MG (REMERON) TAB PO SCH (21:12)
[2019-09-13] MEDS: guaiFENesin/CODEINE (ROBITUSSIN AC) 10ML UDC PO PRN (22:44)
[2019-09-14] MEDS: HYDROcodone/APAP 5 MG/325 MG (LORTAB) TAB PO PRN ×3 (02:55→18:25)
[2019-09-14 05:03] VITALS: BP 97/65
--- NOTE | 2019-09-14 06:32 | PM&R Progress Note ---
Subjective HPI/CC On Admission Date Seen by Provider: Sep 14, 2019 Time Seen by Provider: 10:45 Subjective/Events-last exam Had a BM yesterday Daughter at the bedside today Complains of insomnia but she is already on Remeron and Ambien and unsure of what else we can help her with Able to move her right fingers now Able to tack picker her right leg Loop recorder in place Completed antibiotics for UTI Checked meds and labs Reviewed therapy notes Conferred with employer relations representative of Systems General: Fatigue, Malaise Neurological: Weakness, Numbness, Incoordination Objective Exam Vital Signs Vital Signs Date Time Temp Pulse Resp B/P (MAP) Pulse Ox O2 Delivery O2 Flow Rate FiO2 09/14/19 17:50 Room Air 09/14/19 16:11 36.9 69 16 99/64 (76) 92 Capillary Refill : Less Than 3 Seconds General Appearance: No Apparent Distress, Chronically ill, Cachetic HEENT: PERRL/EOMI, Normal ENT Inspection, Pharynx Normal Neck: Full Range of Motion, Normal Inspection, Non Tender, Supple, Carotid Bruit Respiratory: Chest Non Tender, Lungs Clear, Normal Breath Sounds, No Accessory Muscle Use, No Respiratory Distress Cardiovascular: Regular Rate, Rhythm, No Edema, No Gallop, No JVD, No Murmur, Normal Peripheral Pulses Gastrointestinal: Normal Bowel Sounds, No Organomegaly, No Pulsatile Mass, Non Tender, Soft Back: Normal Inspection, No CVA Tenderness, No Vertebral Tenderness Extremity: Normal Capillary Refill, Normal Inspection, Normal Range of Motion, Non Tender, No Calf Tenderness, No Pedal Edema Neurologic/Psychiatric: Alert, Oriented x3, Abnormal Gait, Aphasia, Depressed Affect, EOM Palsy, Motor Weakness (right sided 2/5 upper extremity and 1/5 lower extremity) Skin: Normal Color, Warm/Dry Lymphatic: No Adenopathy Results/Procedures Lab Patient resulted labs reviewed. FIM Transfers Therapy Code Descriptions/Definitions Functional [place] Measure: 0=Not Assessed/NA 4=Minimal Assistance 1=Total Assistance 5=Supervision or Setup 2=Maximal Assistance 6=Modified [place] 3=Moderate Assistance 7=Complete IndependenceSCALE: Activities may be completed with or without assistive devices. 3-Akwnbgwxof-hirnnrj completes the activity by him/herself with no assistance from a helper. 5-Set-up or Clean-up Assistance-helper sets up or cleans up; patient completes activity. [place] assists only prior to or following the activity. 4-Supervision or Touching Assistance-helper provides verbal cues and/or touching/steadying and/or contact guard assistance as patient completes activity. Assistance may be provided throughout the activity or intermittently. 3-Partial/Moderate Assistance-helper does LESS THAN HALF the effort. [place] lifts, holds or supports trunk or limbs, but provides less than half the effort. 2-Substantial/Maximal Assistance-helper does MORE THAN HALF the effort. [place] lifts or holds trunk or limbs and provides more than half the effort. 0-Mamcbvhsb-vhmupx does ALL the effort. Patient does none of the effort to complete the activity. Or, the assistance of 2 or more helpers is required for the patient to complete the activity. If activity was not attempted, code reason: 7-Patient Refused. 9-Not Applicable-not attempted and the patient did not perform the activity before the current illness, exacerbation or injury. 10-Not Attempted due to Environmental Limitations-(lack of equipment, weather restraints, etc.). 88-Not Attempted due to Medical Conditions or Safety Concerns. Roll Left to Right (QC): 2 Sit to Lying (QC): 1 Sit to Stand (QC): 1 Chair/Sqw-hz-Sogll Xfer(QC): 1 Car Transfer (QC): 1 Gait Training Does the Patient Walk?: No and Walking Goal NOT indicated Walk 10 feet (QC): 88 Walk 50 ft with 2 Turns(QC): 88 Walk 150 ft (QC): 88 Walking 10ft/uneven surface-QC: 88 Gait Assistive Device: None Wheelchair Training Does the Pt Use a Wheelchair?: No Wheel 50 ft with 2 turns (QC): 1 Wheel 150 ft (QC): 1 Type of Wheelchair: Manual Stair Training 1 Step (curb) (QC): 88 4 Steps (QC): 88 12 Steps (QC): 88 Balance Picking up an Object (QC): 88 ADL-Treatment Eating (QC): 5 Oral Hygiene (QC): 7 Bathing Location: R Arm, L Upper Leg, R Upper Leg, L Lower Leg (including foot), R Lower Leg (including foot), Chest, Abdomen, Perineal Area Shower/Bathe Self (QC): 3 (Pt completes full shower on sc with arm rests. Pt requires assist with safety during LB washing as pt attempts to forward bend and unable to maintain balance. Pt completes knees/ distally with LHS with continued safety cues. Pt able to wash all areas excluding LUE and bottom. ) Upper Body Dressing (QC): 3 (mod A, cues for completing RUE first.) Lower Body Dressing (QC): 1 (TD with assist x2 while in bed. Pt able to roll side to side with max A.) On/Off Footwear (QC): 1 Toileting Hygiene (QC): 1 (TD bottom hygiene in bed.) Toilet Transfer (QC): 1 (TD to sc.) Assessment/Plan Assessment and Plan Assess & Plan/Chief Complaint Assessment: CVA Smoker Hematuria Leukocytosis improved HLP Right side Neglect Fall Risk Cough resolved Constipation resolved UTI acute resistant to Macrobid so started Bactrim 09/09/19 Insomnia started on Remeron and added Ambien Plan: IRF Protocol Statin Smoking cessation ASA Lovenox Telemetry DC since loop recorder placed Macrobid changed to Bactrim Remeron and Ambien Difficult to instill positivity Disposition to likely to nursing facility (1) CVA (cerebral vascular accident) (2) Hyperlipidemia Status: Chronic (3) Compression fracture of T3 vertebra (4) Behavior disorder (5) Leukocytosis (6) Dysarthria (7) Smoker Status: Chronic KRYS NEFF DO Sep 14, 2019 06:32
[2019-09-14] MEDS: TRIM/SULFAMETH 160/800 (SEPTRA DS) TAB PO SCH ×2 (07:56→17:33)
[2019-09-14] MEDS: ASPIRIN E.C. 325 MG (ECOTRIN) TABLET PO SCH (07:56)
[2019-09-14] MEDS: NICOTINE 21 MG (NICODERM) PATCH TD SCH (07:56)
[2019-09-14] MEDS: SENNA W/DOCUSATE (SENOKOT S) TABLET PO SCH ×3 (07:57→20:17)
[2019-09-14] MEDS: polyethylene glycoL POWDER 17 GM (MIRALAX) PACK PO SCH ×2 (07:57→20:17)
[2019-09-14] MEDS: DOCUSATE SODIUM 100 MG (COLACE) CAP PO SCH (07:57)
--- NOTE | 2019-09-14 08:30 | Cardiology Progress Note ---
Subjective Date Seen by Provider: Sep 14, 2019 Time Seen by Provider: 08:30 Subjective/Events-last exam Patient sitting up in bed, no new complaints. Denies any chest pain or dyspnea. Denies dizziness. Review of Systems General: No Chills, No Night Sweats; Fatigue; No Malaise, No Appetite; Other (headache) HEENT: No Head Aches, No Visual Changes, No Eye Pain, No Ear Pain, No Dys phasia, No Sinus Congestion, No Post Nasal Drip, No Sore Throat, No Other Pulmonary: No Dyspnea, No Cough, No Pleuritic Chest Pain, No Other Cardiovascular: No: Chest Pain, Palpitations, Orthopnea, Paroxysmal Noc. Dyspnea, Edema, Lt Headedness, Other Objective-Cardiology Exam Last Set of Vital Signs Vital Signs 09/14/19 05:03 Temp 36.0 Pulse 77 Resp 18 B/P (MAP) 97/65 (76) Pulse Ox 91 O2 Delivery Room Air Capillary Refill : Less Than 3 Seconds I&O Intake and Output 09/13/19 23:59 Intake Total 1350 ml Balance 1350 ml Intake Oral 1350 ml # Voids 9 # Bowel Movements 1 General: Alert, Oriented X3, Cooperative HEENT: Atraumatic, PERRLA Neck: Supple, +2 Carotid Pulse No Bruit Lungs: Clear to Auscultation, Normal Air Movement Heart: Regular Rate, Normal S1, Normal S2 Abdomen: Normal Bowel Sounds, Soft Extremities: No Clubbing, No Edema Skin: No Rashes, No Significant Lesion Neuro: Other (bilateral weakness) A/P-Cardiology Admission Diagnosis CVA HTN HLP Assessment/Plan CVA, still having right hemiplegia, 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 CT angiogram of the head was nondiagnostic. MRI of the head showed shower of embolization, probably underlying atrial fibrillation, so far her EKG did not show acute abnormality maintenance and aspirin. s/p LINq implantation for further monitoring for atrial fibrillation. Echocardiogram showed normal LV function, prominent aorta. No significant abnormality otherwise Borderline hypotension, continue to increase fluids. Hyperlipidemia, continue Lipitor Urinary tract infection, managed by primary care physician Patient was seen and evaluated with Kely, examination performed, management plan was discussed, agree with the current scribed note, I made few changes to the note using Italic font Patient is laying down in bed, feeling better, muscle strength is improving The lab in headache behind her left eye. No chest pain. No shortness of breath. Continue physical therapy Clinical Quality Measures DVT/VTE Risk/Contraindication: Risk Factor Score Per Nursin RFS Level Per Nursing on Admit: 4+=Very High KELY GUTIERREZ Sep 14, 2019 8:30 am DAMON ROTH MD Sep 14, 2019 9:00 am
[2019-09-14] MEDS: PATCH REMOVAL TP SCH ×2 (08:35→17:38)
[2019-09-14] MEDS: ALPRAZolam 0.25 MG (XANAX) TAB PO PRN (08:37)
[2019-09-14] MEDS: ENOXAPARIN 40 MG/0.4 ML (LOVENOX) SYR SC SCH (09:18)
--- NOTE | 2019-09-14 09:20 | Physical Therapy Daily Note ---
PT Daily Note-Current Subjective Pt sitting up in bed finishing breakfast with OT assisting upon arrival. Pt agrees to PT/OT co-treat. Pain Numeric Pain Scale: 5-Moderate Pain Location: Left, Lateral Location Body Site: Neck Pain Description: Ache, Tightness Comment: Pt reports pain in L side of neck and behind R eye. Mental Status Patient Orientation: Person, Place Transfers SCALE: Activities may be completed with or without assistive devices. 3-Yeodjxnjzk-ucllakn completes the activity by him/herself with no assistance from a helper. 5-Set-up or Clean-up Assistance-helper sets up or cleans up; patient completes activity. [place] assists only prior to or following the activity. 4-Supervision or Touching Assistance-helper provides verbal cues and/or touching/steadying and/or contact guard assistance as patient completes activity. Assistance may be provided throughout the activity or intermittently. 3-Partial/Moderate Assistance-helper does LESS THAN HALF the effort. [place] lifts, holds or supports trunk or limbs, but provides less than half the effort. 2-Substantial/Maximal Assistance-helper does MORE THAN HALF the effort. [place] lifts or holds trunk or limbs and provides more than half the effort. 4-Pfrjirypq-itkeix does ALL the effort. Patient does none of the effort to complete the activity. Or, the assistance of 2 or more helpers is required for the patient to complete the activity. If activity was not attempted, code reason: 7-Patient Refused. 9-Not Applicable-not attempted and the patient did not perform the activity before the current illness, exacerbation or injury. 10-Not Attempted due to Environmental Limitations-(lack of equipment, weather restraints, etc.). 88-Not Attempted due to Medical Conditions or Safety Concerns. Roll Left & Right (QC): 2 Sit to Lying (QC): 2 Lying to Sitting/Side of Bed(Q: 2 Sit to Stand (QC): 2 Weight Bearing Full Weight Bearing Full Weight Bearing Wheelchair Training Does the Pt Use a Wheelchair?: Yes Wheel 50 ft with 2 turns (QC): 3 Wheel 150 ft (QC): 3 Type of Wheelchair: Manual Pt focuses on using L UE and B LE to propel WCH but fatigues on way back and staff assists with return to room. Exercises Supine Ex: Ankle pumps, Quad Set, Heel Slides, Hip abd/add Supine Reps: 15 Treatments Pt completes eating with L UE while seated upright in bed. Pt educated on warming RUE up, completes coffee prep by tearing 2/3 packets. Pt bed mob with max A (able to bring L LE toward EOB and utilize LUE to pull from bed rail). Pt sits with max A for righting, SPT to w/c. Pt pushed to parallel bars, completes 2-3 rounds of standing with cues for arm positioning and LE positioning. Pt sits with limited control. Pt able to complete 5 RUE elbow flexions to mouth with OT assist to break tone into extension, and 5 fists/ finger extensions of RUE. Pt demonstrates decreased attention while in busy environment. Pt unable to focus on task at hand. Pt states has w/c, sc, cane and walker at home. pt educated on tub/ bench for successful transfers over tub ledge. Pt completes w/c mob with skilled positioning upright for successful LE movement and attention to task. Pt able to propel with LUE minimally and utilize BLE to pull self forward in w/c. Pt requires cues for redirection and attention throughout. Pt's RUE moved through motions ~10x. Pt returns to room, SPT to chair, all needs met. Pt completes Supine Ex in recliner at end of Rx. Pt has all needs met, call light in hand. Assessment Current Status: Fair Progress Pt is easily distracted and needs VC to stay on task. PT Short Term Goals Short Term Goals Time Frame: Sep 12, 2019 Roll Left & Right: 2 Sit to lyin Lying to sitting on side of be: 2 Wheel 50ft w/2 turns: 2 Wheel 150 feet: 2 PT Long-Term Goals Drum Builder Goals PT Drum Builder Goals Time Frame: Sep 26, 2019 Roll Left & Right (QC): 3 Sit to Lying (QC): 3 Lying-Sitting on Side/Bed(QC): 3 Sit to Stand (QC): 3 Chair/Ohp-jc-Ydviu Xfer(QC): 3 Toilet Transfer (QC): 3 Car Transfer (QC): 3 Does the Patient Walk: No and Walking Goal NOT indicated Walk 10 feet (QC): 88 Walk 50ft with 2 Turns (QC): 88 Walk 150 ft (QC): 88 Walking 10ft on Uneven Surface: 88 1 Step (curb) (QC): 88 4 Steps (QC): 88 12 Steps (QC): 88 Picking up an Object (QC): 88 Does the Pt use WC or Scooter?: Yes Wheel 50 feet with 2 turns (QC: 3 Type: Manual Wheel 150 feet: 3 PT Plan Problem List Problem List: Activity Tolerance, Functional Strength, Safety, Balance, Gait, Transfer, Bed Mobility, ROM Treatment/Plan Treatment Plan: Continue Plan of Care Treatment Plan: Bed Mobility, Education, Functional Activity Afia, Functional Strength, Group Therapy, Gait, Safety, Therapeutic Exercise, Transfers Treatment Duration: Sep 26, 2019 Frequency: At least 5 of 7 days/Wk (IRF) Estimated Hrs Per Day: 1.5 hours per day Patient and/or Family Agrees t: Yes Safety Risks/Education Patient Education: Transfer Techniques, Correct Positioning, W/C Management, Safety Issues Teaching Recipient: Patient Teaching Methods: Discussion Response to Teaching: Reinforcement Needed Time/GCodes Time In: 800 Time Out: 915 Total Billed Treatment Time: 75 Total Billed Treatment 1, FA (20m), EX x2 (30m) & WCH x2 (25m) Co-treat w/OT for 65m (800-905) JHONY WALTERS PTA Sep 14, 2019 09:20
--- NOTE | 2019-09-14 10:03 | Speech Therapy Daily Note ---
Speech Daily Progress Note Subjective Date Seen by Provider: Sep 14, 2019 Time Seen by Provider: 00:30 Patient resting in her recliner and watching television. Patient states she is doing well with her regular diet. Objective Patient utilized compensatory strategies for safe oral intake of regular consistency at 90% with minimal cues. Assessment Assessment Current Status: Good Progress Treatment Plan Continue Plan of Care Speech Short Term Goals Short Term Goals Short Term Goals Pt will complete (visual/verbal) attention task with 90% accy. Pt will complete STM task with use of compensatoy strategies with 90% accy Pt will complete further cognitive assessment for further evaluation of memory, functional math, and reading. Speech Blending Plant Operator Goals Blending Plant Operator Goals Pt will tolerate least restrictive diet with no s/s of aspiration/penetration wiht observed oral intake. Speech-Plan Patient/Family Goals Patient/Family Goals: Patient is scheduled to return home with family next week. Treatment Plan Speech Therapy Treatment Plan: Continue Plan of Care Treatment Duration: Sep 20, 2019 Frequency: 5 times per week Estimated Hrs Per Day: .5 hour per day Rehab Potential: Guarded Barriers to Learning: Patient's recent CVA, although most cognitive deficits have resolved and she is doing well with upgrade to regular diet level Pt/Family Agrees to Plan: Yes Safety Risks/Education Teaching Recipient: Patient Teaching Methods: Demonstration, Discussion Response to Teaching: Verbalize Understanding, Return Demonstration Education Topics Provided: Continued safety with oral intake Time Speech Therapy Time In: 09:30 Speech Therapy Time Out: 10:00 Total Billed Time: 30 Billed Treatment Time 1, FLORECITA Lara Sep 14, 2019 10:03
--- NOTE | 2019-09-14 10:27 | Occupational Ther Daily Note ---
OT Current Status-Daily Note Subjective Pt seen in bed this am. Pt's food in front of pt, pt repositioned for increased success during feeding. Pt c/o pain in R eye, nursing notified. Pt states she desires "nerve pill," nursing notified. Pt agrees to OT/ PT co-treat this am OT ind session: OT/ PT co-treat: 1232-1759 Co-treat needed due to pt's decreased mobility, dependent transfers, limited attention and safety awareness. OT focuses on UE movement/ core/ ADLs while PT focuses on gross motor/ balance/ large motor. Mental Status/Objective Patient Orientation: Person, Place, Situation ADL-Treatment Therapy Code Descriptions/Definitions Functional [place] Measure: 0=Not Assessed/NA 4=Minimal Assistance 1=Total Assistance 5=Supervision or Setup 2=Maximal Assistance 6=Modified [place] 3=Moderate Assistance 7=Complete IndependenceSCALE: Activities may be completed with or without assistive devices. 5-Hpmlpwnmxs-akfbdxp completes the activity by him/herself with no assistance from a helper. 5-Set-up or Clean-up Assistance-helper sets up or cleans up; patient completes activity. [place] assists only prior to or following the activity. 4-Supervision or Touching Assistance-helper provides verbal cues and/or touching/steadying and/or contact guard assistance as patient completes activity. Assistance may be provided throughout the activity or intermittently. 3-Partial/Moderate Assistance-helper does LESS THAN HALF the effort. [place] lifts, holds or supports trunk or limbs, but provides less than half the effort. 2-Substantial/Maximal Assistance-helper does MORE THAN HALF the effort. [place] lifts or holds trunk or limbs and provides more than half the effort. 0-Hfxrvfejl-ykykys does ALL the effort. Patient does none of the effort to complete the activity. Or, the assistance of 2 or more helpers is required for the patient to complete the activity. If activity was not attempted, code reason: 7-Patient Refused. 9-Not Applicable-not attempted and the patient did not perform the activity before the current illness, exacerbation or injury. 10-Not Attempted due to Environmental Limitations-(lack of equipment, weather restraints, etc.). 88-Not Attempted due to Medical Conditions or Safety Concerns. Eating (QC): 5 (s/u for some items, pt able to tear cream/ sugar packets with R hand with L hand stabilizing- pt requires assist with stirring tasks and R proximal movements.) Oral Hygiene (QC): 7 Shower/Bathe Self (QC): 7 Upper Body Dressing (QC): 7 Lower Body Dressing (QC): 1 On/Off Footwear: 1 Other Treatment Pt completes eating with L UE while seated upright in bed. Pt educated on warming RUE up, completes coffee prep by tearing 2/3 packets. Pt bed mob with max A (able to bring L LE toward EOB and utilize LUE to pull from bed rail). Pt sits with max A for righting, SPT to w/c. Pt pushed to parallel bars, completes 2-3 rounds of standing with cues for arm positioning and LE positioning. Pt sits with limited control. Pt able to complete 5 RUE elbow flexions to mouth with OT assist to break tone into extension, and 5 fists/ finger extensions of RUE. Pt d emonstrates decreased attention while in busy environment. Pt unable to focus on task at hand. Pt states has w/c, sc, cane and walker at home. pt educated on tub/ bench for successful transfers over tub ledge. Pt completes w/c mob with skilled positioning upright for successful LE movement and attention to task. Pt able to propel with LUE minimally and utilize BLE to pull self forward in w/c. Pt requires cues for redirection and attention throughout. Pt's RUE moved through motions ~10x. Pt returns to room, SPT to chair, all needs met, left with PT end of session. Education OT Patient Education: Correct positioning, Exercise program, Home exercise program, Modified ADL techniques, Purpose of tx/functional activities, Safety i ssues, Transfer techniques, W/C management Teaching Recipient: Patient Teaching Methods: Demonstration, Discussion Response to Teaching: Verbalize Understanding, Unable to Return Demonstration, Return Demonstration, Reinforcement Needed OT Short Term Goals Short Term Goals Time Frame: Sep 19, 2019 Eatin Oral hygiene: 9 Toileting hygiene: 3 Shower/bathe self: 3 Upper body dressin Lower body dressin Putting on/taking off footwear: 3 OT Senior Living Goals Chemistry Technician Goals Time Frame: Oct 03, 2019 Eating (QC): 6 Oral Hygiene (QC): 9 Toileting Hygiene (QC): 4 Shower/Bathe Self (QC): 4 Upper Body Dressing (QC): 4 Lower Body Dressing (QC): 4 On/Off Footwear (QC): 4 Additional Goals: 1-Demonstrate ADL Tasks, 2-Verbalize Understanding, 3- ImproveStrength/Afia 1=Demonstrate adherence to instructed precautions during ADL tasks. 2=Patient will verbalize/demonstrate understanding of assistive devices/modifications for ADL. 3=Patient will improve strength/tolerance for activity to enable patient to perform ADL's. OT Education/Plan Problem List/Assessment Assessment: Decreased Activ Tolerance, Decreased Safety Aware, Decreased UE Strength, Dependent Transfers, Impaired Coordination, Impaired Funct Balance, Impaired I ADL's, Impaired Self-Care Skills, Restricted Funct UE ROM Discharge Recommendations Plan/Recommendations: Continue POC Therapy Discharge Recommendati: 24 Hour Supervision, Home & Family, Post Acute OT Equpiment Recommendations-D/C: Extended Bath Bench, Rails on Tub/Shower Treatment Plan/Plan of Care Treatment,Training & Education: Yes Patient would benefit from OT for education, treatment and training to promote independence in ADL's, mobility, safety and/or upper extremity function for ADL's. Plan of Care: ADL Retraining, Functional Mobility, Group Exercise/Act as Ind, UE Funct Exercise/Act Treatment Duration: Oct 03, 2019 Frequency: At least 5 of 7 days/Wk (IRF) Estimated Hrs Per Day: 1.5 hours per day Agreement: Yes Rehab Potential: Guarded Time/GCodes Start Time: 07:45 Stop Time: 09:00 Total Time Billed (hr/min): 75 Billed Treatment Time OT ind session: [id number] OT/ PT co-treat: [id number] Co-treat needed due to pt's decreased mobility, dependent transfers, limited attention and safety awareness. OT focuses on UE movement/ core/ ADLs while PT focuses on gross motor/ balance/ large motor. 1, ADL (15), EX 3 (45), WC (15)= 75 CARINA WOODS OTR Sep 14, 2019 10:27
[2019-09-14 16:11] VITALS: BP 99/64
[2019-09-14] MEDS: ZOLPIDEM 5 MG (AMBIEN) TAB PO SCH (20:17)
[2019-09-14] MEDS: MIRTAZAPINE 15 MG (REMERON) TAB PO SCH (20:17)
[2019-09-14] MEDS: guaiFENesin/CODEINE (ROBITUSSIN AC) 10ML UDC PO PRN (21:26)
[2019-09-15 05:21] VITALS: BP 110/71
--- NOTE | 2019-09-15 06:28 | PM&R Progress Note ---
Subjective HPI/CC On Admission Date Seen by Provider: Sep 15, 2019 Time Seen by Provider: 12:20 Subjective/Events-last exam Patient in cotton it and asked me to have the nurse help change her Overall feels pretty good otherwise Didn't sleep well so will discontinue the Ambien and start Xanax of 1 mg at night which she has taken in the past for her nerves Overall prognosis poor considering how debilitated she is Checked meds and labs Reviewed therapy notes Conferred with team foreman of Systems Neurological: Weakness, Incoordination Objective Exam Vital Signs Vital Signs Date Time Temp Pulse Resp B/P (MAP) Pulse Ox O2 Delivery O2 Flow Rate FiO2 09/15/19 09:00 Room Air 09/15/19 05:21 36.4 67 16 110/71 (84) 93 Capillary Refill : Less Than 3 Seconds General Appearance: No Apparent Distress, Chronically ill, Cachetic HEENT: PERRL/EOMI, Normal ENT Inspection, Pharynx Normal Neck: Full Range of Motion, Normal Inspection, Non Tender, Supple, Carotid Bruit Respiratory: Chest Non Tender, Lungs Clear, Normal Breath Sounds, No Accessory Muscle Use, No Respiratory Distress Cardiovascular: Regular Rate, Rhythm, No Edema, No Gallop, No JVD, No Murmur, Normal Peripheral Pulses Gastrointestinal: Normal Bowel Sounds, No Organomegaly, No Pulsatile Mass, Non Tender, Soft Back: Normal Inspection, No CVA Tenderness, No Vertebral Tenderness Extremity: Normal Capillary Refill, Normal Inspection, Normal Range of Motion, Non Tender, No Calf Tenderness, No Pedal Edema Neurologic/Psychiatric: Alert, Oriented x3, Abnormal Gait, Aphasia, Depressed Affect, EOM Palsy, Motor Weakness (right sided 2/5 upper extremity and 1/5 lower extremity) Skin: Normal Color, Warm/Dry Lymphatic: No Adenopathy Results/Procedures Lab Patient resulted labs reviewed. FIM Transfers Therapy Code Descriptions/Definitions Functional [place] Measure: 0=Not Assessed/NA 4=Minimal Assistance 1=Total Assistance 5=Supervision or Setup 2=Maximal Assistance 6=Modified [place] 3=Moderate Assistance 7=Complete IndependenceSCALE: Activities may be completed with or without assistive devices. 9-Jtyggryujp-bqdinqc completes the activity by him/herself with no assistance from a helper. 5-Set-up or Clean-up Assistance-helper sets up or cleans up; patient completes activity. [place] assists only prior to or following the activity. 4-Supervision or Touching Assistance-helper provides verbal cues and/or touching/steadying and/or contact guard assistance as patient completes activity. Assistance may be provided throughout the activity or intermittently. 3-Partial/Moderate Assistance-helper does LESS THAN HALF the effort. [place] lifts, holds or supports trunk or limbs, but provides less than half the effort. 2-Substantial/Maximal Assistance-helper does MORE THAN HALF the effort. [place] lifts or holds trunk or limbs and provides more than half the effort. 6-Ykihwsplo-kujpub does ALL the effort. Patient does none of the effort to complete the activity. Or, the assistance of 2 or more helpers is required for the patient to complete the activity. If activity was not attempted, code reason: 7-Patient Refused. 9-Not Applicable-not attempted and the patient did not perform the activity before the current illness, exacerbation or injury. 10-Not Attempted due to Environmental Limitations-(lack of equipment, weather restraints, etc.). 88-Not Attempted due to Medical Conditions or Safety Concerns. Roll Left to Right (QC): 2 Sit to Lying (QC): 2 Sit to Stand (QC): 2 Chair/Upw-bh-Kzcmu Xfer(QC): 1 Car Transfer (QC): 1 Gait Training Does the Patient Walk?: No and Walking Goal NOT indicated Walk 10 feet (QC): 88 Walk 50 ft with 2 Turns(QC): 88 Walk 150 ft (QC): 88 Walking 10ft/uneven surface-QC: 88 Gait Assistive Device: None Wheelchair Training Does the Pt Use a Wheelchair?: Yes Wheel 50 ft with 2 turns (QC): 3 Wheel 150 ft (QC): 3 Type of Wheelchair: Manual Stair Training 1 Step (curb) (QC): 88 4 Steps (QC): 88 12 Steps (QC): 88 Balance Picking up an Object (QC): 88 ADL-Treatment Eating (QC): 5 (s/u for some items, pt able to tear cream/ sugar packets with R hand with L hand stabilizing- pt requires assist with stirring tasks and R proximal movements.) Oral Hygiene (QC): 7 Bathing Location: R Arm, L Upper Leg, R Upper Leg, L Lower Leg (including foot), R Lower Leg (including foot), Chest, Abdomen, Perineal Area Shower/Bathe Self (QC): 7 Upper Body Dressing (QC): 7 Lower Body Dressing (QC): 1 On/Off Footwear (QC): 1 Toileting Hygiene (QC): 1 (TD bottom hygiene in bed.) Toilet Transfer (QC): 1 (TD to sc.) Assessment/Plan Assessment and Plan Assess & Plan/Chief Complaint Assessment: CVA Smoker Hematuria Leukocytosis improved HLP Right side Neglect Fall Risk Cough resolved Constipation resolved UTI acute resistant to Macrobid so started Bactrim 09/09/19 completed treatment Insomnia started on Remeron and added Ambien so we'll discontinue Ambien and start Xanax 1 mg at night Plan: IRF Protocol Statin Smoking cessation ASA Lovenox Telemetry DC since loop recorder placed Macrobid changed to Bactrim Remeron and Ambien Difficult to instill positivity Disposition to likely to nursing facility (1) CVA (cerebral vascular accident) (2) Hyperlipidemia Status: Chronic (3) Compression fracture of T3 vertebra (4) Behavior disorder (5) Leukocytosis (6) Dysarthria (7) Smoker Status: Chronic KRYS NEFF DO Sep 15, 2019 06:27
[2019-09-15] MEDS: NICOTINE 21 MG (NICODERM) PATCH TD SCH (08:08)
[2019-09-15] MEDS: DOCUSATE SODIUM 100 MG (COLACE) CAP PO SCH (08:08)
[2019-09-15] MEDS: HYDROcodone/APAP 5 MG/325 MG (LORTAB) TAB PO PRN ×2 (08:08→23:31)
[2019-09-15] MEDS: SENNA W/DOCUSATE (SENOKOT S) TABLET PO SCH ×2 (08:08→20:44)
[2019-09-15] MEDS: TRIM/SULFAMETH 160/800 (SEPTRA DS) TAB PO SCH ×2 (08:08→17:26)
[2019-09-15] MEDS: ASPIRIN E.C. 325 MG (ECOTRIN) TABLET PO SCH (08:08)
[2019-09-15] MEDS: polyethylene glycoL POWDER 17 GM (MIRALAX) PACK PO SCH ×2 (08:12→20:43)
[2019-09-15] MEDS: PATCH REMOVAL TP SCH (09:46)
[2019-09-15] MEDS: ENOXAPARIN 40 MG/0.4 ML (LOVENOX) SYR SC SCH (09:47)
--- NOTE | 2019-09-15 09:53 | Occupational Ther Daily Note ---
OT Current Status-Daily Note Subjective [id number] (OT/ PT co-treat due to dependent transfers, decreased balance/ core strength, and completion of high level treatment activities to encourage higher IND level. OT focuses on ADLs/ UE movement/ attention to task as PT focuses on LE movement, transfers and balance). Pt states pain, requires medication prior to initiation of tx. Nursing notified and pt given medication. Pt agrees to sponge bath. [id number] (20): OT individual tx: Pt seen in bed, call light on. Pt states done having BM on bed jorge. Pt agrees to OT tx session. ADL-Treatment Therapy Code Descriptions/Definitions Functional [place] Measure: 0=Not Assessed/NA 4=Minimal Assistance 1=Total Assistance 5=Supervision or Setup 2=Maximal Assistance 6=Modified [place] 3=Moderate Assistance 7=Complete IndependenceSCALE: Activities may be completed with or without assistive devices. 9-Fydivvyfgn-yegrigz completes the activity by him/herself with no assistance from a helper. 5-Set-up or Clean-up Assistance-helper sets up or cleans up; patient completes activity. [place] assists only prior to or following the activity. 4-Supervision or Touching Assistance-helper provides verbal cues and/or touching/steadying and/or contact guard assistance as patient completes activity. Assistance may be provided throughout the activity or intermittently. 3-Partial/Moderate Assistance-helper does LESS THAN HALF the effort. [place] lifts, holds or supports trunk or limbs, but provides less than half the effort. 2-Substantial/Maximal Assistance-helper does MORE THAN HALF the effort. [place] lifts or holds trunk or limbs and provides more than half the effort. 8-Pooymarzj-ecoejt does ALL the effort. Patient does none of the effort to complete the activity. Or, the assistance of 2 or more helpers is required for the patient to complete the activity. If activity was not attempted, code reason: 7-Patient Refused. 9-Not Applicable-not attempted and the patient did not perform the activity before the current illness, exacerbation or injury. 10-Not Attempted due to Environmental Limitations-(lack of equipment, weather restraints, etc.). 88-Not Attempted due to Medical Conditions or Safety Concerns. Eating (QC): 5 Bathing Location: L Arm, R Arm, L Upper Leg, R Upper Leg, Chest, Abdomen Shower/Bathe Self (QC): 3 (mod A, TD for sit to stand with assist x2 for thuan/ bottom hygiene.) Upper Body Dressing (QC): 3 (min A to go over head doffing/ donning. Pt able to thread off/ on UEs throughout.) Lower Body Dressing (QC): 3 (mod A- pt able to don over LEs with SBA for balance, pt brings to knees with min A, TD for stance to complete pant hike over hips with Max A.) On/Off Footwear: 2 (max A.) Toileting Hygiene (QC): 1 (TD in stance with 2 person assist.) Other Treatment Pt bed mob with TD. Pt in w/c for sponge bath. Pt completes with better safety awareness and moderate cues for attention. Pt completes dressing in w/c. Pt pushed to parallel bars and completes walking ~4-6 steps with skilled assist for RLE movement intermittently. Pt's RUE encouraged to extend, forward flex shoulder, and grab parallel bars with max A. Pt able to complete this task 3x. Pt completes stance 3x with breaks in between, able to keep body/ neck upright with cues, pt requires tactile cues for R shoulder / elbow extension with mod- max A. Pt returns to sit, pushed to room and returns to chair to sit with TD SPT. Positioned with pillows for comfort and support. All needs met, call light in reach. [id number]: pt completes BM. Rolls side to side with max A. Pt requires TD for BM hygiene and brief donning. Pt positioned in bed with pt's assist (Use of BLE to push upward and LUE to pull, requiring max Ax1 to reach HOB). Pt's RUE PROM WNL. Noted tone in bicep and tricep. Pt completes bicep activity with gravity/ weight eliminated. noted tricep palpable mm contraction upon extension. pt positioned with pillows for maximum activity level for RUE with proximal joints stable/ positioned in extension. Pt completes bimanual hand manipulation task with skilled cues for placement and manipulation for success. Pt completes 3 bead manipulations from theraputty with success with wrist extended by OT. Pt encouraged to continue, all needs met, call light on L side. Education OT Patient Education: Correct positioning, Exercise program, Home exercise program, Modified ADL techniques, Progress toward Goal/Update tx plan, Purpose of tx/functional activities, Transfer techniques Teaching Recipient: Patient Teaching Methods: Demonstration, Discussion Response to Teaching: Verbalize Understanding, Unable to Return Demonstration, Return Demonstration, Reinforcement Needed OT Short Term Goals Short Term Goals Time Frame: Sep 19, 2019 Eatin Oral hygiene: 9 Toileting hygiene: 3 Shower/bathe self: 3 Upper body dressin Lower body dressin Putting on/taking off footwear: 3 OT Group Home Goals Group Home Goals Time Frame: Oct 03, 2019 Eating (QC): 6 Oral Hygiene (QC): 9 Toileting Hygiene (QC): 4 Shower/Bathe Self (QC): 4 Upper Body Dressing (QC): 4 Lower Body Dressing (QC): 4 On/Off Footwear (QC): 4 Additional Goals: 1-Demonstrate ADL Tasks, 2-Verbalize Understanding, 3- ImproveStrength/Afia 1=Demonstrate adherence to instructed precautions during ADL tasks. 2=Patient will verbalize/demonstrate understanding of assistive devices/modifications for ADL. 3=Patient will improve strength/tolerance for activity to enable patient to perform ADL's. OT Education/Plan Problem List/Assessment Assessment: Decreased Activ Tolerance, Decreased Safety Aware, Decreased UE Strength, Dependent Transfers, Impaired Bed Mobility, Impaired Cognition, Impaired Coordination, Impaired Funct Balance, Impaired I ADL's, Impaired Self- Care Skills, Restricted Funct UE ROM Discharge Recommendations Plan/Recommendations: Continue POC Therapy Discharge Recommendati: Home & Family, Post Acute OT Equpiment Recommendations-D/C: Extended Bath Bench Treatment Plan/Plan of Care Treatment,Training & Education: Yes Patient would benefit from OT for education, treatment and training to promote independence in ADL's, mobility, safety and/or upper extremity function for ADL's. Plan of Care: ADL Retraining, Functional Mobility, Group Exercise/Act as Ind, UE Funct Exercise/Act Treatment Duration: Oct 03, 2019 Frequency: At least 5 of 7 days/Wk (IRF) Estimated Hrs Per Day: 1.5 hours per day Agreement: Yes Rehab Potential: Guarded Time/GCodes Start Time: 08:00 Stop Time: 09:00 Total Time Billed (hr/min): 60 Billed Treatment Time [id number]: 1, ADL 2, EX 2 (60)-- OT/ PT co-treat due to dependent transfers, decreased balance/ core strength, and completion of high level treatment activities to encourage higher IND level. OT focuses on ADLs/ UE movement/ attention to task as PT focuses on LE movement, transfers and balance). [id number]: 1, ADL (20) total: 80 CARINA WOODS OTR Sep 15, 2019 09:53
[2019-09-15] MEDS: ALPRAZolam 0.25 MG (XANAX) TAB PO PRN (10:03)
--- NOTE | 2019-09-15 10:15 | Physical Therapy Daily Note ---
PT Daily Note-Current Subjective Patient in bed pre tx, agrees to PT, has no complaints of pain, will be co- treating with OT due to poor patient mobility, strength, endurance, balance, the need to coordinate UE and LE during activity, reduce the risk of falls. Appearance Patient in recliner post tx with nurse call, phone, tray, legs elevated. Mental Status Patient Orientation: Person, Place, Situation Transfers SCALE: Activities may be completed with or without assistive devices. 0-Upyfrompya-nzrxsgt completes the activity by him/herself with no assistance from a helper. 5-Set-up or Clean-up Assistance-helper sets up or cleans up; patient completes activity. [place] assists only prior to or following the activity. 4-Supervision or Touching Assistance-helper provides verbal cues and/or touching/steadying and/or contact guard assistance as patient completes activity. Assistance may be provided throughout the activity or intermittently. 3-Partial/Moderate Assistance-helper does LESS THAN HALF the effort. [place] lifts, holds or supports trunk or limbs, but provides less than half the effort. 2-Substantial/Maximal Assistance-helper does MORE THAN HALF the effort. [place] lifts or holds trunk or limbs and provides more than half the effort. 8-Sqrmmtoim-utzbso does ALL the effort. Patient does none of the effort to complete the activity. Or, the assistance of 2 or more helpers is required for the patient to complete the activity. If activity was not attempted, code reason: 7-Patient Refused. 9-Not Applicable-not attempted and the patient did not perform the activity before the current illness, exacerbation or injury. 10-Not Attempted due to Environmental Limitations-(lack of equipment, weather restraints, etc.). 88-Not Attempted due to Medical Conditions or Safety Concerns. Roll Left & Right (QC): 2 Lying to Sitting/Side of Bed(Q: 1 Sit to Stand (QC): 1 Chair/Deq-rm-Zzvdf Xfer(QC): 1 Patient supine to sit and then transfer to where she undresses and bathes and then redresses. Patient then propels with max assist 100' to therapy gym, stands in parallel bars and then ambulates 8'x3 with max assist (patient needs assist advancing her right leg but not her left), propels WC back to room and then transfer to recliner. Weight Bearing Full Weight Bearing Full Weight Bearing Treatments bed mobility and transfers, WC mobility, ambulation, bathing and dressing. PT performed bed mobility and transfers, assist with balance and positioning during bathing and dressing, ambulation, WC mobility, OT performed bathing and dressing, assist with UE positioning and safety during activity. Assessment Current Status: Fair Progress improved sit to stand PT Short Term Goals Short Term Goals Time Frame: Sep 12, 2019 Roll Left & Right: 2 Sit to lyin Lying to sitting on side of be: 2 Wheel 50ft w/2 turns: 2 Wheel 150 feet: 2 PT Half-Way Goals Half-Way Goals PT Half-Way Goals Time Frame: Sep 26, 2019 Roll Left & Right (QC): 3 Sit to Lying (QC): 3 Lying-Sitting on Side/Bed(QC): 3 Sit to Stand (QC): 3 Chair/Vpw-uw-Ovyoa Xfer(QC): 3 Toilet Transfer (QC): 3 Car Transfer (QC): 3 Does the Patient Walk: No and Walking Goal NOT indicated Walk 10 feet (QC): 88 Walk 50ft with 2 Turns (QC): 88 Walk 150 ft (QC): 88 Walking 10ft on Uneven Surface: 88 1 Step (curb) (QC): 88 4 Steps (QC): 88 12 Steps (QC): 88 Picking up an Object (QC): 88 Does the Pt use WC or Scooter?: Yes Wheel 50 feet with 2 turns (QC: 3 Type: Manual Wheel 150 feet: 3 PT Plan Problem List Problem List: Activity Tolerance, Functional Strength, Safety, Balance, Gait, Transfer, Bed Mobility, ROM Treatment/Plan Treatment Plan: Continue Plan of Care Treatment Plan: Bed Mobility, Education, Functional Activity Afia, Functional Strength, Group Therapy, Gait, Safety, Therapeutic Exercise, Transfers Treatment Duration: Sep 26, 2019 Frequency: At least 5 of 7 days/Wk (IRF) Estimated Hrs Per Day: 1.5 hours per day Patient and/or Family Agrees t: Yes Safety Risks/Education Patient Education: Gait Training, Transfer Techniques, Correct Positioning, W/C Management, Safety Issues Teaching Recipient: Patient Teaching Methods: Demonstration, Discussion Response to Teaching: Reinforcement Needed Time/GCodes Time In: 0800 Time Out: 0915 Total Billed Treatment Time: 75 Total Billed Treatment 1 visit [facility] 15' FA 60' TASHA POMPA PT Sep 15, 2019 10:15
--- NOTE | 2019-09-15 10:45 | Cardiology Progress Note ---
Subjective Date Seen by Provider: Sep 15, 2019 Time Seen by Provider: 10:44 Subjective/Events-last exam Patient was seen at bedside, sitting comfortably, improving slowly. No new complaint Review of Systems General: No Chills, No Night Sweats; Fatigue; No Malaise, No Appetite; Other (headache) HEENT: No Head Aches, No Visual Changes, No Eye Pain, No Ear Pain, No Dysphasia, No Sinus Congestion, No Post Nasal Drip, No Sore Throat, No Other Pulmonary: No Dyspnea, No Cough, No Pleuritic Chest Pain, No Other Cardiovascular: No: Chest Pain, Palpitations, Orthopnea, Paroxysmal Noc. Dyspnea, Edema, Lt Headedness, Other Objective-Cardiology Exam Last Set of Vital Signs Vital Signs 09/15/19 09/15/19 05:21 09:00 Temp 36.4 Pulse 67 Resp 16 B/P (MAP) 110/71 (84) Pulse Ox 93 O2 Delivery Room Air Capillary Refill : Less Than 3 Seconds I&O Intake and Output 09/15/19 00:00 Intake Total 1560 ml Balance 1560 ml Intake Oral 1560 ml # Voids 7 General: Alert, Oriented X3, Cooperative HEENT: Atraumatic, PERRLA Neck: Supple, +2 Carotid Pulse No Bruit Lungs: Clear to Auscultation, Normal Air Movement Heart: Regular Rate, Normal S1, Normal S2 Abdomen: Normal Bowel Sounds, Soft Extremities: No Clubbing, No Edema Skin: No Rashes, No Significant Lesion Neuro: Normal Speech, Other (right sided hemiplegia) A/P-Cardiology Admission Diagnosis CVA HTN HLP Assessment/Plan CVA, still having right hemiplegia, 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 CT angiogram of the head was nondiagnostic. MRI of the head showed shower of embolization, probably underlying atrial fibrillation, so far her EKG did not show acute abnormality maintenance and aspirin. s/p LINq implantation for further monitoring for atrial fibrillation. Echocardiogram showed normal LV function, prominent aorta. No significant abnormality otherwise Borderline hypotension, the pressure is better today. Continue to monitor Hyperlipidemia, continue Lipitor Urinary tract infection, managed by primary care physician Clinical Quality Measures DVT/VTE Risk/Contraindication: Risk Factor Score Per Nursin RFS Level Per Nursing on Admit: 4+=Very High DAMON ROTH MD Sep 15, 2019 10:45 am
--- NOTE | 2019-09-15 11:11 | Speech Therapy Daily Note ---
Speech Daily Progress Note Subjective Date Seen by Provider: Sep 15, 2019 Time Seen by Provider: 00:30 Patient resting in her recliner following OT and PT session. Patient was very talkative this date. Objective Patient completed safe oral intake of snack and coffee. She demo utilization of compensatory strategies as trained at 90% with minimal cues. Assessment Assessment Current Status: Good Progress Treatment Plan Continue Plan of Care Speech Short Term Goals Short Term Goals Short Term Goals Pt will complete (visual/verbal) attention task with 90% accy. Pt will complete STM task with use of compensatoy strategies with 90% accy Pt will complete further cognitive assessment for further evaluation of memory, functional math, and reading. Speech Sap Data Analyst Goals Sap Data Analyst Goals Pt will tolerate least restrictive diet with no s/s of aspiration/penetration wiht observed oral intake. Speech-Plan Patient/Family Goals Patient/Family Goals: Patient plans on returning to her home with her children and grandchildren who will help her with her daily needs. Treatment Plan Speech Therapy Treatment Plan: Continue Plan of Care Treatment Duration: Sep 20, 2019 Frequency: 5 times per week Estimated Hrs Per Day: .5 hour per day Rehab Potential: Guarded Barriers to Learning: Patient's recent CVA, however these cognitive deficits have mostly resolved Pt/Family Agrees to Plan: Yes Safety Risks/Education Teaching Recipient: Patient Teaching Methods: Demonstration, Discussion Response to Teaching: Verbalize Understanding, Return Demonstration Education Topics Provided: Continued safety with oral intake over the weekend and upon her return home. Time Speech Therapy Time In: 09:30 Speech Therapy Time Out: 10:00 Total Billed Time: 30 Billed Treatment Time 1, FLORECITA Lara Sep 15, 2019 11:11
[2019-09-15 16:24] VITALS: BP_SYST 106; BP_SYST 137; BP_DIAS 65; BP_DIAS 72
--- NOTE | 2019-09-15 19:07 | NUR ---
bedside report received from CHARLEE RAINES, assume care of pt
[2019-09-15] MEDS: MIRTAZAPINE 15 MG (REMERON) TAB PO SCH (20:42)
[2019-09-15] MEDS: ALPRAZolam 1 MG (XANAX) TAB PO SCH (20:42)
--- NOTE | 2019-09-15 20:42 | NUR ---
pt refused Senokot & miralax, had BM today, swallows pills without difficulty
--- NOTE | 2019-09-15 23:31 | NUR ---
c/o pain, rt eye eye & neck, pain level 8/10 on numeric scale, Lortab 5mg 1 tab given
--- NOTE | 2019-09-16 00:22 | NUR ---
resting quietly in bed, pain level 0/10 on CNPI SCALE
[2019-09-16 05:42] VITALS: BP 97/65
--- NOTE | 2019-09-16 05:55 | PM&R Progress Note ---
Subjective HPI/CC On Admission Date Seen by Provider: Sep 16, 2019 Time Seen by Provider: 06:00 Subjective/Events-last exam Patient incontinent no change Overall feels pretty good otherwise Didn't sleep well even after Xanax replaced Ambien but she drinks coffee in the night Overall prognosis poor considering how debilitated she is Sleeping still now Checked meds and labs Reviewed therapy notes Conferred with slurry tank tender of Systems General: Fatigue Neurological: Weakness, Numbness, Incoordination Objective Exam Vital Signs Vital Signs Date Time Temp Pulse Resp B/P (MAP) Pulse Ox O2 Delivery O2 Flow Rate FiO2 09/16/19 09:00 Room Air 09/16/19 05:42 36.2 73 16 97/65 (76) 96 Capillary Refill : Less Than 3 Seconds General Appearance: No Apparent Distress, Chronically ill, Cachetic HEENT: PERRL/EOMI, Normal ENT Inspection, Pharynx Normal Neck: Full Range of Motion, Normal Inspection, Non Tender, Supple, Carotid Bruit Respiratory: Chest Non Tender, Lungs Clear, Normal Breath Sounds, No Accessory Muscle Use, No Respiratory Distress Cardiovascular: Regular Rate, Rhythm, No Edema, No Gallop, No JVD, No Murmur, Normal Peripheral Pulses Gastrointestinal: Normal Bowel Sounds, No Organomegaly, No Pulsatile Mass, Non Tender, Soft Back: Normal Inspection, No CVA Tenderness, No Vertebral Tenderness Extremity: Normal Capillary Refill, Normal Inspection, Normal Range of Motion, Non Tender, No Calf Tenderness, No Pedal Edema Neurologic/Psychiatric: Alert, Oriented x3, Abnormal Gait, Aphasia, Depressed Affect, EOM Palsy, Motor Weakness (right sided 2/5 upper extremity and 1/5 lower extremity) Skin: Normal Color, Warm/Dry Lymphatic: No Adenopathy Results/Procedures Lab Patient resulted labs reviewed. FIM Transfers Therapy Code Descriptions/Definitions Functional [place] Measure: 0=Not Assessed/NA 4=Minimal Assistance 1=Total Assistance 5=Supervision or Setup 2=Maximal Assistance 6=Modified [place] 3=Moderate Assistance 7=Complete IndependenceSCALE: Activities may be completed with or without assistive devices. 5-Jkchxpnxjy-sjajylv completes the activity by him/herself with no assistance from a helper. 5-Set-up or Clean-up Assistance-helper sets up or cleans up; patient completes activity. [place] assists only prior to or following the activity. 4-Supervision or Touching Assistance-helper provides verbal cues and/or touching/steadying and/or contact guard assistance as patient completes activity. Assistance may be provided throughout the activity or intermittently. 3-Partial/Moderate Assistance-helper does LESS THAN HALF the effort. [place] lifts, holds or supports trunk or limbs, but provides less than half the effort. 2-Substantial/Maximal Assistance-helper does MORE THAN HALF the effort. [place] lifts or holds trunk or limbs and provides more than half the effort. 7-Uelcpfror-nentgu does ALL the effort. Patient does none of the effort to complete the activity. Or, the assistance of 2 or more helpers is required for the patient to complete the activity. If activity was not attempted, code reason: 7-Patient Refused. 9-Not Applicable-not attempted and the patient did not perform the activity before the current illness, exacerbation or injury. 10-Not Attempted due to Environmental Limitations-(lack of equipment, weather restraints, etc.). 88-Not Attempted due to Medical Conditions or Safety Concerns. Roll Left to Right (QC): 2 Sit to Lying (QC): 2 Sit to Stand (QC): 1 Chair/Ocy-qh-Wolul Xfer(QC): 1 Car Transfer (QC): 1 Gait Training Does the Patient Walk?: No and Walking Goal NOT indicated Walk 10 feet (QC): 88 Walk 50 ft with 2 Turns(QC): 88 Walk 150 ft (QC): 88 Walking 10ft/uneven surface-QC: 88 Gait Assistive Device: None Wheelchair Training Does the Pt Use a Wheelchair?: Yes Wheel 50 ft with 2 turns (QC): 3 Wheel 150 ft (QC): 3 Type of Wheelchair: Manual Stair Training 1 Step (curb) (QC): 88 4 Steps (QC): 88 12 Steps (QC): 88 Balance Picking up an Object (QC): 88 ADL-Treatment Eating (QC): 5 Oral Hygiene (QC): 7 Bathing Location: L Arm, R Arm, L Upper Leg, R Upper Leg, Chest, Abdomen Shower/Bathe Self (QC): 3 (mod A, TD for sit to stand with assist x2 for thuan/ bottom hygiene.) Upper Body Dressing (QC): 3 (min A to go over head doffing/ donning. Pt able to thread off/ on UEs throughout.) Lower Body Dressing (QC): 3 (mod A- pt able to don over LEs with SBA for balance, pt brings to knees with min A, TD for stance to complete pant hike over hips with Max A.) On/Off Footwear (QC): 2 (max A.) Toileting Hygiene (QC): 1 (TD in stance with 2 person assist.) Toilet Transfer (QC): 1 (TD to sc.) Assessment/Plan Assessment and Plan Assess & Plan/Chief Complaint Assessment: CVA Smoker Hematuria Leukocytosis improved HLP Right side Neglect Fall Risk Cough resolved Constipation resolved UTI acute resistant to Macrobid so started Bactrim 09/09/19 completed treatment Insomnia started on Remeron and added Ambien so we'll discontinue Ambien and start Xanax 1 mg at night Plan: IRF Protocol Statin Smoking cessation ASA Lovenox Telemetry DC since loop recorder placed Macrobid changed to Bactrim Remeron and Ambien Difficult to instill positivity Disposition to likely to nursing facility (1) CVA (cerebral vascular accident) (2) Hyperlipidemia Status: Chronic (3) Compression fracture of T3 vertebra (4) Behavior disorder (5) Leukocytosis (6) Dysarthria (7) Smoker Status: Chronic KRYS NEFF DO Sep 16, 2019 05:55
[2019-09-16] MEDS: TRIM/SULFAMETH 160/800 (SEPTRA DS) TAB PO SCH ×2 (08:27→17:55)
[2019-09-16] MEDS: PATCH REMOVAL TP SCH (08:28)
[2019-09-16] MEDS: ASPIRIN E.C. 325 MG (ECOTRIN) TABLET PO SCH (08:28)
[2019-09-16] MEDS: NICOTINE 21 MG (NICODERM) PATCH TD SCH (08:28)
[2019-09-16] MEDS: ALPRAZolam 0.25 MG (XANAX) TAB PO PRN (08:29)
[2019-09-16] MEDS: DOCUSATE SODIUM 100 MG (COLACE) CAP PO SCH (08:32)
[2019-09-16] MEDS: SENNA W/DOCUSATE (SENOKOT S) TABLET PO SCH ×2 (08:32→19:40)
[2019-09-16] MEDS: polyethylene glycoL POWDER 17 GM (MIRALAX) PACK PO SCH ×2 (08:32→19:39)
--- NOTE | 2019-09-16 09:20 | Physical Therapy Daily Note ---
PT Daily Note-Current Subjective Pt. agrees to Rx, wants to exercise and agrees to sit up at edge of bed. Pain Location: No Pain Reported Mental Status Patient Orientation: Person, Place, Time, Situation Transfers SCALE: Activities may be completed with or without assistive devices. 5-Kxyqchswoi-dbtqgwh completes the activity by him/herself with no assistance f rom a helper. 5-Set-up or Clean-up Assistance-helper sets up or cleans up; patient completes activity. [place] assists only prior to or following the activity. 4-Supervision or Touching Assistance-helper provides verbal cues and/or touching/steadying and/or contact guard assistance as patient completes activity. Assistance may be provided throughout the activity or intermittently. 3-Partial/Moderate Assistance-helper does LESS THAN HALF the effort. [place] lifts, holds or supports trunk or limbs, but provides less than half the effort. 2-Substantial/Maximal Assistance-helper does MORE THAN HALF the effort. [place] lifts or holds trunk or limbs and provides more than half the effort. 4-Vkhvwhygt-ahpuvn does ALL the effort. Patient does none of the effort to complete the activity. Or, the assistance of 2 or more helpers is required for the patient to complete the activity. If activity was not attempted, code reason: 7-Patient Refused. 9-Not Applicable-not attempted and the patient did not perform the activity before the current illness, exacerbation or injury. 10-Not Attempted due to Environmental Limitations-(lack of equipment, weather restraints, etc.). 88-Not Attempted due to Medical Conditions or Safety Concerns. Roll Left & Right (QC): 2 Sit to Lying (QC): 2 Lying to Sitting/Side of Bed(Q: 2 Sit to Stand (QC): 2 Weight Bearing Full Weight Bearing Full Weight Bearing Exercises Supine Ex: Ankle pumps (HC stretches 4s x 10), Rolling, Heel Slides, Short Arc Quads, Scooting, Straight leg raise, Hip abd/add Supine Reps: 12 (assisted) Treatments supine therx LEs, max assist rolling and sup to side to sit , sat edge of bed with balance work approx 4 m, max assist sit to sup Assessment Current Status: Fair Progress PT Short Term Goals Short Term Goals Time Frame: Sep 12, 2019 Roll Left & Right: 2 Sit to lyin Lying to sitting on side of be: 2 Wheel 50ft w/2 turns: 2 Wheel 150 feet: 2 PT Leak Hunter Goals Halfway Goals PT Halfway Goals Time Frame: Sep 26, 2019 Roll Left & Right (QC): 3 Sit to Lying (QC): 3 Lying-Sitting on Side/Bed(QC): 3 Sit to Stand (QC): 3 Chair/Pyl-cp-Mtefg Xfer(QC): 3 Toilet Transfer (QC): 3 Car Transfer (QC): 3 Does the Patient Walk: No and Walking Goal NOT indicated Walk 10 feet (QC): 88 Walk 50ft with 2 Turns (QC): 88 Walk 150 ft (QC): 88 Walking 10ft on Uneven Surface: 88 1 Step (curb) (QC): 88 4 Steps (QC): 88 12 Steps (QC): 88 Picking up an Object (QC): 88 Does the Pt use WC or Scooter?: Yes Wheel 50 feet with 2 turns (QC: 3 Type: Manual Wheel 150 feet: 3 PT Plan Treatment/Plan Treatment Plan: Continue Plan of Care Treatment Plan: Bed Mobility, Education, Functional Activity Afia, Functional Strength, Group Therapy, Gait, Safety, Therapeutic Exercise, Transfers Treatment Duration: Sep 26, 2019 Frequency: At least 5 of 7 days/Wk (IRF) Estimated Hrs Per Day: 1.5 hours per day Patient and/or Family Agrees t: Yes Safety Risks/Education Patient Education: Correct Positioning, Disease Process, Safety Issues Teaching Recipient: Patient Teaching Methods: Discussion Response to Teaching: Reinforcement Needed Time/GCodes Time In: 830 Time Out: 855 Total Billed Treatment Time: 25 Total Billed Treatment 1,EX15m,FA10m GIUSEPPE [employer]INA FOOD TECHNOLOGY TEACHER Sep 16, 2019 09:20
[2019-09-16] MEDS: ENOXAPARIN 40 MG/0.4 ML (LOVENOX) SYR SC SCH (10:12)
[2019-09-16] MEDS: HYDROcodone/APAP 5 MG/325 MG (LORTAB) TAB PO PRN ×2 (10:12→19:14)
--- NOTE | 2019-09-16 12:00 | Cardiology Progress Note ---
Subjective Date Seen by Provider: Sep 16, 2019 Time Seen by Provider: 11:59 Subjective/Events-last exam Patient is laying down in bed, feeling better today, less headache Review of Systems General: No Chills, No Night Sweats, No Fatigue, No Malaise, No Appetite, No Other HEENT: No Head Aches, No Visual Changes, No Eye Pain, No Ear Pain, No Dysphasia, No Sinus Congestion, No Post Nasal Drip, No Sore Throat, No Other Pulmonary: No Dyspnea, No Cough, No Pleuritic Chest Pain, No Other Cardiovascular: No: Chest Pain, Palpitations, Orthopnea, Paroxysmal Noc. Dyspnea, Edema, Lt Headedness, Other Objective-Cardiology Exam Last Set of Vital Signs Vital Signs 09/16/19 09/16/19 05:42 09:00 Temp 36.2 Pulse 73 Resp 16 B/P (MAP) 97/65 (76) Pulse Ox 96 O2 Delivery Room Air Capillary Refill : Less Than 3 Seconds I&O Intake and Output 09/16/19 00:00 Intake Total 2040 ml Balance 2040 ml Intake Oral 2040 ml # Voids 9 # Bowel Movements 1 General: Alert, Oriented X3, Cooperative HEENT: Atraumatic, PERRLA Neck: Supple, +2 Carotid Pulse No Bruit Lungs: Clear to Auscultation, Normal Air Movement Heart: Regular Rate, Normal S1, Normal S2 Abdomen: Normal Bowel Sounds, Soft Extremities: No Clubbing, No Edema Skin: No Rashes, No Significant Lesion Neuro: Normal Speech, Other (right sided hemiplegia) A/P-Cardiology Admission Diagnosis CVA HTN HLP Assessment/Plan CVA, still having right hemiplegia, 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 CT angiogram of the head was nondiagnostic. MRI of the head showed shower of embolization, probably underlying atrial fibrillation, so far her EKG did not show acute abnormality maintenance and aspirin. s/p LINq implantation for further monitoring for atrial fibrillation. Echocardiogram showed normal LV function, prominent aorta. No significant abnormality otherwise Borderline hypotension, continue to monitor Hyperlipidemia, continue Lipitor Urinary tract infection, managed by primary care physician Clinical Quality Measures DVT/VTE Risk/Contraindication: Risk Factor Score Per Nursin RFS Level Per Nursing on Admit: 4+=Very High DAMON ROTH MD Sep 16, 2019 12:00
[2019-09-16 17:35] VITALS: BP 124/59
--- NOTE | 2019-09-16 17:43 | NUR ---
DR. MEZA REQUESTED UA ON PT.
[2019-09-16] MEDS: ALPRAZolam 1 MG (XANAX) TAB PO SCH (20:04)
[2019-09-16] MEDS: MIRTAZAPINE 15 MG (REMERON) TAB PO SCH (20:04)
[2019-09-17 05:00] VITALS: BP 98/67
[2019-09-17] MEDS: NICOTINE 21 MG (NICODERM) PATCH TD SCH (08:41)
[2019-09-17] MEDS: HYDROcodone/APAP 5 MG/325 MG (LORTAB) TAB PO PRN ×3 (08:41→18:19)
[2019-09-17] MEDS: DOCUSATE SODIUM 100 MG (COLACE) CAP PO SCH (08:41)
[2019-09-17] MEDS: ALPRAZolam 0.25 MG (XANAX) TAB PO PRN ×2 (08:41→16:48)
[2019-09-17] MEDS: ASPIRIN E.C. 325 MG (ECOTRIN) TABLET PO SCH (08:41)
[2019-09-17] MEDS: PATCH REMOVAL TP SCH (08:41)
[2019-09-17] MEDS: polyethylene glycoL POWDER 17 GM (MIRALAX) PACK PO SCH ×2 (08:42→21:15)
[2019-09-17] MEDS: SENNA W/DOCUSATE (SENOKOT S) TABLET PO SCH ×2 (08:44→21:15)
[2019-09-17] MEDS: ENOXAPARIN 40 MG/0.4 ML (LOVENOX) SYR SC SCH (10:57)
--- NOTE | 2019-09-17 12:44 | Cardiology Progress Note ---
Subjective Date Seen by Provider: Sep 17, 2019 Time Seen by Provider: 12:43 Subjective/Events-last exam Patient is laying down in bed, reporting having significant headache last night, asking for more pain medication Review of Systems General: No Chills, No Night Sweats, No Fatigue, No Malaise, No Appetite, No Other HEENT: No Head Aches, No Visual Changes, No Eye Pain, No Ear Pain, No Dysphasia, No Sinus Congestion, No Post Nasal Drip, No Sore Throat, No Other Pulmonary: No Dyspnea, No Cough, No Pleuritic Chest Pain, No Other Cardiovascular: No: Chest Pain, Palpitations, Orthopnea, Paroxysmal Noc. Dyspnea, Edema, Lt Headedness, Other Objective-Cardiology Exam Last Set of Vital Signs Vital Signs 09/17/19 09/17/19 05:00 08:00 Temp 36.1 Pulse 78 Resp 18 B/P (MAP) 98/67 (77) Pulse Ox 95 O2 Delivery Room Air Capillary Refill : Less Than 3 Seconds I&O Intake and Output 09/17/19 00:00 Intake Total 2400 ml Balance 2400 ml Intake Oral 2400 ml # Voids 8 # Bowel Movements 1 General: Alert, Oriented X3, Cooperative HEENT: Atraumatic, PERRLA Neck: Supple, +2 Carotid Pulse No Bruit Lungs: Clear to Auscultation, Normal Air Movement Heart: Regular Rate, Normal S1, Normal S2 Abdomen: Normal Bowel Sounds, Soft Extremities: No Clubbing, No Edema Skin: No Rashes, No Significant Lesion Neuro: Normal Speech, Other (right sided hemiplegia) A/P-Cardiology Admission Diagnosis CVA HTN HLP Assessment/Plan CVA, still having right hemiplegia, 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 CT angiogram of the head was nondiagnostic. MRI of the head showed shower of embolization, probably underlying atrial fibrillation, so far her EKG did not show acute abnormality maintenance and aspirin. s/p LINq implantation for further monitoring for atrial fibrillation. Recurrent headache, dependent on pain medication, managed by primary care Echocardiogram showed normal LV function, prominent aorta. No significant abnormality otherwise Borderline hypotension, continue to monitor Hyperlipidemia, continue Lipitor Urinary tract infection, managed by primary care physician Clinical Quality Measures DVT/VTE Risk/Contraindication: Risk Factor Score Per Nursin RFS Level Per Nursing on Admit: 4+=Very High DAMON ROTH MD Sep 17, 2019 12:44 pm
--- NOTE | 2019-09-17 13:22 | PM&R Progress Note ---
Subjective HPI/CC On Admission Date Seen by Provider: Sep 17, 2019 Time Seen by Provider: 06:00 Subjective/Events-last exam Patient incontinent no changes Overall feels pretty good otherwise Slept well last night Overall prognosis poor considering how debilitated she is Sleeping still now during my exam Asking for more and more pain meds and asking for Nubain my name. Patient has h/o controlled med abuse so will not increase pain meds. Checked meds and labs Reviewed therapy notes Conferred with fly finisher of Systems Neurological: Weakness, Numbness, Incoordination Objective Exam Vital Signs Vital Signs Date Time Temp Pulse Resp B/P (MAP) Pulse Ox O2 Delivery O2 Flow Rate FiO2 09/17/19 08:00 Room Air 09/17/19 05:00 36.1 78 18 98/67 (77) 95 Capillary Refill : Less Than 3 Seconds General Appearance: No Apparent Distress, Chronically ill, Cachetic HEENT: PERRL/EOMI, Normal ENT Inspection, Pharynx Normal Neck: Full Range of Motion, Normal Inspection, Non Tender, Supple, Carotid Bruit Respiratory: Chest Non Tender, Lungs Clear, Normal Breath Sounds, No Accessory Muscle Use, No Respiratory Distress Cardiovascular: Regular Rate, Rhythm, No Edema, No Gallop, No JVD, No Murmur, Normal Peripheral Pulses Gastrointestinal: Normal Bowel Sounds, No Organomegaly, No Pulsatile Mass, Non Tender, Soft Back: Normal Inspection, No CVA Tenderness, No Vertebral Tenderness Extremity: Normal Capillary Refill, Normal Inspection, Normal Range of Motion, Non Tender, No Calf Tenderness, No Pedal Edema Neurologic/Psychiatric: Alert, Oriented x3, Abnormal Gait, Aphasia, Depressed Affect, EOM Palsy, Motor Weakness (right sided 2/5 upper extremity and 1/5 lower extremity) Skin: Normal Color, Warm/Dry Lymphatic: No Adenopathy Results/Procedures Lab Patient resulted labs reviewed. FIM Transfers Therapy Code Descriptions/Definitions Functional [place] Measure: 0=Not Assessed/NA 4=Minimal Assistance 1=Total Assistance 5=Supervision or Setup 2=Maximal Assistance 6=Modified [place] 3=Moderate Assistance 7=Complete IndependenceSCALE: Activities may be completed with or without assistive devices. 9-Zsnmxdfgex-fpejrpr completes the activity by him/herself with no assistance from a helper. 5-Set-up or Clean-up Assistance-helper sets up or cleans up; patient completes activity. [place] assists only prior to or following the activity. 4-Supervision or Touching Assistance-helper provides verbal cues and/or touching/steadying and/or contact guard assistance as patient completes activity. Assistance may be provided throughout the activity or intermittently. 3-Partial/Moderate Assistance-helper does LESS THAN HALF the effort. [place] lifts, holds or supports trunk or limbs, but provides less than half the effort. 2-Substantial/Maximal Assistance-helper does MORE THAN HALF the effort. [place] lifts or holds trunk or limbs and provides more than half the effort. 2-Xquxvougl-lfohez does ALL the effort. Patient does none of the effort to complete the activity. Or, the assistance of 2 or more helpers is required for the patient to complete the activity. If activity was not attempted, code reason: 7-Patient Refused. 9-Not Applicable-not attempted and the patient did not perform the activity before the current illness, exacerbation or injury. 10-Not Attempted due to Environmental Limitations-(lack of equipment, weather restraints, etc.). 88-Not Attempted due to Medical Conditions or Safety Concerns. Roll Left to Right (QC): 2 Sit to Lying (QC): 2 Sit to Stand (QC): 2 Chair/Cmi-ym-Qqnmh Xfer(QC): 1 Car Transfer (QC): 1 Gait Training Does the Patient Walk?: No and Walking Goal NOT indicated Walk 10 feet (QC): 88 Walk 50 ft with 2 Turns(QC): 88 Walk 150 ft (QC): 88 Walking 10ft/uneven surface-QC: 88 Gait Assistive Device: None Wheelchair Training Does the Pt Use a Wheelchair?: Yes Wheel 50 ft with 2 turns (QC): 3 Wheel 150 ft (QC): 3 Type of Wheelchair: Manual Stair Training 1 Step (curb) (QC): 88 4 Steps (QC): 88 12 Steps (QC): 88 Balance Picking up an Object (QC): 88 ADL-Treatment Eating (QC): 5 Oral Hygiene (QC): 7 Bathing Location: L Arm, R Arm, L Upper Leg, R Upper Leg, Chest, Abdomen Shower/Bathe Self (QC): 3 (mod A, TD for sit to stand with assist x2 for thuan/ bottom hygiene.) Upper Body Dressing (QC): 3 (min A to go over head doffing/ donning. Pt able to thread off/ on UEs throughout.) Lower Body Dressing (QC): 3 (mod A- pt able to don over LEs with SBA for balance, pt brings to knees with min A, TD for stance to complete pant hike over hips with Max A.) On/Off Footwear (QC): 2 (max A.) Toileting Hygiene (QC): 1 (TD in stance with 2 person assist.) Toilet Transfer (QC): 1 (TD to sc.) Assessment/Plan Assessment and Plan Assess & Plan/Chief Complaint Assessment: CVA Smoker Hematuria Leukocytosis improved HLP Right side Neglect Fall Risk Cough resolved Constipation resolved UTI acute resistant to Macrobid so started Bactrim 09/09/19 completed treatment Insomnia started on Remeron and added Ambien so we'll discontinue Ambien and start Xanax 1 mg at night Plan: IRF Protocol Statin Smoking cessation ASA Lovenox Telemetry DC since loop recorder placed Macrobid changed to Bactrim Remeron and Ambien Difficult to instill positivity Disposition to likely to nursing facility No increased pain meds indicated (1) CVA (cerebral vascular accident) (2) Hyperlipidemia Status: Chronic (3) Compression fracture of T3 vertebra (4) Behavior disorder (5) Leukocytosis (6) Dysarthria (7) Smoker Status: Chronic KRYS NEFF DO Sep 17, 2019 13:22
[2019-09-17 17:05] VITALS: BP 104/46
[2019-09-17 17:37] LABS: BILIRUBIN,URINE NEGATIVE (NEGATIVE); CLARITY,URINE CLEAR; COLOR,URINE YELLOW; GLUCOSE, URINE (UA) NEGATIVE (NEGATIVE); KETONES,URINE NEGATIVE (NEGATIVE); LEUKOCYTE ESTERASE ,URINE NEGATIVE (NEGATIVE); NITRITE,URINE NEGATIVE (NEGATIVE); PROTEIN,URINE NEGATIVE (NEGATIVE)
[2019-09-17 17:42] LABS: BACTERIA,URINE NEGATIVE /HPF; SQUAMOUS EPITHELIAL CELL,UR RARE /HPF; WBC,URINE RARE /HPF
--- NOTE | 2019-09-17 19:06 | NUR ---
bedside report received from MARIANA RAINES, assume care of pt
[2019-09-17] MEDS: ALPRAZolam 1 MG (XANAX) TAB PO SCH (21:15)
[2019-09-17] MEDS: MIRTAZAPINE 15 MG (REMERON) TAB PO SCH (21:15)
--- NOTE | 2019-09-17 21:15 | NUR ---
pt refused miralax & Senokot, stating had BM today
[2019-09-18 05:25] VITALS: BP 98/52
[2019-09-18] MEDS: HYDROcodone/APAP 5 MG/325 MG (LORTAB) TAB PO PRN ×3 (05:38→18:55)
--- NOTE | 2019-09-18 05:38 | NUR ---
c/o pain to rt eye & neck, pain level 7/10 on numeric scale, Lortab 5 1 tab given
[2019-09-18 05:42] LABS: BASOPHILS # (AUTO) 0.1 10^3/uL (0.0-0.1); BASOPHILS % (AUTO) 1 % (0-10); EOSINOPHILS # (AUTO) 0.4 10^3/uL (0.0-0.3); EOSINOPHILS % (AUTO) 4 % (0-10); HEMATOCRIT 41 % (35-52); HEMOGLOBIN 13.1 G/DL (11.5-16.0); LYMPHOCYTES # (AUTO) 3.5 X 10^3 (1.0-4.0); LYMPHOCYTES % (AUTO) 41 % (12-44); MEAN CORPUSCULAR HEMOGLOBIN 29 PG (25-34); MEAN CORPUSCULAR HGB CONC 32 G/DL (32-36); MEAN CORPUSCULAR VOLUME 90 FL (80-99); MEAN PLATELET VOLUME 9.7 FL (7.4-10.4); MONOCYTES # (AUTO) 0.7 X 10^3 (0.0-1.0); MONOCYTES % (AUTO) 8 % (0-12); NEUTROPHILS % (AUTO) 47 % (42-75); PLATELET COUNT 370 10^3/uL (130-400); RED CELL DISTRIBUTION WIDTH 12.7 % (10.0-14.5); WHITE BLOOD COUNT 8.7 10^3/uL (4.3-11.0)
[2019-09-18 05:44] LABS: ALBUMIN 3.8 GM/DL (3.2-4.5); CHLORIDE 106 MMOL/L (98-107); POTASSIUM 3.9 MMOL/L (3.6-5.0); SODIUM 139 MMOL/L (135-145)
[2019-09-18 05:45] LABS: CALCIUM 9.8 MG/DL (8.5-10.1)
[2019-09-18 05:47] LABS: GLUCOSE 94 MG/DL (70-105); TOTAL PROTEIN 6.6 GM/DL (6.4-8.2)
[2019-09-18 05:48] LABS: BILIRUBIN,TOTAL 0.2 MG/DL (0.1-1.0); CARBON DIOXIDE 22 MMOL/L (21-32)
[2019-09-18 05:50] LABS: ALKALINE PHOSPHATASE 76 U/L (40-136); GFR ESTIMATED > 60
[2019-09-18 05:51] LABS: BUN/CREATININE RATIO 27
[2019-09-18 05:53] LABS: ALANINE AMINOTRANSFERASE 24 U/L (0-55)
--- NOTE | 2019-09-18 06:15 | NUR ---
rates pain level 4/10 on numeric scale
--- NOTE | 2019-09-18 07:15 | Progress Note - Urology ---
Progress Note-Urology Progress Notes/Assess & Plan Progress/Assessment & Plan REPEAT UA AFTER RX UTI TOTALLY NEGATIVE. WE WILL SEE HER PRN Final Diagnosis MICROHEMATURIA (RESOLVED) SALAZAR MEZA MD Sep 18, 2019 07:15
--- NOTE | 2019-09-18 08:25 | Cardiology Progress Note ---
Subjective Date Seen by Provider: Sep 18, 2019 Time Seen by Provider: 08:24 Subjective/Events-last exam Patient sitting up in chair, no new complaints. Denies any chest pain or dyspnea Review of Systems HEENT: Head Aches; No Visual Changes, No Eye Pain, No Ear Pain, No Dysphasia, No Sinus Congestion, No Post Nasal Drip, No Sore Throat, No Other Pulmonary: Dyspnea; No Cough, No Pleuritic Chest Pain, No Other Objective-Cardiology Exam Last Set of Vital Signs Vital Signs 09/18/19 09/18/19 05:25 09:43 Temp 36.4 Pulse 68 Resp 16 B/P (MAP) 98/52 (67) Pulse Ox 96 O2 Delivery Room Air Capillary Refill : Less Than 3 Seconds I&O Intake and Output 09/18/19 00:00 Intake Total 1410 ml Balance 1410 ml Intake Oral 1410 ml # Voids 5 # Bowel Movements 1 General: Alert, Oriented X3, Cooperative HEENT: Atraumatic, PERRLA Neck: Supple, +2 Carotid Pulse No Bruit Lungs: Clear to Auscultation, Normal Air Movement Heart: Regular Rate, Normal S1, Normal S2 Abdomen: Normal Bowel Sounds, Soft Extremities: No Clubbing, No Edema Skin: No Rashes, No Significant Lesion Neuro: Normal Speech, Other (right sided hemiplegia) Results Lab Laboratory Tests 09/18/19 04:23 A/P-Cardiology Admission Diagnosis CVA HTN HLP Assessment/Plan CVA, still having right hemiplegia, 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 CT angiogram of the head was nondiagnostic. MRI of the head showed shower of embolization, probably underlying atrial fibrillation, so far her EKG did not show acute abnormality maintenance and aspirin. s/p LINq implantation for further monitoring for atrial fibrillation. Recurrent headache, dependent on pain medication, managed by primary care Echocardiogram showed normal LV function, prominent aorta. No significant abnormality otherwise Borderline hypotension, continue to monitor Hyperlipidemia, continue Lipitor, continue to monitor. Urinary tract infection, managed by primary care physician Patient was seen and evaluated with Kely, examination performed, management plan was discussed, agree with the current scribed note, I made few changes to the note using Italic font Patient was seen at bedside, sitting comfortably, still having headache, asking for more pain medication and sleeping pill Heart is regular, blood pressure is slightly better. Continue to monitor Clinical Quality Measures DVT/VTE Risk/Contraindication: Risk Factor Score Per Nursin RFS Level Per Nursing on Admit: 4+=Very High KELY GUTIERREZ Sep 18, 2019 08:24 DAMON ROTH MD Sep 18, 2019 10:41
[2019-09-18] MEDS: ASPIRIN E.C. 325 MG (ECOTRIN) TABLET PO SCH (08:37)
[2019-09-18] MEDS: ALPRAZolam 0.25 MG (XANAX) TAB PO PRN ×2 (08:37→17:19)
[2019-09-18] MEDS: DOCUSATE SODIUM 100 MG (COLACE) CAP PO SCH (08:37)
[2019-09-18] MEDS: polyethylene glycoL POWDER 17 GM (MIRALAX) PACK PO SCH ×2 (08:37→21:22)
[2019-09-18] MEDS: SENNA W/DOCUSATE (SENOKOT S) TABLET PO SCH ×2 (08:38→21:22)
[2019-09-18] MEDS: NICOTINE 21 MG (NICODERM) PATCH TD SCH (08:38)
[2019-09-18] MEDS: PATCH REMOVAL TP SCH (08:42)
--- NOTE | 2019-09-18 09:11 | Occupational Ther Daily Note ---
OT Current Status-Daily Note Subjective [id number] Pt seen in recliner chair this am. Pt states she needs changed. Pt agrees to OT/ PT co-treat. Co-treat needed due to pt's dependent transfers, decreased attention and ability to follow commands with accuracy, and decreased strength/ debility. OT completes ADLs/ UE movmeent while PT focus on LE movement and transfers. Pt states pain and need of medications and "nerve pill." [id number] Pt seen in bed, all food eaten. Pt agrees to OT tx session, does not c/o pain during session. Mental Status/Objective Patient Orientation: Person, Place, Situation ADL-Treatment Therapy Code Descriptions/Definitions Functional [place] Measure: 0=Not Assessed/NA 4=Minimal Assistance 1=Total Assistance 5=Supervision or Setup 2=Maximal Assistance 6=Modified [place] 3=Moderate Assistance 7=Complete IndependenceSCALE: Activities may be completed with or without assistive devices. 0-Xkxhrjnndm-bonqkuv completes the activity by him/herself with no assistance from a helper. 5-Set-up or Clean-up Assistance-helper sets up or cleans up; patient completes a ctivity. [place] assists only prior to or following the activity. 4-Supervision or Touching Assistance-helper provides verbal cues and/or touching/steadying and/or contact guard assistance as patient completes activity. Assistance may be provided throughout the activity or intermittently. 3-Partial/Moderate Assistance-helper does LESS THAN HALF the effort. [place] lifts, holds or supports trunk or limbs, but provides less than half the effort. 2-Substantial/Maximal Assistance-helper does MORE THAN HALF the effort. [place] lifts or holds trunk or limbs and provides more than half the effort. 1-Lifhdmvvu-tswiiu does ALL the effort. Patient does none of the effort to complete the activity. Or, the assistance of 2 or more helpers is required for the patient to complete the activity. If activity was not attempted, code reason: 7-Patient Refused. 9-Not Applicable-not attempted and the patient did not perform the activity before the current illness, exacerbation or injury. 10-Not Attempted due to Environmental Limitations-(lack of equipment, weather restraints, etc.). 88-Not Attempted due to Medical Conditions or Safety Concerns. Eating (QC): 5 Bathing Location: L Arm, R Arm, L Upper Leg, R Upper Leg, L Lower Leg (including foot), R Lower Leg (including foot), Chest, Abdomen, Perineal Area Shower/Bathe Self (QC): 3 (Pt completes sponge bath in recliner chair with min A for bottom hygiene. Pt completes feet/ LB with LHS. Pt requires continuous/ max cues for attention to task this am and redirection. Pt requires cues (physical and verbal) for upright positioning. Completes upright position with min-mod A) Upper Body Dressing (QC): 3 (mod A for attention to task and assist for R hand/ assist over head to doff and don.) Lower Body Dressing (QC): 1 (TD with max A x2 for stance (PT completes stance while OT dons pants after bottom hygiene.) On/Off Footwear: 2 (max A to doff/ don. Pt able to assist in foot movement for ease.) Toileting Hygiene (QC): 1 (max A x2 for assist to stand while completing bottom hygiene.) Other Treatment [id number]: Pt completes ADLs in chair. Pt completes bath with increased cueing for attention to task and continuation/ thoroughness of bath. Pt able to do all areas (with AE for LB) and completes UB with cues for upright positioning. OT/ PT co-treat throughout. Pt's stance with assist x2 to w/c. Pt completes w/c mob with max A and cues for use of BLE and LUE. Pt's RUE PROM through motion with OT assist. Pt stands at parallel bars 2x with assist and cues for positioning to assist in pulling to stance and standing upright (cues for neck/ bottom). Pt requires cues for redirection during activity. Pt sits with control with assist. Pt returns to room, positioned in chair with all needs met, call light in reach. [id number]: Pt seen in bed. Reclined. Pt agrees to sit upright in recliner until therapy completed this date. Pt completes LE movement toward EOB with min A. pt requires max A to reach EOB. TD transfer completed (SPT) to recliner chair with cues for L arm placement. Pt sits in recliner, with LE's brought up pt able to bring knees to flexion and completes extension to bring self to back of chair with max A. Pt completes AAROM of RUE with [place]. DO student enters, all needs met, pt continues in recliner. Education OT Patient Education: Correct positioning, Exercise program, Modified ADL techniques, Progress toward Goal/Update tx plan, Purpose of tx/functional activities, Rehab process, Safety issues, Transfer techniques, Use of adapted equipment, W/C management Teaching Recipient: Patient Teaching Methods: Demonstration, Discussion Response to Teaching: Verbalize Understanding, Return Demonstration, Reinforcement Needed OT Short Term Goals Short Term Goals Time Frame: Sep 19, 2019 Eatin Oral hygiene: 9 Toileting hygiene: 3 Shower/bathe self: 3 Upper body dressin Lower body dressin Putting on/taking off footwear: 3 OT [employer] Manager Goals [employer] Manager Goals Time Frame: Oct 03, 2019 Eating (QC): 6 Oral Hygiene (QC): 9 Toileting Hygiene (QC): 4 Shower/Bathe Self (QC): 4 Upper Body Dressing (QC): 4 Lower Body Dressing (QC): 4 On/Off Footwear (QC): 4 Additional Goals: 1-Demonstrate ADL Tasks, 2-Verbalize Understanding, 3- ImproveStrength/Afia 1=Demonstrate adherence to instructed precautions during ADL tasks. 2=Patient will verbalize/demonstrate understanding of assistive devices/modifications for ADL. 3=Patient will improve strength/tolerance for activity to enable patient to perform ADL's. OT Education/Plan Problem List/Assessment Assessment: Decreased Activ Tolerance, Decreased Safety Aware, Decreased UE Strength, Dependent Transfers, Impaired Bed Mobility, Impaired Cognition, Impaired Coordination, Impaired Funct Balance, Impaired I ADL's, Impaired Self- Care Skills Discharge Recommendations Plan/Recommendations: Continue POC Therapy Discharge Recommendati: 24 Hour Supervision, Home & Family, Post Acute OT Equpiment Recommendations-D/C: Extended Bath Bench Treatment Plan/Plan of Care Treatment,Training & Education: Yes Patient would benefit from OT for education, treatment and training to promote independence in ADL's, mobility, safety and/or upper extremity function for ADL's. Plan of Care: ADL Retraining, Functional Mobility, Group Exercise/Act as Ind, UE Funct Exercise/Act Treatment Duration: Oct 03, 2019 Frequency: At least 5 of 7 days/Wk (IRF) Estimated Hrs Per Day: 1.5 hours per day Agreement: Yes Rehab Potential: Guarded Time/GCodes Start Time: 08:00 (1245) Stop Time: 09:00 (1300) Total Time Billed (hr/min): 75 Billed Treatment Time OT/ PT co-treat. Co-treat needed due to pt's dependent transfers, decreased attention and ability to follow commands with accuracy, and decreased strength/ debility. OT completes ADLs/ UE movmeent while PT focus on LE movement and transfers. [id number]: 1, ADL 3 (45), EX (15)= 60 OT individual tx: [id number]: 1, FA (15) CARINA WOODS OTR Sep 18, 2019 09:11
[2019-09-18] MEDS: ENOXAPARIN 40 MG/0.4 ML (LOVENOX) SYR SC SCH (10:03)
--- NOTE | 2019-09-18 10:07 | NUR ---
DR. NEFF HERE WITH ORDERS TO START TOPAMAX- 50 MG PO HS.
--- NOTE | 2019-09-18 10:22 | PM&R Progress Note ---
Subjective HPI/CC On Admission Date Seen by Provider: Sep 18, 2019 Time Seen by Provider: 10:00 Subjective/Events-last exam Pt talking about Nubain for her chronic migraine and I don't think that would be a good idea Started Topamax 50 Mg at night to help with chronic migraine Even asked Dr. Ruggiero cardiology about increasing pain medication and he deferred to me Repeat urine test per Dr. Monahan negative for any infection Bowels are moving Still working with therapy Checked meds and labs Reviewed therapy notes Conferred with attendant coin operated laundry of Systems General: Fatigue, Malaise Neurological: Weakness, Incoordination Objective Exam Vital Signs Vital Signs Date Time Temp Pulse Resp B/P (MAP) Pulse Ox O2 Delivery O2 Flow Rate FiO2 09/18/19 16:00 36.6 91 16 112/70 (84) 95 Room Air Capillary Refill : Less Than 3 Seconds General Appearance: No Apparent Distress, Chronically ill, Cachetic HEENT: PERRL/EOMI, Normal ENT Inspection, Pharynx Normal Neck: Full Range of Motion, Normal Inspection, Non Tender, Supple, Carotid Br uit Respiratory: Chest Non Tender, Lungs Clear, Normal Breath Sounds, No Accessory Muscle Use, No Respiratory Distress Cardiovascular: Regular Rate, Rhythm, No Edema, No Gallop, No JVD, No Murmur, Normal Peripheral Pulses Gastrointestinal: Normal Bowel Sounds, No Organomegaly, No Pulsatile Mass, Non Tender, Soft Back: Normal Inspection, No CVA Tenderness, No Vertebral Tenderness Extremity: Normal Capillary Refill, Normal Inspection, Normal Range of Motion, Non Tender, No Calf Tenderness, No Pedal Edema Neurologic/Psychiatric: Alert, Oriented x3, Abnormal Gait, Aphasia, Depressed Affect, EOM Palsy, Motor Weakness (right sided 2/5 upper extremity and 1/5 lower extremity) Skin: Normal Color, Warm/Dry Lymphatic: No Adenopathy Results/Procedures Lab Laboratory Tests 09/18/19 04:23 Patient resulted labs reviewed. FIM Transfers Therapy Code Descriptions/Definitions Functional [place] Measure: 0=Not Assessed/NA 4=Minimal Assistance 1=Total Assistance 5=Supervision or Setup 2=Maximal Assistance 6=Modified [place] 3=Moderate Assistance 7=Complete IndependenceSCALE: Activities may be completed with or without assistive devices. 7-Qremyszdtb-orohzkf completes the activity by him/herself with no assistance from a helper. 5-Set-up or Clean-up Assistance-helper sets up or cleans up; patient completes activity. [place] assists only prior to or following the activity. 4-Supervision or Touching Assistance-helper provides verbal cues and/or touc laura/steadying and/or contact guard assistance as patient completes activity. Assistance may be provided throughout the activity or intermittently. 3-Partial/Moderate Assistance-helper does LESS THAN HALF the effort. [place] lifts, holds or supports trunk or limbs, but provides less than half the effort. 2-Substantial/Maximal Assistance-helper does MORE THAN HALF the effort. [place] lifts or holds trunk or limbs and provides more than half the effort. 1-Zflaagkxq-otfljl does ALL the effort. Patient does none of the effort to complete the activity. Or, the assistance of 2 or more helpers is required for the patient to complete the activity. If activity was not attempted, code reason: 7-Patient Refused. 9-Not Applicable-not attempted and the patient did not perform the activity be fore the current illness, exacerbation or injury. 10-Not Attempted due to Environmental Limitations-(lack of equipment, weather restraints, etc.). 88-Not Attempted due to Medical Conditions or Safety Concerns. Roll Left to Right (QC): 2 Sit to Lying (QC): 2 Sit to Stand (QC): 2 Chair/Ijs-pp-Htdbu Xfer(QC): 1 Car Transfer (QC): 1 Gait Training Does the Patient Walk?: No and Walking Goal NOT indicated Walk 10 feet (QC): 88 Walk 50 ft with 2 Turns(QC): 88 Walk 150 ft (QC): 88 Walking 10ft/uneven surface-QC: 88 Gait Assistive Device: None Wheelchair Training Does the Pt Use a Wheelchair?: Yes Wheel 50 ft with 2 turns (QC): 3 Wheel 150 ft (QC): 3 Type of Wheelchair: Manual Stair Training 1 Step (curb) (QC): 88 4 Steps (QC): 88 12 Steps (QC): 88 Balance Picking up an Object (QC): 88 ADL-Treatment Eating (QC): 5 Oral Hygiene (QC): 7 Bathing Location: L Arm, R Arm, L Upper Leg, R Upper Leg, L Lower Leg (including foot), R Lower Leg (including foot), Chest, Abdomen, Perineal Area Shower/Bathe Self (QC): 3 (Pt completes sponge bath in recliner chair with min A for bottom hygiene. Pt completes feet/ LB with LHS. Pt requires continuous/ max cues for attention to task this am and redirection. Pt requires cues (physical and verbal) for upright positioning. Completes upright position with min-mod A) Upper Body Dressing (QC): 3 (mod A for attention to task and assist for R hand/ assist over head to doff and don.) Lower Body Dressing (QC): 1 (TD with max A x2 for stance (PT completes stance while OT dons pants after bottom hygiene.) On/Off Footwear (QC): 2 (max A to doff/ don. Pt able to assist in foot movement for ease.) Toileting Hygiene (QC): 1 (max A x2 for assist to stand while completing bottom hygiene.) Toilet Transfer (QC): 1 (TD to sc.) Assessment/Plan Assessment and Plan Assess & Plan/Chief Complaint Assessment: CVA Smoker Hematuria Leukocytosis improved HLP Right side Neglect Fall Risk Cough resolved Constipation resolved UTI acute resistant to Macrobid so started Bactrim 09/09/19 completed treatment and repeat UA negative Insomnia started on Remeron and added Ambien so we'll discontinue Ambien and start Xanax 1 mg at night Chronic migraine Plan: IRF Protocol Statin Smoking cessation ASA Lovenox Telemetry DC since loop recorder placed Macrobid changed to Bactrim Remeron and Ambien Difficult to instill positivity Disposition to likely to nursing facility No increased pain meds indicated Start Topamax (1) CVA (cerebral vascular accident) (2) Hyperlipidemia Status: Chronic (3) Compression fracture of T3 vertebra (4) Behavior disorder (5) Leukocytosis (6) Dysarthria (7) Smoker Status: Chronic KRYS NEFF DO Sep 18, 2019 10:21
--- NOTE | 2019-09-18 11:14 | Physical Therapy Daily Note ---
PT Daily Note-Current Subjective Pt. in recliner, agrees to Rx but needs redirected multiple times to stay on task. Co Rx with PT OT secondary to limited activity tolerance and poor balance as well as to coordinate U&L extremity for stance and w/c etc Pain Numeric Pain Scale: 7 Comment: c/o her pain is " all over" Mental Status Patient Orientation: Person, Place, Eyes Open Transfers SCALE: Activities may be completed with or without assistive devices. 2-Eximrdujmb-xkqtfoc completes the activity by him/herself with no assistance from a helper. 5-Set-up or Clean-up Assistance-helper sets up or cleans up; patient completes activity. [place] assists only prior to or following the activity. 4-Supervision or Touching Assistance-helper provides verbal cues and/or touching/steadying and/or contact guard assistance as patient completes activi ty. Assistance may be provided throughout the activity or intermittently. 3-Partial/Moderate Assistance-helper does LESS THAN HALF the effort. [place] lifts, holds or supports trunk or limbs, but provides less than half the effort. 2-Substantial/Maximal Assistance-helper does MORE THAN HALF the effort. [place] lifts or holds trunk or limbs and provides more than half the effort. 6-Tgsdnvalg-dfkiry does ALL the effort. Patient does none of the effort to complete the activity. Or, the assistance of 2 or more helpers is required for the patient to complete the activity. If activity was not attempted, code reason: 7-Patient Refused. 9-Not Applicable-not attempted and the patient did not perform the activity before the current illness, exacerbation or injury. 10-Not Attempted due to Environmental Limitations-(lack of equipment, weather restraints, etc.). 88-Not Attempted due to Medical Conditions or Safety Concerns. Roll Left & Right (QC): 2 Sit to Lying (QC): 2 Sit to Stand (QC): 2 Chair/Dtv-fn-Aheld Xfer(QC): 2 SPTs require max to mod assist of 2 as pt. has increased tone and poor wt shift requiring max assist Weight Bearing Full Weight Bearing Full Weight Bearing Gait Training Gait Assistive Device: Parallel Bars steps were attempted in parallel bars but again this is max assist for wt shifting and management of balance in bars Exercises Seated Therapy Exercises: Ankle pumps, Hip flexion, Hip abd/add Seated Reps: 15 Treatments co Rx for sponge bathing and dressing in room at chair level. Assessment Current Status: Fair Progress easily distracted, needs redirected for all, max assist for all mobility, balance and control, sitting and TRFs etc all dependent PT Short Term Goals Short Term Goals Time Frame: Sep 12, 2019 Roll Left & Right: 2 Sit to lyin Lying to sitting on side of be: 2 Wheel 50ft w/2 turns: 2 Wheel 150 feet: 2 PT Tank Truck Operator Goals Mcfp Goals PT Mcfp Goals Time Frame: Sep 26, 2019 Roll Left & Right (QC): 3 Sit to Lying (QC): 3 Lying-Sitting on Side/Bed(QC): 3 Sit to Stand (QC): 3 Chair/Qdk-jf-Tyxwg Xfer(QC): 3 Toilet Transfer (QC): 3 Car Transfer (QC): 3 Does the Patient Walk: No and Walking Goal NOT indicated Walk 10 feet (QC): 88 Walk 50ft with 2 Turns (QC): 88 Walk 150 ft (QC): 88 Walking 10ft on Uneven Surface: 88 1 Step (curb) (QC): 88 4 Steps (QC): 88 12 Steps (QC): 88 Picking up an Object (QC): 88 Does the Pt use WC or Scooter?: Yes Wheel 50 feet with 2 turns (QC: 3 Type: Manual Wheel 150 feet: 3 PT Plan Treatment/Plan Treatment Plan: Continue Plan of Care Treatment Plan: Bed Mobility, Education, Functional Activity Afia, Functional Strength, Group Therapy, Gait, Safety, Therapeutic Exercise, Transfers Treatment Duration: Sep 26, 2019 Frequency: At least 5 of 7 days/Wk (IRF) Estimated Hrs Per Day: 1.5 hours per day Patient and/or Family Agrees t: Yes Safety Risks/Education Patient Education: Transfer Techniques, Correct Positioning, Disease Process, Safety Issues Teaching Recipient: Patient Teaching Methods: Demonstration, Discussion Response to Teaching: Verbalize Understanding, Unable to Return Demonstration, Reinforcement Needed Time/GCodes Time In: 800 Time Out: 900 Total Billed Treatment Time: 60 Total Billed Treatment 1,FA60m co Rx with OT 60 m GIUSEPPE MEDINA ROASTERMAN Sep 18, 2019 11:14
--- NOTE | 2019-09-18 12:01 | Occupational Ther Daily Note ---
OT Current Status-Daily Note Subjective Pt laying in bed, agreeable to OT tx. She did not verbalize any pain during tx. ADL-Treatment Therapy Code Descriptions/Definitions Functional [place] Measure: 0=Not Assessed/NA 4=Minimal Assistance 1=Total Assistance 5=Supervision or Setup 2=Maximal Assistance 6=Modified [place] 3=Moderate Assistance 7=Complete IndependenceSCALE: Activities may be completed with or without assistive devices. 0-Sdcyittyhz-bicrwrl completes the activity by him/herself with no assistance from a helper. 5-Set-up or Clean-up Assistance-helper sets up or cleans up; patient completes activity. [place] assists only prior to or following the activity. 4-Supervision or Touching Assistance-helper provides verbal cues and/or touching/steadying and/or contact guard assistance as patient completes activity. Assistance may be provided throughout the activity or intermittently. 3-Partial/Moderate Assistance-helper does LESS THAN HALF the effort. [place] lifts, holds or supports trunk or limbs, but provides less than half the effort. 2-Substantial/Maximal Assistance-helper does MORE THAN HALF the effort. [place] lifts or holds trunk or limbs and provides more than half the effort. 0-Ostjxnqgq-mlscrn does ALL the effort. Patient does none of the effort to complete the activity. Or, the assistance of 2 or more helpers is required for the patient to complete the activity. If activity was not attempted, code reason: 7-Patient Refused. 9-Not Applicable-not attempted and the patient did not perform the activity before the current illness, exacerbation or injury. 10-Not Attempted due to Environmental Limitations-(lack of equipment, weather restraints, etc.). 88-Not Attempted due to Medical Conditions or Safety Concerns. Eating (QC): 5 (set up, pt required assistance opening milk carton and straw. ) Other Treatment Pt laying in bed, with HOB elevated. She was agreeable to OT tx. OT turned of TV during tx in order to minimize distractions. OT educated pt on performing self ROM, x10 reps each RUE shoulder flexion, elbow flexion, wrist flexion, and wrist extension. Pt required moderate verbal cues during tx for attention to task. Pt's lunch arrived, OT assisted pt with setting up her lunch tray. Post OT session, pt sitting upright in bed, call light in reach and all needs met. Education OT Patient Education: Correct positioning, Energy conservation, Exercise program, Modified ADL techniques, Progress toward Goal/Update tx plan, Purpose of tx/functional activities Teaching Recipient: Patient Teaching Methods: Discussion Response to Teaching: Verbalize Understanding OT Short Term Goals Short Term Goals Time Frame: Sep 19, 2019 Eatin Oral hygiene: 9 Toileting hygiene: 3 Shower/bathe self: 3 Upper body dressin Lower body dressin Putting on/taking off footwear: 3 OT Manager [employer] Goals Manager [employer] Goals Time Frame: Oct 03, 2019 Eating (QC): 6 Oral Hygiene (QC): 9 Toileting Hygiene (QC): 4 Shower/Bathe Self (QC): 4 Upper Body Dressing (QC): 4 Lower Body Dressing (QC): 4 On/Off Footwear (QC): 4 Additional Goals: 1-Demonstrate ADL Tasks, 2-Verbalize Understanding, 3- ImproveStrength/Afia 1=Demonstrate adherence to instructed precautions during ADL tasks. 2=Patient will verbalize/demonstrate understanding of assistive devices/modifications for ADL. 3=Patient will improve strength/tolerance for activity to enable patient to perform ADL's. OT Education/Plan Problem List/Assessment Assessment: Decreased Activ Tolerance, Decreased UE Strength, Impaired Funct Balance, Impaired I ADL's, Impaired Self-Care Skills, Restricted Funct UE ROM Discharge Recommendations Plan/Recommendations: Continue POC Treatment Plan/Plan of Care Patient would benefit from OT for education, treatment and training to promote independence in ADL's, mobility, safety and/or upper extremity function for ADL's. Plan of Care: ADL Retraining, Functional Mobility, Group Exercise/Act as Ind, UE Funct Exercise/Act Treatment Duration: Oct 03, 2019 Frequency: At least 5 of 7 days/Wk (IRF) Estimated Hrs Per Day: 1.5 hours per day Agreement: Yes Rehab Potential: Guarded Time/GCodes Start Time: 11:45 Stop Time: 12:00 Total Time Billed (hr/min): 15 Billed Treatment Time 1, EX (15') OZ ROMEO OT Sep 18, 2019 12:01
--- NOTE | 2019-09-18 13:19 | Progress Note ---
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 She reports making some progress with strength and ambulation in therapy, able to do more when encouraged. She also describes having R sided migraines with associated L sided weakness, which she was not experiencing at the time of the exam. Physical exam: Cranial nerves: II: reports no vision loss, PERRL III, IV, : EOMI bilaterally V: no loss of sensation reported in all 3 divisions bilaterally VII: able to puff out cheeks, raise eybrows, smile, frown, and able to resist eye opening. No assymetry VIII: no hearing loss reported IX, X: reports continued difficulties swallowing. Palate elevated symmetrically, no uvular deviation XI: 4+ head turning bilaterally, 4+ L shoulder shrug, 3+ R shoulder shrug XII: Able to stick tongue out, no tongue atrophy or fasciculations. Gross motor: 5+ L shoulder abduction, elbow flexion and extension, wrist flexion and extension. On R UE, 1+ shoulder abduction, elbow flexion and extension, wrist flexion and extension. On L LE, 5+ hip flexion and extension, knee flexion and extension, ankle flexion and extension. On R LE, 2+ hip flexion and extension, knee flexion and extension, and ankle flexion and extension. Reflexes: 2+ biceps reflexes bilaterally, 1+ triceps reflexes bilaterally, 2+ patellar reflexes bilaterally, 2+ achilles reflexes bilaterally Sensory: Denies any sensory loss among dermatomes of arms or legs Coordination: Unable to turn over R hand, displayed some attempted motion. Able to turn L hand rapidly. Egoulc-ib-nzbq maneuver displayed fluid motion, negative for tremor. CHARISSE THIBODEAUX DO 09/18/19 4013: Supervisory-Addendum Brief Verification & Attestation Participated in pt care: history, MDM, physical Personally performed: exam, history, MDM, supervision of care Care discussed with: Medical Student Procedures: n/a Results interpretation: Verified all documentation Verification and Attestation of Medical Student E/M Service A medical student performed and documented this service in my presence. I reviewed and verified all information documented by the medical student and made modifications to such information, when appropriate. I personally performed the physical exam and medical decision making. Charisse Thibodeaux Sep 18, 2019,21:59 RONNIE BRIGGS MED STUDENT Sep 18, 2019 13:19 CHARISSE THIBODEAUX DO Sep 18, 2019 21:59
--- NOTE | 2019-09-18 13:24 | Physical Therapy Daily Note ---
PT Daily Note-Current Subjective Pt. agrees to Rx. Wants to get back in bed after Rx Pain Location: No Pain Reported Transfers SCALE: Activities may be completed with or without assistive devices. 0-Dyfxhkmldm-mlzhqcp completes the activity by him/herself with no assistance from a helper. 5-Set-up or Clean-up Assistance-helper sets up or cleans up; patient completes activity. [place] assists only prior to or following the activity. 4-Supervision or Touching Assistance-helper provides verbal cues and/or touching/steadying and/or contact guard assistance as patient completes activity. Assistance may be provided throughout the activity or intermittently. 3-Partial/Moderate Assistance-helper does LESS THAN HALF the effort. [place] lifts, holds or supports trunk or limbs, but provides less than half the effort. 2-Substantial/Maximal Assistance-helper does MORE THAN HALF the effort. [place] l ifts or holds trunk or limbs and provides more than half the effort. 9-Krcdejzog-dtyhqj does ALL the effort. Patient does none of the effort to complete the activity. Or, the assistance of 2 or more helpers is required for the patient to complete the activity. If activity was not attempted, code reason: 7-Patient Refused. 9-Not Applicable-not attempted and the patient did not perform the activity before the current illness, exacerbation or injury. 10-Not Attempted due to Environmental Limitations-(lack of equipment, weather restraints, etc.). 88-Not Attempted due to Medical Conditions or Safety Concerns. sit to stand x 3 with use of lift recline chair. Pt. has some difficulty releasing chair arms and following instruction for hand placement on this PTAs shoulder or hand rail of bed etc. max assist sit to stand and SPT to bed. feet not taking steps etc. max assist sit to sup. mod assist to sit EOB Weight Bearing Full Weight Bearing Full Weight Bearing Exercises Supine Ex: Ankle pumps (HC stretches x 3, tone conts), Heel Slides, Scooting, Straight leg raise, Hip abd/add Supine Reps: 12 Assessment Current Status: Fair Progress requires assist for LE exercises PT Short Term Goals Short Term Goals Time Frame: Sep 12, 2019 Roll Left & Right: 2 Sit to lyin Lying to sitting on side of be: 2 Wheel 50ft w/2 turns: 2 Wheel 150 feet: 2 PT Nursing Home Goals Nursing Home Goals PT Nursing Home Goals Time Frame: Sep 26, 2019 Roll Left & Right (QC): 3 Sit to Lying (QC): 3 Lying-Sitting on Side/Bed(QC): 3 Sit to Stand (QC): 3 Chair/Cmg-py-Figpa Xfer(QC): 3 Toilet Transfer (QC): 3 Car Transfer (QC): 3 Does the Patient Walk: No and Walking Goal NOT indicated Walk 10 feet (QC): 88 Walk 50ft with 2 Turns (QC): 88 Walk 150 ft (QC): 88 Walking 10ft on Uneven Surface: 88 1 Step (curb) (QC): 88 4 Steps (QC): 88 12 Steps (QC): 88 Picking up an Object (QC): 88 Does the Pt use WC or Scooter?: Yes Wheel 50 feet with 2 turns (QC: 3 Type: Manual Wheel 150 feet: 3 PT Plan Treatment/Plan Treatment Plan: Continue Plan of Care Treatment Plan: Bed Mobility, Education, Functional Activity Afia, Functional Strength, Group Therapy, Gait, Safety, Therapeutic Exercise, Transfers Treatment Duration: Sep 26, 2019 Frequency: At least 5 of 7 days/Wk (IRF) Estimated Hrs Per Day: 1.5 hours per day Patient and/or Family Agrees t: Yes Safety Risks/Education Patient Education: Transfer Techniques, Correct Positioning, Disease Process, Safety Issues Teaching Recipient: Patient Teaching Methods: Demonstration Response to Teaching: Unable to Return Demonstration, Reinforcement Needed Time/GCodes Time In: 1300 Time Out: 1330 Total Billed Treatment Time: 30 Total Billed Treatment 1,EX15m,FA15m GIUSEPPE MEDINA ENVIRONMENTAL CHANGE ANALYST Sep 18, 2019 13:24
[2019-09-18 16:00] VITALS: BP 112/70
[2019-09-18] MEDS ORDERED: toPIRamate 25 MG (TOPAMAX) TAB PO SCH (21:00)
[2019-09-18] MEDS: MIRTAZAPINE 15 MG (REMERON) TAB PO SCH (21:15)
[2019-09-18] MEDS: ALPRAZolam 1 MG (XANAX) TAB PO SCH (21:15)
[2019-09-18] MEDS: toPIRamate 25 MG (TOPAMAX) TAB PO SCH (21:15)
[2019-09-19 06:34] VITALS: BP 102/67
[2019-09-19] MEDS: HYDROcodone/APAP 5 MG/325 MG (LORTAB) TAB PO PRN ×3 (07:19→20:21)
[2019-09-19] MEDS: ALPRAZolam 0.25 MG (XANAX) TAB PO PRN (08:50)
[2019-09-19] MEDS: NICOTINE 21 MG (NICODERM) PATCH TD SCH (08:50)
--- NOTE | 2019-09-19 08:50 | Cardiology Progress Note ---
Subjective Date Seen by Provider: Sep 19, 2019 Time Seen by Provider: 08:00 Subjective/Events-last exam Patient sitting up in bed, no new complaints. Denies any chest pain or dizzi ness. Review of Systems General: No Chills, No Night Sweats, No Fatigue, No Malaise, No Appetite, No Other HEENT: No Head Aches, No Visual Changes, No Eye Pain, No Ear Pain, No Dysphasia, No Sinus Congestion, No Post Nasal Drip, No Sore Throat, No Other Pulmonary: No Dyspnea, No Cough, No Pleuritic Chest Pain, No Other Cardiovascular: No: Chest Pain, Palpitations, Orthopnea, Paroxysmal Noc. Dyspnea, Edema, Lt Headedness, Other Objective-Cardiology Exam Last Set of Vital Signs Vital Signs 09/19/19 06:34 Temp 36.0 Pulse 75 Resp 16 B/P (MAP) 102/67 (79) Pulse Ox 93 O2 Delivery Room Air Capillary Refill : Less Than 3 Seconds I&O Intake and Output 09/19/19 00:00 Intake Total 2830 ml Balance 2830 ml Intake Oral 2830 ml # Voids 8 General: Alert, Oriented X3, Cooperative HEENT: Atraumatic, PERRLA Neck: Supple, +2 Carotid Pulse No Bruit Lungs: Clear to Auscultation, Normal Air Movement Heart: Regular Rate, Normal S1, Normal S2 Abdomen: Normal Bowel Sounds, Soft Extremities: No Clubbing, No Edema Skin: No Rashes, No Significant Lesion Neuro: Normal Speech, Other (right sided hemiplegia) A/P-Cardiology Admission Diagnosis CVA HTN HLP Assessment/Plan CVA, still having right hemiplegia, 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 CT angiogram of the head was nondiagnostic. MRI of the head showed shower of embolization, probably underlying atrial fibrillation, so far her EKG did not show acute abnormality maintenance and aspirin. s/p LINq implantation for further monitoring for atrial fibrillation. Recurrent headache, dependent on pain medication, managed by primary care Echocardiogram showed normal LV function, prominent aorta. No significant abnormality otherwise Borderline hypotension, denies any dizziness, continue to monitor Hyperlipidemia, continue Lipitor, continue to monitor. Urinary tract infection, managed by primary care physician Patient was seen and evaluated with Kely, examination performed, management plan was discussed, agree with the current scribed note, I made few changes to the note using Italic font Patient is laying down in bed, still having headache and difficulty sleeping Continue with physical therapy, continue to monitor Clinical Quality Measures DVT/VTE Risk/Contraindication: Risk Factor Score Per Nursin RFS Level Per Nursing on Admit: 4+=Very High KELY GUTIERREZ Sep 19, 2019 8:50 am DAMON ROTH MD Sep 19, 2019 12:37 pm
[2019-09-19] MEDS: PATCH REMOVAL TP SCH (08:51)
[2019-09-19] MEDS: ASPIRIN E.C. 325 MG (ECOTRIN) TABLET PO SCH (08:51)
--- NOTE | 2019-09-19 09:00 | PM&R Progress Note ---
Subjective HPI/CC On Admission Date Seen by Provider: Sep 19, 2019 Time Seen by Provider: 09:00 Subjective/Events-last exam Left arm function is much improved She is leaning to the left always so we have to prop her up Topamax on board last night after she talked to her son and her son googled it and thought that it was safe to take and she had a really good night after taking the Remeron, Topamax, and Xanax She slept very well for the first time in weeks Overall doing pretty well Will recheck her and evaluate disposition in team meeting tomorrow Checked meds and labs Reviewed therapy notes Conferred with hot stick man of Systems General: Fatigue, Malaise Neurological: Weakness, Incoordination Objective Exam Vital Signs Vital Signs Date Time Temp Pulse Resp B/P (MAP) Pulse Ox O2 Delivery O2 Flow Rate FiO2 09/19/19 17:19 36.7 80 18 118/56 (76) 95 Room Air Capillary Refill : Less Than 3 Seconds General Appearance: No Apparent Distress, Chronically ill, Cachetic HEENT: PERRL/EOMI, Normal ENT Inspection, Pharynx Normal Neck: Full Range of Motion, Normal Inspection, Non Tender, Supple, Carotid Bruit Respiratory: Chest Non Tender, Lungs Clear, Normal Breath Sounds, No Accessory Muscle Use, No Respiratory Distress Cardiovascular: Regular Rate, Rhythm, No Edema, No Gallop, No JVD, No Murmur, Normal Peripheral Pulses Gastrointestinal: Normal Bowel Sounds, No Organomegaly, No Pulsatile Mass, Non Tender, Soft Back: Normal Inspection, No CVA Tenderness, No Vertebral Tenderness Extremity: Normal Capillary Refill, Normal Inspection, Normal Range of Motion, Non Tender, No Calf Tenderness, No Pedal Edema Neurologic/Psychiatric: Alert, Oriented x3, Abnormal Gait, Aphasia, Depressed Affect, EOM Palsy, Motor Weakness (right sided 2/5 upper extremity and 1/5 lower extremity) Skin: Normal Color, Warm/Dry Lymphatic: No Adenopathy Results/Procedures Lab Patient resulted labs reviewed. FIM Transfers Therapy Code Descriptions/Definitions Functional [place] Measure: 0=Not Assessed/NA 4=Minimal Assistance 1=Total Assistance 5=Supervision or Setup 2=Maximal Assistance 6=Modified [place] 3=Moderate Assistance 7=Complete IndependenceSCALE: Activities may be completed with or without assistive devices. 6-Yukwitnhao-oirksdw completes the activity by him/herself with no assistance from a helper. 5-Set-up or Clean-up Assistance-helper sets up or cleans up; patient completes activity. [place] assists only prior to or following the activity. 4-Supervision or Touching Assistance-helper provides verbal cues and/or touching/steadying and/or contact guard assistance as patient completes activity. Assistance may be provided throughout the activity or intermittently. 3-Partial/Moderate Assistance-helper does LESS THAN HALF the effort. [place] lifts, holds or supports trunk or limbs, but provides less than half the effort. 2-Substantial/Maximal Assistance-helper does MORE THAN HALF the effort. [place] lifts or holds trunk or limbs and provides more than half the effort. 1-Rhsrumsjx-rpabtp does ALL the effort. Patient does none of the effort to complete the activity. Or, the assistance of 2 or more helpers is required for the patient to complete the activity. If activity was not attempted, code reason: 7-Patient Refused. 9-Not Applicable-not attempted and the patient did not perform the activity before the current illness, exacerbation or injury. 10-Not Attempted due to Environmental Limitations-(lack of equipment, weather restraints, etc.). 88-Not Attempted due to Medical Conditions or Safety Concerns. Roll Left to Right (QC): 2 Sit to Lying (QC): 2 Sit to Stand (QC): 2 Chair/Vsp-tc-Fnemj Xfer(QC): 2 Car Transfer (QC): 1 Gait Training Does the Patient Walk?: No and Walking Goal NOT indicated Walk 10 feet (QC): 88 Walk 50 ft with 2 Turns(QC): 88 Walk 150 ft (QC): 88 Walking 10ft/uneven surface-QC: 88 Gait Assistive Device: Parallel Bars Wheelchair Training Does the Pt Use a Wheelchair?: Yes Wheel 50 ft with 2 turns (QC): 3 Wheel 150 ft (QC): 3 Type of Wheelchair: Manual Stair Training 1 Step (curb) (QC): 88 4 Steps (QC): 88 12 Steps (QC): 88 Balance Picking up an Object (QC): 88 ADL-Treatment Eating (QC): 5 (set up, pt required assistance opening milk carton and straw. ) Oral Hygiene (QC): 7 Bathing Location: L Arm, R Arm, L Upper Leg, R Upper Leg, L Lower Leg (including foot), R Lower Leg (including foot), Chest, Abdomen, Perineal Area Shower/Bathe Self (QC): 3 (Pt completes sponge bath in recliner chair with min A for bottom hygiene. Pt completes feet/ LB with LHS. Pt requires continuous/ max cues for attention to task this am and redirection. Pt requires cues (physical and verbal) for upright positioning. Completes upright position with m in-mod A) Upper Body Dressing (QC): 3 (mod A for attention to task and assist for R hand/ assist over head to doff and don.) Lower Body Dressing (QC): 1 (TD with max A x2 for stance (PT completes stance while OT dons pants after bottom hygiene.) On/Off Footwear (QC): 2 (max A to doff/ don. Pt able to assist in foot movement for ease.) Toileting Hygiene (QC): 1 (max A x2 for assist to stand while completing bottom hygiene.) Toilet Transfer (QC): 1 (TD to sc.) Assessment/Plan Assessment and Plan Assess & Plan/Chief Complaint Assessment: CVA Smoker Hematuria Leukocytosis improved HLP Right side Neglect Fall Risk Cough resolved Constipation resolved UTI acute resistant to Macrobid so started Bactrim 09/09/19 completed treatment and repeat UA negative Insomnia started on Remeron and added Ambien so we'll discontinue Ambien and start Xanax 1 mg at night- improved Chronic migraine - improved Plan: IRF Protocol Statin Smoking cessation ASA Lovenox Telemetry DC since loop recorder placed Macrobid changed to Bactrim Remeron and Ambien Difficult to instill positivity Disposition to likely to nursing facility No increased pain meds indicated Start Topamax (1) CVA (cerebral vascular accident) (2) Hyperlipidemia Status: Chronic (3) Compression fracture of T3 vertebra (4) Behavior disorder (5) Leukocytosis (6) Dysarthria (7) Smoker Status: Chronic KRYS NEFF DO Sep 19, 2019 09:00
[2019-09-19] MEDS: polyethylene glycoL POWDER 17 GM (MIRALAX) PACK PO SCH ×2 (09:12→20:22)
[2019-09-19] MEDS: DOCUSATE SODIUM 100 MG (COLACE) CAP PO SCH (09:12)
[2019-09-19] MEDS: SENNA W/DOCUSATE (SENOKOT S) TABLET PO SCH ×2 (09:12→20:20)
[2019-09-19] MEDS: ENOXAPARIN 40 MG/0.4 ML (LOVENOX) SYR SC SCH (09:15)
--- NOTE | 2019-09-19 10:22 | Physical Therapy Daily Note ---
PT Daily Note-Current Subjective Pt sitting in recliner upon arrival. Pt agrees to PT. Mental Status Patient Orientation: Person, Confused Transfers SCALE: Activities may be completed with or without assistive devices. 3-Vzurqbfymn-qenqrct completes the activity by him/herself with no assistance from a helper. 5-Set-up or Clean-up Assistance-helper sets up or cleans up; patient completes activity. [place] assists only prior to or following the activity. 4-Supervision or Touching Assistance-helper provides verbal cues and/or sherri trevon/steadying and/or contact guard assistance as patient completes activity. Assistance may be provided throughout the activity or intermittently. 3-Partial/Moderate Assistance-helper does LESS THAN HALF the effort. [place] lifts, holds or supports trunk or limbs, but provides less than half the effort. 2-Substantial/Maximal Assistance-helper does MORE THAN HALF the effort. [place] lifts or holds trunk or limbs and provides more than half the effort. 9-Djrzlbtme-aegicb does ALL the effort. Patient does none of the effort to complete the activity. Or, the assistance of 2 or more helpers is required for the patient to complete the activity. If activity was not attempted, code reason: 7-Patient Refused. 9-Not Applicable-not attempted and the patient did not perform the activity before the current illness, exacerbation or injury. 10-Not Attempted due to Environmental Limitations-(lack of equipment, weather restraints, etc.). 88-Not Attempted due to Medical Conditions or Safety Concerns. Roll Left & Right (QC): 2 Sit to Lying (QC): 2 Lying to Sitting/Side of Bed(Q: 2 Sit to Stand (QC): 2 Chair/Ctz-yl-Lskxt Xfer(QC): 2 Weight Bearing Full Weight Bearing Full Weight Bearing Gait Training Does the Patient Walk?: No and Walking Goal NOT indicated Wheelchair Training Does the Pt Use a Wheelchair?: Yes Type of Wheelchair: Manual Pt needs a lot of Phy. & VC to complete task. Exercises Seated Therapy Exercises: Long arc quads, Kicking activity, Hamstring Curls Seated Reps: 15 Treatments Need for 2 skilled clinicians due to pt's debility, lack of strength for transfers and sitting balance. Pt transfers from recliner to [facility]. Pt focuses on trying to propel H using B LE & L UE. Pt transfers to Therapy mat and works on core strengthening and dynamic sitting balance. OT departs and PT continues to work on LE strengthening then transfers back to [facility] and is propelled back to room. PT transfers to Supine in bed per pt's request. Pt has all needs met, call light in hand. PT works on transfers, core engagement & LE strengthening while OT works on UE strengthening, hand placement & WB through UE. Assessment Current Status: Fair Progress Pt was much more distracted today, needing constant reinforcement to stay on task. PT Short Term Goals Short Term Goals Time Frame: Sep 12, 2019 Roll Left & Right: 2 Sit to lyin Lying to sitting on side of be: 2 Wheel 50ft w/2 turns: 2 Wheel 150 feet: 2 PT Jail Goals Jail Goals PT Jail Goals Time Frame: Sep 26, 2019 Roll Left & Right (QC): 3 Sit to Lying (QC): 3 Lying-Sitting on Side/Bed(QC): 3 Sit to Stand (QC): 3 Chair/Wca-xz-Flnai Xfer(QC): 3 Toilet Transfer (QC): 3 Car Transfer (QC): 3 Does the Patient Walk: No and Walking Goal NOT indicated Walk 10 feet (QC): 88 Walk 50ft with 2 Turns (QC): 88 Walk 150 ft (QC): 88 Walking 10ft on Uneven Surface: 88 1 Step (curb) (QC): 88 4 Steps (QC): 88 12 Steps (QC): 88 Picking up an Object (QC): 88 Does the Pt use WC or Scooter?: Yes Wheel 50 feet with 2 turns (QC: 3 Type: Manual Wheel 150 feet: 3 PT Plan Problem List Problem List: Activity Tolerance, Functional Strength, Safety, Balance, Transfer Treatment/Plan Treatment Plan: Continue Plan of Care Treatment Plan: Bed Mobility, Education, Functional Activity Afia, Functional Strength, Group Therapy, Gait, Safety, Therapeutic Exercise, Transfers Treatment Duration: Sep 26, 2019 Frequency: At least 5 of 7 days/Wk (IRF) Estimated Hrs Per Day: 1.5 hours per day Patient and/or Family Agrees t: Yes Safety Risks/Education Patient Education: Transfer Techniques, Correct Positioning, W/C Management, Safety Issues Teaching Recipient: Patient Teaching Methods: Demonstration, Discussion Response to Teaching: Unable to Return Demonstration, Reinforcement Needed Time/GCodes Time In: 800 Time Out: 900 Total Billed Treatment Time: 60 Total Billed Treatment 1, FA x2 (30m) & NM x2 (30m) JHONY WALTERS TAX ASSESSOR Sep 19, 2019 10:22
--- NOTE | 2019-09-19 13:34 | NUR ---
"RD ASSESSMENT PMHx: HLD; tobacco use PT INTERACTION: Pt was awake and pleasant during nutrition follow-up. Pt states she has been eating well since last assessment. Note avg PO intake >75% x4d, per chart review. Pt states no issues with nausea, vomiting, constipation, or diarrhea since last assessment. Note last BM was 7/5 and pt currently on bowel regimen of colace qd; senna BID; and miralax BID, per chart review. ABNORMAL NUTRITION-RELATED LAB VALUES LOW: HIGH: BUN 19; AST 36 Est. kcal needs: 4895-9372 kcal | 25-30 kcal/kg Est. Pro needs: 60-72 g Pro | 1.0-1.2 g Pro/kg PES STATEMENT: Given current PO intake, no nutrition diagnosis at this time (NO-1.1) INTERVENTION: Continue with current diet order of Regular diet. Will continue to follow and reassess as pt needs, intake, and status change. MONITOR/EVALUATE: PO Intake; Plan of Care; Hydration Status; Weight Status; Lab Values Isabel Mitchell, MS, RD, LD"
--- NOTE | 2019-09-19 13:38 | Occupational Ther Daily Note ---
OT Current Status-Daily Note Subjective [id number]: OT/ PT co-treat due to debility and decreased functional tolerance for activities, dependency of transfers, and decreased attention requiring the skill of 2 therapists that of which an aide could not provide. Pt states pain, agreed co-treat, nursing notified of pain. [id number]: OT/ PT co-treat: OT/ PT co-treat due to debility and decreased functional tolerance for activities, dependency of transfers, and decreased attention requiring the skill of 2 therapists that of which an aide could not provide. [id number]: OT individual session: OT seen for individual tx. During this time daughter present. Pt c/o pain. Nursing notified. ADL-Treatment Therapy Code Descriptions/Definitions Functional [place] Measure: 0=Not Assessed/NA 4=Minimal Assistance 1=Total Assistance 5=Supervision or Setup 2=Maximal Assistance 6=Modified [place] 3=Moderate Assistance 7=Complete IndependenceSCALE: Activities may be completed with or without assistive devices. 3-Lxcxoredxe-pwvhcyk completes the activity by him/herself with no assistance from a helper. 5-Set-up or Clean-up Assistance-helper sets up or cleans up; patient completes activity. [employer] assists only prior to or following the activity. 4-Supervision or Touching Assistance-helper provides verbal cues and/or touching/steadying and/or contact guard assistance as patient completes activity. Assistance may be provided throughout the activity or intermittently. 3-Partial/Moderate Assistance-helper does LESS THAN HALF the effort. [employer] [employer] lifts, holds or supports trunk or limbs, but provides less than half the effort. 2-Substantial/Maximal Assistance-helper does MORE THAN HALF the effort. [employer] lifts or holds trunk or limbs and provides more than half the effort. 8-Jlgddftqn-ylerhd does ALL the effort. Patient does none of the effort to complete the activity. Or, the assistance of 2 or more helpers is required for the patient to complete the activity. If activity was not attempted, code reason: 7-Patient Refused. 9-Not Applicable-not attempted and the patient did not perform the activity before the current illness, exacerbation or injury. 10-Not Attempted due to Environmental Limitations-(lack of equipment, weather restraints, etc.). 88-Not Attempted due to Medical Conditions or Safety Concerns. Lower Body Dressing (QC): 2 (max A-requires assist x2 for stance while OT completes bottom hygiene and pant donning. Able to utilize LUE for assist over hip.) On/Off Footwear: 1 Toileting Hygiene (QC): 1 (TD with assist x2 (PT for stance/ balance while OT completes BM hygiene)) Toilet Transfer (QC): 1 (TD with assist x1 and 2nd person for safety and position for UEs.) Other Treatment [id number]: Pt completes bed mob TD, EOB with TD. Completes pant donning TD. PT agrees to w/c mob, completes transfer to w/c with TD and assist with UE movement. Pt completes w/c mob with max cues for LB movement. Pt utilizes LUE for mobility, though unable to problem solve to enable straight propulsion. Pt requires cues for attention to task and redirection. Pt instructed to leave LUE on lap and focus on BLE movement, requires max Cues throughout. Unable to fully propel due to weakness and problem solving. Pt pushed to mat, TD for transfer EOM. Pt sits upright with max A to increase core strength and balance, encouraged to sit upright with assist with BUE movement. Mirror placed in front of pt for visual feedback. Pt encouraged to bring BUEs down to knees, able to bring elbows to knees with control and sits with CGA while in this position. Pt then able to pull self up to sit, requires min A for righting at times. Pt completes trunk rotation with max A. Pt left EOM with PT individual tx. [id number]: Pt seen in bed. Pt agrees to toilet. Pt states she sometimes isn't able to hold urine but could go. Pt completes bed mob max A, TD to commode placed at bedside. Pt positioned with pillow behind back and BUE on rails. Pt able to urinate/ BM. TD for clean up. Daughter present throughout. Pt's daughter given cues and education during toileting and transfer with SPT with TD to recliner. Positioned with pillows. PT exits, OT focuses on LUE movement and PROM to all joints. Pt completes active gate clerk of sponge and transfers to LUE, able to complete this with static position of RUE and dynamic movements of LUE- utilizes gate clerk of BUE. Pt's daughter educated on HEP. All needs met, call light in reach. Pt left in recliner with pillows for support, daughter present. OT Short Term Goals Short Term Goals Time Frame: Sep 19, 2019 Eatin Oral hygiene: 9 Toileting hygiene: 3 Shower/bathe self: 3 Upper body dressin Lower body dressin Putting on/taking off footwear: 3 OT Assisted Goals Qa Tester Goals Time Frame: Oct 03, 2019 Eating (QC): 6 Oral Hygiene (QC): 9 Toileting Hygiene (QC): 4 Shower/Bathe Self (QC): 4 Upper Body Dressing (QC): 4 Lower Body Dressing (QC): 4 On/Off Footwear (QC): 4 Additional Goals: 1-Demonstrate ADL Tasks, 2-Verbalize Understanding, 3- ImproveStrength/Afia 1=Demonstrate adherence to instructed precautions during ADL tasks. 2=Patient will verbalize/demonstrate understanding of assistive devices/modifications for ADL. 3=Patient will improve strength/tolerance for activity to enable patient to perform ADL's. OT Education/Plan Problem List/Assessment Assessment: Decreased Activ Tolerance, Decreased Safety Aware, Decreased UE Strength, Dependent Transfers, Impaired Bed Mobility, Impaired Cognition, Impaired Coordination, Impaired Funct Balance, Impaired I ADL's, Impaired Self- Care Skills Discharge Recommendations Plan/Recommendations: Continue POC Therapy Discharge Recommendati: 24 Hour Supervision, Home & Family, Post Acute OT Equpiment Recommendations-D/C: Extended Bath Bench, Rails on Tub/Shower, Extended Shower Sprayer, Bedside Commode Treatment Plan/Plan of Care Treatment,Training & Education: Yes Patient would benefit from OT for education, treatment and training to promote independence in ADL's, mobility, safety and/or upper extremity function for ADL's. Plan of Care: ADL Retraining, Functional Mobility, Group Exercise/Act as Ind, UE Funct Exercise/Act Treatment Duration: Oct 03, 2019 Frequency: At least 5 of 7 days/Wk (IRF) Estimated Hrs Per Day: 1.5 hours per day Agreement: Yes Rehab Potential: Guarded Time/GCodes Start Time: 08:00 (1300) Stop Time: 08:45 (1330) Total Time Billed (hr/min): 75 Billed Treatment Time 3790-7250: OT/ PT co-treat due to debility and decreased functional tolerance for activities, dependency of transfers, and decreased attention requiring the skill of 2 therapists that of which an aide could not provide. 1, ADL, WC, NM [phone]: OT/ PT co-treat: OT/ PT co-treat due to debility and decreased fun ctional tolerance for activities, dependency of transfers, and decreased attention requiring the skill of 2 therapists that of which an aide could not provide. [id number]: OT individual session: OT seen for individual tx. 1, ADL, EX (30) total: 75 CARINA WOODS OTR Sep 19, 2019 13:38
--- NOTE | 2019-09-19 13:40 | Physical Therapy Daily Note ---
PT Daily Note-Current Subjective Pt in bed upon arrival and agrees to co-treat. Pt daughter entered room about 10 mins into tx. Mental Status Patient Orientation: Person, Place, Time, Situation Transfers SCALE: Activities may be completed with or without assistive devices. 7-Byrcioyhdg-ifcslxb completes the activity by him/herself with no assistance from a helper. 5-Set-up or Clean-up Assistance-helper sets up or cleans up; patient completes activity. [place] assists only prior to or following the activity. 4-Supervision or Touching Assistance-helper provides verbal cues and/or touching/steadying and/or contact guard assistance as patient completes activ ity. Assistance may be provided throughout the activity or intermittently. 3-Partial/Moderate Assistance-helper does LESS THAN HALF the effort. [place] lifts, holds or supports trunk or limbs, but provides less than half the effort. 2-Substantial/Maximal Assistance-helper does MORE THAN HALF the effort. [place] lifts or holds trunk or limbs and provides more than half the effort. 7-Hopeoefeu-rllruj does ALL the effort. Patient does none of the effort to complete the activity. Or, the assistance of 2 or more helpers is required for the patient to complete the activity. If activity was not attempted, code reason: 7-Patient Refused. 9-Not Applicable-not attempted and the patient did not perform the activity before the current illness, exacerbation or injury. 10-Not Attempted due to Environmental Limitations-(lack of equipment, weather restraints, etc.). 88-Not Attempted due to Medical Conditions or Safety Concerns. Sit to Stand (QC): 2 Toilet Transfer (QC): 2 Weight Bearing Full Weight Bearing Full Weight Bearing Gait Training Does the Patient Walk?: No and Walking Goal NOT indicated Treatments Use of two clinicians needed d/t pts activity tolerance and lack of balance. Pt in bed and transfers to [facility] MaxA x2. Pt cleaned by OT while PT performs transfer. Pt placed in recliner and let with all needs met. OT left in room with pt at end of tx. OT focused on UE strengthening and positioning, PT focused on transfers and LE positioning. Assessment Current Status: Good Progress Pt is easily distracted, more so with daughter in room. Pt needs VC to stay focused. PT Short Term Goals Short Term Goals Time Frame: Sep 12, 2019 Roll Left & Right: 2 Sit to lyin Lying to sitting on side of be: 2 Wheel 50ft w/2 turns: 2 Wheel 150 feet: 2 PT Senior Living Goals Film Coater Goals PT Senior Living Goals Time Frame: Sep 26, 2019 Roll Left & Right (QC): 3 Sit to Lying (QC): 3 Lying-Sitting on Side/Bed(QC): 3 Sit to Stand (QC): 3 Chair/Xpx-mf-Aprlj Xfer(QC): 3 Toilet Transfer (QC): 3 Car Transfer (QC): 3 Does the Patient Walk: No and Walking Goal NOT indicated Walk 10 feet (QC): 88 Walk 50ft with 2 Turns (QC): 88 Walk 150 ft (QC): 88 Walking 10ft on Uneven Surface: 88 1 Step (curb) (QC): 88 4 Steps (QC): 88 12 Steps (QC): 88 Picking up an Object (QC): 88 Does the Pt use WC or Scooter?: Yes Wheel 50 feet with 2 turns (QC: 3 Type: Manual Wheel 150 feet: 3 PT Plan Problem List Problem List: Activity Tolerance, Functional Strength, Safety, Balance, Transfer, Bed Mobility Treatment/Plan Treatment Plan: Continue Plan of Care Treatment Plan: Bed Mobility, Education, Functional Activity Afia, Functional Strength, Group Therapy, Gait, Safety, Therapeutic Exercise, Transfers Treatment Duration: Sep 26, 2019 Frequency: At least 5 of 7 days/Wk (IRF) Estimated Hrs Per Day: 1.5 hours per day Patient and/or Family Agrees t: Yes Safety Risks/Education Patient Education: Transfer Techniques, Correct Positioning, Safety Issues Teaching Recipient: Patient, Family Teaching Methods: Discussion Response to Teaching: Verbalize Understanding Time/GCodes Time In: 1300 Time Out: 1315 Total Billed Treatment Time: 15 Total Billed Treatment 1, FA Co-treat with OT for 15m J[facility]ONY W[facility]S [employer] [facility] OFFICER Sep 19, 2019 13:40
--- NOTE | 2019-09-19 13:43 | NUR ---
CM/SS CONCURRENT DOCUMENTATION Patient's daughter Petra here in anticipation of the scheduled Social Security disability phone call interview. Social Security did not call as of yet, marketing underwriter provided the office number for Heather so that Petra can check in with them regarding any conflicts or need to reschedule. Plan continues for patient to return home with adequate DME under family care and supervision. Review in patient care conference tomorrow.
--- NOTE | 2019-09-19 15:02 | Speech Therapy Daily Note ---
Speech Daily Progress Note Subjective Date Seen by Provider: Sep 19, 2019 Time Seen by Provider: 00:30 Patient resting in her bed with daughter at bedside. Patient said her new medication helped her sleep very well last night. Objective Patient completed a series of problem solving tasks related to her daily needs and return home with 95% given minimal cues. Assessment Assessment Current Status: Good Progress Treatment Plan Continue Plan of Care Speech Short Term Goals Short Term Goals Short Term Goals Pt will complete (visual/verbal) attention task with 90% accy. Pt will complete STM task with use of compensatoy strategies with 90% accy Pt will complete further cognitive assessment for further evaluation of memory, functional math, and reading. Speech Halfway Goals Halfway Goals Pt will tolerate least restrictive diet with no s/s of aspiration/penetration wiht observed oral intake. Speech-Plan Patient/Family Goals Patient/Family Goals: Patient plans on returning home with her children upon discharge. Treatment Plan Speech Therapy Treatment Plan: Continue Plan of Care Treatment Duration: Sep 20, 2019 Frequency: 5 times per week Estimated Hrs Per Day: .5 hour per day Rehab Potential: Guarded Barriers to Learning: Patient's recent CVA, although mostly resolved Pt/Family Agrees to Plan: Yes Safety Risks/Education Teaching Recipient: Patient, Family Teaching Methods: Demonstration, Discussion Response to Teaching: Verbalize Understanding, Return Demonstration Education Topics Provided: Continued safety upon her return home Time Speech Therapy Time In: 14:45 Speech Therapy Time Out: 15:15 Total Billed Time: 30 Billed Treatment Time [address] Sep 19, 2019 15:02
[2019-09-19 17:19] VITALS: BP 118/56
[2019-09-19] MEDS: MIRTAZAPINE 15 MG (REMERON) TAB PO SCH (20:20)
[2019-09-19] MEDS: ALPRAZolam 1 MG (XANAX) TAB PO SCH (20:20)
[2019-09-19] MEDS: toPIRamate 25 MG (TOPAMAX) TAB PO SCH (20:21)
[2019-09-20 06:09] VITALS: BP 100/64
--- NOTE | 2019-09-20 06:13 | PM&R Progress Note ---
Subjective HPI/CC On Admission Date Seen by Provider: Sep 20, 2019 Time Seen by Provider: 09:15 Subjective/Events-last exam Had a BM yesterday, refusing laxatives today New bruising just from how much we have to handle her arms and legs when she is moving since she is total assist Discharge home soon with daughter and granddaughter Looking at what her needs are as far as equipment necessary for going home No pain is reported doing well with that Xanax and Topamax and Remeron are all three helping her sleep Checked meds and labs Reviewed therapy notes Conferred with senior auditor of Systems General: Fatigue, Malaise Neurological: Weakness, Incoordination Objective Exam Vital Signs Vital Signs Date Time Temp Pulse Resp B/P (MAP) Pulse Ox O2 Delivery O2 Flow Rate FiO2 09/20/19 18:00 36.2 87 18 97/56 (70) 93 Room Air Capillary Refill : Less Than 3 Seconds General Appearance: No Apparent Distress, Chronically ill, Cachetic HEENT: PERRL/EOMI, Normal ENT Inspection, Pharynx Normal Neck: Full Range of Motion, Normal Inspection, Non Tender, Supple, Carotid Bruit Respiratory: Chest Non Tender, Lungs Clear, Normal Breath Sounds, No Accessory Muscle Use, No Respiratory Distress Cardiovascular: Regular Rate, Rhythm, No Edema, No Gallop, No JVD, No Murmur, Normal Peripheral Pulses Gastrointestinal: Normal Bowel Sounds, No Organomegaly, No Pulsatile Mass, Non Tender, Soft Back: Normal Inspection, No CVA Tenderness, No Vertebral Tenderness Extremity: Normal Capillary Refill, Normal Inspection, Normal Range of Motion, Non Tender, No Calf Tenderness, No Pedal Edema Neurologic/Psychiatric: Alert, Oriented x3, Abnormal Gait, Aphasia, Depressed Affect, EOM Palsy, Motor Weakness (right sided 2/5 upper extremity and 1/5 lower extremity) Skin: Normal Color, Warm/Dry Lymphatic: No Adenopathy Results/Procedures Lab Patient resulted labs reviewed. FIM Transfers Therapy Code Descriptions/Definitions Functional [place] Measure: 0=Not Assessed/NA 4=Minimal Assistance 1=Total Assistance 5=Supervision or Setup 2=Maximal Assistance 6=Modified [place] 3=Moderate Assistance 7=Complete IndependenceSCALE: Activities may be completed with or without assistive devices. 7-Prhyljshxu-cbkkixz completes the activity by him/herself with no assistance from a helper. 5-Set-up or Clean-up Assistance-helper sets up or cleans up; patient completes activity. [place] assists only prior to or following the activity. 4-Supervision or Touching Assistance-helper provides verbal cues and/or touching/steadying and/or contact guard assistance as patient completes activity. Assistance may be provided throughout the activity or intermittently. 3-Partial/Moderate Assistance-helper does LESS THAN HALF the effort. [place] lifts, holds or supports trunk or limbs, but provides less than half the effort. 2-Substantial/Maximal Assistance-helper does MORE THAN HALF the effort. [place] lifts or holds trunk or limbs and provides more than half the effort. 2-Ebdpfpexj-udepoe does ALL the effort. Patient does none of the effort to complete the activity. Or, the assistance of 2 or more helpers is required for the patient to complete the activity. If activity was not attempted, code reason: 7-Patient Refused. 9-Not Applicable-not attempted and the patient did not perform the activity before the current illness, exacerbation or injury. 10-Not Attempted due to Environmental Limitations-(lack of equipment, weather restraints, etc.). 88-Not Attempted due to Medical Conditions or Safety Concerns. Roll Left to Right (QC): 2 Sit to Lying (QC): 2 Sit to Stand (QC): 2 Chair/Fti-qf-Bjhad Xfer(QC): 2 Car Transfer (QC): 1 Gait Training Does the Patient Walk?: No and Walking Goal NOT indicated Walk 10 feet (QC): 88 Walk 50 ft with 2 Turns(QC): 88 Walk 150 ft (QC): 88 Walking 10ft/uneven surface-QC: 88 Gait Assistive Device: Parallel Bars Wheelchair Training Does the Pt Use a Wheelchair?: Yes Wheel 50 ft with 2 turns (QC): 3 Wheel 150 ft (QC): 3 Type of Wheelchair: Manual Stair Training 1 Step (curb) (QC): 88 4 Steps (QC): 88 12 Steps (QC): 88 Balance Picking up an Object (QC): 88 ADL-Treatment Eating (QC): 5 (set up, pt required assistance opening milk carton and straw. ) Oral Hygiene (QC): 7 Bathing Location: L Arm, R Arm, L Upper Leg, R Upper Leg, L Lower Leg (including foot), R Lower Leg (including foot), Chest, Abdomen, Perineal Area Shower/Bathe Self (QC): 3 (Pt completes sponge bath in recliner chair with min A for bottom hygiene. Pt completes feet/ LB with LHS. Pt requires continuous/ max cues for attention to task this am and redirection. Pt requires cues (physical and verbal) for upright positioning. Completes upright position with min-mod A) Upper Body Dressing (QC): 3 (mod A for attention to task and assist for R hand/ assist over head to doff and don.) Lower Body Dressing (QC): 2 (max A-requires assist x2 for stance while OT completes bottom hygiene and pant donning. Able to utilize LUE for assist over hip.) On/Off Footwear (QC): 1 Toileting Hygiene (QC): 1 (TD with assist x2 (PT for stance/ balance while OT completes BM hygiene)) Toilet Transfer (QC): 1 (TD with assist x1 and 2nd person for safety and position for UEs.) Assessment/Plan Assessment and Plan Assess & Plan/Chief Complaint Assessment: CVA Smoker Hematuria Leukocytosis improved HLP Right side Neglect Fall Risk Cough resolved Constipation resolved UTI acute resistant to Macrobid so started Bactrim 09/09/19 completed treatment and repeat UA negative Insomnia started on Remeron and added Ambien so we'll discontinue Ambien and start Xanax 1 mg at night- improved Chronic migraine - improved Plan: IRF Protocol Statin Smoking cessation ASA Lovenox Telemetry DC since loop recorder placed Macrobid changed to Bactrim now completed Remeron and Xanax and Topamax Difficult to instill positivity Disposition to likely to nursing facility but family plans on bringing her home to care for her No increased pain meds indicated Start Topamax Discharge home soon with daughter and granddaughter to care for her (1) CVA (cerebral vascular accident) (2) Hyperlipidemia Status: Chronic (3) Compression fracture of T3 vertebra (4) Behavior disorder (5) Leukocytosis (6) Dysarthria (7) Smoker Status: Chronic KYRS NEFF DO Sep 20, 2019 06:13
[2019-09-20] MEDS: HYDROcodone/APAP 5 MG/325 MG (LORTAB) TAB PO PRN ×3 (07:56→17:28)
--- NOTE | 2019-09-20 08:16 | Cardiology Progress Note ---
Subjective Date Seen by Provider: Sep 20, 2019 Time Seen by Provider: 08:15 Subjective/Events-last exam Patient is sitting up in chair, no new complaints, continues to have right sided weakness. Denies any chest pain or dyspnea. Review of Systems General: No Chills, No Night Sweats, No Fatigue, No Malaise, No Appetite, No Other HEENT: No Head Aches, No Visual Changes, No Eye Pain, No Ear Pain, No Dysphasia, No Sinus Congestion, No Post Nasal Drip, No Sore Throat, No Other Pulmonary: Dyspnea; No Cough, No Pleuritic Chest Pain, No Other Cardiovascular: No: Chest Pain, Palpitations, Orthopnea, Paroxysmal Noc. Dyspnea, Edema, Lt Headedness, Other Objective-Cardiology Exam Last Set of Vital Signs Vital Signs 09/20/19 06:09 Temp 36.2 Pulse 77 Resp 16 B/P (MAP) 100/64 (76) Pulse Ox 95 O2 Delivery Room Air Capillary Refill : Less Than 3 Seconds I&O Intake and Output 09/20/19 00:00 Intake Total 1680 ml Balance 1680 ml Intake Oral 1680 ml # Voids 9 # Bowel Movements 1 General: Alert, Oriented X3, Cooperative HEENT: Atraumatic, PERRLA Neck: Supple, +2 Carotid Pulse No Bruit Lungs: Clear to Auscultation, Normal Air Movement Heart: Regular Rate, Normal S1, Normal S2 Abdomen: Normal Bowel Sounds, Soft Extremities: No Clubbing, No Edema Skin: No Rashes, No Significant Lesion Neuro: Normal Speech, Other (right sided hemiplegia) A/P-Cardiology Admission Diagnosis CVA HTN HLP Assessment/Plan CVA, still having right hemiplegia, 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 CT angiogram of the head was nondiagnostic. MRI of the head showed shower of embolization, probably underlying atrial fibrillation, so far her EKG did not show acute abnormality maintenance and aspirin. s/p LINq implantation for further monitoring for atr ial fibrillation. Recurrent headache, dependent on pain medication, managed by primary care Echocardiogram showed normal LV function, prominent aorta. No significant abnormality otherwise Borderline hypotension, denies any dizziness, continue to monitor Hyperlipidemia, continue Lipitor, continue to monitor. Urinary tract infection, improved, managed by primary care physician Patient was seen and evaluated with Kely, examination performed, management plan was discussed, agree with the current scribed note, I made few changes to the note using Italic font Patient was seen at bedside, sitting comfortably Slept better yesterday, still having some headache on and off Blood pressure is stable, continue to monitor Clinical Quality Measures DVT/VTE Risk/Contraindication: Risk Factor Score Per Nursin RFS Level Per Nursing on Admit: 4+=Very High KELY GUTIERREZ Sep 20, 2019 08:16 DAMON ROTH MD Sep 20, 2019 11:46
[2019-09-20] MEDS: DOCUSATE SODIUM 100 MG (COLACE) CAP PO SCH (08:18)
[2019-09-20] MEDS: PATCH REMOVAL TP SCH (08:18)
[2019-09-20] MEDS: polyethylene glycoL POWDER 17 GM (MIRALAX) PACK PO SCH ×2 (08:19→19:27)
[2019-09-20] MEDS: NICOTINE 21 MG (NICODERM) PATCH TD SCH (08:45)
[2019-09-20] MEDS: SENNA W/DOCUSATE (SENOKOT S) TABLET PO SCH ×2 (08:45→20:10)
[2019-09-20] MEDS: ALPRAZolam 0.25 MG (XANAX) TAB PO PRN ×2 (08:45→18:08)
--- NOTE | 2019-09-20 09:24 | Occupational Ther Daily Note ---
OT Current Status-Daily Note Subjective Pt seen in recliner this am. Pt agrees to OT/ PT co-treat. Co-treat rendered due to pt's dependency with transfers, decreased balance and strength for functional activities, and decreased attention requiring the skill of 2 therapists. OT addresses ADLs and UE movement and attention while PT provides support and skill for transfers, balance, and LB movement. Pt c/o pain and requests "pain and nerve pill." nursing notified. Mental Status/Objective Patient Orientation: Person, Place, Time, Situation ADL-Treatment Therapy Code Descriptions/Definitions Functional [place] Measure: 0=Not Assessed/NA 4=Minimal Assistance 1=Total Assistance 5=Supervision or Setup 2=Maximal Assistance 6=Modified [place] 3=Moderate Assistance 7=Complete IndependenceSCALE: Activities may be completed with or without assistive devices. 2-Dheuonhjub-ueljbsg completes the activity by him/herself with no assistance from a helper. 5-Set-up or Clean-up Assistance-helper sets up or cleans up; patient completes activity. [place] assists only prior to or following the activity. 4-Supervision or Touching Assistance-helper provides verbal cues and/or touching/steadying and/or contact guard assistance as patient completes activity. Assistance may be provided throughout the activity or intermittently. 3-Partial/Moderate Assistance-helper does LESS THAN HALF the effort. [place] lifts, holds or supports trunk or limbs, but provides less than half the effort. 2-Substantial/Maximal Assistance-helper does MORE THAN HALF the effort. [place] lifts or holds trunk or limbs and provides more than half the effort. 7-Wmjgtrpid-gjeedk does ALL the effort. Patient does none of the effort to complete the activity. Or, the assistance of 2 or more helpers is required for the patient to complete the activity. If activity was not attempted, code reason: 7-Patient Refused. 9-Not Applicable-not attempted and the patient did not perform the activity before the current illness, exacerbation or injury. 10-Not Attempted due to Environmental Limitations-(lack of equipment, weather restraints, etc.). 88-Not Attempted due to Medical Conditions or Safety Concerns. Eating (QC): 5 Oral Hygiene (QC): 9 ( pt does not have dentation and denies washing mouth out.) Bathing Location: L Arm, R Arm, L Upper Leg, R Upper Leg, L Lower Leg (including foot), R Lower Leg (including foot), Chest, Abdomen, Perineal Area Shower/Bathe Self (QC): 3 (CGA- min A on shower bench throughout for balance. Pt states she will take showers at home. pt states son plans to "make whatever we need." as pt only has tub/ shower, shower bench trialed today with CGA-min A. Pt later completes tub/ shower transfer with tub transfer bench with max A to reach safely. Pt requires continuous cueing for attention to task during transfer. Pt able to hold self up on sb with CGA during mock showering. showering- pt requires min A for bottom hygiene only. Pt able to reach all other areas with CGA and LHS for LB.) Upper Body Dressing (QC): 3 (mod A doff and donning.max A bra donning.) Lower Body Dressing (QC): 1 (TD as assist x2 required and pt does not attempt assist this date.) On/Off Footwear: 1 (TD socks.) Toileting Hygiene (QC): 1 (TD with PT assist to stand and TD for OT cleansing.) Toilet Transfer (QC): 2 (max A is required for transfer.) Other Treatment Pt states pt's son and daughter plan to receive DME, including gbs in tub/ shower, sc (later educated on use of tub transfer bench and pt's son plans to make), BSC, and w/c. Pt has long handled shower head. Pt completes all transfers with TD-max A. Pt educated throughout with cues for attention and importance of safety. Pt requests that daughter spends night for 2 days to observe therapy. Transfers from chair to w/c with TD. Cues throughout w/c positioning for upright posture, pt unable to self correct without max cues. Pt completes showering as above (CGA-min A). Pt completes w/c mob wiht increased cues for LB usage and problem solving. Pt pushed to shower room, educated on tub transfer bench and completes with TD/ max A. Pt educated on utilizing towel under bottom for caregiver assist to slide bottom toward backrest/ where they need it. Pt sits with CGA-SBA on sc. Pt educated on placement of gb in shower. Pt agrees. Pt completes back to w/c with TD, education throughout. Pt pushed to therapy gym, completes modified push ups in w/c and parallel bars- requires max cueing for mm activation (tactile and verbal). Pt unable to understand/ activates triceps throughout when asking to bend arm. pt requires max A for bending LUE with correct mms. Pt able to pull self forward with use of parallel bars with max A x2 times. Pt completes stance in parallel bars x2 times wiht cues for UE placement and activation. Pt requires cues to pull with UE in stance, cues for head upright and bottom under hips throughout. Returns to room, all needs met, sits in recliner and call light on lap. Education OT Patient Education: Correct positioning, Exercise program, Home exercise program, Modified ADL techniques, Progress toward Goal/Update tx plan, Purpose of tx/functional activities, Safety issues, Transfer techniques, W/C management Teaching Recipient: Patient Teaching Methods: Demonstration, Discussion Response to Teaching: Verbalize Understanding, Unable to Return Demonstration, Return Demonstration, Reinforcement Needed OT Short Term Goals Short Term Goals Time Frame: Sep 19, 2019 Eatin Oral hygiene: 9 Toileting hygiene: 3 Shower/bathe self: 3 Upper body dressin Lower body dressin Putting on/taking off footwear: 3 OT Physician Allergist Immunologist Goals Assisted Goals Time Frame: Oct 03, 2019 Eating (QC): 6 Oral Hygiene (QC): 9 Toileting Hygiene (QC): 4 Shower/Bathe Self (QC): 4 Upper Body Dressing (QC): 4 Lower Body Dressing (QC): 4 On/Off Footwear (QC): 4 Additional Goals: 1-Demonstrate ADL Tasks, 2-Verbalize Understanding, 3- ImproveStrength/Afia 1=Demonstrate adherence to instructed precautions during ADL tasks. 2=Patient will verbalize/demonstrate understanding of assistive devices/modifications for ADL. 3=Patient will improve strength/tolerance for activity to enable patient to perform ADL's. OT Education/Plan Problem List/Assessment Assessment: Decreased Activ Tolerance, Decreased Safety Aware, Decreased UE Strength, Dependent Transfers, Impaired Bed Mobility, Impaired Cognition, Impaired Coordination, Impaired Funct Balance, Impaired I ADL's, Impaired Self- Care Skills, Restricted Funct UE ROM Discharge Recommendations Plan/Recommendations: Continue POC Therapy Discharge Recommendati: 24 Hour Supervision, Home & Family, Post Acute OT Equpiment Recommendations-D/C: Extended Bath Bench, Rails on Tub/Shower, Bedside Commode, Other, See Comments (w/c) Treatment Plan/Plan of Care Treatment,Training & Education: Yes Patient would benefit from OT for education, treatment and training to promote independence in ADL's, mobility, safety and/or upper extremity function for ADL's. Plan of Care: ADL Retraining, Functional Mobility, Group Exercise/Act as Ind, UE Funct Exercise/Act Treatment Duration: Oct 03, 2019 Frequency: At least 5 of 7 days/Wk (IRF) Estimated Hrs Per Day: 1.5 hours per day Agreement: Yes Rehab Potential: Guarded Time/GCodes Start Time: 08:00 Stop Time: 09:15 Total Time Billed (hr/min): 75 Billed Treatment Time OT/ PT co-treat. Co-treat rendered due to pt's dependency with transfers, decreased balance and strength for functional activities, and decreased attention requiring the skill of 2 therapists. OT addresses ADLs and UE movement and attention while PT provides support and skill for transfers, balance, and LB movement. [id number] (75): 1, ADL 3 (45), EX (15), FA (15)= 75 CARINA WOODS OTR Sep 20, 2019 09:24
--- NOTE | 2019-09-20 09:58 | Physical Therapy Daily Note ---
PT Daily Note-Current Subjective Pt seen in recliner this am. Pt agrees to OT/ PT co-treat. Co-treat rendered due to pt's dependency with transfers, decreased balance and strength for functional activities, and decreased attention requiring the skill of 2 therapists. OT addresses ADLs and UE movement and attention while PT provides support and skill for transfers, balance, and LB movement. Pt c/o pain and requests "pain and nerve pill." nursing notified. Transfers SCALE: Activities may be completed with or without assistive devices. 4-Apgrwcqxym-hqypkwv completes the activity by him/herself with no assistance from a helper. 5-Set-up or Clean-up Assistance-helper sets up or cleans up; patient completes activity. [place] assists only prior to or following the activity. 4-Supervision or Touching Assistance-helper provides verbal cues and/or touching/steadying and/or contact guard assistance as patient completes activity. Assistance may be provided throughout the activity or intermittently. 3-Partial/Moderate Assistance-helper does LESS THAN HALF the effort. [place] lifts, holds or supports trunk or limbs, but provides less than half the effort. 2-Substantial/Maximal Assistance-helper does MORE THAN HALF the effort. [place] lifts or holds trunk or limbs and provides more than half the effort. 1-Wuhpxweph-rlyasa does ALL the effort. Patient does none of the effort to complete the activity. Or, the assistance of 2 or more helpers is required for the patient to complete the activity. If activity was not attempted, code reason: 7-Patient Refused. 9-Not Applicable-not attempted and the patient did not perform the activity before the current illness, exacerbation or injury. 10-Not Attempted due to Environmental Limitations-(lack of equipment, weather restraints, etc.). 88-Not Attempted due to Medical Conditions or Safety Concerns. Sit to Stand (QC): 2 Chair/Sjh-rd-Oewtf Xfer(QC): 2 Weight Bearing Full Weight Bearing Full Weight Bearing Gait Training Does the Patient Walk?: No and Walking Goal NOT indicated Wheelchair Training Does the Pt Use a Wheelchair?: Yes Type of Wheelchair: Manual Treatments Pt states pt's son and daughter plan to receive DME, including gbs in tub/ shower, sc (later educated on use of tub transfer bench and pt's son plans to make), BSC, and w/c. Pt has long handled shower head. Pt completes all transfers with Malinda Mcginnis. Pt educated throughout with cues for attention and importance of safety. Pt requests that daughter spends overnight for family training of showering. Pt completes shower in room followed by practice with tub shower bench in shower room. Pt works on rowing motion at //bars followed by standing practice. Pt returns to room and transfers to recliner with all needs met, call light in hand. PT focuses transfers, core stability & sequencing of legs for showering while OT focuses on hand placement, UE strengthening and placement. Assessment Current Status: Fair Progress Pt is easily distracted, needing many VC & TC. PT Short Term Goals Short Term Goals Time Frame: Sep 12, 2019 Roll Left & Right: 2 Sit to lyin Lying to sitting on side of be: 2 Wheel 50ft w/2 turns: 2 Wheel 150 feet: 2 PT Technical Communication Teacher Goals Technical Communication Teacher Goals PT Assisted Goals Time Frame: Sep 26, 2019 Roll Left & Right (QC): 3 Sit to Lying (QC): 3 Lying-Sitting on Side/Bed(QC): 3 Sit to Stand (QC): 3 Chair/Rlk-ju-Gzejq Xfer(QC): 3 Toilet Transfer (QC): 3 Car Transfer (QC): 3 Does the Patient Walk: No and Walking Goal NOT indicated Walk 10 feet (QC): 88 Walk 50ft with 2 Turns (QC): 88 Walk 150 ft (QC): 88 Walking 10ft on Uneven Surface: 88 1 Step (curb) (QC): 88 4 Steps (QC): 88 12 Steps (QC): 88 Picking up an Object (QC): 88 Does the Pt use WC or Scooter?: Yes Wheel 50 feet with 2 turns (QC: 3 Type: Manual Wheel 150 feet: 3 PT Plan Problem List Problem List: Activity Tolerance, Functional Strength, Safety, Balance, Trans tay Treatment/Plan Treatment Plan: Continue Plan of Care Treatment Plan: Bed Mobility, Education, Functional Activity Afia, Functional Strength, Group Therapy, Gait, Safety, Therapeutic Exercise, Transfers Treatment Duration: Sep 26, 2019 Frequency: At least 5 of 7 days/Wk (IRF) Estimated Hrs Per Day: 1.5 hours per day Patient and/or Family Agrees t: Yes Safety Risks/Education Patient Education: Transfer Techniques, Correct Positioning, W/C Management, Safety Issues Teaching Recipient: Patient Teaching Methods: Demonstration, Discussion Response to Teaching: Reinforcement Needed Time/GCodes Time In: 800 Time Out: 915 Total Billed Treatment Time: 75 Total Billed Treatment 1, FA x3 (45m), EX (15m) & NM (15m) Co-treat with OT for 75m JHONY WALTERS NITROGLYCERIN DISTRIBUTOR Sep 20, 2019 09:58
--- NOTE | 2019-09-20 10:42 | Speech Therapy Daily Note ---
Speech Daily Progress Note Subjective Date Seen by Provider: Sep 20, 2019 Time Seen by Provider: 00:30 Patient was resting in her recliner following her OT and PT session. She states she slept well again last night. Objective Patient completed a series of items she will need upon her move to a new home upon discharge at 90% with 10% verbal cuing. Assessment Assessment Current Status: Good Progress Treatment Plan Continue Plan of Care Speech Short Term Goals Short Term Goals Short Term Goals Pt will complete (visual/verbal) attention task with 90% accy. Pt will complete STM task with use of compensatoy strategies with 90% accy Pt will complete further cognitive assessment for further evaluation of memory, functional math, and reading. Speech Group Home Goals Strike On Machine Operator Goals Pt will tolerate least restrictive diet with no s/s of aspiration/penetration wiht observed oral intake. Speech-Plan Patient/Family Goals Patient/Family Goals: Patient plans on moving in with her son upon discharge. Treatment Plan Speech Therapy Treatment Plan: Continue Plan of Care Treatment Duration: Sep 20, 2019 Frequency: 5 times per week Estimated Hrs Per Day: .5 hour per day Rehab Potential: Guarded Barriers to Learning: Patient's recent CVA Pt/Family Agrees to Plan: Yes Safety Risks/Education Teaching Recipient: Patient Teaching Methods: Demonstration, Discussion Response to Teaching: Verbalize Understanding, Return Demonstration Education Topics Provided: Continued safety and needs upon return home Time Speech Therapy Time In: 10:00 Speech Therapy Time Out: 10:30 Total Billed Time: 30 Billed Treatment Time [address] Sep 20, 2019 10:42
[2019-09-20] MEDS: ASPIRIN E.C. 325 MG (ECOTRIN) TABLET PO SCH (10:51)
[2019-09-20] MEDS: ENOXAPARIN 40 MG/0.4 ML (LOVENOX) SYR SC SCH (10:53)
[2019-09-20 18:00] VITALS: BP 97/56
[2019-09-20] MEDS: toPIRamate 25 MG (TOPAMAX) TAB PO SCH (20:08)
[2019-09-20] MEDS: ALPRAZolam 1 MG (XANAX) TAB PO SCH (20:08)
[2019-09-20] MEDS: MIRTAZAPINE 15 MG (REMERON) TAB PO SCH (20:08)
[2019-09-21 05:03] VITALS: BP_SYST 101; BP_SYST 114; BP_DIAS 64; BP_DIAS 67
--- NOTE | 2019-09-21 06:09 | PM&R Progress Note ---
Subjective HPI/CC On Admission Date Seen by Provider: Sep 21, 2019 Time Seen by Provider: 09:15 Subjective/Events-last exam Having no significant issues per nurse Right arm is still pretty flaccid Bowels are actually loose so holding laxatives DC is planned for 09/28/19 to home with daughter and granddaughter Daughter will stay the night one night in order to get the effect of full care and total assist for her mom Checked meds and labs Reviewed therapy notes Conferred with table games floor supervisor of Systems General: Fatigue, Malaise Neurological: Weakness, Incoordination Objective Exam Vital Signs Vital Signs Date Time Temp Pulse Resp B/P (MAP) Pulse Ox O2 Delivery O2 Flow Rate FiO2 09/21/19 19:28 Room Air 09/21/19 17:03 36.4 75 18 106/74 (85) 94 Capillary Refill : Less Than 3 Seconds General Appearance: No Apparent Distress, Chronically ill, Cachetic HEENT: PERRL/EOMI, Normal ENT Inspection, Pharynx Normal Neck: Full Range of Motion, Normal Inspection, Non Tender, Supple, Carotid Bruit Respiratory: Chest Non Tender, Lungs Clear, Normal Breath Sounds, No Accessory Muscle Use, No Respiratory Distress Cardiovascular: Regular Rate, Rhythm, No Edema, No Gallop, No JVD, No Murmur, Normal Peripheral Pulses Gastrointestinal: Normal Bowel Sounds, No Organomegaly, No Pulsatile Mass, Non Tender, Soft Back: Normal Inspection, No CVA Tenderness, No Vertebral Tenderness Extremity: Normal Capillary Refill, Normal Inspection, Normal Range of Motion, Non Tender, No Calf Tenderness, No Pedal Edema Neurologic/Psychiatric: Alert, Oriented x3, Abnormal Gait, Aphasia, Depressed Affect, EOM Palsy, Motor Weakness (right sided 2/5 upper extremity and 1/5 lower extremity) Skin: Normal Color, Warm/Dry Lymphatic: No Adenopathy Results/Procedures Lab Patient resulted labs reviewed. FIM Transfers Therapy Code Descriptions/Definitions Functional [place] Measure: 0=Not Assessed/NA 4=Minimal Assistance 1=Total Assistance 5=Supervision or Setup 2=Maximal Assistance 6=Modified [place] 3=Moderate Assistance 7=Complete IndependenceSCALE: Activities may be completed with or without assistive devices. 8-Nxjbnsswdm-kienepc completes the activity by him/herself with no assistance from a helper. 5-Set-up or Clean-up Assistance-helper sets up or cleans up; patient completes activity. [place] assists only prior to or following the activity. 4-Supervision or Touching Assistance-helper provides verbal cues and/or touching/steadying and/or contact guard assistance as patient completes activity. Assistance may be provided throughout the activity or intermittently. 3-Partial/Moderate Assistance-helper does LESS THAN HALF the effort. [place] lifts, holds or supports trunk or limbs, but provides less than half the effort. 2-Substantial/Maximal Assistance-helper does MORE THAN HALF the effort. [place] lifts or holds trunk or limbs and provides more than half the effort. 2-Azuddlisp-twfhwe does ALL the effort. Patient does none of the effort to complete the activity. Or, the assistance of 2 or more helpers is required for the patient to complete the activity. If activity was not attempted, code reason: 7-Patient Refused. 9-Not Applicable-not attempted and the patient did not perform the activity bef ore the current illness, exacerbation or injury. 10-Not Attempted due to Environmental Limitations-(lack of equipment, weather r estraints, etc.). 88-Not Attempted due to Medical Conditions or Safety Concerns. Roll Left to Right (QC): 2 Sit to Lying (QC): 2 Sit to Stand (QC): 2 Chair/Rqt-pz-Ogonw Xfer(QC): 2 Car Transfer (QC): 1 Gait Training Does the Patient Walk?: No and Walking Goal NOT indicated Walk 10 feet (QC): 88 Walk 50 ft with 2 Turns(QC): 88 Walk 150 ft (QC): 88 Walking 10ft/uneven surface-QC: 88 Gait Assistive Device: Parallel Bars Wheelchair Training Does the Pt Use a Wheelchair?: Yes Wheel 50 ft with 2 turns (QC): 3 Wheel 150 ft (QC): 3 Type of Wheelchair: Manual Stair Training 1 Step (curb) (QC): 88 4 Steps (QC): 88 12 Steps (QC): 88 Balance Picking up an Object (QC): 88 ADL-Treatment Eating (QC): 5 Oral Hygiene (QC): 9 ( pt does not have dentation and denies washing mouth out.) Bathing Location: L Arm, R Arm, L Upper Leg, R Upper Leg, L Lower Leg (including foot), R Lower Leg (including foot), Chest, Abdomen, Perineal Area Shower/Bathe Self (QC): 3 (CGA- min A on shower bench throughout for balance. Pt states she will take showers at home. pt states son plans to "make whatever we need." as pt only has tub/ shower, shower bench trialed today with CGA-min A. Pt later completes tub/ shower transfer with tub transfer bench with max A to reach safely. Pt requires continuous cueing for attention to task during transfer. Pt able to hold self up on sb with CGA during mock showering. showering- pt requires min A for bottom hygiene only. Pt able to reach all other areas with CGA and LHS for LB.) Upper Body Dressing (QC): 3 (mod A doff and donning.max A bra donning.) Lower Body Dressing (QC): 1 (TD as assist x2 required and pt does not attempt assist this date.) On/Off Footwear (QC): 1 (TD socks.) Toileting Hygiene (QC): 1 (TD with PT assist to stand and TD for OT cleansing.) Toilet Transfer (QC): 2 (max A is required for transfer.) Assessment/Plan Assessment and Plan Assess & Plan/Chief Complaint Assessment: CVA Smoker Hematuria Leukocytosis improved HLP Right side Neglect Fall Risk Cough resolved Constipation resolved UTI acute resistant to Macrobid so started Bactrim 09/09/19 completed treatment and repeat UA negative Insomnia started on Remeron and added Ambien so we'll discontinue Ambien and start Xanax 1 mg at night- improved Chronic migraine - improved Plan: IRF Protocol Statin Smoking cessation ASA Lovenox Telemetry DC since loop recorder placed Macrobid changed to Bactrim now completed Remeron and Xanax and Topamax Difficult to instill positivity Disposition to likely to nursing facility but family plans on bringing her home to care for her No increased pain meds indicated Start Topamax Discharge home soon with daughter and granddaughter to care for her Discharge plan for 09/28/2019 to home with family (1) CVA (cerebral vascular accident) (2) Hyperlipidemia Status: Chronic (3) Compression fracture of T3 vertebra (4) Behavior disorder (5) Leukocytosis (6) Dysarthria (7) Smoker Status: Chronic KRYS NEFF DO Sep 21, 2019 06:09
[2019-09-21] MEDS: NICOTINE 21 MG (NICODERM) PATCH TD SCH (07:56)
[2019-09-21] MEDS: ASPIRIN E.C. 325 MG (ECOTRIN) TABLET PO SCH (07:56)
[2019-09-21] MEDS: HYDROcodone/APAP 5 MG/325 MG (LORTAB) TAB PO PRN ×3 (08:00→19:23)
[2019-09-21] MEDS: ALPRAZolam 0.25 MG (XANAX) TAB PO PRN ×2 (08:00→16:01)
[2019-09-21] MEDS: DOCUSATE SODIUM 100 MG (COLACE) CAP PO SCH (08:01)
[2019-09-21] MEDS: PATCH REMOVAL TP SCH (08:01)
[2019-09-21] MEDS: polyethylene glycoL POWDER 17 GM (MIRALAX) PACK PO SCH ×2 (08:01→19:12)
[2019-09-21] MEDS: SENNA W/DOCUSATE (SENOKOT S) TABLET PO SCH ×2 (08:02→19:12)
--- NOTE | 2019-09-21 08:10 | NUR ---
XANAX FOR C/O ANXIETY. PATIENT INCONTINENT OF BRIEF UPON ASSESSMENT. PATIENT EDUCATED TO AWARE STAFF OF INCONTINENCE , SKIN BREAKDOWN EDUCATION PROVIDED. PATIENT REPORTS SHE IS ABLE TO RECOGNIZE WHEN SOILED. TOTAL ASSISTANCE FOR TAN CARE AND DIAPER CHANGE. DENIES FURTHER NEEDS OR C/O AT THIS TIME. CONT TO MONITOR.
--- NOTE | 2019-09-21 08:15 | Cardiology Progress Note ---
Subjective Date Seen by Provider: Sep 21, 2019 Time Seen by Provider: 08:14 Subjective/Events-last exam Patient is going down in bed, feeling better today. No new complaint Review of Systems General: No Chills, No Night Sweats, No Fatigue, No Malaise, No Appetite; Other (headache) HEENT: No Head Aches, No Visual Changes, No Eye Pain, No Ear Pain, No Dysphasia, No Sinus Congestion, No Post Nasal Drip, No Sore Throat, No Other Pulmonary: No Dyspnea, No Cough, No Pleuritic Chest Pain, No Other Cardiovascular: No: Chest Pain, Palpitations, Orthopnea, Paroxysmal Noc. Dyspnea, Edema, Lt Headedness, Other Objective-Cardiology Exam Last Set of Vital Signs Vital Signs 09/21/19 05:03 Temp 36.2 Pulse 77 Resp 16 B/P (MAP) 101/67 (78) Pulse Ox 93 O2 Delivery Room Air Capillary Refill : Less Than 3 Seconds I&O Intake and Output 09/21/19 00:00 Intake Total 1450 ml Balance 1450 ml Intake Oral 1450 ml # Voids 5 General: Alert, Oriented X3, Cooperative HEENT: Atraumatic, PERRLA Neck: Supple, +2 Carotid Pulse No Bruit Lungs: Clear to Auscultation, Normal Air Movement Heart: Regular Rate, Normal S1, Normal S2 Abdomen: Normal Bowel Sounds, Soft Extremities: No Clubbing, No Edema Skin: No Rashes, No Significant Lesion Neuro: Normal Speech, Other (right sided hemiplegia) A/P-Cardiology Admission Diagnosis CVA HTN HLP Assessment/Plan CVA, still having right hemiplegia, 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 CT angiogram of the head was nondiagnostic. MRI of the head showed shower of embolization, probably underlying atrial fibrillation, so far her EKG did not show acute abnormality maintenance and aspirin. s/p LINq implantation for further monitoring for atrial fibrillation. Recurrent headache, dependent on pain medication, managed by primary care Echocardiogram showed normal LV function, prominent aorta. No significant abnormality otherwise Borderline hypotension, denies any dizziness, continue to monitor Hyperlipidemia, continue Lipitor, continue to monitor. Urinary tract infection, improved, managed by primary care physician Clinical Quality Measures DVT/VTE Risk/Contraindication: Risk Factor Score Per Nursin RFS Level Per Nursing on Admit: 4+=Very High DAMON ROTH MD Sep 21, 2019 08:15
--- NOTE | 2019-09-21 09:20 | Physical Therapy Daily Note ---
PT Daily Note-Current Subjective Pt in bed upon arrival and agrees to co-treat. Mental Status Patient Orientation: Person, Place, Time, Situation Transfers SCALE: Activities may be completed with or without assistive devices. 4-Sgoidyqsgl-duubxmy completes the activity by him/herself with no assistance from a helper. 5-Set-up or Clean-up Assistance-helper sets up or cleans up; patient completes activity. [place] assists only prior to or following the activity. 4-Supervision or Touching Assistance-helper provides verbal cues and/or touching/steadying and/or contact guard assistance as patient completes activity. Assistance may be provided throughout the activity or intermittently. 3-Partial/Moderate Assistance-helper does LESS THAN HALF the effort. [place] lifts, holds or supports trunk or limbs, but provides less than half the effort. 2-Substantial/Maximal Assistance-helper does MORE THAN HALF the effort. [place] lifts or holds trunk or limbs and provides more than half the effort. 8-Lkbuyowao-bmffhi does ALL the effort. Patient does none of the effort to complete the activity. Or, the assistance of 2 or more helpers is required for the patient to complete the activity. If activity was not attempted, code reason: 7-Patient Refused. 9-Not Applicable-not attempted and the patient did not perform the activity before the current illness, exacerbation or injury. 10-Not Attempted due to Environmental Limitations-(lack of equipment, weather restraints, etc.). 88-Not Attempted due to Medical Conditions or Safety Concerns. Roll Left & Right (QC): 2 Sit to Lying (QC): 2 Sit to Stand (QC): 2 Chair/Qgs-iu-Urfua Xfer(QC): 2 Weight Bearing Full Weight Bearing Full Weight Bearing Wheelchair Training Does the Pt Use a Wheelchair?: Yes Type of Wheelchair: Manual Exercises Seated Therapy Exercises: Long arc quads (AAROM) Seated Reps: 10 Treatments Pt performs bed mobility to help change brief, then pt transferred from bed to and taken to gym. Pt works on static and dynamic sitting balance, requiring CGA for static and ModA for dynamic. Farther into tx pt requires ModA for all sitting balance. OT focused on UE strength, positioning, and stretching. PT worked on core stability, sitting balance, and LE strengthening/positioning. Pt left in recliner with all needs met, call light in hand. Assessment Current Status: Fair Progress Pt becomes easily distracted, needing VC and TC to stay focused. Pt became easily fatigued needing many breaks. PT Short Term Goals Short Term Goals Time Frame: Sep 12, 2019 Roll Left & Right: 2 Sit to lyin Lying to sitting on side of be: 2 Wheel 50ft w/2 turns: 2 Wheel 150 feet: 2 PT Creative/Art Director Goals Creative/Art Director Goals PT Prison Goals Time Frame: Sep 26, 2019 Roll Left & Right (QC): 3 Sit to Lying (QC): 3 Lying-Sitting on Side/Bed(QC): 3 Sit to Stand (QC): 3 Chair/Obh-tj-Repcw Xfer(QC): 3 Toilet Transfer (QC): 3 Car Transfer (QC): 3 Does the Patient Walk: No and Walking Goal NOT indicated Walk 10 feet (QC): 88 Walk 50ft with 2 Turns (QC): 88 Walk 150 ft (QC): 88 Walking 10ft on Uneven Surface: 88 1 Step (curb) (QC): 88 4 Steps (QC): 88 12 Steps (QC): 88 Picking up an Object (QC): 88 Does the Pt use WC or Scooter?: Yes Wheel 50 feet with 2 turns (QC: 3 Type: Manual Wheel 150 feet: 3 PT Plan Problem List Problem List: Activity Tolerance, Functional Strength, Safety, Balance, Transfer, Bed Mobility, ROM Treatment/Plan Treatment Plan: Continue Plan of Care Treatment Plan: Bed Mobility, Education, Functional Activity Afia, Functional Strength, Group Therapy, Gait, Safety, Therapeutic Exercise, Transfers Treatment Duration: Sep 26, 2019 Frequency: At least 5 of 7 days/Wk (IRF) Estimated Hrs Per Day: 1.5 hours per day Patient and/or Family Agrees t: Yes Safety Risks/Education Patient Education: Transfer Techniques, Correct Positioning, Safety Issues Teaching Recipient: Patient Teaching Methods: Discussion Response to Teaching: Reinforcement Needed Time/GCodes Time In: 800 Time Out: 915 Total Billed Treatment Time: 75 Total Billed Treatment 1, FREDERIC x4 (60m), FA (15m) JHONY WALTERS PTA Sep 21, 2019 09:20
--- NOTE | 2019-09-21 09:24 | Occupational Ther Daily Note ---
OT Current Status-Daily Note Subjective Pt seen in bed, nursing present. Pt completes OT/ PT co-treat this date; co- treat rendered due to pt's dependent transfers, decreased coorination/ strength, requirement of 2 skilled therapists for safe and effective skilled treatment session that of which an aide would not be able to provide. OT provides assist with ADLs, UE placement, attention to task while PT completes LB movement/ balance/ core and LE movement. Pt initially states pain but end of session states pain decreased. ADL-Treatment Therapy Code Descriptions/Definitions Functional [place] Measure: 0=Not Assessed/NA 4=Minimal Assistance 1=Total Assistance 5=Supervision or Setup 2=Maximal Assistance 6=Modified [place] 3=Moderate Assistance 7=Complete IndependenceSCALE: Activities may be completed with or without assistive devices. 4-Bsmeovfzwu-euibijm completes the activity by him/herself with no assistance from a helper. 5-Set-up or Clean-up Assistance-helper sets up or cleans up; patient completes activity. [place] assists only prior to or following the activity. 4-Supervision or Touching Assistance-helper provides verbal cues and/or touching/steadying and/or contact guard assistance as patient completes activity. Assistance may be provided throughout the activity or intermittently. 3-Partial/Moderate Assistance-helper does LESS THAN HALF the effort. [place] lifts, holds or supports trunk or limbs, but provides less than half the effort. 2-Substantial/Maximal Assistance-helper does MORE THAN HALF the effort. [place] lifts or holds trunk or limbs and provides more than half the effort. 5-Dbmchlcmy-tgdrfd does ALL the effort. Patient does none of the effort to complete the activity. Or, the assistance of 2 or more helpers is required for the patient to complete the activity. If activity was not attempted, code reason: 7-Patient Refused. 9-Not Applicable-not attempted and the patient did not perform the activity before the current illness, exacerbation or injury. 10-Not Attempted due to Environmental Limitations-(lack of equipment, weather restraints, etc.). 88-Not Attempted due to Medical Conditions or Safety Concerns. Eating (QC): 5 (s/u coffee.) Lower Body Dressing (QC): 1 (assist x2 in bed for breif and pant donning. Rolling with max A (*able to roll to R side with assist of L hand)) On/Off Footwear: 1 (TD) Toileting Hygiene (QC): 1 (TD) Other Treatment Pt seen in bed. Pt's brief/ pants require changing, TD. Pt does make improvements with rolling, with max A as pt initiates L UE movement to assist in R side roll. Pt completes bed mob and transfer to w/c with TD. Pt sits EOM in gym to complete core strength/ balance/ attention to coordination. Pt sits with max A to initiate, sits SBA-CGA for 2 min after gaining balance. Pt requires continuous cues for attention and self-correcting. Pt encouraged to complete sitting with elbows on knees- completes with CGA. pt leans back and completes LUE (RUE PROM) modified tricep dips with max A to sit upright. Pt requires 3 rest breaks. Pt returns to room, pt is asked to state process of SPT to chair to prepare for pt's d/c and directing of transfers at home. Pt unable to complete without cues of sequencing and important steps. Pt SPT with TD, completes LUE correct movement without cues. PROM completed of RUE in all joints. AROM of ext/ flex of R fingers successful. Pt states pain at RUE olecranon upon elbow flexion, tone noted in triceps continued. All needs met, call light in reach. Pt left in recliner with pillows for support. Education OT Patient Education: Correct positioning, Exercise program, Home exercise program, Progress toward Goal/Update tx plan, Purpose of tx/functional activities, Rehab process, Safety issues, Transfer techniques Teaching Recipient: Patient Teaching Methods: Demonstration, Discussion Response to Teaching: Verbalize Understanding, Unable to Return Demonstration, Return Demonstration, Reinforcement Needed OT Short Term Goals Short Term Goals Time Frame: Sep 19, 2019 Eatin Oral hygiene: 9 Toileting hygiene: 3 Shower/bathe self: 3 Upper body dressin Lower body dressin Putting on/taking off footwear: 3 OT Supervisor Paint Goals Supervisor Paint Goals Time Frame: Oct 03, 2019 Eating (QC): 6 Oral Hygiene (QC): 9 Toileting Hygiene (QC): 4 Shower/Bathe Self (QC): 4 Upper Body Dressing (QC): 4 Lower Body Dressing (QC): 4 On/Off Footwear (QC): 4 Additional Goals: 1-Demonstrate ADL Tasks, 2-Verbalize Understanding, 3- ImproveStrength/Afia 1=Demonstrate adherence to instructed precautions during ADL tasks. 2=Patient will verbalize/demonstrate understanding of assistive devices/modifications for ADL. 3=Patient will improve strength/tolerance for activity to enable patient to perform ADL's. OT Education/Plan Problem List/Assessment Assessment: Decreased Activ Tolerance, Decreased Safety Aware, Decreased UE Strength, Dependent Transfers, Impaired Bed Mobility, Impaired Cognition, Impaired Coordination, Impaired Funct Balance, Impaired I ADL's, Impaired Self- Care Skills Discharge Recommendations Plan/Recommendations: Continue POC Therapy Discharge Recommendati: 24 Hour Supervision, Home & Family, Post Acute OT Equpiment Recommendations-D/C: Extended Bath Bench, Rails on Tub/Shower, Bedside Commode Treatment Plan/Plan of Care Treatment,Training & Education: Yes Patient would benefit from OT for education, treatment and training to promote independence in ADL's, mobility, safety and/or upper extremity function for ADL's. Plan of Care: ADL Retraining, Functional Mobility, Group Exercise/Act as Ind, UE Funct Exercise/Act Treatment Duration: Oct 03, 2019 Frequency: At least 5 of 7 days/Wk (IRF) Estimated Hrs Per Day: 1.5 hours per day Agreement: Yes Rehab Potential: Guarded Time/GCodes Start Time: 08:00 Stop Time: 09:15 Total Time Billed (hr/min): 75 Billed Treatment Time 1, EX 5 (75) OT/ PT co-treat this date; co-treat rendered due to pt's dependent transfers, decreased coorination/ strength, requirement of 2 skilled therapists for safe and effective skilled treatment session that of which an aide would not be able to provide. OT provides assist with ADLs, UE placement, attention to task while PT completes LB movement/ balance/ core and LE movement. CARINA WOODS OTR Sep 21, 2019 09:24
--- NOTE | 2019-09-21 10:42 | Speech Therapy Daily Note ---
Speech Daily Progress Note Subjective Date Seen by Provider: Sep 21, 2019 Time Seen by Provider: 00:30 Patient states she will be able to go home when she gets a shower chair. Objective Patient completed a series of questions related to her care after discharge with some inconsistencies noted. Assessment Assessment Current Status: Good Progress Treatment Plan Continue Plan of Care Speech Short Term Goals Short Term Goals Short Term Goals Pt will complete (visual/verbal) attention task with 90% accy. Pt will complete STM task with use of compensatoy strategies with 90% accy Pt will complete further cognitive assessment for further evaluation of memory, functional math, and reading. Speech Longterm Goals Longterm Goals Pt will tolerate least restrictive diet with no s/s of aspiration/penetration wiht observed oral intake. Speech-Plan Patient/Family Goals Patient/Family Goals: Patient plans on living with her children upon discharge from rehab. Treatment Plan Speech Therapy Treatment Plan: Continue Plan of Care Treatment Duration: Sep 20, 2019 Frequency: 5 times per week Estimated Hrs Per Day: .5 hour per day Rehab Potential: Guarded Barriers to Learning: Patient's recent CVA Pt/Family Agrees to Plan: Yes Safety Risks/Education Teaching Recipient: Patient Teaching Methods: Demonstration, Discussion Response to Teaching: Verbalize Understanding, Return Demonstration Education Topics Provided: Continued safety upon her return home. Time Speech Therapy Time In: 10:00 Speech Therapy Time Out: 10:30 Total Billed Time: 30 Billed Treatment Time [address] Sep 21, 2019 10:41
[2019-09-21] MEDS: ENOXAPARIN 40 MG/0.4 ML (LOVENOX) SYR SC SCH (11:47)
--- NOTE | 2019-09-21 14:47 | NUR ---
CM/SS PATIENT CARE CONFERENCE Reviewed PCC Summary with patient and her daughter Petra yesterday afternoon, they both agree to target discharge of , 09/28/19. The plan is that Petra will stay one overnight for education/demonstration of the level of care required for patient at this time. Another day session has been approved for Petra and her son to come for family education/training since they had designated themselves as her caregivers in the home. [employer] has recommended that training include transfer technique without a sit to stand because of the rarity of the availability for that as a home care item. A kiersten lift would be an option if needed. DME: Will need tub transfer bench, BSC, wheelchair, FWW. Kiersten lift, nebulizer, slide board? Patient remains uninsured status, [facility] will be utilized due to [facility] and lack of resources who will consider providing equipment without pay up front.
--- NOTE | 2019-09-21 15:59 | NUR ---
PATIENT TRANSFERRED MAX ASSIST X1 FROM BED TO BSC. PATIENT HAD LARGE, FORMED BM. STAFF TOTAL ASSIST FOR TAN. PATIENT HAS BEEN INCONTINENT OF BOWEL X 2 TODAY. STAFF TOTAL CARE. PATIENT TURNED Q2H. CONT TO MONITORL
[2019-09-21 17:03] VITALS: BP 106/74
[2019-09-21] MEDS: ALPRAZolam 1 MG (XANAX) TAB PO SCH (19:23)
[2019-09-21] MEDS: toPIRamate 25 MG (TOPAMAX) TAB PO SCH (19:23)
[2019-09-21] MEDS: MIRTAZAPINE 15 MG (REMERON) TAB PO SCH (19:23)
[2019-09-22 05:12] VITALS: BP 95/65
[2019-09-22] MEDS: SENNA W/DOCUSATE (SENOKOT S) TABLET PO SCH ×2 (07:38→20:17)
[2019-09-22] MEDS: polyethylene glycoL POWDER 17 GM (MIRALAX) PACK PO SCH ×2 (07:38→20:16)
--- NOTE | 2019-09-22 07:39 | PM&R Progress Note ---
Subjective HPI/CC On Admission Date Seen by Provider: Sep 22, 2019 Time Seen by Provider: 09:15 Subjective/Events-last exam Daughter at bedside for training Patient doing very well Social work will help fill out form for me to sign for daughter's in home care work Checked meds and labs Reviewed therapy notes Conferred with steel post installer of Systems General: Fatigue, Malaise Neurological: Weakness, Incoordination Objective Exam Vital Signs Vital Signs Date Time Temp Pulse Resp B/P (MAP) Pulse Ox O2 Delivery O2 Flow Rate FiO2 09/22/19 08:00 Room Air 09/22/19 05:12 36.5 69 18 95/65 (75) 94 Capillary Refill : Less Than 3 Seconds General Appearance: No Apparent Distress, Chronically ill, Cachetic HEENT: PERRL/EOMI, Normal ENT Inspection, Pharynx Normal Neck: Full Range of Motion, Normal Inspection, Non Tender, Supple, Carotid Bruit Respiratory: Chest Non Tender, Lungs Clear, Normal Breath Sounds, No Accessory Muscle Use, No Respiratory Distress Cardiovascular: Regular Rate, Rhythm, No Edema, No Gallop, No JVD, No Murmur, Normal Peripheral Pulses Gastrointestinal: Normal Bowel Sounds, No Organomegaly, No Pulsatile Mass, Non Tender, Soft Back: Normal Inspection, No CVA Tenderness, No Vertebral Tenderness Extremity: Normal Capillary Refill, Normal Inspection, Normal Range of Motion, Non Tender, No Calf Tenderness, No Pedal Edema Neurologic/Psychiatric: Alert, Oriented x3, Abnormal Gait, Aphasia, Depressed Affect, EOM Palsy, Motor Weakness (right sided 2/5 upper extremity and 1/5 lower extremity) Skin: Normal Color, Warm/Dry Lymphatic: No Adenopathy Results/Procedures Lab Patient resulted labs reviewed. FIM Transfers Therapy Code Descriptions/Definitions Functional [place] Measure: 0=Not Assessed/NA 4=Minimal Assistance 1=Total Assistance 5=Supervision or Setup 2=Maximal Assistance 6=Modified [place] 3=Moderate Assistance 7=Complete IndependenceSCALE: Activities may be completed with or without assistive devices. 9-Jcxlwtsmml-rttptzx completes the activity by him/herself with no assistance from a helper. 5-Set-up or Clean-up Assistance-helper sets up or cleans up; patient completes activity. [place] assists only prior to or following the activity. 4-Supervision or Touching Assistance-helper provides verbal cues and/or touching/steadying and/or contact guard assistance as patient completes activity. Assistance may be provided throughout the activity or intermittently. 3-Partial/Moderate Assistance-helper does LESS THAN HALF the effort. [place] lifts, holds or supports trunk or limbs, but provides less than half the effort. 2-Substantial/Maximal Assistance-helper does MORE THAN HALF the effort. [place] lifts or holds trunk or limbs and provides more than half the effort. 1-Jcmbjfrkq-phzkde does ALL the effort. Patient does none of the effort to complete the activity. Or, the assistance of 2 or more helpers is required for the patient to complete the activity. If activity was not attempted, code reason: 7-Patient Refused. 9-Not Applicable-not attempted and the patient did not perform the activity before the current illness, exacerbation or injury. 10-Not Attempted due to Environmental Limitations-(lack of equipment, weather restraints, etc.). 88-Not Attempted due to Medical Conditions or Safety Concerns. Roll Left to Right (QC): 2 Sit to Lying (QC): 2 Sit to Stand (QC): 2 Chair/Izg-sk-Fmxre Xfer(QC): 2 Car Transfer (QC): 1 Gait Training Does the Patient Walk?: No and Walking Goal NOT indicated Walk 10 feet (QC): 88 Walk 50 ft with 2 Turns(QC): 88 Walk 150 ft (QC): 88 Walking 10ft/uneven surface-QC: 88 Gait Assistive Device: Parallel Bars Wheelchair Training Does the Pt Use a Wheelchair?: Yes Wheel 50 ft with 2 turns (QC): 3 Wheel 150 ft (QC): 3 Type of Wheelchair: Manual Stair Training 1 Step (curb) (QC): 88 4 Steps (QC): 88 12 Steps (QC): 88 Balance Picking up an Object (QC): 88 ADL-Treatment Eating (QC): 5 (s/u coffee.) Oral Hygiene (QC): 9 ( pt does not have dentation and denies washing mouth out.) Bathing Location: L Arm, R Arm, L Upper Leg, R Upper Leg, L Lower Leg (including foot), R Lower Leg (including foot), Chest, Abdomen, Perineal Area Shower/Bathe Self (QC): 3 (CGA- min A on shower bench throughout for balance. Pt states she will take showers at home. pt states son plans to "make whatever we need." as pt only has tub/ shower, shower bench trialed today with CGA-min A. Pt later completes tub/ shower transfer with tub transfer bench with max A to reach safely. Pt requires continuous cueing for attention to task during transfer. Pt able to hold self up on sb with CGA during mock showering. showering- pt requires min A for bottom hygiene only. Pt able to reach all other areas with CGA and LHS for LB.) Upper Body Dressing (QC): 3 (mod A doff and donning.max A bra donning.) Lower Body Dressing (QC): 1 (assist x2 in bed for breif and pant donning. Rolling with max A (*able to roll to R side with assist of L hand)) On/Off Footwear (QC): 1 (TD) Toileting Hygiene (QC): 1 (TD) Toilet Transfer (QC): 2 (max A is required for transfer.) Assessment/Plan Assessment and Plan Assess & Plan/Chief Complaint Assessment: CVA Smoker Hematuria Leukocytosis improved HLP Right side Neglect Fall Risk Cough resolved Constipation resolved UTI acute resistant to Macrobid so started Bactrim 09/09/19 completed treatment and repeat UA negative Insomnia started on Remeron and added Ambien so we'll discontinue Ambien and start Xanax 1 mg at night- improved Chronic migraine - improved Plan: IRF Protocol Statin Smoking cessation ASA Lovenox Telemetry DC since loop recorder placed Macrobid changed to Bactrim now completed Remeron and Xanax and Topamax Difficult to instill positivity Disposition to likely to nursing facility but family plans on bringing her home to care for her No increased pain meds indicated Start Topamax Discharge home soon with daughter and granddaughter to care for her Discharge plan for 09/28/2019 to home with family (1) CVA (cerebral vascular accident) (2) Hyperlipidemia Status: Chronic (3) Compression fracture of T3 vertebra (4) Behavior disorder (5) Leukocytosis (6) Dysarthria (7) Smoker Status: Chronic KRYS NEFF DO Sep 22, 2019 07:39
[2019-09-22] MEDS: ASPIRIN E.C. 325 MG (ECOTRIN) TABLET PO SCH (08:02)
[2019-09-22] MEDS: PATCH REMOVAL TP SCH (08:02)
[2019-09-22] MEDS: ALPRAZolam 0.25 MG (XANAX) TAB PO PRN ×2 (08:03→16:45)
[2019-09-22] MEDS: HYDROcodone/APAP 5 MG/325 MG (LORTAB) TAB PO PRN ×3 (08:03→20:17)
[2019-09-22] MEDS: NICOTINE 21 MG (NICODERM) PATCH TD SCH (08:03)
[2019-09-22] MEDS: DOCUSATE SODIUM 100 MG (COLACE) CAP PO SCH (08:06)
--- NOTE | 2019-09-22 09:23 | Physical Therapy Daily Note ---
PT Daily Note-Current Subjective Pt in bed upon arrival and agrees to co-treat. Mental Status Patient Orientation: Person, Place, Time, Situation Transfers SCALE: Activities may be completed with or without assistive devices. 0-Omjizhkjto-ujgclzs completes the activity by him/herself with no assistance from a helper. 5-Set-up or Clean-up Assistance-helper sets up or cleans up; patient completes activity. [place] assists only prior to or following the activity. 4-Supervision or Touching Assistance-helper provides verbal cues and/or touching/steadying and/or contact guard assistance as patient completes activity. Assistance may be provided throughout the activity or intermittently. 3-Partial/Moderate Assistance-helper does LESS THAN HALF the effort. [place] lifts, holds or supports trunk or limbs, but provides less than half the effort. 2-Substantial/Maximal Assistance-helper does MORE THAN HALF the effort. [place] lifts or holds trunk or limbs and provides more than half the effort. 5-Wzhnzjzkx-rddqbi does ALL the effort. Patient does none of the effort to complete the activity. Or, the assistance of 2 or more helpers is required for the patient to complete the activity. If activity was not attempted, code reason: 7-Patient Refused. 9-Not Applicable-not attempted and the patient did not perform the activity before the current illness, exacerbation or injury. 10-Not Attempted due to Environmental Limitations-(lack of equipment, weather restraints, etc.). 88-Not Attempted due to Medical Conditions or Safety Concerns. Lying to Sitting/Side of Bed(Q: 2 Sit to Stand (QC): 2 Chair/Tsy-ju-Wzkmx Xfer(QC): 2 Pt requested to get out of bed on L and advancing to L was improved, still needing VC to keep focused. Weight Bearing Full Weight Bearing Full Weight Bearing Wheelchair Training Does the Pt Use a Wheelchair?: Yes Type of Wheelchair: Manual Exercises Seated Therapy Exercises: Long arc quads, Hip flexion Treatments Pt performs bed mobility Max assist with AAROM. OT assists pt with bed bath while PT focuses on pt static sitting balance. Pt dons clothes and transfers to WC Max Assist. Pt attempts to propel WC in hallway Max Assist. Pt taken into gym and performs static standing balance Max Assist x2. Pt stands in // bars 3 minutes x2 and attempted pre-gait weight shift. Pt needs TC for trunk extension. OT focused on pt UE strengthening/positioning, UE stretching, and bathing. PT focused on static balance, core stability, and LE positioning/strengthening. Pt performs seated exercises in gym then taken back into room. Pt in recliner with all needs met, call light in hand. Assessment Current Status: Fair Progress Pt needs max VC and TC to stay focused as she gets distracted easily. Pt easily fatigues and needs many rest breaks. PT Short Term Goals Short Term Goals Time Frame: Sep 12, 2019 Roll Left & Right: 2 Sit to lyin Lying to sitting on side of be: 2 Wheel 50ft w/2 turns: 2 Wheel 150 feet: 2 PT Shelter Goals Track Laborer Goals PT Track Laborer Goals Time Frame: Sep 26, 2019 Roll Left & Right (QC): 3 Sit to Lying (QC): 3 Lying-Sitting on Side/Bed(QC): 3 Sit to Stand (QC): 3 Chair/Njj-ud-Zxwgl Xfer(QC): 3 Toilet Transfer (QC): 3 Car Transfer (QC): 3 Does the Patient Walk: No and Walking Goal NOT indicated Walk 10 feet (QC): 88 Walk 50ft with 2 Turns (QC): 88 Walk 150 ft (QC): 88 Walking 10ft on Uneven Surface: 88 1 Step (curb) (QC): 88 4 Steps (QC): 88 12 Steps (QC): 88 Picking up an Object (QC): 88 Does the Pt use WC or Scooter?: Yes Wheel 50 feet with 2 turns (QC: 3 Type: Manual Wheel 150 feet: 3 PT Plan Problem List Problem List: Activity Tolerance, Functional Strength, Safety, Balance, Transfer, Bed Mobility, ROM Treatment/Plan Treatment Plan: Continue Plan of Care Treatment Plan: Bed Mobility, Education, Functional Activity Afia, Functional Strength, Group Therapy, Gait, Safety, Therapeutic Exercise, Transfers Treatment Duration: Sep 26, 2019 Frequency: At least 5 of 7 days/Wk (IRF) Estimated Hrs Per Day: 1.5 hours per day Patient and/or Family Agrees t: Yes Safety Risks/Education Patient Education: Transfer Techniques, Correct Positioning, W/C Management, Safety Issues Teaching Recipient: Patient Teaching Methods: Demonstration, Discussion Response to Teaching: Return Demonstration, Unable to Comprehend, Reinforcement Needed Time/GCodes Time In: 800 Time Out: 915 Total Billed Treatment Time: 75 Total Billed Treatment 1, FA x3 (45m), EX x2 (30m) GIUSEPPE MEDINA RECRUITER Sep 22, 2019 09:23
[2019-09-22] MEDS: ENOXAPARIN 40 MG/0.4 ML (LOVENOX) SYR SC SCH (10:19)
--- NOTE | 2019-09-22 11:09 | Cardiology Progress Note ---
Subjective Date Seen by Provider: Sep 22, 2019 Time Seen by Provider: 11:09 Subjective/Events-last exam Patient was seen at bedside, sitting comfortably, no complaint Review of Systems General: No Chills, No Night Sweats, No Fatigue, No Malaise, No Appetite, No Other HEENT: No Head Aches, No Visual Changes, No Eye Pain, No Ear Pain, No Dysphasia, No Sinus Congestion, No Post Nasal Drip, No Sore Throat, No Other Pulmonary: No Dyspnea, No Cough, No Pleuritic Chest Pain, No Other Cardiovascular: No: Chest Pain, Palpitations, Orthopnea, Paroxysmal Noc. Dyspnea, Edema, Lt Headedness, Other Objective-Cardiology Exam Last Set of Vital Signs Vital Signs 09/22/19 09/22/19 05:12 08:00 Temp 36.5 Pulse 69 Resp 18 B/P (MAP) 95/65 (75) Pulse Ox 94 O2 Delivery Room Air Capillary Refill : Less Than 3 Seconds I&O Intake and Output 09/22/19 00:00 Intake Total 1627 ml Balance 1627 ml Intake Oral 1627 ml # Voids 3 # Urine Diapers 3 # Bowel Movements 2 General: Alert, Oriented X3, Cooperative HEENT: Atraumatic, PERRLA Neck: Supple, +2 Carotid Pulse No Bruit Lungs: Clear to Auscultation, Normal Air Movement Heart: Regular Rate, Normal S1, Normal S2 Abdomen: Normal Bowel Sounds, Soft Extremities: No Clubbing, No Edema Skin: No Rashes, No Significant Lesion Neuro: Normal Speech, Other (right sided hemiplegia) A/P-Cardiology Admission Diagnosis CVA HTN HLP Assessment/Plan CVA, still having right hemiplegia, 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 CT angiogram of the head was nondiagnostic. MRI of the head showed shower of embolization, probably underlying atrial fibrillation, so far her EKG did not show acute abnormality maintenance and aspirin. s/p LINq implantation for further monitoring for atrial fibrillation. Recurrent headache, dependent on pain medication, managed by primary care Echocardiogram showed normal LV function, prominent aorta. No significant abnormality otherwise Borderline hypotension, denies any dizziness, continue to monitor Hyperlipidemia, continue Lipitor, continue to monitor. Urinary tract infection, improved, managed by primary care physician Clinical Quality Measures DVT/VTE Risk/Contraindication: Risk Factor Score Per Nursin RFS Level Per Nursing on Admit: 4+=Very High GONZALEZ,BASHAR J MD Sep 22, 2019 11:09 am
--- NOTE | 2019-09-22 11:37 | Occupational Ther Daily Note ---
OT Current Status-Daily Note Subjective Pt seen in bed, agrees to OT/ PT co-treat this am. OT addresses ADLs, fx mob and endurance, attention to tasks, and UE movement while PT addresses LB movements, core strength/ balance. OT/ PT co-treat required due to pt's dependent transfers, decreased safety awareness, and requirement of 2 skilled therapists for successful treatment. ADL-Treatment Therapy Code Descriptions/Definitions Functional [place] Measure: 0=Not Assessed/NA 4=Minimal Assistance 1=Total Assistance 5=Supervision or Setup 2=Maximal Assistance 6=Modified [place] 3=Moderate Assistance 7=Complete IndependenceSCALE: Activities may be completed with or without assistive devices. 9-Oosdpxelum-tfubeet completes the activity by him/herself with no assistance from a helper. 5-Set-up or Clean-up Assistance-helper sets up or cleans up; patient completes activity. [place] assists only prior to or following the activity. 4-Supervision or Touching Assistance-helper provides verbal cues and/or touching/steadying and/or contact guard assistance as patient completes activity. Assistance may be provided throughout the activity or intermittently. 3-Partial/Moderate Assistance-helper does LESS THAN HALF the effort. [place] lifts, holds or supports trunk or limbs, but provides less than half the effort. 2-Substantial/Maximal Assistance-helper does MORE THAN HALF the effort. [place] lifts or holds trunk or limbs and provides more than half the effort. 8-Eqxopudxx-qcybjj does ALL the effort. Patient does none of the effort to complete the activity. Or, the assistance of 2 or more helpers is required for the patient to complete the activity. If activity was not attempted, code reason: 7-Patient Refused. 9-Not Applicable-not attempted and the patient did not perform the activity before the current illness, exacerbation or injury. 10-Not Attempted due to Environmental Limitations-(lack of equipment, weather restraints, etc.). 88-Not Attempted due to Medical Conditions or Safety Concerns. Eating (QC): 5 Shower/Bathe Self (QC): 3 (mod A for LB and bottom.) Upper Body Dressing (QC): 3 (mod A ) Lower Body Dressing (QC): 2 (able to kick BLE out, requires continuous cues for balance/ sitting ability prior to kicking LE's out. Pulled over hips with TD x2.) On/Off Footwear: 2 Toileting Hygiene (QC): 1 (TD with assist x2) Other Treatment Pt completes bed mob with max A (able to bring LE's toward EOB with increased IND and needs of continued cues for motivation), pt sits EOB with max cues for continuation of posture control, max-CGA required throughout sponge bath EOB. Pt SPT TD to w/c. Wheels to gym with max cues. Stands at parallel bars 2x with TD- max A x2 skilled therapists, OT addresses UE movement and shoulder/ head p ositioning for successful stance. Pt requires constant cues for attention. Pt sits with fair control. RUE PROM all joints, requires max cues for use of finger extension this date. Pt unable to maintain attention without cues. Pt returns to room/ chair, positioned for comfort/ anti-contraction positioning. All needs met, call light in reach. Education OT Patient Education: Correct positioning, Exercise program, Home exercise program, Modified ADL techniques, Progress toward Goal/Update tx plan, Purpose of tx/functional activities, Safety issues, Transfer techniques, W/C management Teaching Recipient: Patient Teaching Methods: Demonstration, Discussion Response to Teaching: Verbalize Understanding, Return Demonstration, Reinforcement Needed OT Short Term Goals Short Term Goals Time Frame: Sep 19, 2019 Eatin Oral hygiene: 9 Toileting hygiene: 3 Shower/bathe self: 3 Upper body dressin Lower body dressin Putting on/taking off footwear: 3 OT Supervisor Ornamental Ironworking Goals Halfway Goals Time Frame: Oct 03, 2019 Eating (QC): 6 Oral Hygiene (QC): 9 Toileting Hygiene (QC): 4 Shower/Bathe Self (QC): 4 Upper Body Dressing (QC): 4 Lower Body Dressing (QC): 4 On/Off Footwear (QC): 4 Additional Goals: 1-Demonstrate ADL Tasks, 2-Verbalize Understanding, 3-ImproveStrength/Afia 1=Demonstrate adherence to instructed precautions during ADL tasks. 2=Patient will verbalize/demonstrate understanding of assistive devices/modifications for ADL. 3=Patient will improve strength/tolerance for activity to enable patient to perform ADL's. OT Education/Plan Problem List/Assessment Assessment: Decreased Activ Tolerance, Decreased Safety Aware, Decreased UE Strength, Dependent Transfers, Impaired Bed Mobility, Impaired Cognition, Impaired Coordination, Impaired Funct Balance, Impaired I ADL's, Impaired Self- Care Skills Discharge Recommendations Plan/Recommendations: Continue POC Therapy Discharge Recommendati: 24 Hour Supervision, Home & Family, Post Acute OT Equpiment Recommendations-D/C: Extended Bath Bench, Rails on Tub/Shower, Bedside Commode Treatment Plan/Plan of Care Treatment,Training & Education: Yes Patient would benefit from OT for education, treatment and training to promote independence in ADL's, mobility, safety and/or upper extremity function for ADL's. Plan of Care: ADL Retraining, Functional Mobility, Group Exercise/Act as Ind, UE Funct Exercise/Act Treatment Duration: Oct 03, 2019 Frequency: At least 5 of 7 days/Wk (IRF) Estimated Hrs Per Day: 1.5 hours per day Agreement: Yes Rehab Potential: Guarded Time/GCodes Start Time: 08:00 Stop Time: 09:15 Total Time Billed (hr/min): 75 Billed Treatment Time 1, ADL 3, EX 2 (75) OT/ PT co-treat this am. OT addresses ADLs, fx mob and endurance, attention to tasks, and UE movement while PT addresses LB movements, core strength/ balance. OT/ PT co-treat required due to pt's dependent transfers, decreased safety awareness, and requirement of 2 skilled therapists for successful treatment. CARINA WOODS OTR Sep 22, 2019 11:37
--- NOTE | 2019-09-22 13:30 | Speech Therapy Daily Note ---
Speech Daily Progress Note Subjective Date Seen by Provider: Sep 22, 2019 Time Seen by Provider: 00:30 Patient was resting in her recliner with her daughter present when I entered her room. Objective Patient completed a series of listed items she will need upon her return home as well as a list of possible resources. Assessment Assessment Current Status: Good Progress Treatment Plan Continue Plan of Care Speech Short Term Goals Short Term Goals Short Term Goals Pt will complete (visual/verbal) attention task with 90% accy. Pt will complete STM task with use of compensatoy strategies with 90% accy Pt will complete further cognitive assessment for further evaluation of memory, functional math, and reading. Speech Marketing And Communications Officer Goals Mcc Goals Pt will tolerate least restrictive diet with no s/s of aspiration/penetration wiht observed oral intake. Speech-Plan Patient/Family Goals Patient/Family Goals: Patient plans on moving with her children upon discharge. Treatment Plan Speech Therapy Treatment Plan: Continue Plan of Care Treatment Duration: Sep 20, 2019 Frequency: 5 times per week Estimated Hrs Per Day: .5 hour per day Rehab Potential: Guarded Barriers to Learning: Patient's recent CVA, however most of her deficits from the ST areas are resolved Pt/Family Agrees to Plan: Yes Safety Risks/Education Teaching Recipient: Patient Teaching Methods: Demonstration, Discussion Response to Teaching: Verbalize Understanding, Return Demonstration Education Topics Provided: Continued safety with oral intake and within her room. Time Speech Therapy Time In: 11:00 Speech Therapy Time Out: 11:30 Total Billed Time: 30 Billed Treatment Time 1, FLORECITA Sandra Sep 22, 2019 13:30
--- NOTE | 2019-09-22 15:00 | NUR ---
CM/SS CONCURRENT DOCUMENTATION Visited with patient [facility] her daughter Petra, [facility]. Will assist with physician statement regarding patient medical conditions so advocate that without in-home services patient is at imminent risk for community snf placement. Petra plans her approved overnight stay for 09/25/19. Integration Software Developer has updated communication board, Petra understands to arrive and depart within the designated visitor hours of 8a-7p. Petra will coordinate for her grandson to come Wednesday for family education and training. Plan continues for patient to return home under family assist and care.
[2019-09-22 18:00] VITALS: BP 100/50
[2019-09-22] MEDS: ALPRAZolam 1 MG (XANAX) TAB PO SCH (20:17)
[2019-09-22] MEDS: toPIRamate 25 MG (TOPAMAX) TAB PO SCH (20:17)
[2019-09-22] MEDS: MIRTAZAPINE 15 MG (REMERON) TAB PO SCH (20:17)
[2019-09-22] MEDS: MELATONIN 3 MG TABLET PO PRN (20:17)
[2019-09-23 05:47] VITALS: BP 96/62
[2019-09-23] MEDS: ASPIRIN E.C. 325 MG (ECOTRIN) TABLET PO SCH (08:48)
[2019-09-23] MEDS: NICOTINE 21 MG (NICODERM) PATCH TD SCH (08:48)
[2019-09-23] MEDS: DOCUSATE SODIUM 100 MG (COLACE) CAP PO SCH ×2 (08:48→08:54)
[2019-09-23] MEDS: PATCH REMOVAL TP SCH (08:49)
[2019-09-23] MEDS: SENNA W/DOCUSATE (SENOKOT S) TABLET PO SCH ×2 (08:49→20:03)
[2019-09-23] MEDS: polyethylene glycoL POWDER 17 GM (MIRALAX) PACK PO SCH ×2 (08:49→20:02)
[2019-09-23] MEDS: ALPRAZolam 0.25 MG (XANAX) TAB PO PRN (08:58)
[2019-09-23] MEDS: HYDROcodone/APAP 5 MG/325 MG (LORTAB) TAB PO PRN ×3 (08:58→20:03)
[2019-09-23] MEDS: ENOXAPARIN 40 MG/0.4 ML (LOVENOX) SYR SC SCH (09:01)
--- NOTE | 2019-09-23 09:16 | Physical Therapy Daily Note ---
PT Daily Note-Current Subjective Pt laying Supine in bed upon arrival. Pt agrees to Ex for PT as pt reports not feeling well. Pain Location: No Pain Reported Mental Status Patient Orientation: Person, Place Transfers SCALE: Activities may be completed with or without assistive devices. 3-Hblpbreclq-riayffy completes the activity by him/herself with no assistance from a helper. 5-Set-up or Clean-up Assistance-helper sets up or cleans up; patient completes activity. [place] assists only prior to or following the activity. 4-Supervision or Touching Assistance-helper provides verbal cues and/or touching/steadying and/or contact guard assistance as patient completes activity. Assistance may be provided throughout the activity or intermittently. 3-Partial/Moderate Assistance-helper does LESS THAN HALF the effort. [place] lifts, holds or supports trunk or limbs, but provides less than half the effort. 2-Substantial/Maximal Assistance-helper does MORE THAN HALF the effort. [place] lifts or holds trunk or limbs and provides more than half the effort. 2-Pjeobsqhc-gzrhvj does ALL the effort. Patient does none of the effort to complete the activity. Or, the assistance of 2 or more helpers is required for the patient to complete the activity. If activity was not attempted, code reason: 7-Patient Refused. 9-Not Applicable-not attempted and the patient did not perform the activity before the current illness, exacerbation or injury. 10-Not Attempted due to Environmental Limitations-(lack of equipment, weather restraints, etc.). 88-Not Attempted due to Medical Conditions or Safety Concerns. Lying to Sitting/Side of Bed(Q: 2 Sit to Stand (QC): 2 Chair/Vgq-tp-Gkzgo Xfer(QC): 2 Weight Bearing Full Weight Bearing Full Weight Bearing Treatments Pt completes Supine Ex then asks to use BSC. OPTOMETRIC TECHNOLOGIST transfers pt to BSC then to recliner when finished. Pt is repositioned with pillows and has all needs met, call light in hand. Assessment Current Status: Fair Progress Pt continues to transfer at Max A but appears to be in better spirits today. PT Short Term Goals Short Term Goals Time Frame: Sep 12, 2019 Roll Left & Right: 2 Sit to lyin Lying to sitting on side of be: 2 Wheel 50ft w/2 turns: 2 Wheel 150 feet: 2 PT Script Editor Goals Retirement Goals PT Script Editor Goals Time Frame: Sep 26, 2019 Roll Left & Right (QC): 3 Sit to Lying (QC): 3 Lying-Sitting on Side/Bed(QC): 3 Sit to Stand (QC): 3 Chair/Wxe-zw-Ywguh Xfer(QC): 3 Toilet Transfer (QC): 3 Car Transfer (QC): 3 Does the Patient Walk: No and Walking Goal NOT indicated Walk 10 feet (QC): 88 Walk 50ft with 2 Turns (QC): 88 Walk 150 ft (QC): 88 Walking 10ft on Uneven Surface: 88 1 Step (curb) (QC): 88 4 Steps (QC): 88 12 Steps (QC): 88 Picking up an Object (QC): 88 Does the Pt use WC or Scooter?: Yes Wheel 50 feet with 2 turns (QC: 3 Type: Manual Wheel 150 feet: 3 PT Plan Problem List Problem List: Activity Tolerance, Functional Strength, Safety, Balance, Transfer, Bed Mobility Treatment/Plan Treatment Plan: Continue Plan of Care Treatment Plan: Bed Mobility, Education, Functional Activity Afia, Functional Strength, Group Therapy, Gait, Safety, Therapeutic Exercise, Transfers Treatment Duration: Sep 26, 2019 Frequency: At least 5 of 7 days/Wk (IRF) Estimated Hrs Per Day: 1.5 hours per day Patient and/or Family Agrees t: Yes Safety Risks/Education Patient Education: Transfer Techniques, Correct Positioning, Safety Issues Teaching Recipient: Patient Teaching Methods: Discussion Response to Teaching: Verbalize Understanding Time/GCodes Time In: 815 Time Out: 840 Total Billed Treatment Time: 25 Total Billed Treatment 1, EX (10m) & FA (15m) JHONY WALTERS PTA Sep 23, 2019 09:16
--- NOTE | 2019-09-23 11:46 | PM&R Progress Note ---
Subjective HPI/CC On Admission Date Seen by Provider: Sep 23, 2019 Time Seen by Provider: 12:00 Subjective/Events-last exam Daughter at bedside today Patient doing very well Social work will help fill out form for me to sign for daughter's in home care work BM ok Takes Xanax and Lortab regularly Checked meds and labs Reviewed therapy notes Conferred with genetic coordinator of Systems General: Fatigue, Malaise Neurological: Weakness, Numbness, Incoordination Objective Exam Vital Signs Vital Signs Date Time Temp Pulse Resp B/P (MAP) Pulse Ox O2 Delivery O2 Flow Rate FiO2 09/23/19 08:42 Room Air 09/23/19 05:47 36.2 70 18 96/62 (73) 96 Capillary Refill : Less Than 3 Seconds General Appearance: No Apparent Distress, Chronically ill, Cachetic HEENT: PERRL/EOMI, Normal ENT Inspection, Pharynx Normal Neck: Full Range of Motion, Normal Inspection, Non Tender, Supple, Carotid Bruit Respiratory: Chest Non Tender, Lungs Clear, Normal Breath Sounds, No Accessory Muscle Use, No Respiratory Distress Cardiovascular: Regular Rate, Rhythm, No Edema, No Gallop, No JVD, No Murmur, Normal Peripheral Pulses Gastrointestinal: Normal Bowel Sounds, No Organomegaly, No Pulsatile Mass, Non Tender, Soft Back: Normal Inspection, No CVA Tenderness, No Vertebral Tenderness Extremity: Normal Capillary Refill, Normal Inspection, Normal Range of Motion, Non Tender, No Calf Tenderness, No Pedal Edema Neurologic/Psychiatric: Alert, Oriented x3, Abnormal Gait, Aphasia, Depressed Affect, EOM Palsy, Motor Weakness (right sided 2/5 upper extremity and 1/5 lower extremity) Skin: Normal Color, Warm/Dry Lymphatic: No Adenopathy Results/Procedures Lab Patient resulted labs reviewed. FIM Transfers Therapy Code Descriptions/Definitions Functional [place] Measure: 0=Not Assessed/NA 4=Minimal Assistance 1=Total Assistance 5=Supervision or Setup 2=Maximal Assistance 6=Modified [place] 3=Moderate Assistance 7=Complete IndependenceSCALE: Activities may be completed with or without assistive devices. 9-Jzdyehvxer-qjbnlwh completes the activity by him/herself with no assistance from a helper. 5-Set-up or Clean-up Assistance-helper sets up or cleans up; patient completes activity. [place] assists only prior to or following the activity. 4-Supervision or Touching Assistance-helper provides verbal cues and/or touching/steadying and/or contact guard assistance as patient completes activity. Assistance may be provided throughout the activity or intermittently. 3-Partial/Moderate Assistance-helper does LESS THAN HALF the effort. [place] lifts, holds or supports trunk or limbs, but provides less than half the effort. 2-Substantial/Maximal Assistance-helper does MORE THAN HALF the effort. [place] lifts or holds trunk or limbs and provides more than half the effort. 1-Hmzsogipt-canetn does ALL the effort. Patient does none of the effort to complete the activity. Or, the assistance of 2 or more helpers is required for the patient to complete the activity. If activity was not attempted, code reason: 7-Patient Refused. 9-Not Applicable-not attempted and the patient did not perform the activity before the current illness, exacerbation or injury. 10-Not Attempted due to Environmental Limitations-(lack of equipment, weather restraints, etc.). 88-Not Attempted due to Medical Conditions or Safety Concerns. Roll Left to Right (QC): 2 Sit to Lying (QC): 2 Sit to Stand (QC): 2 Chair/Qcc-oa-Zmcdm Xfer(QC): 2 Car Transfer (QC): 1 Gait Training Does the Patient Walk?: No and Walking Goal NOT indicated Walk 10 feet (QC): 88 Walk 50 ft with 2 Turns(QC): 88 Walk 150 ft (QC): 88 Walking 10ft/uneven surface-QC: 88 Gait Assistive Device: Parallel Bars Wheelchair Training Does the Pt Use a Wheelchair?: Yes Wheel 50 ft with 2 turns (QC): 3 Wheel 150 ft (QC): 3 Type of Wheelchair: Manual Stair Training 1 Step (curb) (QC): 88 4 Steps (QC): 88 12 Steps (QC): 88 Balance Picking up an Object (QC): 88 ADL-Treatment Eating (QC): 5 Oral Hygiene (QC): 9 ( pt does not have dentation and denies washing mouth out.) Bathing Location: L Arm, R Arm, L Upper Leg, R Upper Leg, L Lower Leg ( including foot), R Lower Leg (including foot), Chest, Abdomen, Perineal Area Shower/Bathe Self (QC): 3 (mod A for LB and bottom.) Upper Body Dressing (QC): 3 (mod A ) Lower Body Dressing (QC): 2 (able to kick BLE out, requires continuous cues for balance/ sitting ability prior to kicking LE's out. Pulled over hips with TD x2.) On/Off Footwear (QC): 2 Toileting Hygiene (QC): 1 (TD with assist x2) Toilet Transfer (QC): 2 (max A is required for transfer.) Assessment/Plan Assessment and Plan Assess & Plan/Chief Complaint Assessment: CVA Smoker Hematuria Leukocytosis improved HLP Right side Neglect Fall Risk Cough resolved Constipation resolved UTI acute resistant to Macrobid so started Bactrim 09/09/19 completed treatment and repeat UA negative Insomnia started on Remeron and added Ambien so we'll discontinue Ambien and start Xanax 1 mg at night- improved Chronic migraine - improved Plan: IRF Protocol Statin Smoking cessation ASA Lovenox Remeron and Xanax and Topamax Difficult to instill positivity Disposition to likely to nursing facility but family plans on bringing her home to care for her No increased pain meds indicated Start Topamax Discharge home soon with daughter and granddaughter to care for her Discharge plan for 09/28/2019 to home with family (1) CVA (cerebral vascular accident) (2) Hyperlipidemia Status: Chronic (3) Compression fracture of T3 vertebra (4) Behavior disorder (5) Leukocytosis (6) Dysarthria (7) Smoker Status: Chronic KRYS NEFF DO Sep 23, 2019 11:46
--- NOTE | 2019-09-23 14:25 | Cardiology Progress Note ---
Cardiology SOAP Progress Note Subjective: Complains of headache. Objective: I&O/Vital Signs 09/23/19 09/23/19 05:47 08:42 Temp 36.2 Pulse 70 Resp 18 B/P (MAP) 96/62 (73) Pulse Ox 96 O2 Delivery Room Air Room Air 09/23/19 00:00 Intake Total 1120 ml Balance 1120 ml Constitutional: AAO x 3 Respiratory: chest is bilaterally symmetric, lungs clear to auscultation Cardiovascular: regular rate-rhythm, S1 and S2; No diastolic murmur, No systolic murmur Gastrointestional: soft, audible bowel sounds Extremities: normal inspection, pedal edema Neurologic/Psychiatric: no motor/sensory deficits, alert, normal mood/affect, oriented x 3 Skin: normal color Results/Procedures: Labs Microbiology 09/07/19 Urine Culture - Final, Complete Proteus mirabilis A/P: Assessment/Dx: CVA HTN HLP Plan: CVA, still having right hemiplegia, 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 CT angiogram of the head was nondiagnostic. MRI of the head showed shower of embolization, probably underlying atrial fibrillation, so far her EKG did not show acute abnormality maintenance and aspirin. s/p LINq implantation for further monitoring for atrial fibrillation. Recurrent headache, dependent on pain medication, managed by primary care Echocardiogram showed normal LV function, prominent aorta. No significant abnormality otherwise Borderline hypotension, denies any dizziness, continue to monitor Hyperlipidemia, continue Lipitor, continue to monitor. Urinary tract infection, improved, managed by primary care physician Thank you for your consultation. Please call me if you have any questions. Elena Early MD, FACP, FACC, FSCAI, FHRS, CCDS Interventional Cardiology Cardiac Electrophysiology Vascular Medicine and Endovascular Interventions David EARLY MD Sep 23, 2019 14:25
[2019-09-23 18:00] VITALS: BP 99/55
[2019-09-23] MEDS: MIRTAZAPINE 15 MG (REMERON) TAB PO SCH (20:02)
[2019-09-23] MEDS: ALPRAZolam 1 MG (XANAX) TAB PO SCH (20:02)
[2019-09-23] MEDS: MELATONIN 3 MG TABLET PO PRN (20:02)
[2019-09-23] MEDS: toPIRamate 25 MG (TOPAMAX) TAB PO SCH (20:03)
[2019-09-24 06:00] VITALS: BP 97/67
[2019-09-24] MEDS: NICOTINE 21 MG (NICODERM) PATCH TD SCH (09:51)
[2019-09-24] MEDS: ASPIRIN E.C. 325 MG (ECOTRIN) TABLET PO SCH (09:51)
[2019-09-24] MEDS: HYDROcodone/APAP 5 MG/325 MG (LORTAB) TAB PO PRN ×3 (09:58→18:20)
[2019-09-24] MEDS: PATCH REMOVAL TP SCH (09:59)
[2019-09-24] MEDS: SENNA W/DOCUSATE (SENOKOT S) TABLET PO SCH ×2 (10:01→20:10)
[2019-09-24] MEDS: DOCUSATE SODIUM 100 MG (COLACE) CAP PO SCH (10:01)
[2019-09-24] MEDS: polyethylene glycoL POWDER 17 GM (MIRALAX) PACK PO SCH ×2 (10:01→20:10)
[2019-09-24] MEDS: ENOXAPARIN 40 MG/0.4 ML (LOVENOX) SYR SC SCH (10:02)
[2019-09-24] MEDS: ALPRAZolam 0.25 MG (XANAX) TAB PO PRN (10:03)
--- NOTE | 2019-09-24 10:59 | PM&R Progress Note ---
Subjective HPI/CC On Admission Date Seen by Provider: Sep 24, 2019 Time Seen by Provider: 10:00 Subjective/Events-last exam Patient doing very well Social work will help fill out form for me to sign for daughter's in home care work BM ok Takes Xanax and Lortab regularly Anxious about going home Ramp needed Checked meds and labs Reviewed therapy notes Conferred with supervisor paint roller covers of Systems General: Fatigue, Malaise Pulmonary: Dyspnea Neurological: Weakness Objective Exam Vital Signs Vital Signs Date Time Temp Pulse Resp B/P (MAP) Pulse Ox O2 Delivery O2 Flow Rate FiO2 09/24/19 16:51 36.6 72 18 98/54 (69) 96 Room Air Capillary Refill : Less Than 3 Seconds General Appearance: No Apparent Distress, Chronically ill, Cachetic HEENT: PERRL/EOMI, Normal ENT Inspection, Pharynx Normal Neck: Full Range of Motion, Normal Inspection, Non Tender, Supple, Carotid Bruit Respiratory: Chest Non Tender, Lungs Clear, Normal Breath Sounds, No Accessory Muscle Use, No Respiratory Distress Cardiovascular: Regular Rate, Rhythm, No Edema, No Gallop, No JVD, No Murmur, Normal Peripheral Pulses Gastrointestinal: Normal Bowel Sounds, No Organomegaly, No Pulsatile Mass, Non Tender, Soft Back: Normal Inspection, No CVA Tenderness, No Vertebral Tenderness Extremity: Normal Capillary Refill, Normal Inspection, Normal Range of Motion, Non Tender, No Calf Tenderness, No Pedal Edema Neurologic/Psychiatric: Alert, Oriented x3, Abnormal Gait, Aphasia, Depressed Affect, EOM Palsy, Motor Weakness (right sided 2/5 upper extremity and 1/5 lower extremity) Skin: Normal Color, Warm/Dry Lymphatic: No Adenopathy Results/Procedures Lab Patient resulted labs reviewed. FIM Transfers Therapy Code Descriptions/Definitions Functional [place] Measure: 0=Not Assessed/NA 4=Minimal Assistance 1=Total Assistance 5=Supervision or Setup 2=Maximal Assistance 6=Modified [place] 3=Moderate Assistance 7=Complete IndependenceSCALE: Activities may be completed with or without assistive devices. 4-Xhakiswexm-fevykzp completes the activity by him/herself with no assistance fr om a helper. 5-Set-up or Clean-up Assistance-helper sets up or cleans up; patient completes activity. [place] assists only prior to or following the activity. 4-Supervision or Touching Assistance-helper provides verbal cues and/or touching/steadying and/or contact guard assistance as patient completes activity. Assistance may be provided throughout the activity or intermittently. 3-Partial/Moderate Assistance-helper does LESS THAN HALF the effort. [place] lifts, holds or supports trunk or limbs, but provides less than half the effort. 2-Substantial/Maximal Assistance-helper does MORE THAN HALF the effort. [place] lifts or holds trunk or limbs and provides more than half the effort. 2-Zkahgrykm-sxdbev does ALL the effort. Patient does none of the effort to complete the activity. Or, the assistance of 2 or more helpers is required for the patient to complete the activity. If activity was not attempted, code reason: 7-Patient Refused. 9-Not Applicable-not attempted and the patient did not perform the activity before the current illness, exacerbation or injury. 10-Not Attempted due to Environmental Limitations-(lack of equipment, weather restraints, etc.). 88-Not Attempted due to Medical Conditions or Safety Concerns. Roll Left to Right (QC): 2 Sit to Lying (QC): 2 Sit to Stand (QC): 2 Chair/Dyx-fo-Loyxw Xfer(QC): 2 Car Transfer (QC): 1 Gait Training Does the Patient Walk?: No and Walking Goal NOT indicated Walk 10 feet (QC): 88 Walk 50 ft with 2 Turns(QC): 88 Walk 150 ft (QC): 88 Walking 10ft/uneven surface-QC: 88 Gait Assistive Device: Parallel Bars Wheelchair Training Does the Pt Use a Wheelchair?: Yes Wheel 50 ft with 2 turns (QC): 3 Wheel 150 ft (QC): 3 Type of Wheelchair: Manual Stair Training 1 Step (curb) (QC): 88 4 Steps (QC): 88 12 Steps (QC): 88 Balance Picking up an Object (QC): 88 ADL-Treatment Eating (QC): 5 Oral Hygiene (QC): 9 ( pt does not have dentation and denies washing mouth out.) Bathing Location: L Arm, R Arm, L Upper Leg, R Upper Leg, L Lower Leg (including foot), R Lower Leg (including foot), Chest, Abdomen, Perineal Area Shower/Bathe Self (QC): 3 (mod A for LB and bottom.) Upper Body Dressing (QC): 3 (mod A ) Lower Body Dressing (QC): 2 (able to kick BLE out, requires continuous cues for balance/ sitting ability prior to kicking LE's out. Pulled over hips with TD x2.) On/Off Footwear (QC): 2 Toileting Hygiene (QC): 1 (TD with assist x2) Toilet Transfer (QC): 2 (max A is required for transfer.) Assessment/Plan Assessment and Plan Assess & Plan/Chief Complaint Assessment: CVA Smoker Hematuria Leukocytosis resolved HLP Right side neglect Fall Risk Cough resolved Constipation resolved UTI acute resistant to Macrobid so started Bactrim 09/09/19 completed treatment and repeat UA negative Insomnia started on Remeron and added Ambien so we'll discontinue Ambien and start Xanax 1 mg at night- improved Chronic migraine - improved Plan: IRF Protocol Statin Smoking cessation ASA Lovenox Remeron and Xanax and Topamax Difficult to instill positivity Disposition to likely to nursing facility but family plans on bringing her home to care for her No increased pain meds indicated Start Topamax Discharge home soon with daughter and granddaughter to care for her Discharge plan for 09/28/2019 to home with family (1) CVA (cerebral vascular accident) (2) Hyperlipidemia Status: Chronic (3) Compression fracture of T3 vertebra (4) Behavior disorder (5) Leukocytosis (6) Dysarthria (7) Smoker Status: Chronic KRYS NEFF DO Sep 24, 2019 10:59
--- NOTE | 2019-09-24 15:10 | Cardiology Progress Note ---
Cardiology SOAP Progress Note Subjective: no cardiac complaints. Objective: I&O/Vital Signs 09/24/19 09/24/19 06:00 08:44 Temp 36.0 Pulse 74 Resp 16 B/P (MAP) 97/67 (77) Pulse Ox 97 O2 Delivery Room Air Room Air 09/24/19 00:00 Intake Total 1280 ml Balance 1280 ml Constitutional: AAO x 3 Respiratory: chest is bilaterally symmetric, lungs clear to auscultation Cardiovascular: regular rate-rhythm, S1 and S2; No diastolic murmur, No systolic murmur Gastrointestional: soft, audible bowel sounds Extremities: normal inspection, pedal edema Neurologic/Psychiatric: no motor/sensory deficits, alert, normal mood/affect, oriented x 3 Skin: normal color Results/Procedures: Labs Microbiology 09/07/19 Urine Culture - Final, Complete Proteus mirabilis A/P: Assessment/Dx: CVA HTN HLP Plan: CVA, still having right hemiplegia, 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 CT angiogram of the head was nondiagnostic. MRI of the head showed shower of embolization, probably underlying atrial fibrillation, so far her EKG did not show acute abnormality maintenance and aspirin. s/p LINq implantation for further monitoring for atrial fibrillation. Recurrent headache, dependent on pain medication, managed by primary care Echocardiogram showed normal LV function, prominent aorta. No significant abnormality otherwise Borderline hypotension, denies any dizziness, continue to monitor Hyperlipidemia, continue Lipitor, continue to monitor. Urinary tract infection, improved, managed by primary care physician Thank you for your consultation. Please call me if you have any questions. Elena Early MD, FACP, FACC, FSCAI, FHRS, CCDS Interventional Cardiology Cardiac Electrophysiology Vascular Medicine and Endovascular Interventions David EARLY MD Sep 24, 2019 15:09
[2019-09-24 16:51] VITALS: BP 98/54
--- NOTE | 2019-09-24 17:08 | NUR ---
Max Ax2 to scoot up in bed, & position for supper. Assisted w tranorma. Pt states that she was scooted down in the bed because dgtr in law who is present in room, transferred her to w/c then to toilet, then back to bed. Pt states that she voided, but no bm. This dgtr in law will be assisting to take care of pt, along w her sister in law, Petra, pt's dgtr, once discharged. Both are PLATING TECHNICIAN's.
--- NOTE | 2019-09-24 17:54 | NUR ---
Dgtr in law came to desk & spoke to nurses stating that she is concerned about pt discharging home to her house, stating that there isn't enough room for all of them now that are there, stating that there are 2 families living there now.
[2019-09-24] MEDS: MELATONIN 3 MG TABLET PO PRN (20:10)
[2019-09-24] MEDS: toPIRamate 25 MG (TOPAMAX) TAB PO SCH (20:10)
[2019-09-24] MEDS: MIRTAZAPINE 15 MG (REMERON) TAB PO SCH (20:10)
[2019-09-24] MEDS: ALPRAZolam 1 MG (XANAX) TAB PO SCH (20:10)
[2019-09-25] MEDS: ALPRAZolam 0.25 MG (XANAX) TAB PO PRN ×2 (01:03→11:13)
[2019-09-25] MEDS: HYDROcodone/APAP 5 MG/325 MG (LORTAB) TAB PO PRN ×4 (01:03→16:58)
[2019-09-25 05:58] LABS: BASOPHILS # (AUTO) 0.1 10^3/uL (0.0-0.1); BASOPHILS % (AUTO) 1 % (0-10); EOSINOPHILS # (AUTO) 0.3 10^3/uL (0.0-0.3); EOSINOPHILS % (AUTO) 4 % (0-10); HEMATOCRIT 40 % (35-52); HEMOGLOBIN 13.1 G/DL (11.5-16.0); LYMPHOCYTES % (AUTO) 39 % (12-44); MEAN CORPUSCULAR HEMOGLOBIN 29 PG (25-34); MEAN CORPUSCULAR HGB CONC 33 G/DL (32-36); MEAN CORPUSCULAR VOLUME 88 FL (80-99); MEAN PLATELET VOLUME 9.4 FL (7.4-10.4); MONOCYTES # (AUTO) 0.8 X 10^3 (0.0-1.0); MONOCYTES % (AUTO) 11 % (0-12); NEUTROPHILS # (AUTO) 3.5 X 10^3 (1.8-7.8); NEUTROPHILS % (AUTO) 46 % (42-75); PLATELET COUNT 340 10^3/uL (130-400); RED CELL DISTRIBUTION WIDTH 12.8 % (10.0-14.5); WHITE BLOOD COUNT 7.6 10^3/uL (4.3-11.0)
[2019-09-25 05:59] VITALS: BP 99/64
[2019-09-25 06:10] LABS: ALBUMIN 3.9 GM/DL (3.2-4.5)
[2019-09-25 06:11] LABS: CHLORIDE 108 MMOL/L (98-107); POTASSIUM 3.8 MMOL/L (3.6-5.0); SODIUM 140 MMOL/L (135-145)
[2019-09-25 06:12] LABS: CALCIUM 9.9 MG/DL (8.5-10.1)
[2019-09-25 06:13] LABS: GLUCOSE 96 MG/DL (70-105); TOTAL PROTEIN 6.8 GM/DL (6.4-8.2)
[2019-09-25 06:14] LABS: CARBON DIOXIDE 20 MMOL/L (21-32)
[2019-09-25 06:15] LABS: BILIRUBIN,TOTAL 0.2 MG/DL (0.1-1.0)
[2019-09-25 06:16] LABS: ALKALINE PHOSPHATASE 80 U/L (40-136)
[2019-09-25 06:17] LABS: CREATININE SERUM 0.76 MG/DL (0.60-1.30); GFR ESTIMATED > 60
[2019-09-25 06:18] LABS: BUN/CREATININE RATIO 37
[2019-09-25 06:19] LABS: ALANINE AMINOTRANSFERASE 34 U/L (0-55)
[2019-09-25] MEDS: NICOTINE 21 MG (NICODERM) PATCH TD SCH (08:12)
[2019-09-25] MEDS: ASPIRIN E.C. 325 MG (ECOTRIN) TABLET PO SCH (08:12)
[2019-09-25] MEDS: PATCH REMOVAL TP SCH (08:12)
[2019-09-25] MEDS: SENNA W/DOCUSATE (SENOKOT S) TABLET PO SCH ×2 (08:56→20:11)
[2019-09-25] MEDS: polyethylene glycoL POWDER 17 GM (MIRALAX) PACK PO SCH ×2 (08:56→20:11)
[2019-09-25] MEDS: DOCUSATE SODIUM 100 MG (COLACE) CAP PO SCH (08:56)
--- NOTE | 2019-09-25 09:21 | Occupational Ther Daily Note ---
OT Current Status-Daily Note Subjective Pt seen supine in bed this am. Pt states pain "everywhere," stating she hasn't hurt like this in a while. Pt demonstrates increased tone, though UE able to break up without difficulty. Pt agrees to OT/ PT co-treat this am. OT addresses ADLs, fx mob and endurance, attention to tasks, and UE movement while PT a ddresses LB movements, core strength/ balance. OT/ PT co-treat required due to pt's dependent transfers, decreased safety awareness, and requirement of 2 skilled therapists for successful treatment. Nursing made aware of pain, meds administered. Mental Status/Objective Patient Orientation: Person, Place, Situation ADL-Treatment Therapy Code Descriptions/Definitions Functional [place] Measure: 0=Not Assessed/NA 4=Minimal Assistance 1=Total Assistance 5=Supervision or Setup 2=Maximal Assistance 6=Modified [place] 3=Moderate Assistance 7=Complete IndependenceSCALE: Activities may be completed with or without assistive devices. 0-Vskfvwwhai-dytzmgd completes the activity by him/herself with no assistance from a helper. 5-Set-up or Clean-up Assistance-helper sets up or cleans up; patient completes activity. [place] assists only prior to or following the activity. 4-Supervision or Touching Assistance-helper provides verbal cues and/or touching/steadying and/or contact guard assistance as patient completes activity. Assistance may be provided throughout the activity or intermittently. 3-Partial/Moderate Assistance-helper does LESS THAN HALF the effort. [place] lifts, holds or supports trunk or limbs, but provides less than half the effort. 2-Substantial/Maximal Assistance-helper does MORE THAN HALF the effort. [place] lifts or holds trunk or limbs and provides more than half the effort. 4-Cucdifddd-ikltpp does ALL the effort. Patient does none of the effort to complete the activity. Or, the assistance of 2 or more helpers is required for the patient to complete the activity. If activity was not attempted, code reason: 7-Patient Refused. 9-Not Applicable-not attempted and the patient did not perform the activity before the current illness, exacerbation or injury. 10-Not Attempted due to Environmental Limitations-(lack of equipment, weather restraints, etc.). 88-Not Attempted due to Medical Conditions or Safety Concerns. Eating (QC): 5 (s/u coffee on this date.) Bathing Location: L Arm, R Arm, L Upper Leg, R Upper Leg, Chest, Abdomen, Perineal Area Shower/Bathe Self (QC): 3 (mod A for LB washing/ bottom: pt completes sponge bath EOB. Requires assist ([place]-CGA) due to decreased balance EOB.) Upper Body Dressing (QC): 3 (mod A, cues for sequencing and attention to task.) Lower Body Dressing (QC): 2 (max A Pt able to kick BLE up for threading and brings pants to knees for easier donning. (assist x2 in stance for stance and pulling up over hips.) ) On/Off Footwear: 1 Toileting Hygiene (QC): 1 (assist x2.) Other Treatment Pt agrees to OT/ PT co-treat this am. OT addresses ADLs, fx mob and endurance, attention to tasks, and UE movement while PT addresses LB movements, core strength/ balance. OT/ PT co-treat required due to pt's dependent transfers, decreased safety awareness, and requirement of 2 skilled therapists for successful treatment. Pt bed mob with TD. Sits EOB for ~30 min during sponge bath while PT addresses balance, OT addresses ADL/ UE movement and requires max cues for attention and continuation of tasks. Pt completes SPT (TD) to w/c. Pushed to gym. Pt completes 3 rounds of walking through parallel bars with max A for RUE placement on bars and posture from OT. Pt sits in w/c, pt's RUE PROM completed. Pt lays in supine on mat for additional stretching for contracture management/ prevention to RUE in full range. Pt c/o pain in pec major, mm inhibition applied. Pt sits in recliner chair with all needs met, call light in reach. Education OT Patient Education: Correct positioning, Exercise program, Home exercise program, Modified ADL techniques, Progress toward Goal/Update tx plan, Purpose of tx/functional activities, Safety issues, Transfer techniques, W/C management Teaching Recipient: Patient Teaching Methods: Demonstration, Discussion Response to Teaching: Verbalize Understanding, Return Demonstration, Reinforcement Needed OT Short Term Goals Short Term Goals Time Frame: Sep 19, 2019 Eatin Oral hygiene: 9 Toileting hygiene: 3 Shower/bathe self: 3 Upper body dressin Lower body dressin Putting on/taking off footwear: 3 OT Group Home Goals Group Home Goals Time Frame: Oct 03, 2019 Eating (QC): 6 Oral Hygiene (QC): 9 Toileting Hygiene (QC): 4 Shower/Bathe Self (QC): 4 Upper Body Dressing (QC): 4 Lower Body Dressing (QC): 4 On/Off Footwear (QC): 4 Additional Goals: 1-Demonstrate ADL Tasks, 2-Verbalize Understanding, 3- ImproveStrength/Afia 1=Demonstrate adherence to instructed precautions during ADL tasks. 2=Patient will verbalize/demonstrate understanding of assistive devices/modifications for ADL. 3=Patient will improve strength/tolerance for activity to enable patient to perform ADL's. OT Education/Plan Problem List/Assessment Assessment: Decreased Activ Tolerance, Decreased Safety Aware, Decreased UE Strength, Dependent Transfers, Impaired Bed Mobility, Impaired Cognition, Impaired Coordination, Impaired Funct Balance, Impaired I ADL's, Impaired Self- Care Skills Discharge Recommendations Plan/Recommendations: Continue POC Therapy Discharge Recommendati: 24 Hour Supervision, Home & Family, Post Acute OT Equpiment Recommendations-D/C: Extended Bath Bench, Rails on Tub/Shower, Bedside Commode Treatment Plan/Plan of Care Patient would benefit from OT for education, treatment and training to promote independence in ADL's, mobility, safety and/or upper extremity function for ADL's. Plan of Care: ADL Retraining, Functional Mobility, Group Exercise/Act as Ind, UE Funct Exercise/Act Treatment Duration: Oct 03, 2019 Frequency: At least 5 of 7 days/Wk (IRF) Estimated Hrs Per Day: 1.5 hours per day Agreement: Yes Rehab Potential: Guarded Time/GCodes Start Time: 08:00 Stop Time: 09:15 Total Time Billed (hr/min): 75 Billed Treatment Time Pt agrees to OT/ PT co-treat this am. OT addresses ADLs, fx mob and endurance, attention to tasks, and UE movement while PT addresses LB movements, core strength/ balance. OT/ PT co-treat required due to pt's dependent transfers, decreased safety awareness, and requirement of 2 skilled therapists for succes sful treatment 1, ADL 3, EX 2 (75) CARINA WOODS OTR Sep 25, 2019 09:21
--- NOTE | 2019-09-25 09:30 | Physical Therapy Daily Note ---
PT Daily Note-Current Subjective Patient in bed pre tx, agrees to PT, has unrated pain "all over". Will be co- treating with OT due to poor patient mobility, strength, endurance, sitting balance, right hemiparesis, the need to coordinate UE and LE during activity, reduce risk of falls. Appearance Patient in recliner post tx with nurse call, phone, tray, all needs met, pillow support, legs elevated. Mental Status Patient Orientation: Person, Place, Situation Transfers SCALE: Activities may be completed with or without assistive devices. 9-Fcbghvglxm-tcuhweu completes the activity by him/herself with no assistance from a helper. 5-Set-up or Clean-up Assistance-helper sets up or cleans up; patient completes activity. [place] assists only prior to or following the activity. 4-Supervision or Touching Assistance-helper provides verbal cues and/or touching/steadying and/or contact guard assistance as patient completes activity. Assistance may be provided throughout the activity or intermittently. 3-Partial/Moderate Assistance-helper does LESS THAN HALF the effort. [place] lifts, holds or supports trunk or limbs, but provides less than half the effort. 2-Substantial/Maximal Assistance-helper does MORE THAN HALF the effort. [place] lifts or holds trunk or limbs and provides more than half the effort. 9-Zqxrquqha-kykpbd does ALL the effort. Patient does none of the effort to complete the activity. Or, the assistance of 2 or more helpers is required for the patient to complete the activity. If activity was not attempted, code reason: 7-Patient Refused. 9-Not Applicable-not attempted and the patient did not perform the activity before the current illness, exacerbation or injury. 10-Not Attempted due to Environmental Limitations-(lack of equipment, weather restraints, etc.). 88-Not Attempted due to Medical Conditions or Safety Concerns. Roll Left & Right (QC): 2 Lying to Sitting/Side of Bed(Q: 2 Sit to Stand (QC): 2 Chair/Tks-pf-Qzgal Xfer(QC): 2 supine to sit and patient undressed and bathed, then dressed upper and partial lower, stood and completed dressing and transferred to , propelled to therapy gym, went to parallel bars, stood and ambulated 6'x3 with max assist, transfer red to therapy table, UE and LE stretching, transferred to , taken to room and transferred to recliner. Patient has severe right side LE extensor tone most of the time, especially when ambulating and needs assist advancing her right leg, max assist with balance during ambulation, min/mod assist with sitting balance. Weight Bearing Full Weight Bearing Full Weight Bearing Wheelchair Training Does the Pt Use a Wheelchair?: Yes Wheel 50 ft with 2 turns (QC): 2 Type of Wheelchair: Manual Exercises LE stretching Treatments bed mobility and transfers, sitting balance, standing, ambulation, WC mobility. PT performed bed mobility and transfers, ambulation, sitting balance during dressing and bathing, WC mobility, OT performed bathing and dressing, UE positioning and safety during activity. Assessment Current Status: Poor Progress no change in mobility PT Short Term Goals Short Term Goals Time Frame: Sep 12, 2019 Roll Left & Right: 2 Sit to lyin Lying to sitting on side of be: 2 Wheel 50ft w/2 turns: 2 Wheel 150 feet: 2 PT Associate Partner Goals [facility] Goals PT Associate Partner Goals Time Frame: Sep 26, 2019 Roll Left & Right (QC): 3 Sit to Lying (QC): 3 Lying-Sitting on Side/Bed(QC): 3 Sit to Stand (QC): 3 Chair/Uhw-yr-Utzes Xfer(QC): 3 Toilet Transfer (QC): 3 Car Transfer (QC): 3 Does the Patient Walk: No and Walking Goal NOT indicated Walk 10 feet (QC): 88 Walk 50ft with 2 Turns (QC): 88 Walk 150 ft (QC): 88 Walking 10ft on Uneven Surface: 88 1 Step (curb) (QC): 88 4 Steps (QC): 88 12 Steps (QC): 88 Picking up an Object (QC): 88 Does the Pt use WC or Scooter?: Yes Wheel 50 feet with 2 turns (QC: 3 Type: Manual Wheel 150 feet: 3 PT Plan Problem List Problem List: Activity Tolerance, Functional Strength, Safety, Balance, Gait, Transfer, Bed Mobility, ROM Treatment/Plan Treatment Plan: Continue Plan of Care Treatment Plan: Bed Mobility, Education, Functional Activity Afia, Functional Strength, Group Therapy, Gait, Safety, Therapeutic Exercise, Transfers Treatment Duration: Sep 26, 2019 Frequency: At least 5 of 7 days/Wk (IRF) Estimated Hrs Per Day: 1.5 hours per day Patient and/or Family Agrees t: Yes Safety Risks/Education Patient Education: Gait Training, Transfer Techniques, Correct Positioning, W/C Management, Safety Issues Teaching Recipient: Patient Teaching Methods: Demonstration, Discussion Response to Teaching: Reinforcement Needed Time/GCodes Time In: 0800 Time Out: 914 Total Billed Treatment Time: 75 Total Billed Treatment 1 visit EX 15' FA 60' co-treated with OT for 75' TASHA POMPA PT Sep 25, 2019 09:30
--- NOTE | 2019-09-25 10:36 | PM&R Progress Note ---
Subjective HPI/CC On Admission Date Seen by Provider: Sep 25, 2019 Time Seen by Provider: 09:15 Subjective/Events-last exam Pt about the same Bowels moved yesterday Labs reviewed and everything within normal limits No pain is reported other than her usual chronic back and neck pain Overall sleeping pretty well otherwise Ramp has been built Checked meds and labs Reviewed therapy notes Conferred with regional cra of Systems General: Fatigue, Malaise Neurological: Weakness, Incoordination Objective Exam Vital Signs Vital Signs Date Time Temp Pulse Resp B/P (MAP) Pulse Ox O2 Delivery O2 Flow Rate FiO2 09/25/19 20:15 Room Air 09/25/19 18:30 36.6 83 16 97/58 (71) 95 Capillary Refill : Less Than 3 Seconds General Appearance: No Apparent Distress, Chronically ill, Cachetic HEENT: PERRL/EOMI, Normal ENT Inspection, Pharynx Normal Neck: Full Range of Motion, Normal Inspection, Non Tender, Supple, Carotid Brui t Respiratory: Chest Non Tender, Lungs Clear, Normal Breath Sounds, No Accessory Muscle Use, No Respiratory Distress Cardiovascular: Regular Rate, Rhythm, No Edema, No Gallop, No JVD, No Murmur, Normal Peripheral Pulses Gastrointestinal: Normal Bowel Sounds, No Organomegaly, No Pulsatile Mass, Non Tender, Soft Back: Normal Inspection, No CVA Tenderness, No Vertebral Tenderness Extremity: Normal Capillary Refill, Normal Inspection, Normal Range of Motion, Non Tender, No Calf Tenderness, No Pedal Edema Neurologic/Psychiatric: Alert, Oriented x3, Abnormal Gait, Aphasia, Depressed Affect, EOM Palsy, Motor Weakness (right sided 2/5 upper extremity and 1/5 lower extremity) Skin: Normal Color, Warm/Dry Lymphatic: No Adenopathy Results/Procedures Lab Laboratory Tests 09/25/19 05:45 Patient resulted labs reviewed. FIM Transfers Therapy Code Descriptions/Definitions Functional [place] Measure: 0=Not Assessed/NA 4=Minimal Assistance 1=Total Assistance 5=Supervision or Setup 2=Maximal Assistance 6=Modified [place] 3=Moderate Assistance 7=Complete IndependenceSCALE: Activities may be completed with or without assistive devices. 7-Nkgmprfjie-vhummep completes the activity by him/herself with no assistance from a helper. 5-Set-up or Clean-up Assistance-helper sets up or cleans up; patient completes activity. [place] assists only prior to or following the activity. 4-Supervision or Touching Assistance-helper provides verbal cues and/or touch ing/steadying and/or contact guard assistance as patient completes activity. Assistance may be provided throughout the activity or intermittently. 3-Partial/Moderate Assistance-helper does LESS THAN HALF the effort. [place] lifts, holds or supports trunk or limbs, but provides less than half the effort. 2-Substantial/Maximal Assistance-helper does MORE THAN HALF the effort. [place] lifts or holds trunk or limbs and provides more than half the effort. 0-Udzlikccg-azxegk does ALL the effort. Patient does none of the effort to complete the activity. Or, the assistance of 2 or more helpers is required for the patient to complete the activity. If activity was not attempted, code reason: 7-Patient Refused. 9-Not Applicable-not attempted and the patient did not perform the activity bef ore the current illness, exacerbation or injury. 10-Not Attempted due to Environmental Limitations-(lack of equipment, weather restraints, etc.). 88-Not Attempted due to Medical Conditions or Safety Concerns. Roll Left to Right (QC): 2 Sit to Lying (QC): 2 Sit to Stand (QC): 2 Chair/Zoj-om-Rwfzk Xfer(QC): 2 Car Transfer (QC): 1 Gait Training Does the Patient Walk?: No and Walking Goal NOT indicated Walk 10 feet (QC): 88 Walk 50 ft with 2 Turns(QC): 88 Walk 150 ft (QC): 88 Walking 10ft/uneven surface-QC: 88 Gait Assistive Device: Parallel Bars Wheelchair Training Does the Pt Use a Wheelchair?: Yes Wheel 50 ft with 2 turns (QC): 2 Wheel 150 ft (QC): 3 Type of Wheelchair: Manual Stair Training 1 Step (curb) (QC): 88 4 Steps (QC): 88 12 Steps (QC): 88 Balance Picking up an Object (QC): 88 ADL-Treatment Eating (QC): 5 (s/u coffee on this date.) Oral Hygiene (QC): 9 ( pt does not have dentation and denies washing mouth out.) Bathing Location: L Arm, R Arm, L Upper Leg, R Upper Leg, Chest, Abdomen, Perineal Area Shower/Bathe Self (QC): 3 (mod A for LB washing/ bottom: pt completes sponge bath EOB. Requires assist ([place]-CGA) due to decreased balance EOB.) Upper Body Dressing (QC): 3 (mod A, cues for sequencing and attention to task.) Lower Body Dressing (QC): 2 (max A Pt able to kick BLE up for threading and brings pants to knees for easier donning. (assist x2 in stance for stance and pulling up over hips.) ) On/Off Footwear (QC): 1 Toileting Hygiene (QC): 1 (assist x2.) Toilet Transfer (QC): 2 (max A is required for transfer.) Assessment/Plan Assessment and Plan Assess & Plan/Chief Complaint Assessment: CVA Smoker Hematuria Leukocytosis resolved HLP Right side neglect Fall Risk Cough resolved Constipation resolved UTI acute resistant to Macrobid so started Bactrim 09/09/19 completed treatment and repeat UA negative Insomnia started on Remeron and added Ambien so we'll discontinue Ambien and start Xanax 1 mg at night- improved Chronic migraine - improved Plan: IRF Protocol Statin Smoking cessation ASA Lovenox Remeron and Xanax and Topamax Difficult to instill positivity Disposition to likely to nursing facility but family plans on bringing her home to care for her No increased pain meds indicated Start Topamax Discharge home soon with daughter and granddaughter to care for her Discharge plan for 09/28/2019 to home with family (1) CVA (cerebral vascular accident) (2) Hyperlipidemia Status: Chronic (3) Compression fracture of T3 vertebra (4) Behavior disorder (5) Leukocytosis (6) Dysarthria (7) Smoker Status: Chronic KRYS NEFF DO Sep 25, 2019 10:36
[2019-09-25] MEDS: ENOXAPARIN 40 MG/0.4 ML (LOVENOX) SYR SC SCH (10:38)
--- NOTE | 2019-09-25 13:46 | NUR ---
CM/SS DISCHARGE PLANNING Daughter Petra will be here overnight in order to participate in the care of patient in preparation for her return home 09/28/19. Petra is talking with her family to determine who will commit to assisting as a secondary caregiver. She understands time has been set aside Wednesday09/26/19 at 0900 for therapy team to participate with patient/family for education/training. Updated Server Engineer re same for their scheduling. DME: Will need a final list from therapy team regarding patient's care in the home. Tentative list is tub transfer bench, BSC, wheelchair.
--- NOTE | 2019-09-25 14:30 | Speech Therapy Daily Note ---
Speech Daily Progress Note Subjective Date Seen by Provider: Sep 25, 2019 Time Seen by Provider: 00:30 Patient was resting in bed when I entered her room. She states she was very tired from her other therapy. Assessment Assessment Current Status: Good Progress Treatment Plan Continue Plan of Care Speech Short Term Goals Short Term Goals Short Term Goals Pt will complete (visual/verbal) attention task with 90% accy. Pt will complete STM task with use of compensatoy strategies with 90% accy Pt will complete further cognitive assessment for further evaluation of memory, functional math, and reading. Speech Senior Living Goals Loading Supervisor Goals Pt will tolerate least restrictive diet with no s/s of aspiration/penetration wiht observed oral intake. Speech-Plan Patient/Family Goals Patient/Family Goals: The patient will be discharging to her home with children this week. Treatment Plan Speech Therapy Treatment Plan: Continue Plan of Care Treatment Duration: Sep 20, 2019 Frequency: 5 times per week Estimated Hrs Per Day: .5 hour per day Rehab Potential: Guarded Barriers to Learning: Patient's recent CVA Pt/Family Agrees to Plan: Yes Safety Risks/Education Teaching Recipient: Patient Teaching Methods: Demonstration, Discussion Response to Teaching: Verbalize Understanding, Return Demonstration Education Topics Provided: Continued safety within her room Time Speech Therapy Time In: 13:30 Speech Therapy Time Out: 14:00 Total Billed Time: 30 Billed Treatment Time GELA Mcgowan [address] Sep 25, 2019 14:30
--- NOTE | 2019-09-25 15:01 | Cardiology Progress Note ---
Cardiology SOAP Progress Note Subjective: Complains of headache. Objective: I&O/Vital Signs 09/25/19 09/25/19 05:59 08:00 Temp 36.6 Pulse 79 Resp 18 B/P (MAP) 99/64 (76) Pulse Ox 96 O2 Delivery Room Air Room Air 09/25/19 00:00 Intake Total 1285 ml Balance 1285 ml Constitutional: AAO x 3 Respiratory: chest is bilaterally symmetric, lungs clear to auscultation Cardiovascular: regular rate-rhythm, S1 and S2; No diastolic murmur, No systolic murmur Gastrointestional: soft, audible bowel sounds Extremities: normal inspection, pedal edema Neurologic/Psychiatric: no motor/sensory deficits, alert, normal mood/affect, oriented x 3 Skin: normal color Results/Procedures: Labs Laboratory Tests 09/25/19 05:45: White Blood Count 7.6, Red Blood Count 4.53, Hemoglobin 13.1, Hematocrit 40, Mean Corpuscular Volume 88, Mean Corpuscular Hemoglobin 29, Mean Corpuscular Hemoglobin Concent 33, Red Cell Distribution Width 12.8, Platelet Count 340, Mean Platelet Volume 9.4, Neutrophils (%) (Auto) 46, Lymphocytes (%) (Auto) 39, Monocytes (%) (Auto) 11, Eosinophils (%) (Auto) 4, Basophils (%) (Auto) 1, Neutrophils # (Auto) 3.5, Lymphocytes # (Auto) 3.0, Monocytes # (Auto) 0.8, Eosinophils # (Auto) 0.3, Basophils # (Auto) 0.1, Sodium Level 140, Potassium Level 3.8, Chloride Level 108H, Carbon Dioxide Level 20L, Anion Gap 12, Blood Urea Nitrogen 28H, Creatinine 0.76, Estimat Glomerular Filtration Rate > 60, BUN/Creatinine Ratio 37, Glucose Level 96, Calcium Level 9.9, Corrected Calcium 10.0, Total Bilirubin 0.2, Aspartate Amino Transf (AST/SGOT) 34, Alanine Aminotransferase (ALT/SGPT) 34, Alkaline Phosphatase 80, Total Protein 6.8, Albumin 3.9 Microbiology 09/07/19 Urine Culture - Final, Complete Proteus mirabilis A/P: Assessment/Dx: CVA HTN HLP Plan: CVA, still having right hemiplegia, 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 CT angiogram of the head was nondiagnostic. MRI of the head showed shower of embolization, probably underlying atrial fibrillation, so far her EKG did not show acute abnormality maintenance and aspirin. s/p LINq implantation for further monitoring for atrial fibrillation. Recurrent headache, dependent on pain medication, managed by primary care Echocardiogram showed normal LV function, prominent aorta. No significant abno rmality otherwise Borderline hypotension, denies any dizziness, continue to monitor Hyperlipidemia, continue Lipitor, continue to monitor. Urinary tract infection, improved, managed by primary care physician Thank you for your consultation. Please call me if you have any questions. Elena Early MD, FACP, FACC, FSCAI, FHRS, CCDS Interventional Cardiology Cardiac Electrophysiology Vascular Medicine and Endovascular Interventions David EARLY MD Sep 25, 2019 15:01
[2019-09-25 18:30] VITALS: BP 97/58
--- NOTE | 2019-09-25 19:05 | NUR ---
bedside report received from MARIANA RAINES, assume care of pt
[2019-09-25] MEDS: ALPRAZolam 1 MG (XANAX) TAB PO SCH (20:09)
[2019-09-25] MEDS: toPIRamate 25 MG (TOPAMAX) TAB PO SCH (20:09)
[2019-09-25] MEDS: MIRTAZAPINE 15 MG (REMERON) TAB PO SCH (20:09)
--- NOTE | 2019-09-25 20:09 | NUR ---
pt requesting her night meds early, refused Senokot & miralax as pt just had moderate formed brown stool on bedpan, daughter at bedside
[2019-09-26] MEDS: HYDROcodone/APAP 5 MG/325 MG (LORTAB) TAB PO PRN ×3 (02:15→13:05)
--- NOTE | 2019-09-26 02:15 | NUR ---
c/o headache, pain level 7/10 on numeric scale, Lortab 5 1 tab given
[2019-09-26 05:35] VITALS: BP 102/68
--- NOTE | 2019-09-26 06:07 | PM&R Progress Note ---
Subjective HPI/CC On Admission Date Seen by Provider: Sep 26, 2019 Time Seen by Provider: 10:00 Subjective/Events-last exam No major issues Bowels are moving No pain is reported discharge Checked meds and labs Reviewed therapy notes Conferred with lean sensei of Systems General: Fatigue, Malaise Neurological: Weakness, Incoordination Objective Exam Vital Signs Vital Signs Date Time Temp Pulse Resp B/P (MAP) Pulse Ox O2 Delivery O2 Flow Rate FiO2 09/26/19 21:04 Room Air 09/26/19 17:11 36.4 74 18 97/65 (76) 93 Capillary Refill : Less Than 3 Seconds General Appearance: No Apparent Distress, Chronically ill, Cachetic HEENT: PERRL/EOMI, Normal ENT Inspection, Pharynx Normal Neck: Full Range of Motion, Normal Inspection, Non Tender, Supple, Carotid Bruit Respiratory: Chest Non Tender, Lungs Clear, Normal Breath Sounds, No Accessory Muscle Use, No Respiratory Distress Cardiovascular: Regular Rate, Rhythm, No Edema, No Gallop, No JVD, No Murmur, Normal Peripheral Pulses Gastrointestinal: Normal Bowel Sounds, No Organomegaly, No Pulsatile Mass, Non Tender, Soft Back: Normal Inspection, No CVA Tenderness, No Vertebral Tenderness Extremity: Normal Capillary Refill, Normal Inspection, Normal Range of Motion, Non Tender, No Calf Tenderness, No Pedal Edema Neurologic/Psychiatric: Alert, Oriented x3, Abnormal Gait, Aphasia, Depressed Affect, EOM Palsy, Motor Weakness (right sided 2/5 upper extremity and 1/5 lower extremity) Skin: Normal Color, Warm/Dry Lymphatic: No Adenopathy Results/Procedures Lab Patient resulted labs reviewed. FIM Transfers Therapy Code Descriptions/Definitions Functional [place] Measure: 0=Not Assessed/NA 4=Minimal Assistance 1=Total Assistance 5=Supervision or Setup 2=Maximal Assistance 6=Modified [place] 3=Moderate Assistance 7=Complete IndependenceSCALE: Activities may be completed with or without assistive devices. 8-Bwifmxxyux-eejzddl completes the activity by him/herself with no assistance from a helper. 5-Set-up or Clean-up Assistance-helper sets up or cleans up; patient completes activity. [place] assists only prior to or following the activity. 4-Supervision or Touching Assistance-helper provides verbal cues and/or t ouching/steadying and/or contact guard assistance as patient completes activity. Assistance may be provided throughout the activity or intermittently. 3-Partial/Moderate Assistance-helper does LESS THAN HALF the effort. [place] lifts, holds or supports trunk or limbs, but provides less than half the effort. 2-Substantial/Maximal Assistance-helper does MORE THAN HALF the effort. [place] lifts or holds trunk or limbs and provides more than half the effort. 0-Hsasstptv-dgides does ALL the effort. Patient does none of the effort to complete the activity. Or, the assistance of 2 or more helpers is required for the patient to complete the activity. If activity was not attempted, code reason: 7-Patient Refused. 9-Not Applicable-not attempted and the patient did not perform the activity before the current illness, exacerbation or injury. 10-Not Attempted due to Environmental Limitations-(lack of equipment, weather restraints, etc.). 88-Not Attempted due to Medical Conditions or Safety Concerns. Roll Left to Right (QC): 2 Sit to Lying (QC): 2 Sit to Stand (QC): 2 Chair/Rnp-bi-Ubouz Xfer(QC): 2 Car Transfer (QC): 1 Gait Training Does the Patient Walk?: No and Walking Goal NOT indicated Walk 10 feet (QC): 88 Walk 50 ft with 2 Turns(QC): 88 Walk 150 ft (QC): 88 Walking 10ft/uneven surface-QC: 88 Gait Assistive Device: Parallel Bars Wheelchair Training Does the Pt Use a Wheelchair?: Yes Wheel 50 ft with 2 turns (QC): 2 Wheel 150 ft (QC): 3 Type of Wheelchair: Manual Stair Training 1 Step (curb) (QC): 88 4 Steps (QC): 88 12 Steps (QC): 88 Balance Picking up an Object (QC): 88 ADL-Treatment Eating (QC): 5 (s/u coffee on this date.) Oral Hygiene (QC): 9 ( pt does not have dentation and denies washing mouth out.) Bathing Location: L Arm, R Arm, L Upper Leg, R Upper Leg, Chest, Abdomen, Perineal Area Shower/Bathe Self (QC): 3 (mod A for LB washing/ bottom: pt completes sponge bath EOB. Requires assist ([place]-CGA) due to decreased balance EOB.) Upper Body Dressing (QC): 3 (mod A, cues for sequencing and attention to task.) Lower Body Dressing (QC): 2 (max A Pt able to kick BLE up for threading and brings pants to knees for easier donning. (assist x2 in stance for stance and pu lling up over hips.) ) On/Off Footwear (QC): 1 Toileting Hygiene (QC): 1 (assist x2.) Toilet Transfer (QC): 2 (max A is required for transfer.) Assessment/Plan Assessment and Plan Assess & Plan/Chief Complaint Assessment: CVA Smoker Hematuria Leukocytosis resolved HLP Right side neglect Fall Risk Cough resolved Constipation resolved UTI acute resistant to Macrobid so started Bactrim 09/09/19 completed treatment and repeat UA negative Insomnia started on Remeron and added Ambien so we'll discontinue Ambien and start Xanax 1 mg at night- improved Chronic migraine - improved Plan: IRF Protocol Statin Smoking cessation ASA Lovenox Remeron and Xanax and Topamax Difficult to instill positivity Disposition to likely to nursing facility but family plans on bringing her home to care for her No increased pain meds indicated Start Topamax Discharge home soon with daughter and granddaughter to care for her Discharge plan for 09/28/2019 to home with family (1) CVA (cerebral vascular accident) (2) Hyperlipidemia Status: Chronic (3) Compression fracture of T3 vertebra (4) Behavior disorder (5) Leukocytosis (6) Dysarthria (7) Smoker Status: Chronic KRYS NEFF DO Sep 26, 2019 06:07
[2019-09-26] MEDS: PATCH REMOVAL TP SCH (08:30)
[2019-09-26] MEDS: NICOTINE 21 MG (NICODERM) PATCH TD SCH (08:31)
[2019-09-26] MEDS: ASPIRIN E.C. 325 MG (ECOTRIN) TABLET PO SCH (08:31)
[2019-09-26] MEDS: ALPRAZolam 0.25 MG (XANAX) TAB PO PRN ×2 (08:36→16:19)
[2019-09-26] MEDS: DOCUSATE SODIUM 100 MG (COLACE) CAP PO SCH (08:42)
[2019-09-26] MEDS: SENNA W/DOCUSATE (SENOKOT S) TABLET PO SCH ×2 (08:45→21:03)
[2019-09-26] MEDS: polyethylene glycoL POWDER 17 GM (MIRALAX) PACK PO SCH ×2 (08:45→21:02)
[2019-09-26] MEDS: ENOXAPARIN 40 MG/0.4 ML (LOVENOX) SYR SC SCH (08:48)
--- NOTE | 2019-09-26 09:47 | Speech Therapy Daily Note ---
Speech Daily Progress Note Subjective Date Seen by Provider: Sep 26, 2019 Time Seen by Provider: 00:30 Patient was resting in bed. Her daughter stayed with her last night to help be prepared for the patient's return home. Patient states she didn't get much sleep though. Objective Patient completed a series of needs upon her return home with 90% without cues. Assessment Assessment Current Status: Good Progress Treatment Plan Continue Plan of Care Speech Short Term Goals Short Term Goals Short Term Goals Pt will complete (visual/verbal) attention task with 90% accy. Pt will complete STM task with use of compensatoy strategies with 90% accy Pt will complete further cognitive assessment for further evaluation of memory, functional math, and reading. Speech Desk Representative Goals Desk Representative Goals Pt will tolerate least restrictive diet with no s/s of aspiration/penetration wiht observed oral intake. Speech-Plan Patient/Family Goals Patient/Family Goals: Patient plans on returning home with family upon discharge, currently planned for this . Treatment Plan Speech Therapy Treatment Plan: Continue Plan of Care Patient has progressed well with cognitive and swallow functions. Treatment Duration: Sep 20, 2019 Frequency: 5 times per week Estimated Hrs Per Day: .5 hour per day Rehab Potential: Guarded Barriers to Learning: Recent CVA Pt/Family Agrees to Plan: Yes Safety Risks/Education Teaching Recipient: Patient, Family Teaching Methods: Demonstration, Discussion Response to Teaching: Verbalize Understanding, Return Demonstration Education Topics Provided: Continued safety upon her return home Time Speech Therapy Time In: 08:30 Speech Therapy Time Out: 09:00 Total Billed Time: 30 Billed Treatment Time [address] Sep 26, 2019 09:47
--- NOTE | 2019-09-26 10:13 | Physical Therapy Daily Note ---
PT Daily Note-Current Subjective Patient in bed pre tx, agrees to PT, has 6/10 pain "all over". Will be co- treating with OT due to poor patient mobility, strength, endurance, right hemiparesis, the need to coordinate UE and LE during activity, reduce risk of falls, perform family education while the family is here. Appearance Patient in WC at bedside post tx, family would like to wheel her around for a bit. Mental Status Patient Orientation: Person, Place, Situation Transfers SCALE: Activities may be completed with or without assistive devices. 0-Gnnbribegd-ufpypod completes the activity by him/herself with no assistance from a helper. 5-Set-up or Clean-up Assistance-helper sets up or cleans up; patient completes activity. [place] assists only prior to or following the activity. 4-Supervision or Touching Assistance-helper provides verbal cues and/or touching/steadying and/or contact guard assistance as patient completes activity. Assistance may be provided throughout the activity or intermittently. 3-Partial/Moderate Assistance-helper does LESS THAN HALF the effort. [place] lifts, holds or supports trunk or limbs, but provides less than half the effort. 2-Substantial/Maximal Assistance-helper does MORE THAN HALF the effort. [place] lifts or holds trunk or limbs and provides more than half the effort. 8-Gfcoutbkd-maopsn does ALL the effort. Patient does none of the effort to compl ete the activity. Or, the assistance of 2 or more helpers is required for the patient to complete the activity. If activity was not attempted, code reason: 7-Patient Refused. 9-Not Applicable-not attempted and the patient did not perform the activity before the current illness, exacerbation or injury. 10-Not Attempted due to Environmental Limitations-(lack of equipment, weather restraints, etc.). 88-Not Attempted due to Medical Conditions or Safety Concerns. Roll Left & Right (QC): 2 Sit to Lying (QC): 2 Lying to Sitting/Side of Bed(Q: 2 Sit to Stand (QC): 2 Chair/Otw-pj-Zxlsh Xfer(QC): 2 Toilet Transfer (QC): 2 Patient max assist for bed mobility and transfers. Family educated on bed mobility and transfers, daughter in law performed several stand pivot transfers very well with patient. Also educated family on shower bench transfer, dressing, LE ROM, and general safety. Family seemed to understand and could recite back and problem solve well. Weight Bearing Full Weight Bearing Full Weight Bearing Gait Training Distance: 6' Gait Persons Needed: 2 Gait Assistive Device: Parallel Bars max assist, help advancing right leg and right arm Wheelchair Training Does the Pt Use a Wheelchair?: Yes Wheel 50 ft with 2 turns (QC): 2 Type of Wheelchair: Manual 100' max assist Exercises RLE stretching/ROM Treatments bed mobility and transfers, ambulation, WC mobility, shower chair transfers, dressing and grooming, family training with all these. PT performed bed mobility and transfers, ambulation, WC mobility, assist with dressing and shower transfer, OT performed dressing, shower transfer, assist with UE positioning and safety. Assessment Current Status: Poor Progress no change in mobility PT Short Term Goals Short Term Goals Time Frame: Sep 12, 2019 Roll Left & Right: 2 Sit to lyin Lying to sitting on side of be: 2 Wheel 50ft w/2 turns: 2 Wheel 150 feet: 2 PT Nursing Home Goals Nursing Home Goals PT Nursing Home Goals Time Frame: Sep 26, 2019 Roll Left & Right (QC): 3 Sit to Lying (QC): 3 Lying-Sitting on Side/Bed(QC): 3 Sit to Stand (QC): 3 Chair/Jux-xz-Umuod Xfer(QC): 3 Toilet Transfer (QC): 3 Car Transfer (QC): 3 Does the Patient Walk: No and Walking Goal NOT indicated Walk 10 feet (QC): 88 Walk 50ft with 2 Turns (QC): 88 Walk 150 ft (QC): 88 Walking 10ft on Uneven Surface: 88 1 Step (curb) (QC): 88 4 Steps (QC): 88 12 Steps (QC): 88 Picking up an Object (QC): 88 Does the Pt use WC or Scooter?: Yes Wheel 50 feet with 2 turns (QC: 3 Type: Manual Wheel 150 feet: 3 PT Plan Problem List Problem List: Activity Tolerance, Functional Strength, Safety, Balance, Gait, Transfer, Bed Mobility, ROM Treatment/Plan Treatment Plan: Continue Plan of Care Treatment Plan: Bed Mobility, Education, Functional Activity Afia, Functional Strength, Group Therapy, Gait, Safety, Therapeutic Exercise, Transfers Treatment Duration: Sep 26, 2019 Frequency: At least 5 of 7 days/Wk (IRF) Estimated Hrs Per Day: 1.5 hours per day Patient and/or Family Agrees t: Yes Safety Risks/Education Patient Education: Gait Training, Transfer Techniques, Correct Positioning, W/C Management, Safety Issues Teaching Recipient: Patient Teaching Methods: Demonstration, Discussion Response to Teaching: Reinforcement Needed Time/GCodes Time In: 0900 Time Out: 1000 Total Billed Treatment Time: 60 Total Billed Treatment 1 visit FA 60' co-treated with OT for 60' TASHA POMPA PT Sep 26, 2019 10:13
--- NOTE | 2019-09-26 10:38 | Occupational Ther Daily Note ---
OT Current Status-Daily Note Subjective Pt's daughter present and states that pt. did not sleep well last night. Appearance Pt. alert. Her daughter and daughter in law present for family training before discharge home. Mental Status/Objective Patient Orientation: Person ADL-Treatment Therapy Code Descriptions/Definitions Functional [place] Measure: 0=Not Assessed/NA 4=Minimal Assistance 1=Total Assistance 5=Supervision or Setup 2=Maximal Assistance 6=Modified [place] 3=Moderate Assistance 7=Complete IndependenceSCALE: Activities may be completed with or without assistive devices. 5-Gvnwrfbzou-mekcgik completes the activity by him/herself with no assistance from a helper. 5-Set-up or Clean-up Assistance-helper sets up or cleans up; patient completes activity. [place] assists only prior to or following the activity. 4-Supervision or Touching Assistance-helper provides verbal cues and/or touching/steadying and/or contact guard assistance as patient completes activity. Assistance may be provided throughout the activity or intermittently. 3-Partial/Moderate Assistance-helper does LESS THAN HALF the effort. [place] lifts, holds or supports trunk or limbs, but provides less than half the effort. 2-Substantial/Maximal Assistance-helper does MORE THAN HALF the effort. [place] lifts or holds trunk or limbs and provides more than half the effort. 8-Hbqosxzxp-enjfbc does ALL the effort. Patient does none of the effort to complete the activity. Or, the assistance of 2 or more helpers is required for the patient to complete the activity. If activity was not attempted, code reason: 7-Patient Refused. 9-Not Applicable-not attempted and the patient did not perform the activity bef ore the current illness, exacerbation or injury. 10-Not Attempted due to Environmental Limitations-(lack of equipment, weather r estraints, etc.). 88-Not Attempted due to Medical Conditions or Safety Concerns. Other Treatment OT/PT co-treated due to need of skilled assist x 2. Pt., family, and therapy engaged in family training, for discharge to home. OT addressed ADL skills and right UE while PT focused on transfers and LE. Family is educated on and demonstrated to on how to safely perform PROM to right UE in all planes. Family verbalizes understanding. PT educates on stretch of right LE. Family participa francia in transfer training for bed mobility, tub/shower transfers with bench, and standing balance. Family is educated on techniques at home to facilitate weight bearing through right side with tabletop and grab bar at home. Family is also educated on safe ways to assist with toileting, bathing, and dressing. Both daughter and daughter in law report to be caregivers by trade. Daughter in law practiced all transfers. Family is educated in right sided neglect, gentle neck stretch, and how to engage pt. on right side for increased attention to that side. Pt. agrees to stay up in chair at end of session. Talked with family regarding home set up and equipment needs. This will be reported to rn social work, as work is being completed to obtain pt's tub transfer bench, BSC, and wheelchair. All needs met with family in room. Education OT Patient Education: Correct positioning, Exercise program, Modified ADL techniques, Progress toward Goal/Update tx plan, Purpose of tx/functional activities, Reviewed precautions, Rehab process, Transfer techniques Teaching Recipient: Patient, Family Teaching Methods: Demonstration, Discussion Response to Teaching: Verbalize Understanding, Return Demonstration, Reinforcement Needed OT Short Term Goals Short Term Goals Time Frame: Sep 19, 2019 Eatin Oral hygiene: 9 Toileting hygiene: 3 Shower/bathe self: 3 Upper body dressin Lower body dressin Putting on/taking off footwear: 3 OT Bushel Girl Goals Bushel Girl Goals Time Frame: Oct 03, 2019 Eating (QC): 6 Oral Hygiene (QC): 9 Toileting Hygiene (QC): 4 Shower/Bathe Self (QC): 4 Upper Body Dressing (QC): 4 Lower Body Dressing (QC): 4 On/Off Footwear (QC): 4 Additional Goals: 1-Demonstrate ADL Tasks, 2-Verbalize Understanding, 3- ImproveStrength/Afia 1=Demonstrate adherence to instructed precautions during ADL tasks. 2=Patient will verbalize/demonstrate understanding of assistive devices/modific ations for ADL. 3=Patient will improve strength/tolerance for activity to enable patient to perform ADL's. OT Education/Plan Problem List/Assessment Assessment: Decreased Activ Tolerance, Decreased Safety Aware, Decreased UE Strength, Dependent Transfers, Impaired Bed Mobility, Impaired Cognition, Impaired Coordination, Impaired Funct Balance, Impaired I ADL's, Impaired Self- Care Skills, Restricted Funct UE ROM, Visual-Perceptual Deficit Discharge Recommendations Plan/Recommendations: Continue POC Therapy Discharge Recommendati: 24 Hour Supervision, Home & Family, Post Acute OT Comment Pt. will need BSC, tub transfer bench, and wheelchair at home. Treatment Plan/Plan of Care Treatment,Training & Education: Yes Patient would benefit from OT for education, treatment and training to promote independence in ADL's, mobility, safety and/or upper extremity function for ADL's. Plan of Care: ADL Retraining, Functional Mobility, Group Exercise/Act as Ind, UE Funct Exercise/Act Treatment Duration: Oct 03, 2019 Frequency: At least 5 of 7 days/Wk (IRF) Estimated Hrs Per Day: 1.5 hours per day Agreement: Yes Rehab Potential: Fair Time/GCodes Start Time: 09:00 Stop Time: 10:00 Total Time Billed (hr/min): 60 Billed Treatment Time 1, ADL x 30minutes, FA x 30minutes Co-treatment with PT. Please see above note for designated roles. OCHOA CALIX OT Sep 26, 2019 10:38
--- NOTE | 2019-09-26 13:25 | NUR ---
CM/SS DISCHARGE PLANNING Patient's daughter Petra stayed all night last night. Patient described it as a "slumber green party" and that they didn't sleep at all. Patient's DIL/Marisa Garduno joined in this morning for education/training with therapy team regarding patient's current assistive care needs. A barrier to discharge planning, patient is uninsured. A Pay4later Medicaid application was transmitted early in hospital stay; financial services staff checked [employer] and found no active account as of today. Per [facility]/Angelica Terrell, she has been assigned a number, not activated, application still processing. DME: Patient assistive devices were clarified this a.m. by therapy team. Tub transfer bench has been donated by a staff member to this patient. Manual Arts Teacher has initiated a request with [facility] for BSC, wheelchair, and hospital bed. Faxed clinical, will forward physician orders once completed. HHC: Requesting services through [facility] due to patient uninsured status and the [facility] [place] [facility] smooth transition for services. [facility]/Fred has confirmed they will provide services, starting Wednesday09/29/19. Rx: Patient will require assistance for 30-days of discharge medication. The 340B program is not available to ARU patients because the unit is under a different cost center than the main hospital. Will utilize PALS Program, patient will seek PCP at [facility] but is not eligible to access their pharmacy [facility] until established. Spoke with Angelica at [facility]. She is working to assist with [facility] Waiver for in-home services. Manual Arts Teacher has provided documentation to support moving forward on the waiver, including Consumer Evaluation of Needs and physician statement of patient primary physical disabilities, advocating for immediate in-home services due to imminent risk for community SNF placement without it.
--- NOTE | 2019-09-26 13:50 | Physical Therapy Daily Note ---
PT Daily Note-Current Subjective Patient in bed pre tx, agrees to PT, has 6/10 pain "all over". Patient states she has already had pain meds. Appearance Patient in bed post tx with nurse call, phone, tray, all needs met, pillow support. Mental Status Patient Orientation: Person, Place, Situation Attachments: SCD's Transfers SCALE: Activities may be completed with or without assistive devices. 7-Mzhkdmjxek-tzhsztb completes the activity by him/herself with no assistance from a helper. 5-Set-up or Clean-up Assistance-helper sets up or cleans up; patient completes activity. [place] assists only prior to or following the activity. 4-Supervision or Touching Assistance-helper provides verbal cues and/or touching/steadying and/or contact guard assistance as patient completes activity. Assistance may be provided throughout the activity or intermittently. 3-Partial/Moderate Assistance-helper does LESS THAN HALF the effort. [place] lifts, holds or supports trunk or limbs, but provides less than half the effort. 2-Substantial/Maximal Assistance-helper does MORE THAN HALF the effort. [place] lifts or holds trunk or limbs and provides more than half the effort. 9-Fbzdfqlma-pbrqzs does ALL the effort. Patient does none of the effort to complete the activity. Or, the assistance of 2 or more helpers is required for the patient to complete the activity. If activity was not attempted, code reason: 7-Patient Refused. 9-Not Applicable-not attempted and the patient did not perform the activity befo re the current illness, exacerbation or injury. 10-Not Attempted due to Environmental Limitations-(lack of equipment, weather re straints, etc.). 88-Not Attempted due to Medical Conditions or Safety Concerns. Weight Bearing Full Weight Bearing Full Weight Bearing Exercises BLE ROM/stretching in all planes Treatments ROM/stretching Assessment Current Status: Poor Progress no change in mobility, continued increased muscle tone in right leg PT Short Term Goals Short Term Goals Time Frame: Sep 12, 2019 Roll Left & Right: 2 Sit to lyin Lying to sitting on side of be: 2 Wheel 50ft w/2 turns: 2 Wheel 150 feet: 2 PT Chief Operator Hydroformer Goals Chief Operator Hydroformer Goals PT [facility] Goals Time Frame: Sep 26, 2019 Roll Left & Right (QC): 3 Sit to Lying (QC): 3 Lying-Sitting on Side/Bed(QC): 3 Sit to Stand (QC): 3 Chair/Gal-lg-Djayi Xfer(QC): 3 Toilet Transfer (QC): 3 Car Transfer (QC): 3 Does the Patient Walk: No and Walking Goal NOT indicated Walk 10 feet (QC): 88 Walk 50ft with 2 Turns (QC): 88 Walk 150 ft (QC): 88 Walking 10ft on Uneven Surface: 88 1 Step (curb) (QC): 88 4 Steps (QC): 88 12 Steps (QC): 88 Picking up an Object (QC): 88 Does the Pt use WC or Scooter?: Yes Wheel 50 feet with 2 turns (QC: 3 Type: Manual Wheel 150 feet: 3 PT Plan Problem List Problem List: Activity Tolerance, Functional Strength, Safety, Balance, Gait, Transfer, Bed Mobility, ROM Treatment/Plan Treatment Plan: Continue Plan of Care Treatment Plan: Bed Mobility, Education, Functional Activity Afia, Functional Strength, Group Therapy, Gait, Safety, Therapeutic Exercise, Transfers Treatment Duration: Sep 26, 2019 Frequency: At least 5 of 7 days/Wk (IRF) Estimated Hrs Per Day: 1.5 hours per day Patient and/or Family Agrees t: Yes Safety Risks/Education Patient Education: Correct Positioning, Safety Issues Teaching Recipient: Patient Teaching Methods: Demonstration, Discussion Response to Teaching: Reinforcement Needed Time/GCodes Time In: 1335 Time Out: 1350 Total Billed Treatment Time: 15 Total Billed Treatment 1 visit EX 15' TASHA POMPA PT Sep 26, 2019 13:50
--- NOTE | 2019-09-26 14:11 | Cardiology Progress Note ---
Cardiology SOAP Progress Note Subjective: no cardiac complaints Objective: I&O/Vital Signs 09/26/19 09/26/19 05:35 09:00 Temp 36.4 Pulse 81 Resp 18 B/P (MAP) 102/68 (79) Pulse Ox 92 O2 Delivery Room Air Room Air 09/26/19 00:00 Intake Total 1600 ml Balance 1600 ml Constitutional: AAO x 3 Respiratory: chest is bilaterally symmetric, lungs clear to auscultation Cardiovascular: regular rate-rhythm, S1 and S2; No diastolic murmur, No systolic murmur Gastrointestional: soft, audible bowel sounds Extremities: normal inspection, pedal edema Neurologic/Psychiatric: no motor/sensory deficits, alert, normal mood/affect, oriented x 3 Skin: normal color Results/Procedures: Labs Microbiology 09/07/19 Urine Culture - Final, Complete Proteus mirabilis A/P: Assessment/Dx: CVA HTN HLP Plan: CVA, still having right hemiplegia, 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 CT angiogram of the head was nondiagnostic. MRI of the head showed shower of embolization, probably underlying atrial fibrillation, so far her EKG did not show acute abnormality maintenance and aspirin. s/p LINq implantation for further monitoring for atrial fibrillation. Recurrent headache, dependent on pain medication, managed by primary care Echocardiogram showed normal LV function, prominent aorta. No significant abnormality otherwise Borderline hypotension, denies any dizziness, continue to monitor Hyperlipidemia, continue Lipitor, continue to monitor. Urinary tract infection, improved, managed by primary care physician Thank you for your consultation. Please call me if you have any questions. Elena Early MD, FACP, FACC, FSCAI, FHRS, CCDS Interventional Cardiology Cardiac Electrophysiology Vascular Medicine and Endovascular Interventions David EARLY MD Sep 26, 2019 14:11
--- NOTE | 2019-09-26 14:37 | Occupational Ther Daily Note ---
OT Current Status-Daily Note Subjective Pt. in bed when OT entered room. OT explained plan for tx and pt. agreed to therapy. No c/o pain. Mental Status/Objective Patient Orientation: Person, Place, Time, Situation ADL-Treatment Therapy Code Descriptions/Definitions Functional [place] Measure: 0=Not Assessed/NA 4=Minimal Assistance 1=Total Assistance 5=Supervision or Setup 2=Maximal Assistance 6=Modified [place] 3=Moderate Assistance 7=Complete IndependenceSCALE: Activities may be completed with or without assistive devices. 5-Fjkgphfhwu-sirabuw completes the activity by him/herself with no assistance from a helper. 5-Set-up or Clean-up Assistance-helper sets up or cleans up; patient completes activity. [place] assists only prior to or following the activity. 4-Supervision or Touching Assistance-helper provides verbal cues and/or touching/steadying and/or contact guard assistance as patient completes activity. Assistance may be provided throughout the activity or intermittently. 3-Partial/Moderate Assistance-helper does LESS THAN HALF the effort. [place] lifts, holds or supports trunk or limbs, but provides less than half the effort. 2-Substantial/Maximal Assistance-helper does MORE THAN HALF the effort. [place] lifts or holds trunk or limbs and provides more than half the effort. 0-Gdvidabkv-topidl does ALL the effort. Patient does none of the effort to complete the activity. Or, the assistance of 2 or more helpers is required for the patient to complete the activity. If activity was not attempted, code reason: 7-Patient Refused. 9-Not Applicable-not attempted and the patient did not perform the activity before the current illness, exacerbation or injury. 10-Not Attempted due to Environmental Limitations-(lack of equipment, weather restraints, etc.). 88-Not Attempted due to Medical Conditions or Safety Concerns. Other Treatment Pt. has increased tone in R UE. Pt. tolerated 15 minutes of PROM in all planes. Completed R UE PROM in all joints to decrease tone while pt remained in bed. Able to facilitate full elbow extension, as well as finger extension. Difficulty achieving wrist extension past neutral due to progressive tone with movement, and reported discomfort during task. Able to achieve approximately 75 degrees in shoulder in flexed position. Facilitated gentle neck stretch for increased movement. Pt. tolerated well. Pt.'s R UE placed in functional position resting on pillow when OT left room. All needs met. Education OT Patient Education: Correct positioning, Exercise program, Progress toward Goal/Update tx plan, Purpose of tx/functional activities, Rehab process Teaching Recipient: Patient Teaching Methods: Demonstration, Discussion Response to Teaching: Verbalize Understanding, Return Demonstration OT Short Term Goals Short Term Goals Time Frame: Sep 19, 2019 Eatin Oral hygiene: 9 Toileting hygiene: 3 Shower/bathe self: 3 Upper body dressin Lower body dressin Putting on/taking off footwear: 3 OT Prison Goals Prison Goals Time Frame: Oct 03, 2019 Eating (QC): 6 Oral Hygiene (QC): 9 Toileting Hygiene (QC): 4 Shower/Bathe Self (QC): 4 Upper Body Dressing (QC): 4 Lower Body Dressing (QC): 4 On/Off Footwear (QC): 4 Additional Goals: 1-Demonstrate ADL Tasks, 2-Verbalize Understanding, 3- ImproveStrength/Afia 1=Demonstrate adherence to instructed precautions during ADL tasks. 2=Patient will verbalize/demonstrate understanding of assistive devices/modifications for ADL. 3=Patient will improve strength/tolerance for activity to enable patient to perform ADL's. OT Education/Plan Problem List/Assessment Assessment: Decreased Activ Tolerance, Decreased Safety Aware, Decreased UE Strength, Dependent Transfers, Impaired Bed Mobility, Impaired Coordination, Impaired Funct Balance, Impaired I ADL's, Impaired Self-Care Skills, Restricted Funct UE ROM Discharge Recommendations Plan/Recommendations: Continue POC Therapy Discharge Recommendati: Home & Family, Post Acute OT Treatment Plan/Plan of Care Treatment,Training & Education: Yes Patient would benefit from OT for education, treatment and training to promote independence in ADL's, mobility, safety and/or upper extremity function for ADL's. Plan of Care: ADL Retraining, Functional Mobility, Group Exercise/Act as Ind, UE Funct Exercise/Act Treatment Duration: Oct 03, 2019 Frequency: At least 5 of 7 days/Wk (IRF) Estimated Hrs Per Day: 1.5 hours per day Agreement: Yes Rehab Potential: Fair Time/GCodes Start Time: 14:17 Stop Time: 14:32 Total Time Billed (hr/min): 15 Billed Treatment Time 1,EX OCHOA CALIX OT Sep 26, 2019 14:36
--- NOTE | 2019-09-26 15:06 | NUR ---
"RD ASSESSMENT PMHx: HLD; tobacco use PT INTERACTION: Pt was awake and pleasant during nutrition follow-up. Pt states she has been eating well since last assessment. Note avg PO intake 90% x4d, per chart review. Pt states no issues with nausea, vomiting, or diarrhea since last assessment. Pt states some issues with constipation since last assessment. Note last BM was 09/25, and pt currently on bowel regimen of colace qd; senna BID; and miralax BID, per chart review. ABNORMAL NUTRITION-RELATED LAB VALUES LOW: HIGH: Cl 108; BUN 28 Est. kcal needs: 1450 kcal | 25 kcal/kg Est. Pro needs: 70 g Pro | 1.2 g Pro/kg PES STATEMENT: Given current PO intake, no nutrition diagnosis at this time (NO-1.1) INTERVENTION: Continue with current diet order of Regular diet. Will continue to follow and reassess as pt needs, intake, and status change. MONITOR/EVALUATE: PO Intake; Plan of Care; Hydration Status; Weight Status; Lab Values Isabel Mitchell, MS, RD, LD"
[2019-09-26 17:11] VITALS: BP 97/65
--- NOTE | 2019-09-26 19:06 | NUR ---
bedside report received from CARLEE RAINES, assume care of pt
[2019-09-26] MEDS: ALPRAZolam 1 MG (XANAX) TAB PO SCH (20:58)
[2019-09-26] MEDS: toPIRamate 25 MG (TOPAMAX) TAB PO SCH (20:58)
[2019-09-26] MEDS: MIRTAZAPINE 15 MG (REMERON) TAB PO SCH (20:58)
--- NOTE | 2019-09-26 20:58 | NUR ---
pt refused miralax & Senokot, pt repositioned q 2hrs & changed briefs freq
[2019-09-26] MEDS ORDERED: ALPR1TAB7 PO (21:23)
[2019-09-26] MEDS ORDERED: ATOR80TA76 PO (21:23)
[2019-09-26] MEDS ORDERED: HYDR-83 PO (21:23)
[2019-09-26] MEDS ORDERED: MIRT-47 PO (21:23)
[2019-09-26] MEDS ORDERED: ASPI325T32 PO (21:23)
[2019-09-26] MEDS ORDERED: SENN-20 PO (21:23)
[2019-09-26] MEDS ORDERED: TPR25T PO (21:23)
[2019-09-26] MEDS ORDERED: ALPR0.254 PO (21:23)
--- NOTE | 2019-09-26 21:25 | D/C HH Face to Face Order ---
D/C Face to Face Orders Reconcile Patient Problems Problems Reviewed?: Yes Instructions for Patient Via [facility], Patient Instructions/FollowUp: [facility] care Physician to follow Patient: [facility] Discharge Diet for Home: No Restrictions Patient Problems: CVA Goals for Patient: [place] Patient Data-Allergies,Ht & Wt Patient Allergies: Coded Allergies: No Known Drug Allergies (Unverified , 09/02/19) Home Health Need/Face to Face Date of Face to Face: Sep 27, 2019 Clinical Findings: Generalized weakness and fatigue, Instability, Muscle weakness, Unsteady gait I have seen Pt drrh-vd-[id number]: Yes Discharged To: Home Diagnosis/Conditions: CVA Patient is Homebound due to: Muscle weakness Homebound Status Due to the above stated illness, injury or surgical procedure (medical condition or diagnosis) and associated clinical findings, the patient is homebound because of his/her inability to leave home except with aid of a supportive device and/or person AND leaving the home requires a considerable and taxing effort or is medically contraindicated. Pt req the following assistanc: Wheelchair Home Health Nursing Orders Home Health Services Order: Nursing Services, Health Insurance Sales Agent-Evaluate & Treat, Physical Therapy-Evaluate & Treat, Speech Language-Evaluate & Treat Certify Stmt I certify that this patient is under my care and that I, a nurse practitioner or a physician; a microbiology lab assistant working with me, had a face to face encounter that - meets the physician face to face encounter requirements with this patient as juan carlos ed. KRYS NEFF DO Sep 26, 2019 21:25
[2019-09-27 05:12] VITALS: BP 96/80
[2019-09-27] MEDS: HYDROcodone/APAP 5 MG/325 MG (LORTAB) TAB PO PRN ×3 (05:28→18:59)
--- NOTE | 2019-09-27 05:28 | NUR ---
c/o pain to neck & shoulders, pain level 8/10 on numeric scale, Lortab 5 1 tab given
--- NOTE | 2019-09-27 06:10 | NUR ---
rates pain level 4/10 on numeric scale
[2019-09-27] MEDS: NICOTINE 21 MG (NICODERM) PATCH TD SCH (08:25)
[2019-09-27] MEDS: ASPIRIN E.C. 325 MG (ECOTRIN) TABLET PO SCH (08:25)
[2019-09-27] MEDS: ALPRAZolam 0.25 MG (XANAX) TAB PO PRN (08:25)
[2019-09-27] MEDS: SENNA W/DOCUSATE (SENOKOT S) TABLET PO SCH ×2 (08:28→20:29)
[2019-09-27] MEDS: PATCH REMOVAL TP SCH (08:28)
[2019-09-27] MEDS: DOCUSATE SODIUM 100 MG (COLACE) CAP PO SCH (08:28)
[2019-09-27] MEDS: polyethylene glycoL POWDER 17 GM (MIRALAX) PACK PO SCH ×2 (08:28→20:29)
--- NOTE | 2019-09-27 09:27 | Occupational Ther Daily Note ---
OT Current Status-Daily Note Subjective Pt seen in bed this am. Pt asleep, easily wakes upon entry. Pt states pain in neck/ RUE. Pt's nurse notified. Pt agrees to OT/ PT co-treat, needed due to pt's dependent transfers, decreased strength and functional endurance, and need of 2 skilled clinicians to ensure safety and quality of higher level activities. OT address ADLs, UE movement, balance and attention while PT addresses gross motor movement, LE movement, core/ balance. Mental Status/Objective Patient Orientation: Person, Place, Time, Situation ADL-Treatment Therapy Code Descriptions/Definitions Functional [place] Measure: 0=Not Assessed/NA 4=Minimal Assistance 1=Total Assistance 5=Supervision or Setup 2=Maximal Assistance 6=Modified [place] 3=Moderate Assistance 7=Complete IndependenceSCALE: Activities may be completed with or without assistive devices. 6-Vmnzzolhaj-uydtaev completes the activity by him/herself with no assistance from a helper. 5-Set-up or Clean-up Assistance-helper sets up or cleans up; patient completes activity. Brillion assists only prior to or following the activity. 4-Supervision or Touching Assistance-helper provides verbal cues and/or touching/steadying and/or contact guard assistance as patient completes activity. Assistance may be provided throughout the activity or intermittently. 3-Partial/Moderate Assistance-helper does LESS THAN HALF the effort. Brillion lifts, holds or supports trunk or limbs, but provides less than half the effort. 2-Substantial/Maximal Assistance-helper does MORE THAN HALF the effort. Brillion lifts or holds trunk or limbs and provides more than half the effort. 4-Ltchkrdcg-ryhrbw does ALL the effort. Patient does none of the effort to complete the activity. Or, the assistance of 2 or more helpers is required for the patient to complete the activity. If activity was not attempted, code reason: 7-Patient Refused. 9-Not Applicable-not attempted and the patient did not perform the activity b efore the current illness, exacerbation or injury. 10-Not Attempted due to Environmental Limitations-(lack of equipment, weather restraints, etc.). 88-Not Attempted due to Medical Conditions or Safety Concerns. Eating (QC): 5 Oral Hygiene (QC): 9 (pt did not complete oral hygiene prior as pt does not have dentation.) Bathing Location: L Arm, R Arm, L Upper Leg, R Upper Leg, Chest, Abdomen, Perineal Area Shower/Bathe Self (QC): 3 (assist x2 (PT addresses core/ balance and OT addresses bathing/ dressing). Pt completes with assist (CGA-Madina for core) and mod A for bathing tasks.) Upper Body Dressing (QC): 3 (mod A doffing/ donning.) Lower Body Dressing (QC): 2 (max A; pt requires assist in sit to complete core balance, able to kick legs BLE and brings pants over knees. Pt requires assist to stand and complete pulling while in stance.) On/Off Footwear: 2 (max A: pt assists with movement of BLE and "kicking" into socks.) Toileting Hygiene (QC): 1 (TD with assist x2 (PT to stand, OT to assist with hygiene)) Toilet Transfer (QC): 1 (Based on clinical judgment: Pt completes transfer with TD (SPT) to C. ) Other Treatment Pt seen in bed. Completes bed mob with max encouragement and TD with assist x2 to EOB. Pt completes bathing/ dressing EOB with assist x2 for balance and ADL tasks. Pt TD for SPT to w/c and TD-max A with w/c mob to gym. Pt practices car tx with cues from OT to direct tx (as home env). Pt requires cues for safety and sequence of tasks. Pt sits in w/c and completes picking items up from floor with use of paraffin machine operator and skilled cues after w/c positioned. Pt sits EOM with CGA-max A for core stability/ righting. pt able to controllably sits with elbows on knees and stabilize self, pt able to bring self up to sit with CGA. pt completes this ~5x with Madina intermittently. Pt returns to room, all needs met, positioned in recliner for support, call light on lap. Education OT Patient Education: Correct positioning, Exercise program, Home exercise program, Modified ADL techniques, Progress toward Goal/Update tx plan, Purpose of tx/functional activities, Safety issues, Transfer techniques, Use of adapted equipment Teaching Recipient: Patient Teaching Methods: Demonstration Response to Teaching: Verbalize Understanding, Return Demonstration, Reinforcement Needed OT Short Term Goals Short Term Goals Time Frame: Sep 19, 2019 Eatin Oral hygiene: 9 Toileting hygiene: 3 Shower/bathe self: 3 Upper body dressin Lower body dressin Putting on/taking off footwear: 3 OT Mcfp Goals Draw Fire Operator Goals Time Frame: Oct 03, 2019 Eating (QC): 6 Oral Hygiene (QC): 9 Toileting Hygiene (QC): 4 Shower/Bathe Self (QC): 4 Upper Body Dressing (QC): 4 Lower Body Dressing (QC): 4 On/Off Footwear (QC): 4 Additional Goals: 1-Demonstrate ADL Tasks, 2-Verbalize Understanding, 3- ImproveStrength/Afia 1=Demonstrate adherence to instructed precautions during ADL tasks. 2=Patient will verbalize/demonstrate understanding of assistive devices/britt fications for ADL. 3=Patient will improve strength/tolerance for activity to enable patient to perform ADL's. OT Education/Plan Problem List/Assessment Assessment: Decreased Activ Tolerance, Decreased Safety Aware, Decreased UE Strength, Dependent Transfers, Impaired Bed Mobility, Impaired Cognition, Impaired Coordination, Impaired Funct Balance, Impaired I ADL's, Impaired Self- Care Skills Discharge Recommendations Plan/Recommendations: Continue POC Therapy Discharge Recommendati: 24 Hour Supervision, Home & Family, Post Acute OT Equpiment Recommendations-D/C: Extended Bath Bench, Rails on Tub/Shower, Bedside Commode Treatment Plan/Plan of Care Treatment,Training & Education: Yes Patient would benefit from OT for education, treatment and training to promote independence in ADL's, mobility, safety and/or upper extremity function for ADL's. Plan of Care: ADL Retraining, Functional Mobility, Group Exercise/Act as Ind, UE Funct Exercise/Act Treatment Duration: Oct 03, 2019 Frequency: At least 5 of 7 days/Wk (IRF) Estimated Hrs Per Day: 1.5 hours per day Agreement: Yes Rehab Potential: Fair Time/GCodes Start Time: 08:00 Stop Time: 09:15 Total Time Billed (hr/min): 75 Billed Treatment Time 1, ADL 3 (45), EX2 (30)= 75 CARINA WOODS OTR Sep 27, 2019 09:27
[2019-09-27] MEDS: ENOXAPARIN 40 MG/0.4 ML (LOVENOX) SYR SC SCH (09:29)
--- NOTE | 2019-09-27 09:33 | Physical Therapy Daily Note ---
PT Daily Note-Current Subjective Pt in bed upon arrival and agrees to co-treat. Pt states pain in neck at 8/10. Pt expresses she is nervous about going home tomorrow. Pain Numeric Pain Scale: 8 Location: Right Location Body Site: Neck Mental Status Patient Orientation: Person, Place, Time, Situation Transfers SCALE: Activities may be completed with or without assistive devices. 7-Nbzbyhdnyg-xgvjflk completes the activity by him/herself with no assistance from a helper. 5-Set-up or Clean-up Assistance-helper sets up or cleans up; patient completes activity. Butler assists only prior to or following the activity. 4-Supervision or Touching Assistance-helper provides verbal cues and/or touching/steadying and/or contact guard assistance as patient completes activity. Assistance may be provided throughout the activity or intermittently. 3-Partial/Moderate Assistance-helper does LESS THAN HALF the effort. Butler lifts, holds or supports trunk or limbs, but provides less than half the effort. 2-Substantial/Maximal Assistance-helper does MORE THAN HALF the effort. [place] lifts or holds trunk or limbs and provides more than half the effort. 2-Zyfokgxgr-zadavn does ALL the effort. Patient does none of the effort to complete the activity. Or, the assistance of 2 or more helpers is required for the patient to complete the activity. If activity was not attempted, code reason: 7-Patient Refused. 9-Not Applicable-not attempted and the patient did not perform the activity before the current illness, exacerbation or injury. 10-Not Attempted due to Environmental Limitations-(lack of equipment, weather restraints, etc.). 88-Not Attempted due to Medical Conditions or Safety Concerns. Roll Left & Right (QC): 2 Sit to Lying (QC): 2 Lying to Sitting/Side of Bed(Q: 2 Sit to Stand (QC): 2 Chair/Xow-wy-Souif Xfer(QC): 2 Toilet Transfer (QC): 2 Car Transfer (QC): 2 Weight Bearing Full Weight Bearing Full Weight Bearing Gait Training Does the Patient Walk?: No and Walking Goal NOT indicated Wheelchair Training Does the Pt Use a Wheelchair?: Yes Wheel 50 ft with 2 turns (QC): 2 Wheel 150 ft (QC): 2 Type of Wheelchair: Manual Stair Training 1 Step (curb) (QC): 88 4 Steps (QC): 88 12 Steps (QC): 88 Balance Picking up an Object (QC): 4 Special Test Comments Activity was done in with tan room supervisor, family support will be provided at home. Exercises Seated Therapy Exercises: Long arc quads, Hamstring Curls Seated Reps: 10 Treatments Need for two skilled clinicians due to lack of balance, weakness/fatigue as well as difficulty with safety of transfers. Pt performs bed mobility to sit on EOB. OT assist pt in bed bath while PT A with sitting balance. Pt transferred to and taken to car transfer. Pt taken to gym and performed activity with tan room supervisor grabbing objects from floor. Pt taken to mat in gym and worked on static sitting balance. OT worked on UE positioning, strengthening, bathing, and dressing. PT focused on balance, LE strengthening, and positioning. Pt taken back to room in recliner, left with all needs met, call light in hand. Assessment Current Status: Fair Progress Pt easily distracted needing VC and TC to stay focused. Pt easily fatigued needing rest breaks. PT Short Term Goals Short Term Goals Time Frame: Sep 12, 2019 Roll Left & Right: 2 Sit to lyin Lying to sitting on side of be: 2 Wheel 50ft w/2 turns: 2 Wheel 150 feet: 2 PT Retirement Goals Retirement Goals PT Facility Designer Goals Time Frame: Sep 26, 2019 Roll Left & Right (QC): 3 Sit to Lying (QC): 3 Lying-Sitting on Side/Bed(QC): 3 Sit to Stand (QC): 3 Chair/Uhq-bt-Uubju Xfer(QC): 3 Toilet Transfer (QC): 3 Car Transfer (QC): 3 Does the Patient Walk: No and Walking Goal NOT indicated Walk 10 feet (QC): 88 Walk 50ft with 2 Turns (QC): 88 Walk 150 ft (QC): 88 Walking 10ft on Uneven Surface: 88 1 Step (curb) (QC): 88 4 Steps (QC): 88 12 Steps (QC): 88 Picking up an Object (QC): 88 Does the Pt use WC or Scooter?: Yes Wheel 50 feet with 2 turns (QC: 3 Type: Manual Wheel 150 feet: 3 PT Plan Problem List Problem List: Activity Tolerance, Functional Strength, Safety Treatment/Plan Treatment Plan: Continue Plan of Care Treatment Plan: Bed Mobility, Education, Functional Activity Afia, Functional Strength, Group Therapy, Gait, Safety, Therapeutic Exercise, Transfers Treatment Duration: Sep 26, 2019 Frequency: At least 5 of 7 days/Wk (IRF) Estimated Hrs Per Day: 1.5 hours per day Patient and/or Family Agrees t: Yes Safety Risks/Education Patient Education: Gait Training, Correct Positioning, Safety Issues Teaching Recipient: Patient Teaching Methods: Demonstration, Discussion Response to Teaching: Verbalize Understanding, Return Demonstration Time/GCodes Time In: 800 Time Out: 915 Total Billed Treatment Time: 75 Total Billed Treatment 1, FA x3 (45m), EX (15m), NM (15m) JHONY WALTERS SHEET METAL WORKER MAINTENANCE Sep 27, 2019 09:33
--- NOTE | 2019-09-27 09:46 | PM&R Progress Note ---
Subjective HPI/CC On Admission Date Seen by Provider: Sep 27, 2019 Time Seen by Provider: 10:00 Subjective/Events-last exam Pt doing pretty well today Bowels are moving No pain is reported No SOB Everything arranged for DC tomorrow Checked meds and labs Reviewed therapy notes Conferred with emblem fuser tender of Systems Neurological: Weakness, Numbness, Incoordination Objective Exam Vital Signs Vital Signs Date Time Temp Pulse Resp B/P (MAP) Pulse Ox O2 Delivery O2 Flow Rate FiO2 09/27/19 20:25 Room Air 09/27/19 17:48 36.6 89 18 104/72 (83) 95 Capillary Refill : Less Than 3 Seconds General Appearance: No Apparent Distress, Chronically ill, Cachetic HEENT: PERRL/EOMI, Normal ENT Inspection, Pharynx Normal Neck: Full Range of Motion, Normal Inspection, Non Tender, Supple, Carotid Bruit Respiratory: Chest Non Tender, Lungs Clear, Normal Breath Sounds, No Accessory Muscle Use, No Respiratory Distress Cardiovascular: Regular Rate, Rhythm, No Edema, No Gallop, No JVD, No Murmur, Normal Peripheral Pulses Gastrointestinal: Normal Bowel Sounds, No Organomegaly, No Pulsatile Mass, Non Tender, Soft Back: Normal Inspection, No CVA Tenderness, No Vertebral Tenderness Extremity: Normal Capillary Refill, Normal Inspection, Normal Range of Motion, Non Tender, No Calf Tenderness, No Pedal Edema Neurologic/Psychiatric: Alert, Oriented x3, Abnormal Gait, Aphasia, Depressed Affect, EOM Palsy, Motor Weakness (right sided 2/5 upper extremity and 1/5 lower extremity) Skin: Normal Color, Warm/Dry Lymphatic: No Adenopathy Results/Procedures Lab Patient resulted labs reviewed. FIM Transfers Therapy Code Descriptions/Definitions Functional [place] Measure: 0=Not Assessed/NA 4=Minimal Assistance 1=Total Assistance 5=Supervision or Setup 2=Maximal Assistance 6=Modified [place] 3=Moderate Assistance 7=Complete IndependenceSCALE: Activities may be completed with or without assistive devices. 3-Xgqxhgbgmn-zxlyjpu completes the activity by him/herself with no assistance from a helper. 5-Set-up or Clean-up Assistance-helper sets up or cleans up; patient completes activity. [place] assists only prior to or following the activity. 4-Supervision or Touching Assistance-helper provides verbal cues and/or to uching/steadying and/or contact guard assistance as patient completes activity. Assistance may be provided throughout the activity or intermittently. 3-Partial/Moderate Assistance-helper does LESS THAN HALF the effort. [place] lifts, holds or supports trunk or limbs, but provides less than half the effort. 2-Substantial/Maximal Assistance-helper does MORE THAN HALF the effort. [place] lifts or holds trunk or limbs and provides more than half the effort. 5-Rcfhrervy-jzbqih does ALL the effort. Patient does none of the effort to complete the activity. Or, the assistance of 2 or more helpers is required for the patient to complete the activity. If activity was not attempted, code reason: 7-Patient Refused. 9-Not Applicable-not attempted and the patient did not perform the activity before the current illness, exacerbation or injury. 10-Not Attempted due to Environmental Limitations-(lack of equipment, weather restraints, etc.). 88-Not Attempted due to Medical Conditions or Safety Concerns. Roll Left to Right (QC): 2 Sit to Lying (QC): 2 Sit to Stand (QC): 2 Chair/Lmu-rc-Yopap Xfer(QC): 2 Car Transfer (QC): 2 Gait Training Does the Patient Walk?: No and Walking Goal NOT indicated Distance: 6' Walk 10 feet (QC): 88 Walk 50 ft with 2 Turns(QC): 88 Walk 150 ft (QC): 88 Walking 10ft/uneven surface-QC: 88 Gait Persons Needed: 2 Gait Assistive Device: Parallel Bars Wheelchair Training Does the Pt Use a Wheelchair?: Yes Wheel 50 ft with 2 turns (QC): 2 Wheel 150 ft (QC): 2 Type of Wheelchair: Manual Stair Training 1 Step (curb) (QC): 88 4 Steps (QC): 88 12 Steps (QC): 88 Balance Picking up an Object (QC): 4 ADL-Treatment Eating (QC): 5 Oral Hygiene (QC): 9 (pt did not complete oral hygiene prior as pt does not have dentation.) Bathing Location: L Arm, R Arm, L Upper Leg, R Upper Leg, Chest, Abdomen, Perineal Area Shower/Bathe Self (QC): 3 (assist x2 (PT addresses core/ balance and OT addresses bathing/ dressing). Pt completes with assist (CGA-Madina for core) and mod A for bathing tasks.) Upper Body Dressing (QC): 3 (mod A doffing/ donning.) Lower Body Dressing (QC): 2 (max A; pt requires assist in sit to complete core balance, able to kick legs BLE and brings pants over knees. Pt requires assist to stand and complete pulling while in stance.) On/Off Footwear (QC): 2 (max A: pt assists with movement of BLE and "kicking" into socks.) Toileting Hygiene (QC): 1 (TD with assist x2 (PT to stand, OT to assist with hygiene)) Toilet Transfer (QC): 1 (Based on clinical judgment: Pt completes transfer with TD (SPT) to [facility]. ) Assessment/Plan Assessment and Plan Assess & Plan/Chief Complaint Assessment: CVA Smoker Hematuria Leukocytosis resolved HLP Right side neglect Fall Risk Cough resolved Constipation resolved UTI acute resistant to Macrobid so started Bactrim 09/09/19 completed treatment and repeat UA negative Insomnia started on Remeron and added Ambien so we'll discontinue Ambien and start Xanax 1 mg at night- improved Chronic migraine - improved Plan: IRF Protocol Statin Smoking cessation ASA Lovenox Remeron and Xanax and Topamax Difficult to instill positivity Disposition to likely to nursing facility but family plans on bringing her home to care for her No increased pain meds indicated Start Topamax Discharge home soon with daughter and granddaughter to care for her Discharge plan for 09/28/2019 to home with family (1) CVA (cerebral vascular accident) (2) Hyperlipidemia Status: Chronic (3) Compression fracture of T3 vertebra (4) Behavior disorder (5) Leukocytosis (6) Dysarthria (7) Smoker Status: Chronic KRYS NEFF DO Sep 27, 2019 09:46
--- NOTE | 2019-09-27 11:46 | Speech Therapy Daily Note ---
Speech Daily Progress Note Subjective Date Seen by Provider: Sep 27, 2019 Time Seen by Provider: 00:30 Patient states she is happy to be going home tomorrow, however she is a little anxious. Objective Patient discussed her daily routine and what she anticipates her needs will be and plans for accomplishing her needs safely with 90% given minimal cues. Assessment Assessment Current Status: Good Progress Treatment Plan Discontinue ST, Goals Met Speech Short Term Goals Short Term Goals Short Term Goals Pt will complete (visual/verbal) attention task with 90% accy. Pt will complete STM task with use of compensatoy strategies with 90% accy Pt will complete further cognitive assessment for further evaluation of memory, functional math, and reading. Speech Senior Care Goals Senior Care Goals Pt will tolerate least restrictive diet with no s/s of aspiration/penetration wiht observed oral intake. Speech-Plan Patient/Family Goals Patient/Family Goals: Patient is returning to her home with her children tomorrow. Treatment Plan Speech Therapy Treatment Plan: Discontinue ST, Goals Met Treatment Duration: Sep 20, 2019 Frequency: 5 times per week Estimated Hrs Per Day: .5 hour per day Rehab Potential: Fair Barriers to Learning: Patient's recent CVA Pt/Family Agrees to Plan: Yes Safety Risks/Education Teaching Recipient: Patient Teaching Methods: Demonstration, Discussion Response to Teaching: Verbalize Understanding, Return Demonstration Education Topics Provided: Continued safety upon her return home. Time Speech Therapy Time In: 09:30 Speech Therapy Time Out: 10:00 Total Billed Time: 30 Billed Treatment Time [address] ST Sep 27, 2019 11:46
--- NOTE | 2019-09-27 13:55 | NUR ---
CM/SS DISCHARGE PLANNING Patient will discharge home tomorrow under the care of her family as has been planned over the duration of her ARU stay. As earlier noted, patient remains uninsured (Medicaid pending status) and the following arrangements have been made: DME: Referrals completed with [facility] for wheelchair, hospital bed, BSC. Agency understands to deliver tomorrow a.m. for patient's p.m. discharge and to contact daughter Petra directly for any further coordination. HHC: [facility] has accepted patient for RN, PT and OT services. Updated of discharge confirmation for tomorrow. Dr. Thibodeaux has agreed to cover patient for [facility] until she is established with [facility], first appointment 10/05/19. Rx: Eight new Rx processed with [facility] under [facility] on behalf of patient. Daughter understands to lease picker Rx prior to getting patient at hospital, that PALS is a one time assist and no refills. PCP: Appointment scheduled with [facility] 10/05/19 with TOYA Abdi, to initiate getting established for primary care there. Finalize discharge tomorrow a.m.
[2019-09-27 17:48] VITALS: BP 104/72
--- NOTE | 2019-09-27 18:14 | Cardiology Progress Note ---
Cardiology SOAP Progress Note Subjective: No cardiac complaints. Objective: I&O/Vital Signs 09/27/19 09/27/19 09:00 17:48 Temp 36.6 Pulse 89 Resp 18 B/P (MAP) 104/72 (83) Pulse Ox 95 O2 Delivery Room Air Room Air 09/27/19 00:00 Intake Total 1480 ml Balance 1480 ml Constitutional: AAO x 3 Respiratory: chest is bilaterally symmetric, lungs clear to auscultation Cardiovascular: regular rate-rhythm, S1 and S2; No diastolic murmur, No systolic murmur Gastrointestional: soft, audible bowel sounds Extremities: normal inspection, pedal edema Neurologic/Psychiatric: no motor/sensory deficits, alert, normal mood/affect, oriented x 3 Skin: normal color Results/Procedures: Labs Microbiology 09/07/19 Urine Culture - Final, Complete Proteus mirabilis A/P: Assessment/Dx: CVA HTN HLP Plan: CVA, still having right hemiplegia, 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 CT angiogram of the head was nondiagnostic. MRI of the head showed shower of embolization, probably underlying atrial fibrillation, so far her EKG did not show acute abnormality maintenance and aspirin. s/p LINq implantation for further monitoring for atrial fibrillation. Recurrent headache, dependent on pain medication, managed by primary care Echocardiogram showed normal LV function, prominent aorta. No significant abnormality otherwise Borderline hypotension, denies any dizziness, continue to monitor Hyperlipidemia, continue Lipitor, continue to monitor. Urinary tract infection, improved, managed by primary care physician Thank you for your consultation. Please call me if you have any questions. Elena Early MD, FACP, FACC, FSCAI, FHRS, CCDS Interventional Cardiology Cardiac Electrophysiology Vascular Medicine and Endovascular Interventions David EARLY MD Sep 27, 2019 18:14
--- NOTE | 2019-09-27 19:05 | NUR ---
bedside report received from CARLEE RAINES, assume care of pt
[2019-09-27] MEDS: MIRTAZAPINE 15 MG (REMERON) TAB PO SCH (20:20)
[2019-09-27] MEDS: ALPRAZolam 1 MG (XANAX) TAB PO SCH (20:20)
[2019-09-27] MEDS: toPIRamate 25 MG (TOPAMAX) TAB PO SCH (20:20)
--- NOTE | 2019-09-27 20:20 | NUR ---
pt refused miralax & Senokot, stating just had BM a little earlier
[2019-09-28 05:18] VITALS: BP 116/73
--- NOTE | 2019-09-28 07:50 | Therapy Team Discharge Summary ---
Therapy Discharge Summary Discharge Recommendations Date of Discharge Occupational Therapy Pt admits to ARU with R side- affected CVA; pt unable to mobilize L/ R UE (L with spontaneous movement). Pt was TD with all ADL tasks, though did not complete oral hygiene prior to admit. Pt and OT work towards higher fx IND t hrough UE movement/ ADL retraining, ther ex, core strengthening/ balance training, attention to task/ safety training, family training, AE/ AD recognition and training, and PROM/ AROM encouragement of BUE. Pt was limited by attention to tasks and decreased core strength/ retropulsion. Pt does not reach LTGs but increases in fx IND for home d/c. Pt now min-mod A showering tasks, mod A UB dressing, max A LB dressing, TD footwear/ transfers/ bottom hygiene. Pt to d/c home with family with recommendations of tub/ bench, commode, w/c, and continued OT. D/c OT at this time. 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 Goals Time Frame: Sep 26, 2019 Roll Left to Right (QC): 3 Sit to Lying (QC): 3 Lying-Sitting on Side/Bed(QC): 3 Sit to Stand (QC): 3 Chair/Xfh-yd-Ycbzy Xfer(QC): 3 Car Transfer (QC): 3 Does the Patient Walk: No and Walking Goal NOT indicated Walk 10 feet (QC): 88 Walk 10ft-Uneven Surface(QC): 88 Walk 50ft with 2 Turns (QC): 88 Walk 150 ft (QC): 88 Does the Pt use WC or Scooter?: Yes Wheel 50 feet with 2 turns (QC: 3 1 Step (curb) (QC): 88 4 Steps (QC): 88 12 Steps (QC): 88 Picking up an Object (QC): 88 OT Alf Goals 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 2=Patient will verbalize/demonstrate understanding of assistive devices/modifications for ADL. 3=Patient will improve strength/tolerance for activity to enable patient to perform ADL's. Speech Alf Goals Alf Goals Pt will tolerate least restrictive diet with no s/s of aspiration/penetration wiht observed oral intake. CARINA WOODS OTR Sep 28, 2019 07:50
[2019-09-28] MEDS: DOCUSATE SODIUM 100 MG (COLACE) CAP PO SCH (08:05)
[2019-09-28] MEDS: ASPIRIN E.C. 325 MG (ECOTRIN) TABLET PO SCH (08:05)
[2019-09-28] MEDS: SENNA W/DOCUSATE (SENOKOT S) TABLET PO SCH (08:05)
[2019-09-28] MEDS: polyethylene glycoL POWDER 17 GM (MIRALAX) PACK PO SCH (08:06)
[2019-09-28] MEDS: PATCH REMOVAL TP SCH (08:06)
[2019-09-28] MEDS: NICOTINE 21 MG (NICODERM) PATCH TD SCH (08:06)
--- NOTE | 2019-09-28 09:00 | NUR ---
PT REFUSES LM, VOICES, "I'D RATHER WAIT, SO I DON'T HAVE AN ACCIDENT ON THE WAY HOME." LM HELD.
--- NOTE | 2019-09-28 09:23 | Discharge Summary ---
Diagnosis/Chief Complaint Date of Admission Sep 05, 2019 at 11:20 Date of Discharge Discharge Date: Sep 28, 2019 Discharge Diagnosis Assessment: CVA Smoker Hematuria Leukocytosis resolved HLP Right side neglect Fall Risk Cough resolved Constipation resolved UTI acute resistant to Macrobid so started Bactrim 09/09/19 completed treatment and repeat UA negative Insomnia started on Remeron and added Ambien so we'll discontinue Ambien and start Xanax 1 mg at night- improved Chronic migraine - improved Plan: IRF Protocol Statin Smoking cessation ASA Lovenox Remeron and Xanax and Topamax Difficult to instill positivity Disposition to likely to nursing facility but family plans on bringing her home to care for her No increased pain meds indicated Start Topamax Discharge home soon with daughter and granddaughter to care for her Discharge plan for 09/28/2019 to home with family (1) CVA (cerebral vascular accident) (2) Hyperlipidemia Status: Chronic (3) Compression fracture of T3 vertebra (4) Behavior disorder (5) Leukocytosis (6) Dysarthria (7) Smoker Status: Chronic Discharge Summary Discharge Physical Examination Allergies: Coded Allergies: No Known Drug Allergies (Unverified , 09/02/19) Vitals & I&Os Vital Signs Date Time Temp Pulse Resp B/P (MAP) Pulse Ox O2 Delivery O2 Flow Rate FiO2 09/28/19 09:00 Room Air 09/28/19 05:18 35.6 78 16 116/73 (87) 94 General Appearance: Alert, Oriented X3, Cooperative Respiratory: Clear to Auscultation Cardiovascular: Regular Rate Psych/Mental Status: Mental Status NL Hospital Course Was the Problem List Reviewed?: Yes Hospital course: Pt had a lengthy hospital course for 22 days after transferred from fourth floor after a catastrophic embolic showering stroke. She had severe weakness of the right side, was able to participate in all therapy, able to regain a little bit of function but dependent with most transfers. She did have a UTI after urinary catheter was discontinued and Dr. Monahan managed that. Labs remained stable, BP remained stable, Aspirin was maintained for stroke prophylaxis, secondary prevention, loop recorder was placed and overall Pt improved enough to go home with her family for 05/10 care. They were educated with family training and overall was deemed stable for discharge with close follow-up with [facility] to establish care. Labs (last 24 hrs) Laboratory Tests 09/05/19 11:20: Lab Scanned Report Referred Lab Report 09/06/19 05:27: White Blood Count 17.5H, Red Blood Count 4.75, Hemoglobin 14.1, Hematocrit 42, Mean Corpuscular Volume 89, Mean Corpuscular Hemoglobin 30, Mean Corpuscular Hemoglobin Concent 33, Red Cell Distribution Width 13.8, Platelet Count 343, Mean Platelet Volume 9.3, Neutrophils (%) (Auto) 71, Lymphocytes (%) (Auto) 17, Monocytes (%) (Auto) 10, Eosinophils (%) (Auto) 2, Basophils (%) (Auto) 1, Neutrophils # (Auto) 12.3H, Lymphocytes # (Auto) 3.0, Monocytes # (Auto) 1.8H, Eosinophils # (Auto) 0.3, Basophils # (Auto) 0.1, Sodium Level 139, Potassium Level 3.8, Chloride Level 108H, Carbon Dioxide Level 19L, Anion Gap 12, Blood Urea Nitrogen 23H, Creatinine 0.70, Estimat Glomerular Filtration Rate > 60, BUN/Creatinine Ratio 33, Glucose Level 107H, Calcium Level 10.0, Corrected Calcium 10.0, Total Bilirubin 0.5, Aspartate Amino Transf (AST/SGOT) 32, Alanine Aminotransferase (ALT/SGPT) 30, Alkaline Phosphatase 86, Total Protein 7.0, Albumin 4.0, Procalcitonin 0.09 09/06/19 09:51: Lactic Acid Level 0.60 09/07/19 10:25: Urine Color YELLOW, Urine Clarity CLEAR, Urine pH 7.5, Urine Specific [place] 1.015L, Urine Protein TRACEH, Urine Glucose (UA) NEGATIVE, Urine Ketones NEGATIVE, Urine Nitrite POSITIVEH, Urine Bilirubin NEGATIVE, Urine Urobilinogen 1.0, Urine Leukocyte Esterase 1+H, Urine RBC (Auto) 2+H, Urine RBC 0-2, Urine WBC 25-50H, Urine Squamous Epithelial Cells NONE, Urine Crystals PRESENTH, Urine Triple Phosphate Crystals FEWH, Urine Amorphous Sediment LARGE AMANDO PHOSPHATEH, Urine Bacteria LARGEH, Urine Casts NONE, Urine Mucus NEGATIVE, Urine Culture Indicated YES 09/11/19 05:19: White Blood Count 13.1H, Red Blood Count 5.19, Hemoglobin 15.4, Hematocrit 45, Mean Corpuscular Volume 87, Mean Corpuscular Hemoglobin 30, Mean Corpuscular Hemoglobin Concent 34, Red Cell Distribution Width 13.3, Platelet Count 434H, Mean Platelet Volume 9.3, Neutrophils (%) (Auto) 67, Lymphocytes (%) (Auto) 21, Monocytes (%) (Auto) 10, Eosinophils (%) (Auto) 1, Basophils (%) (Auto) 1, Neutrophils # (Auto) 8.8H, Lymphocytes # (Auto) 2.7, Monocytes # (Auto) 1.3H, E osinophils # (Auto) 0.1, Basophils # (Auto) 0.1, Sodium Level 138, Potassium Level 4.8, Chloride Level 103, Carbon Dioxide Level 21, Anion Gap 14, Blood Urea Nitrogen 23H, Creatinine 0.82, Estimat Glomerular Filtration Rate > 60, BUN/C reatinine Ratio 28, Glucose Level 108H, Calcium Level 10.4H, Corrected Calcium 10.2H, Total Bilirubin 0.3, Aspartate Amino Transf (AST/SGOT) 30, Alanine Aminotransferase (ALT/SGPT) 22, Alkaline Phosphatase 108, Total Protein 7.8, Albumin 4.3 09/17/19 15:15: Urine Color YELLOW, Urine Clarity CLEAR, Urine pH 6.0, Urine Specific [place] 1.020, Urine Protein NEGATIVE, Urine Glucose (UA) NEGATIVE, Urine Ketones NEGATIVE, Urine Nitrite NEGATIVE, Urine Bilirubin NEGATIVE, Urine Urobilinogen 0.2, Urine Leukocyte Esterase NEGATIVE, Urine RBC (Auto) NEGATIVE, Urine RBC NONE, Urine WBC RARE, Urine Squamous Epithelial Cells RARE, Urine Crystals NONE, Urine Bacteria NEGATIVE, Urine Casts NONE, Urine Mucus SMALLH, Urine Culture Indicated NO 09/18/19 04:23: White Blood Count 8.7, Red Blood Count 4.51, Hemoglobin 13.1, Hematocrit 41, Mean Corpuscular Volume 90, Mean Corpuscular Hemoglobin 29, Mean Corpuscular Hemoglobin Concent 32, Red Cell Distribution Width 12.7, Platelet Count 370, Mean Platelet Volume 9.7, Neutrophils (%) (Auto) 47, Lymphocytes (%) (Auto) 41, Monocytes (%) (Auto) 8, Eosinophils (%) (Auto) 4, Basophils (%) (Auto) 1, Neutrophils # (Auto) 4.0, Lymphocytes # (Auto) 3.5, Monocytes # (Auto) 0.7, Eosinophils # (Auto) 0.4H, Basophils # (Auto) 0.1, Sodium Level 139, Potassium Level 3.9, Chloride Level 106, Carbon Dioxide Level 22, Anion Gap 11, Blood Urea Nitrogen 19H, Creatinine 0.70, Estimat Glomerular Filtration Rate > 60, BUN/Creatinine Ratio 27, Glucose Level 94, Calcium Level 9.8, Corrected Calcium 10.0, Total Bilirubin 0.2, Aspartate Amino Transf (AST/SGOT) 36H, Alanine Amino transferase (ALT/SGPT) 24, Alkaline Phosphatase 76, Total Protein 6.6, Albumin 3.8 09/25/19 05:45: White Blood Count 7.6, Red Blood Count 4.53, Hemoglobin 13.1, Hematocrit 40, Mean Corpuscular Volume 88, Mean Corpuscular Hemoglobin 29, Mean Corpuscular Hemoglobin Concent 33, Red Cell Distribution Width 12.8, Platelet Count 340, Mean Platelet Volume 9.4, Neutrophils (%) (Auto) 46, Lymphocytes (%) (Auto) 39, Monocytes (%) (Auto) 11, Eosinophils (%) (Auto) 4, Basophils (%) (Auto) 1, Neutrophils # (Auto) 3.5, Lymphocytes # (Auto) 3.0, Monocytes # (Auto) 0.8, Eosinophils # (Auto) 0.3, Basophils # (Auto) 0.1, Sodium Level 140, Potassium Level 3.8, Chloride Level 108H, Carbon Dioxide Level 20L, Anion Gap 12, Blood Urea Nitrogen 28H, Creatinine 0.76, Estimat Glomerular Filtration Rate > 60, BUN/Creatinine Ratio 37, Glucose Level 96, Calcium Level 9.9, Corrected Calcium 10.0, Total Bilirubin 0.2, Aspartate Amino Transf (AST/SGOT) 34, Alanine Aminotransferase (ALT/SGPT) 34, Alkaline Phosphatase 80, Total Protein 6.8, Albumin 3.9 Microbiology 09/07/19 Urine Culture - Final, Complete Proteus mirabilis Pending Labs Microbiology Date/Time Source Procedure Growth Status 09/07/19 10:25 Urine Clean Catch Urine Culture - Final Proteus mirabilis Complete Laboratory Tests 09/05/19 11:20: Lab Scanned Report Referred Lab Report 09/06/19 05:27: White Blood Count 17.5, Red Blood Count 4.75, Hemoglobin 14.1, Hematocrit 42, Mean Corpuscular Volume 89, Mean Corpuscular Hemoglobin 30, Mean Corpuscular Hemoglobin Concent 33, Red Cell Distribution Width 13.8, Platelet Count 343, Mean Platelet Volume 9.3, Neutrophils (%) (Auto) 71, Lymphocytes (%) (Auto) 17, Monocytes (%) (Auto) 10, Eosinophils (%) (Auto) 2, Basophils (%) (Auto) 1, Neutrophils # (Auto) 12.3, Lymphocytes # (Auto) 3.0, Monocytes # (Auto) 1.8, Eosinophils # (Auto) 0.3, Basophils # (Auto) 0.1, Sodium Level 139, Potassium Level 3.8, Chloride Level 108, Carbon Dioxide Level 19, Anion Gap 12, Blood Urea Nitrogen 23, Creatinine 0.70, Estimat Glomerular Filtration Rate > 60, BUN/Creatinine Ratio 33, Glucose Level 107, Calcium Level 10.0, Corrected Calcium 10.0, Total Bilirubin 0.5, Aspartate Amino Transf (AST/SGOT) 32, Alanine Aminotransferase (ALT/SGPT) 30, Alkaline Phosphatase 86, Total Protein 7.0, Albumin 4.0, Procalcitonin 0.09 09/06/19 09:51: Lactic Acid Level 0.60 09/07/19 10:25: Urine Color YELLOW, Urine Clarity CLEAR, Urine pH 7.5, Urine Specific [place] 1.015, Urine Protein TRACE, Urine Glucose (UA) NEGATIVE, Urine Ketones NEGATIVE, Urine Nitrite POSITIVE, Urine Bilirubin NEGATIVE, Urine Urobilinogen 1.0, Urine Leukocyte Esterase 1+, Urine RBC (Auto) 2+, Urine RBC 0-2, Urine WBC 25-50, Urine Squamous Epithelial Cells NONE, Urine Crystals PRESENT, Urine Triple Phosphate Crystals FEW, Urine Amorphous Sediment LARGE AMANDO PHOSPHATE, Urine B acteria LARGE, Urine Casts NONE, Urine Mucus NEGATIVE, Urine Culture Indicated YES 09/11/19 05:19: White Blood Count 13.1, Red Blood Count 5.19, Hemoglobin 15.4, Hematocrit 45, Mean Corpuscular Volume 87, Mean Corpuscular Hemoglobin 30, Mean Corpuscular Hemoglobin Concent 34, Red Cell Distribution Width 13.3, Platelet Count 434, Mean Platelet Volume 9.3, Neutrophils (%) (Auto) 67, Lymphocytes (%) (Auto) 21, Monocytes (%) (Auto) 10, Eosinophils (%) (Auto) 1, Basophils (%) (Auto) 1, Neutr ophils # (Auto) 8.8, Lymphocytes # (Auto) 2.7, Monocytes # (Auto) 1.3, Eosinophils # (Auto) 0.1, Basophils # (Auto) 0.1, Sodium Level 138, Potassium Level 4.8, Chloride Level 103, Carbon Dioxide Level 21, Anion Gap 14, Blood Urea Nitrogen 23, Creatinine 0.82, Estimat Glomerular Filtration Rate > 60, BUN/Creatinine Ratio 28, Glucose Level 108, Calcium Level 10.4, Corrected Calcium 10.2, Total Bilirubin 0.3, Aspartate Amino Transf (AST/SGOT) 30, Alanine Aminotransferase (ALT/SGPT) 22, Alkaline Phosphatase 108, Total Protein 7.8, Albumin 4.3 09/17/19 15:15: Urine Color YELLOW, Urine Clarity CLEAR, Urine pH 6.0, Urine Specific [place] 1.020, Urine Protein NEGATIVE, Urine Glucose (UA) NEGATIVE, Urine Ketones NEGATIVE, Urine Nitrite NEGATIVE, Urine Bilirubin NEGATIVE, Urine Urobilinogen 0.2, Urine Leukocyte Esterase NEGATIVE, Urine RBC (Auto) NEGATIVE, Urine RBC NONE, Urine WBC RARE, Urine Squamous Epithelial Cells RARE, Urine Crystals NONE, Urine Bacteria NEGATIVE, Urine Casts NONE, Urine Mucus SMALL, Urine Culture Indicated NO 09/18/19 04:23: White Blood Count 8.7, Red Blood Count 4.51, Hemoglobin 13.1, Hematocrit 41, Mean Corpuscular Volume 90, Mean Corpuscular Hemoglobin 29, Mean Corpuscular Hemoglobin Concent 32, Red Cell Distribution Width 12.7, Platelet Count 370, Mean Platelet Volume 9.7, Neutrophils (%) (Auto) 47, Lymphocytes (%) (Auto) 41, Monocytes (%) (Auto) 8, Eosinophils (%) (Auto) 4, Basophils (%) (Auto) 1, Neutrophils # (Auto) 4.0, Lymphocytes # (Auto) 3.5, Monocytes # (Auto) 0.7, Eosinophils # (Auto) 0.4, Basophils # (Auto) 0.1, Sodium Level 139, Potassium Level 3.9, Chloride Level 106, Carbon Dioxide Level 22, Anion Gap 11, Blood Urea Nitrogen 19, Creatinine 0.70, Estimat Glomerular Filtration Rate > 60, BUN/Cr eatinine Ratio 27, Glucose Level 94, Calcium Level 9.8, Corrected Calcium 10.0, Total Bilirubin 0.2, Aspartate Amino Transf (AST/SGOT) 36, Alanine Aminotransferase (ALT/SGPT) 24, Alkaline Phosphatase 76, Total Protein 6.6, Albumin 3.8 09/25/19 05:45: White Blood Count 7.6, Red Blood Count 4.53, Hemoglobin 13.1, Hematocrit 40, Mean Corpuscular Volume 88, Mean Corpuscular Hemoglobin 29, Mean Corpuscular Hemoglobin Concent 33, Red Cell Distribution Width 12.8, Platelet Count 340, Mean Platelet Volume 9.4, Neutrophils (%) (Auto) 46, Lymphocytes (%) (Auto) 39, Monocytes (%) (Auto) 11, Eosinophils (%) (Auto) 4, Basophils (%) (Auto) 1, Neutrophils # (Auto) 3.5, Lymphocytes # (Auto) 3.0, Monocytes # (Auto) 0.8, Eosinophils # (Auto) 0.3, Basophils # (Auto) 0.1, Sodium Level 140, Potassium Level 3.8, Chloride Level 108, Carbon Dioxide Level 20, Anion Gap 12, Blood Urea Nitrogen 28, Creatinine 0.76, Estimat Glomerular Filtration Rate > 60, BUN/Creatinine Ratio 37, Glucose Level 96, Calcium Level 9.9, Corrected Calcium 10.0, Total Bilirubin 0.2, Aspartate Amino Transf (AST/SGOT) 34, Alanine Aminotransferase (ALT/SGPT) 34, Alkaline Phosphatase 80, Total Protein 6.8, Albumin 3.9 Discharge Home Medications: Active Scripts Active Senna-Time S Tablet (Sennosides/Docusate Sodium) 1 Each Tablet 1 Ea PO BID Alprazolam 0.25 Mg Tablet 0.25 Mg PO Q8H PRN Aspirin EC (Aspirin) 325 Mg Tablet.dr 325 Mg PO DAILY Atorvastatin Calcium 80 Mg Tablet 80 Mg PO DAILY Alprazolam 1 Mg Tablet 1 Mg PO HS Mirtazapine 15 Mg Tab.rapdis 15 Mg PO HS Topamax (Topiramate) 25 Mg Tablet 50 Mg PO HS Hydrocodone-Acetamin 5-325 mg (Hydrocodone/Acetaminophen) 1 Each Tablet 1 Tab PO Q4H PRN Instructions to patient/family Please see electronic discharge instructions given to patient. Diagnosis/Problems Diagnosis/Problems (1) CVA (cerebral vascular accident) (2) Hyperlipidemia Status: Chronic (3) Compression fracture of T3 vertebra (4) Behavior disorder (5) Leukocytosis (6) Dysarthria (7) Smoker Status: Chronic Clinical Quality Measures DVT/VTE Risk/Contraindication: Risk Factor Score Per Nursin RFS Level Per Nursing on Admit: 4+=Very High KRYS NEFF DO Sep 28, 2019 09:23
[2019-09-28] MEDS: ENOXAPARIN 40 MG/0.4 ML (LOVENOX) SYR SC SCH (10:15)
[2019-09-28] MEDS: HYDROcodone/APAP 5 MG/325 MG (LORTAB) TAB PO PRN (10:52)
--- NOTE | 2019-09-28 10:59 | Physical Therapy Daily Note ---
PT Daily Note-Current Subjective Pt requests to toilet. Reports she is going home today and is anxious to get there! Reports she feels her family will be able to handle her. Transfers SCALE: Activities may be completed with or without assistive devices. 9-Wpeeerpncd-woxnhug completes the activity by him/herself with no assistance from a helper. 5-Set-up or Clean-up Assistance-helper sets up or cleans up; patient completes activity. [place] assists only prior to or following the activity. 4-Supervision or Touching Assistance-helper provides verbal cues and/or t ouching/steadying and/or contact guard assistance as patient completes activity. Assistance may be provided throughout the activity or intermittently. 3-Partial/Moderate Assistance-helper does LESS THAN HALF the effort. [place] lifts, holds or supports trunk or limbs, but provides less than half the effort. 2-Substantial/Maximal Assistance-helper does MORE THAN HALF the effort. [place] lifts or holds trunk or limbs and provides more than half the effort. 0-Rihezgtzh-slbzih does ALL the effort. Patient does none of the effort to complete the activity. Or, the assistance of 2 or more helpers is required for the patient to complete the activity. If activity was not attempted, code reason: 7-Patient Refused. 9-Not Applicable-not attempted and the patient did not perform the activity before the current illness, exacerbation or injury. 10-Not Attempted due to Environmental Limitations-(lack of equipment, weather restraints, etc.). 88-Not Attempted due to Medical Conditions or Safety Concerns. Lying to Sitting/Side of Bed(Q: 2 (max assist to transiition to sitting EOB. ) Sit to Stand (QC): 2 Chair/Uhb-ak-Xifxg Xfer(QC): 2 (max assist to come to a stand and transfer to/from the commode. ) Sit to stand x 3 reps with max assist with work on WB and standing balacne. Therapist remained in room while she was on the toilet to assist with balance and safety on the toilet. Pt in bed post treatment with SCD's in situ and bedrails up. Tilted slightly right to relieve buttock pressure. Both arms supported on pillows. Weight Bearing Full Weight Bearing Full Weight Bearing Assessment Pt to discharge this date. Recommend [facility] PT to follow. PT Short Term Goals Short Term Goals Time Frame: Sep 12, 2019 Roll Left & Right: 2 Sit to lyin Lying to sitting on side of be: 2 Wheel 50ft w/2 turns: 2 Wheel 150 feet: 2 PT Race Car Driver Goals Alf Goals PT Race Car Driver Goals Time Frame: Sep 26, 2019 Roll Left & Right (QC): 3 Sit to Lying (QC): 3 Lying-Sitting on Side/Bed(QC): 3 Sit to Stand (QC): 3 Chair/Yvg-oz-Utfcr Xfer(QC): 3 Toilet Transfer (QC): 3 Car Transfer (QC): 3 Does the Patient Walk: No and Walking Goal NOT indicated Walk 10 feet (QC): 88 Walk 50ft with 2 Turns (QC): 88 Walk 150 ft (QC): 88 Walking 10ft on Uneven Surface: 88 1 Step (curb) (QC): 88 4 Steps (QC): 88 12 Steps (QC): 88 Picking up an Object (QC): 88 Does the Pt use WC or Scooter?: Yes Wheel 50 feet with 2 turns (QC: 3 Type: Manual Wheel 150 feet: 3 PT Plan Treatment/Plan Treatment Plan: Discontinue PT Treatment Plan: Bed Mobility, Education, Functional Activity Afia, Functional Strength, Group Therapy, Gait, Safety, Therapeutic Exercise, Transfers Treatment Duration: Sep 26, 2019 Frequency: At least 5 of 7 days/Wk (IRF) Estimated Hrs Per Day: 1.5 hours per day Patient and/or Family Agrees t: Yes Safety Risks/Education Patient Education: Transfer Techniques Teaching Recipient: Patient Teaching Methods: Demonstration, Discussion Response to Teaching: Reinforcement Needed Time/GCodes Time In: 935 Time Out: 958 Total Billed Treatment Time: 23 Total Billed Treatment visit FA 23 ANGELLA JOHNSTON PT Sep 28, 2019 10:59
[2019-09-28] MEDS: ALPRAZolam 0.25 MG (XANAX) TAB PO PRN (11:18)
--- NOTE | 2019-09-28 13:59 | NUR ---
CM/SS DISCHARGE Patient discharged home under the care of extended family as planned. HHC: Finalized with [facility]. Electric Sign Assembler Jered visited patient today for a meet and greet, services will begin tomorrow. DME: Ordered equipment was delivered this a.m. per family, they were provided Home Medical number for future contacts or issues. [facility] HCBS Physical Disability evaluation was completed with patient with her DIL Trishia present. Patient signatures obtained, scanned document to Angelica Terrell at [facility]. All discharge activities are completed unless circumstances arise to warrant further assistance.
--- NOTE | 2019-09-28 14:27 | Therapy Team Discharge Summary ---
Therapy Discharge Summary Discharge Recommendations Date of Discharge Sep 28, 2019 at 12:30 Occupational Therapy Decreased Activ Tolerance, Decreased Safety Aware, Decreased UE Strength, Dep endent Transfers, Impaired Bed Mobility, Impaired Cognition, Impaired Coordination, Impaired Funct Balance, Impaired I ADL's, Impaired Self-Care Skills Speech-Language Pathology Patient was admitted to the ARU s/p CVA. Patient received skilled ST for apphasia and dysphagia. Patient met her ST goals per POC. Patient discharged to her home with her children where she will receive assistance as needed. PT Mcfp Goals Mcfp Goals PT Mcfp Goals Time Frame: Sep 26, 2019 Roll Left to Right (QC): 3 Sit to Lying (QC): 3 Lying-Sitting on Side/Bed(QC): 3 Sit to Stand (QC): 3 Chair/Hge-te-Qjzgi Xfer(QC): 3 Car Transfer (QC): 3 Does the Patient Walk: No and Walking Goal NOT indicated Walk 10 feet (QC): 88 Walk 10ft-Uneven Surface(QC): 88 Walk 50ft with 2 Turns (QC): 88 Walk 150 ft (QC): 88 Does the Pt use WC or Scooter?: Yes Wheel 50 feet with 2 turns (QC: 3 1 Step (curb) (QC): 88 4 Steps (QC): 88 12 Steps (QC): 88 Picking up an Object (QC): 88 OT Mcfp Goals Mcfp Goals Time Frame: Oct 03, 2019 Eating (QC): 6 Oral Hygiene (QC): 9 Shower/Bathe Self (QC): 4 Upper Body Dressing (QC): 4 Lower Body Dressing (QC): 4 On/Off Footwear (QC): 4 Toileting Hygiene (QC): 4 Toilet/Commode Transfer (QC): 3 Additional Goals: 1-Demonstrate ADL Tasks, 2-Verbalize Understanding, 3- ImproveStrength/Afia 1=Demonstrate adherence to instructed precautions during ADL tasks. 2=Patient will verbalize/demonstrate understanding of assistive devices/modifications for ADL. 3=Patient will improve strength/tolerance for activity to enable patient to perform ADL's. Speech Processor Grain Goals Mcfp Goals Pt will tolerate least restrictive diet with no s/s of aspiration/penetration wiht observed oral intake. FLORECITA ODEN Sep 28, 2019 14:27
--- NOTE | 2019-09-29 13:22 | Therapy Team Discharge Summary ---
Therapy Discharge Summary Discharge Recommendations Date of Discharge Sep 28, 2019 at 12:30 Physical Therapy Patient came to rehab following a CVA. Upon evaluation patient was dependent for bed mobility, dependent for supine <-> sit and sit <-> stand, dependent for stand pivot transfer and car transfer, dependent for WC mobility. Patient has been performing bed mobility and transfer training, balance and endurance training, gait training, standing, WC mobility training, and education. 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 Now, patient performs bed mobility and transfers with max assist, car transfer max assist, WC mobility max assist. Patient has been discharged from this facility and will be discharged from PT at this time. Occupational Therapy Decreased Activ Tolerance, Decreased Safety Aware, Decreased UE Strength, Dependent Transfers, Impaired Bed Mobility, Impaired Cognition, Impaired Coordination, Impaired Funct Balance, Impaired I ADL's, Impaired Self-Care Skills PT Finishing Trimmer Goals Care Home Goals PT Finishing Trimmer Goals Time Frame: Sep 26, 2019 Roll Left to Right (QC): 3 Sit to Lying (QC): 3 Lying-Sitting on Side/Bed(QC): 3 Sit to Stand (QC): 3 Chair/Unv-qb-Cdyyx Xfer(QC): 3 Car Transfer (QC): 3 Does the Patient Walk: No and Walking Goal NOT indicated Walk 10 feet (QC): 88 Walk 10ft-Uneven Surface(QC): 88 Walk 50ft with 2 Turns (QC): 88 Walk 150 ft (QC): 88 Does the Pt use WC or Scooter?: Yes Wheel 50 feet with 2 turns (QC: 3 1 Step (curb) (QC): 88 4 Steps (QC): 88 12 Steps (QC): 88 Picking up an Object (QC): 88 OT Care Home Goals Finishing Trimmer Goals Time Frame: Oct 03, 2019 Eating (QC): 6 Oral Hygiene (QC): 9 Shower/Bathe Self (QC): 4 Upper Body Dressing (QC): 4 Lower Body Dressing (QC): 4 On/Off Footwear (QC): 4 Toileting Hygiene (QC): 4 Toilet/Commode Transfer (QC): 3 Additional Goals: 1-Demonstrate ADL Tasks, 2-Verbalize Understanding, 3-ImproveStrength/Afia 1=Demonstrate adherence to instructed precautions during ADL tasks. 2=Patient will verbalize/demonstrate understanding of assistive devices/modifications for ADL. 3=Patient will improve strength/tolerance for activity to enable patient to perform ADL's. Speech Finishing Trimmer Goals Care Home Goals Pt will tolerate least restrictive diet with no s/s of aspiration/penetration wiht observed oral intake. TASHA POMPA PT Sep 29, 2019 13:22
== END 2019-09-28 12:30 | disposition home health service (06) | DRG 57 ==
PROVIDERS: ADMIT Internal Medicine; ATTEND Internal Medicine
DX: I69.320 Aphasia following cerebral infarction (principal); R41.4 Neurologic neglect syndrome; I69.391 Dysphagia following cerebral infarction; R13.10 Dysphagia, unspecified; R47.01 Aphasia; N39.0 Urinary tract infection, site not specified; T83.83XA Hemorrhage due to genitourinary prosthetic devices, implants and grafts, initial encounter; R31.0 Gross hematuria; I69.398 Other sequelae of cerebral infarction; K59.00 Constipation, unspecified; G47.00 Insomnia, unspecified; R32 Unspecified urinary incontinence; G43.909 Migraine, unspecified, not intractable, without status migrainosus; I10 Essential (primary) hypertension; E78.5 Hyperlipidemia, unspecified; F41.9 Anxiety disorder, unspecified; F32.9 Major depressive disorder, single episode, unspecified; F17.210 Nicotine dependence, cigarettes, uncomplicated; F12.90 Cannabis use, unspecified, uncomplicated; B96.4 Proteus (mirabilis) (morganii) as the cause of diseases classified elsewhere; Z85.41 Personal history of malignant neoplasm of cervix uteri
CPT/HCPCS: 36415; 80053; 81000; 83605; 84145; 85025; 87077; 87088; 87186

== ENCOUNTER → 2019-09-06 | Day surgery (SDC) | payer OTHER ==
[~2019-09-06] MED LIST changes: +LIDOCAINE 1% INJ 20 ML 20 ML VIAL INJ ONE
--- OUTSIDE RECORDS SUMMARY | 2019-09-06 15:54 | XMS REPORT | Continuity of Care Document ---
Author Organization Unknown Address Unknown Phone Unavailable Allergies Active Description Code Type Severity Reaction Onset Reported/Identified Relationship to Patient Clinical Status Yes No Known Drug Allergies [id number] Drug Allergy Unknown N/A 09/02/2019 Medications There [...] detection by light microscopy SL IGHT NRG Bacterial blood culture - 09/04/19 13:55 Bacterial blood culture NG NRG Bacterial blood culture - 09/04/19 14:00 Bacterial blood culture NG NRG Bacterial blood culture - 09/04/19 14:04 Bacterial blood culture NG NRG Complete blood count (CBC) with automate d white blood cell (WBC) differential - 09/05/19 08:25 Blood leukocytes automated count (number/volume) 14.2 10*3/uL 4.3-11.0 Blood erythrocytes automated count (number/volume) 5.15 10*6/uL 4.35-5.85 Venous blood hemoglobin measurement (mass/volume) 15.1 g/dL 11.5-16.0 Blood hematocrit (volume fraction) 45 % 35-52 Automated erythrocyte mean corpuscular volume 87 [ foz_us] 80-99 Automated erythrocyte mean corpuscular h emoglobin (mass per erythrocyte) 29 pg 25-34 Automated erythrocyte mean corpuscular h emoglobin concentration measurement (mass/volume) 34 g/dL 32-36 Automated erythrocyte distribution width ratio 13. 9 % 10.0- 14.5 Automated blood platelet count (count/volume) 326 10*3/uL 130-400 Automated blood platelet mean volume measurement 9.2 [foz_us] 7.4-10.4 Automated blood neutrophils/100 leukocytes 68 % 42-75 Automated blood lymphocytes/100 leukocytes 20 % 12-44 Blood monocytes/100 leukocytes 10 % 0-12 Automated blood eosinophils/100 leukocytes 1 % 0-10 Automated blood basophils/100 leukocytes 1 % 0-10 Blood neutrophils automated count (number/volume) 9.7 10*3 1.8-7.8 Blood lymphocytes automated count (number/volume) 2.9 10*3 1.0-4.0 Blood monocytes automated count (number/volume) 1. 5 10*3 0.0-1.0 Automated eosinophil count 0.2 10*3/uL 0 .0-0.3 Automated blood basophil count (count/volume) 0.1 10*3/uL 0.0-0.1 Whole blood basic metabolic panel - 08/14 06/01 08:25 Serum or plasma sodium measurement (moles/volume) 137 mmol/L 135-145 Serum or plasma potassium measurement (moles/volume) 3.9 mmol/L 3.6-5.0 Serum or plasma chloride measurement (moles/volume) 106 mmol/L 98-107 Carbon dioxide 20 mmol/L 21-32 Serum or plasma anion gap determination (moles/volume) 11 mmol/L 5-14 Serum or plasma urea nitrogen measurement (mass/volume ) 13 mg/dL 7-18 Serum or plasma creatinine measurement (mass/volume) 0.57 mg/dL 0.60-1.30 Serum or plasma urea nitrogen/creatinine mass ratio 23 NRG Serum or plasma creatinine measurement w ith calculation of estimated glomerular filtration rate > NRG Serum or plasma glucose measurement (mass/volume) 98 mg/dL 70-105 Serum or plasma calcium measurement (mass/volume) 9.1 mg/dL 8.5-10.1 Encounters ACCT No. Visit Date/Time Discharge Status Pt. Type Provider Facility Loc./Unit Complaint [id number] 09/02/2019 11:10:00 020 11:00:00 DIS Inpatient CINDY ORTIZ, ALLYN Hernandez [facility] 4TH CVA SUBACUTE [id number] 09/05/2019 11:20:[address] Inpatient KRYS NEFF DO [facility] IRF CVA
== END ==
LOC: CATH 14:37
PROVIDERS: ATTEND Internal Medicine Cardiovascular Disease
DX: I63.9 Cerebral infarction, unspecified (principal); G81.91 Hemiplegia, unspecified affecting right dominant side; F17.210 Nicotine dependence, cigarettes, uncomplicated
CPT/HCPCS: 33285; C1764